=== PATIENT | female | born 1960 | race Caucasian/White ===

== ENCOUNTER 2021-02-08 08:07 | Emergency (ER) | payer MEDICARE, MEDICAID, SELFPAY ==
--- NOTE | ~2021-02-08 | XR_ITS ---
EXAMINATION: XR CHEST CLINICAL INFORMATION: Fall, weakness. COMPARISON: None. TECHNIQUE: AP view of the chest was obtained. FINDINGS: The patient is significantly rotated which limits this evaluation. Accounting for these limitations, no definite focal airspace opacities, pleural effusions or pneumothorax are identified. No acute osseous abnormalities. XR/XR chest 1V IMPRESSION: Examination is markedly limited due to patient's positioning. Recommend a repeat study with improved technique. Although, overall, no definite abnormalities are identified.
--- NOTE | ~2021-02-08 | CT_ITS ---
Indication: Trauma EXAMINATION: CT brain, CT cervical spine. Axial imaging with coronal and sagittal reformatted images. This CT examination was performed using dose optimization techniques as appropriate, variously including the following: *Automated exposure control *Adjustment of mA and/or kV according to patient size (this includes techniques or standardized protocols for targeted exams where dose is matched to indication/reason for exam; i.e. extremities or head) *Use of iterative reconstruction technique. Radiation dose is [address] brain; There is no midline shift. There is no mass effect. There is no hemorrhage. The basal cisterns appear patent. The posterior fossa is grossly within normal limits. There is no extra-axial collection. Low attenuation in the parietal white matter may represent white matter ischemic change. No mass effect in the region. There is no fracture on the bone windows. Cervical spine CT; Some limitation from artifact.. Degenerative changes. No convincing evidence for an acute fracture or dislocation. CT/CT head/brain wo con IMPRESSION: Negative acute noncontrast CT of the brain. No acute fracture or dislocation of the cervical spine.
--- NOTE | ~2021-02-08 | XR_ITS ---
EXAMINATION: XR KNEE, RIGHT CLINICAL INFORMATION: Knee pain. COMPARISON: None TECHNIQUE: Four views of the right knee. FINDINGS: Prosthetic components of the right total knee arthroplasty are appropriately aligned without periprosthetic fracture or lucency. No component migration. No joint effusion. XR/XR knee RT 4V IMPRESSION: Appropriate alignment of the right total knee arthroplasty without evidence of complications. No acute fractures or malalignment.
--- NOTE | ~2021-02-08 | CT_ITS ---
Indication: Trauma EXAMINATION: CT brain, CT cervical spine. Axial imaging with coronal and sagittal reformatted images. This CT examination was performed using dose optimization techniques as appropriate, variously including the following: *Automated exposure control *Adjustment of mA and/or kV according to patient size (this includes techniques or standardized protocols for targeted exams where dose is matched to indication/reason for exam; i.e. extremities or head) *Use of iterative reconstruction technique. Radiation dose is [address] brain; There is no midline shift. There is no mass effect. There is no hemorrhage. The basal cisterns appear patent. The posterior fossa is grossly within normal limits. There is no extra-axial collection. Low attenuation in the parietal white matter may represent white matter ischemic change. No mass effect in the region. There is no fracture on the bone windows. Cervical spine CT; Some limitation from artifact.. Degenerative changes. No convincing evidence for an acute fracture or dislocation. CT/CT cervical spine wo con IMPRESSION: Negative acute noncontrast CT of the brain. No acute fracture or dislocation of the cervical spine.
--- NOTE | 2021-02-08 08:12 | ECG_ITS ---
Test Reason : general medicine Blood Pressure : / mmHG Vent. Rate : 077 BPM Atrial Rate : 077 BPM P-R Int : 154 ms QRS Dur : 098 ms QT Int : 404 ms P-R-T Axes : 066 051 059 degrees QTc Int : 457 ms Normal sinus rhythm Low voltage QRS Cannot rule out septal infarct abnormal ECG No previous ECGs available Referred By: Ellyn Chaves Electronically Signed By:Chucky Sheehan
--- NOTE | 2021-02-08 08:19 | ED_ITS ---
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 She is coming from a shelter facility. She is only complaining of right knee pain. It appears as though patient is lethargic, slow to answer questions. no evidence signs of trauma upon arrival. Unsure of patient hit her head or lost consciousness with any of these falls, this was not related to us. Patient does not recall. Not on blood thinners. denies chest pain, shortness of breath, fevers, chills, nausea, vomiting, weakness, dizziness, vision changes MD complaint: other (Falls, Lethargy ) Onset (ago): day(s) (1) Severity: severe Consistency of symptoms: unknown Associated symptoms: other (right knee pain) Related Data Home Medications Medication Instructions Recorded Confirmed acetaminophen 500 mg tablet 1,000 mg PO TID 02/08/21 02/08/21 amlodipine 5 mg tablet 1 tab PO DAILY@0500 02/08/21 02/08/21 cholecalciferol (vitamin D3) 1,250 1,250 mcg PO QMONTH@1800 02/08/21 02/08/21 mcg (50,000 unit) tablet clozapine 100 mg tablet 250 mg PO BEDTIME 02/08/21 02/08/21 clozapine 25 mg tablet 25 mg PO DAILY 02/08/21 02/08/21 diazepam 5 mg tablet 2.5 mg PO DAILY@0600 02/08/21 02/08/21 diazepam 5 mg tablet 5 mg PO BID@1000,1300 02/08/21 02/08/21 duloxetine 60 mg capsule,delayed 60 mg PO DAILY 02/08/21 02/08/21 release famotidine 20 mg tablet 20 mg PO DAILY PRN 02/08/21 02/08/21 fluticasone 500 mcg-salmeterol 50 1 puff INHALATION BID 02/08/21 02/08/21 mcg/dose blistr powdr for inhalation (Advair Diskus) fluticasone propionate 50 1 spray INTRANASAL DAILY@1300 02/08/21 02/08/21 mcg/actuation nasal spray,suspension lidocaine 4 % topical patch 1 patch TOPICAL DAILY 02/08/21 02/08/21 (Salonpas (lidocaine)) linaclotide 145 mcg capsule 145 mcg PO Q48H 02/08/21 02/08/21 (Linzess) montelukast 10 mg tablet 1 tab PO DAILY@1800 02/08/21 02/08/21 omeprazole 40 mg capsule,delayed 40 mg PO BID 02/08/21 02/08/21 release pregabalin 150 mg capsule 1 cap PO TID 02/08/21 02/08/21 pregabalin 300 mg capsule 1 cap PO BEDTIME 02/08/21 02/08/21 quetiapine 100 mg tablet 100 mg PO BID@0900,1400 02/08/21 02/08/21 quetiapine 300 mg tablet 1 tab PO DAILY@1800 02/08/21 02/08/21 tramadol 50 mg tablet 50 mg PO BID PRN 02/08/21 02/08/21 zonisamide 100 mg capsule 1 cap PO DAILY@1500 02/08/21 02/08/21 Previous Rx's Medication Instructions Recorded nitrofurantoin 100 mg PO BID 7 Days #14 cap 02/08/21 monohydrate/macrocrystals 100 mg capsule (Macrobid) Allergies Allergy/AdvReac Type Severity Reaction Status Date / Time haloperidol [From Haldol] Allergy Unknown Verified 02/08/21 08:35 imipramine Allergy Unknown Verified 02/08/21 08:35 ketorolac Allergy Unknown Verified 02/08/21 08:35 Penicillins Allergy Unknown Verified 02/08/21 08:35 promethazine Allergy Unknown Verified 02/08/21 08:35 Review of Systems Review of Systems: Constitutional : No Weight loss, No Fever, No Chills, No Fatigue, No Malaise ENT/Mouth : No sore throat, No Rhinorrhea Eyes: No Eye Pain, No Swelling, No Redness Cardiovascular : No Chest Pain, No SOB, No Dyspnea on Exertion, No Orthopnea, No Edema, No Palpitations Respiratory : No Cough, No Sputum, No Wheezing Gastrointestinal : No Nausea, No Vomiting, No Diarrhea, No Constipation, No abdominal Pain, No Hematochezia, No Melena Genitourinary : No Dysuria, No Urinary Frequency, No Hematuria, Musculoskeletal : No joint pain, No Myalgias, No Joint Swelling Skin : No Skin Lesions, No rash Neuro : No Weakness, No Numbness, No Dizziness, No Headache All other systems reviewed and are negative Yes all other systems are reviewed and are negative [facility] Past Medical History Attestation statement: The following information was validated with the patient. Source: old records reviewed and nursing notes reviewed Social History Social History Alcohol intake: unknown Patient Tobacco Use Status: Former Tobacco user Use of substances other than those prescribed or required for medical reasons: Unknown Advance Directives: Yes Advance Directives on File: Yes Advance Directives Date on File: 02/08/21 Patient : No Physical Exam Vital Signs: Vital Signs: Last Vital Signs Temp 97.9 F 02/08/21 14:06 Pulse 75 02/08/21 14:06 Resp 16 02/08/21 14:06 BP 104/57 L 02/08/21 14:06 Pulse Ox 96 02/08/21 14:06 BMI result Body Mass Index 26.6 VSS Appearance: Alert.? Oriented X3.? No acute distress.? Patient is slow to respond to questions and appears lethargic. Head: Normocephalic, atraumatic, no step-offs or deformities Eyes: Pupils equal, round and reactive to light.? ENT: Pharynx normal.? Neck: Normal inspection.? Neck supple.? CVS: Normal heart rate and rhythm.? Pulses normal.? Respiratory: No respiratory distress.? Breath sounds normal.? Abdomen: Soft and nontender.? Skin: Skin warm and dry.? Normal skin color.? Normal skin turgor.? Extremities: No lower extremity edema.? No calf ttp. 5/5 strength to bilateral upper and lower extremities. ROM intact to bilateral knees. + large plantar wart to plantar aspect of left foot. Back: No midline tenderness, no C-spine tenderness, full range of motion, no CVA tenderness bilaterally Neuro: Oriented X 3.? No motor deficit.? No sensory deficit. Course Reevaluation(s) Reevaluation #1: Nurse spoke to staff from the nursing facility where she is coming from who tell us that patient is usually alert and oriented x3, she is not usually lethargic, she is usually walking and talking without any issues. She is usually upbeat with energy. Not like her presentation today. They tells that they did not give anything to sedate her. She last received her home meds last night around 6:00 a.m.. They made it clear to the nurse that this is not patient's baseline Time: 08:57 Reevaluation #2: No acute findings on CT of the head/ brain or cervical spine. X-ray of the knee with no acute findings. Chest x-ray is no evident abnormalities, limited due to patient's position/movement. Patient is not coughing, lungs are clear, no need for repeat chest x-ray at this time. Laboratory studies are pending, patient is very tested, phlebotomy was called to try to obtain these labs Time: 10:31 Reevaluation #3: Urine positive for UTI. Will DC with atbx. No acute electrol yte abnormalities. CBC within normal limits. Patient's urinary tract infection likely causing patient to we slightly lethargic, and altered from baseline. Unlikely pyelonephritis, no white blood c ell count, no CVA tenderness. ICH was ruled out. I feel comfortable with discharging patient back to shelter facility with a prescription for antibiotics to treat a UTI. Time: 14:23 MDM - Altered Mental Status MDM Narrative Medical decision making narrative: 824 60 yo F pmhx cerebral infarction, schizoaffective disorder, COPD, dysphagia, asthma, PTSD, factitious d/o opposed on self and essential HTN presents from SNF for multiple falls (3) within 12 hours and right knee pain. Physical examination is significant for a lethargic individual who is slow to answer questions. No evident signs of trauma. Neuro exam nonfocal. Lungs clear. Regular rate and rhythm. 5/5 strength to upper and lower extremities. Plan- Basic labs, point of care, EKG, CT of head / cervical spine, chest x- ray, x-ray of the right knee. Troponin and creatinine kinase. Will also obtain a urine. Medical Records Attestation: I reviewed the patient's medical records. Lab Data Attestation: I reviewed the patient's lab results. Result diagrams: 02/08/21 13:44 02/08/21 13:44 Labs: Lab Results 02/08/21 02/08/21 02/08/21 Range/Units 08:28 13:44 13:44 WBC 5.2 (4.8-10.8) X10*3/uL RBC 4.69 (4.20-5.50) X10*6/uL Hgb 13.9 (12.0-16.0) g/dl Hct 44.9 (37.0-47.0) % MCV 95.7 (80.0-98.0) fL MCH 29.6 (27.0-33.0) pg MCHC 31.0 (31.0-35.0) g/dl RDW 13.4 (11.0-16.0) % Plt Count 185 (160-400) X10*3/uL MPV 10.4 (9.4-12.3) fL Immature Gran % (Auto) 0.4 (0.0-0.4) % Neut % (Auto) 63.4 (45-73) % Lymph % (Auto) 29.0 (20-40) % [place]mons[place] % (Auto) 6.6 (2-11) % Eos % (Auto) 0.2 (0-4) % Baso % (Auto) 0.4 (0-2) % Lymph # (Auto) 1.5 (1.2-4.9) X10*3/uL [place] # (Auto) 0.3 (0.1-1.2) X10*3/uL Eos # (Auto) 0.0 (0.0-0.4) X10*3/uL Baso # (Auto) 0.0 (0.0-0.2) X10*3/uL Abs Immat Gran (auto) 0.02 (0.00-0.03) X10*3/uL Absolute Neuts (auto) 3.3 (2.0-8.3) x10*3/uL Absolute Nucleated RBC 0.000 (0.0-0.012) X10*3/uL Nucleated RBC % (auto) 0.0 (0.0-0.2) /100WBC Sodium 146 H (135-145) mmol/L Potassium 4.3 (3.3-5.1) mmol/L Chloride 112 H (96-108) mmol/L Carbon Dioxide 27 (22-29) mmol/L Anion Gap 11 L (12-20) BUN 13 (9-16) mg/dL Creatinine 0.81 (0.5-1.4) mg/dL Estim Creat Clear Calc 76.3 Estimated GFR > 60 POC Glucose 120 H (60-115) mg/dL Random Glucose 116 H (60-115) mg/dL Calcium 9.4 (8.4-10.2) mg/dL Magnesium 2.2 (1.6-2.6) mg/dL Total Bilirubin 0.3 (0.0-1.0) mg/dL AST 14 (5-31) U/L ALT 14 (0-31) U/L Alkaline Phosphatase 94 (39-117) U/L Total Creatine Kinase 87 (26-140) U/L Troponin I High Sens (<3.5-17.0) ng/L Total Protein 7.0 (6.5-8.0) g/dL Albumin 4.2 (3.5-5.0) g/dL Urine Color Urine Appearance Urine pH (5.0-8.0) Ur Specific [place] (1.005-1.025) Urine Protein (NEG-TRACE) MG/DL Urine Glucose (UA) (NEG) MG/DL Urine Ketones (NEG) MG/DL Urine Blood (NEG) Urine Nitrite (NEG) Ur Leukocyte Esterase (NEG) Urine RBC (0) /HPF Urine WBC (0-4) /HPF Ur Squamous Epith Cells /LPF Urine Bacteria /LPF COVID-19 (SUKHJINDER) (Negative) COVID-19 Clin Com 02/08/21 02/08/21 02/08/21 Range/Units 13:44 13:44 13:44 WBC (4.8-10.8) X10*3/uL RBC (4.20-5.50) X10*6/uL Hgb (12.0-16.0) g/dl Hct (37.0-47.0) % MCV (80.0-98.0) fL MCH (27.0-33.0) pg MCHC (31.0-35.0) g/dl RDW (11.0-16.0) % Plt Count (160-400) X10*3/uL MPV (9.4-12.3) fL Immature Gran % (Auto) (0.0-0.4) % Neut % (Auto) (45-73) % Lymph % (Auto) (20-40) % Edmonson % (Auto) (2-11) % Eos % (Auto) (0-4) % Baso % (Auto) (0-2) % Lymph # (Auto) (1.2-4.9) X10*3/uL Edmonson # (Auto) (0.1-1.2) X10*3/uL Eos # (Auto) (0.0-0.4) X10*3/uL Baso # (Auto) (0.0-0.2) X10*3/uL Abs Immat Gran (auto) (0.00-0.03) X10*3/uL Absolute Neuts (auto) (2.0-8.3) x10*3/uL Absolute Nucleated RBC (0.0-0.012) X10*3/uL Nucleated RBC % (auto) (0.0-0.2) /100WBC Sodium (135-145) mmol/L Potassium (3.3-5.1) mmol/L Chloride (96-108) mmol/L Carbon Dioxide (22-29) mmol/L Anion Gap (12-20) BUN (9-16) mg/dL Creatinine (0.5-1.4) mg/dL Estim Creat Clear Calc Estimated GFR POC Glucose (60-115) mg/dL Random Glucose (60-115) mg/dL Calcium (8.4-10.2) mg/dL Magnesium (1.6-2.6) mg/dL Total Bilirubin (0.0-1.0) mg/dL AST (5-31) U/L ALT (0-31) U/L Alkaline Phosphatase (39-117) U/L Total Creatine Kinase (26-140) U/L Troponin I High Sens < 3.5 (<3.5-17.0) ng/L Total Protein (6.5-8.0) g/dL Albumin (3.5-5.0) g/dL Urine Color YELLOW Urine Appearance HAZY Urine pH 7.0 (5.0-8.0) Ur Specific [place] 1.010 (1.005-1.025) Urine Protein NEG (NEG-TRACE) MG/DL Urine Glucose (UA) NEG (NEG) MG/DL Urine Ketones NEG (NEG) MG/DL Urine Blood TRACE (NEG) Urine Nitrite POS H (NEG) Ur Leukocyte Esterase 3+ H (NEG) Urine RBC 0 (0) /HPF Urine WBC 76-150 H (0-4) /HPF Ur Squamous Epith Cells NONE /LPF Urine Bacteria 4+ /LPF COVID-19 (SUKHJINDER) Negative (Negative) COVID-19 Clin Com See Note Imaging Data CT of head/ brain.: Attestation: I personally reviewed and interpreted this imaging study as follows: Radiologist's impression: CT/CT head/brain wo con IMPRESSION: Negative acute noncontrast CT of the brain. ? No acute fracture or dislocation of the cervical spine. Chest x-ray: Attestation: I personally reviewed and interpreted this imaging study as follows: Radiologist's impression: XR/XR chest 1V IMPRESSION: Examination is markedly limited due to patient's positioning. Recommend a repeat study with improved technique. Although, overall, no definite abnormalities are identified. X-ray of right knee: Attestation: I personally reviewed and interpreted this imaging study as follows: Radiologist's impression: XR/XR knee RT 4V IMPRESSION: Appropriate alignment of the right total knee arthroplasty without evidence of complications. No acute fractures or malalignment. ? ECG Data ECG #1: Attestation: I personally reviewed and interpreted this ECG as follows: ECG interpretation date: 02/08/21 ECG interpretation time: 08:36 Prior ECG tracings: not available for review Interpretation: Ventricular rate of 77, WV normal, QRS normal, QT / QTC normal. EKG shows normal sinus rhythm, with low voltage. No ST elevations or inversions. No acute ischemia. No previous EKGs to compare with. Critical Care Time Critical Care Time Critical Care Time: No Discharge Plan Discharge Clinical Impression: Urinary tract infection, Lethargy, Right knee pain Patient Disposition: Home, Self-Care Instructions: Fatigue (ED), Arthralgia (ED), Urinary Tract Infection in Older Adults (ED) Additional Instructions: Take your medications as prescribed. If you were prescribed antibiotics today, it is important that you take your medication to their entirety, do not skip any doses, do not finish them early. Follow-up with your primary care provider this week. Return to the emergency department with new or worsening symptoms. In case of emergency call 911 COVID-19 negative today. Prescriptions: New nitrofurantoin monohyd/m-cryst [Macrobid] 100 mg capsule 100 mg PO BID 7 Days Qty: 14 RF: 0 No Action quetiapine 300 mg tablet 1 tab PO DAILY@1800 RF: 0 lidocaine [Salonpas (lidocaine)] 4 % Adhesive Patch,Medicated 1 patch TOPICAL DAILY RF: 0 clozapine 100 mg Tablet 250 mg PO BEDTIME RF: 0 amlodipine 5 mg tablet 1 tab PO DAILY@0500 RF: 0 omeprazole 40 mg capsule,delayed release(DR/EC) 40 mg PO BID RF: 0 tramadol 50 mg Tablet 50 mg PO BID PRN (Reason: Severe Pain (Scale Score 7-10)) RF: 0 quetiapine 100 mg tablet 100 mg PO BID@0900,1400 RF: 0 acetaminophen 500 mg Tablet 1,000 mg PO TID RF: 0 zonisamide 100 mg capsule 1 cap PO DAILY@1500 RF: 0 famotidine 20 mg Tablet 20 mg PO DAILY PRN (Reason: gi distress) RF: 0 fluticasone propion-salmeterol [Advair Diskus] 500-50 mcg/dose blister with device 1 puff inhalation BID RF: 0 montelukast 10 mg tablet 1 tab PO DAILY@1800 RF: 0 clozapine 25 mg Tablet 25 mg PO DAILY RF: 0 fluticasone propionate 50 mcg/actuation spray,suspension 1 spray intranasal DAILY@1300 RF: 0 diazepam 5 mg Tablet 2.5 mg PO DAILY@0600 RF: 0 diazepam 5 mg tablet 5 mg PO BID@1000,1300 RF: 0 duloxetine 60 mg capsule,delayed release(DR/EC) 60 mg PO DAILY RF: 0 pregabalin 150 mg capsule 1 cap PO TID RF: 0 pregabalin 300 mg capsule 1 cap PO BEDTIME RF: 0 cholecalciferol (vitamin D3) 1,250 mcg (50,000 unit) Tablet 1,250 mcg PO QMONTH@1800 RF: 0 Linzess 145 mcg capsule 145 mcg PO Q48H RF: 0 Referrals: Heather Villasenor MD [Primary Care Provider] - 2 days
--- NOTE | 2021-02-08 08:29 | PC.NURSE ---
Maria L HAYNES at [facility] states that baseline is axox4, ambulatory w/o assist. speech at baseline is clear and normal . fell x 3 overnight, this am staff couldn't wake patient for meds. no overnight PRNs.
[2021-02-08 08:39] VITALS: BP 111/51; BP 127/91; PULSE 80; PULSE 85; RESP 18; TEMP 36.6; O2SAT 95; O2SAT 98; BMI 26.6
[2021-02-08 08:47] LABS: Glucose, Whole Blood 120 mg/dL (60-115)
--- NOTE | 2021-02-08 09:09 | PHA.MEDREC ---
Pharmacy Consult ? Medication Reconciliation Pharmacy has completed the medication reconciliation. Patient came from [facility] with a medication list. Rachel Gutierrez, LizandroD
--- NOTE | 2021-02-08 09:48 | PC.NURSE ---
pt is a very difficult stick. falls asleep between IV attempts.
[2021-02-08 10:00] VITALS: BP 120/60; PULSE 71; RESP 18; O2SAT 98
--- NOTE | 2021-02-08 11:13 | PC.NURSE ---
pt has been a difficult stick. provider is now attempting IV access. pt is sleeping between interventions and difficult to arouse at times. Pupils 5mm and reactive equally.
--- NOTE | 2021-02-08 13:30 | PC.NURSE ---
pt found ambulating to BR. alert, speech is clear and rapid, states she has to pee . is somewhat unsteady on feet but states she usess walker at facilty. Voided over 1000ml. cloudy urine. assisted back to bed. will attempt labs again.
[2021-02-08 13:43] VITALS: BP 109/61; PULSE 73; RESP 18; TEMP 36.5; O2SAT 98
[2021-02-08 13:51] LABS: MANUAL DIFF FLAG NO
[2021-02-08 13:52] LABS: Basophils Percent Auto 0.4 % (0-2); Eosinophils Percent Auto 0.2 % (0-4); Hematocrit 44.9 % (37.0-47.0); Hemoglobin 13.9 g/dl (12.0-16.0); Imm Gran Abs Auto 0.02 X10*3/uL (0.00-0.03); Imm Gran Pct Auto 0.4 % (0.0-0.4); Lymphocytes Absolute Auto 1.5 X10*3/uL (1.2-4.9); Mean Corpuscular Hemoglobin 29.6 pg (27.0-33.0); Mean Corpuscular Volume 95.7 fL (80.0-98.0); Mean Platelet Volume 10.4 fL (9.4-12.3); Monocytes Absolute Auto 0.3 X10*3/uL (0.1-1.2); Monocytes Percent Auto 6.6 % (2-11); Neutrophils Absolute Auto 3.3 x10*3/uL (2.0-8.3); Neutrophils Percent Auto 63.4 % (45-73); Platelet Count 185 X10*3/uL (160-400); Red Blood Count 4.69 X10*6/uL (4.20-5.50); Red Cell Distribution Width 13.4 % (11.0-16.0); White Blood Count 5.2 X10*3/uL (4.8-10.8)
[2021-02-08 14:00] LABS: Appearance Urine HAZY; Color Urine YELLOW; Glucose Urine UA NEG (NEG); Leukocyte Esterase Urine 3+ (NEG); Nitrite Urine POS (NEG); UACC Culture Trigger YES; Urine Blood TRACE (NEG); Urine Ketones NEG (NEG); Urine Protein NEG (NEG-TRACE)
[2021-02-08 14:06] VITALS: BP 104/57; PULSE 75; RESP 16; TEMP 36.6; O2SAT 96
[2021-02-08 14:07] LABS: COVID-19 Test Negative (Negative)
[2021-02-08 14:10] LABS: Alanine Aminotransferase 14 U/L (0-31); Albumin Level 4.2 g/dL (3.5-5.0); Alkaline Phosphatase 94 U/L (39-117); Anion Gap 11 (12-20); Aspartate Amino Transferase 14 U/L (5-31); Bilirubin Total 0.3 mg/dL (0.0-1.0); Blood Urea Nitrogen 13 mg/dL (9-16); Calcium 9.4 mg/dL (8.4-10.2); Carbon Dioxide 27 mmol/L (22-29); Chloride 112 mmol/L (96-108); Creatinine Clr Calc Pharmacy 76.3; Estimated Glomerular Filt Rate > 60; Glucose Random 116 mg/dL (60-115); Magnesium 2.2 mg/dL (1.6-2.6); Potassium 4.3 mmol/L (3.3-5.1); Sodium 146 mmol/L (135-145)
[2021-02-08 14:13] LABS: Bacteria Urine 4+ /LPF; Troponin-I High Sensitivity < 3.5 ng/L (<3.5-17.0)
[2021-02-08 14:14] LABS: RBC Urine 0 /HPF (0)
--- NOTE | 2021-02-08 14:42 | PC.NURSE ---
mission care called. no one answering.
--- NOTE | 2021-02-08 14:44 | PC.NURSE ---
rn to rn herber haji at [facility]
--- NOTE | 2021-02-08 15:18 | PC.NURSE ---
awaiting transportation
--- NOTE | 2021-02-08 15:37 | PC.NURSE ---
alert and oriented at discharge.
== END 2021-02-08 15:37 | disposition home or self-care (01) ==
PROVIDERS: Physician Assistant; Emergency Provider Emergency Medicine; PCP Internal Medicine
DX: M25.561 Pain in right knee (principal); N39.0 Urinary tract infection, site not specified; R53.83 Other fatigue; R51.9 Headache, unspecified; M54.2 Cervicalgia; Z20.822 Contact with and (suspected) exposure to COVID-19; Z87.891 Personal history of nicotine dependence; Z79.899 Other long term (current) drug therapy; Z91.81 History of falling
CPT/HCPCS: 36415; 70450; 71045; 72125; 73564; 80053; 81001; 81003; 82550; 82947; 83735; 84484; 85025; 87086; 87088; 87186; 87635; 93005; 96360; 99284

== ENCOUNTER 2022-01-04 18:10 | Inpatient (IN) | payer MEDICARE, MEDICAID, SELFPAY ==
[2022-01-04] VITALS (24 sets, daily range): BP systolic 72–135; BP diastolic 34–80; PULSE 74–110; RESP 16–30; TEMP 36; O2SAT 86–100; BMI 35.4; BMI 37.1
--- NOTE | ~2022-01-04 | XR_ITS ---
EXAMINATION: XR CHEST CLINICAL INFORMATION: 61-year-old female with history of shortness of breath. Follow-up lung abnormality. COMPARISON: CXR from 01/10/2022 TECHNIQUE: Frontal view of the chest was obtained. FINDINGS: The patient is rotated into a left anterior oblique position. The aeration of the left lung remains significantly improved compared 01/04/2022. The left diaphragm is well-defined. There is persistent opacity of the right lower lung and blunted appearance of the lateral costophrenic sulcus. The right lung is hypoexpanded. The aeration of the right lower lung is mildly improved compared to 01/10/2022. The cardiomediastinal silhouette is suboptimally evaluated due to patient rotation. Pulmonary vessels are normal in caliber. 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 XR/XR chest 1V IMPRESSION: * Nonspecific opacity from atelectasis or potentially pneumonia in the right lower lobe. The aeration of the right lower lung is mildly improved compared to 01/10/2022. * There appears to be a small right pleural effusion.
--- NOTE | ~2022-01-04 | XR_ITS ---
EXAMINATION: XR CHEST CLINICAL INFORMATION: Pneumonia follow-up COMPARISON: Chest x-ray January 04, 2022 TECHNIQUE: Frontal view of the chest was obtained. FINDINGS: Cardiac silhouette is normal in size. Interval extubation and removal of enteric tubes. Similar positioning of right-sided jugular catheter which is abnormal in position, possibly terminating within the right axillary vein. Hypoinflated lungs. Mild interval improvement in aeration of the left lung base. Mild bibasilar opacities are nonspecific but most suggestive of atelectasis. A small amount of fluid is suspected within the left fissure. Scoliotic and degenerative changes of the spine. XR/XR chest 1V IMPRESSION: 1. Interval extubation and removal of enteric tubes. 2. Similar positioning of right-sided jugular catheter which is abnormal in position, possibly terminating within the right axillary vein. Clinical correlation recommended. Repositioning may be required. 3. Mild interval improvement in aeration of the left lung base.
--- NOTE | ~2022-01-04 | XR_ITS ---
EXAMINATION: XR CHEST CLINICAL INFORMATION: Line placement COMPARISON: 01/04/2022 5:56 PM TECHNIQUE: Frontal view of the chest was obtained. FINDINGS: ET tube present 3.2 cm above the danielle. An NG tube has its tip in the stomach. What appears to be a right internal jugular line has its tip in the axillary vein. There is been dramatic improvement in appearances in the left lung with now near total aeration aside from some lobe atelectasis. Biconvex thoracolumbar scoliosis with degenerative changes in the spine. XR/XR chest 1V IMPRESSION: 1. What appears to be a right internal jugular line has its tip in the axillary vein. 2. ET tube 3.2 cm above the danielle. 3. NG tube in good position. 4. Marked improvement in left lung aeration
--- NOTE | ~2022-01-04 | XR_ITS ---
EXAMINATION: XR CHEST CLINICAL INFORMATION: Tube placement COMPARISON: 02/08/2021 TECHNIQUE: Frontal view of the chest was obtained. FINDINGS: An ET tube is present 2.5 cm above the danielle. There is volume loss in the left hemithorax with diffuse airspace opacity with air bronchograms. The right lung is clear. Thoracolumbar scoliosis and degenerative changes are present. XR/XR chest 1V IMPRESSION: 1. ET tube 2.5 cm above the danielle. 2. Volume loss left hemithorax with diffuse airspace opacity.
--- NOTE | ~2022-01-04 | XR_ITS ---
EXAMINATION: XR CHEST CLINICAL INFORMATION: Dyspnea, rule out aspiration. COMPARISON: 01/06/2022 chest radiograph. TECHNIQUE: Frontal view of the chest was obtained. FINDINGS: Opacities are seen in the right lower lung. The left lung is clear. The heart and mediastinal structures are unremarkable. XR/XR chest 1V IMPRESSION: Opacities in the right lower lung represent interval worsening from the previous study and suggest a small right pleural effusion with superjacent layering, atelectasis and/or infiltrate.
--- NOTE | 2022-01-04 08:28 | ECG_ITS ---
Test Reason : CASRDIAC ARREST Blood Pressure : / mmHG Vent. Rate : 104 BPM Atrial Rate : 104 BPM P-R Int : 144 ms QRS Dur : 096 ms QT Int : 366 ms P-R-T Axes : 075 087 058 degrees QTc Int : 481 ms Poor data quality Sinus tachycardia Possible Left atrial enlargement Low voltage QRS Intra-ventricular conduction delay Abnormal ECG When compared with ECG of 08-FEB-2021 08:36, Heart rate has increased Referred By: Derek Hidalgo Electronically Signed By:IZABEL GAGE MD
[2022-01-04 18:33] LABS: Glucose, Whole Blood 151 mg/dL (60-115)
[2022-01-04] MEDS: propofoL 200 MG/20 ML VIAL 75 MG IVPUSH (19:12)
--- NOTE | 2022-01-04 19:23 | PC.NURSE ---
per MD leyva- central line ok to use at this time.
[2022-01-04] MEDS: propofoL 1,000 MG/100 ML VIAL 3.33 MG IVCONT (19:25)
--- NOTE | 2022-01-04 19:30 | PC.NURSE ---
Labs drawn off of central line.
--- NOTE | 2022-01-04 19:33 | PC.NURSE ---
Care of patient assumed at 1900. Patient found lying supine in stretcher while MD places central line to right neck. O2 saturations while flat are [id number] 70s%. Propofol running through IO at 5mcg/kg/min. Central line complete and tube/central line verified by placement by MD Sanket LOCKETT to use line now. Arredondo placed. BPs low so levo initiated. Patient boosted, repositioned, and saturations increase to 92-94% on 100% fio2. patient cool to touch, mottled. labs sent.
[2022-01-04 19:43] LABS: Basophils Percent Auto 0.3 % (0-2); Hematocrit 42.5 % (37.0-47.0); Hemoglobin 13.2 g/dl (12.0-16.0); Imm Gran Abs Auto 0.12 X10*3/uL (0.00-0.03); Imm Gran Pct Auto 1.1 % (0.0-0.4); Lymphocytes Absolute Auto 1.6 X10*3/uL (1.2-4.9); Lymphocytes Percent Auto 14.6 % (20-40); Mean Corpuscular HGB Conc 31.1 g/dl (31.0-35.0); Mean Corpuscular Hemoglobin 28.9 pg (27.0-33.0); Monocytes Absolute Auto 0.6 X10*3/uL (0.1-1.2); Monocytes Percent Auto 5.3 % (2-11); Neutrophils Absolute Auto 8.5 x10*3/uL (2.0-8.3); Neutrophils Percent Auto 78.7 % (45-73); Platelet Count 165 X10*3/uL (160-400); Red Blood Count 4.57 X10*6/uL (4.20-5.50); Red Cell Distribution Width 15.5 % (11.0-16.0); White Blood Count 10.8 X10*3/uL (4.8-10.8)
[2022-01-04 19:55] LABS: VBG Base Excess -1.6 mmol/L; VBG HCO3 26 mmol/L (22-26); VBG pCO2 59 mmHg; VBG pH 7.25 (7.32-7.43); VBG pO2 66 mmHg
[2022-01-04 19:57] LABS: Venous Blood Gas Refer to POC result
[2022-01-04 19:59] LABS: Lactic Acid 1.3 mmol/L (0.5-2.0)
[2022-01-04 20:02] LABS: Anion Gap 18 (12-20); Blood Urea Nitrogen 13 mg/dL (9-16); Calcium 8.6 mg/dL (8.4-10.2); Carbon Dioxide 22 mmol/L (22-29); Chloride 106 mmol/L (96-108); Creatinine Clr Calc Pharmacy 95.2; Estimated Glomerular Filt Rate > 60; Glucose Random 173 mg/dL (60-115); Potassium 3.6 mmol/L (3.3-5.1); Sodium 142 mmol/L (135-145)
--- NOTE | 2022-01-04 20:02 | ED.CPR ---
HPI - CPR General Chief Complaint: Cardiac Arrest/CPR Stated Complaint: CARDIAC ARREST Time Seen by Provider: 01/04/22 18:26 Source: EMS, RN notes reviewed and old records reviewed Mode of arrival: EMS Limitations: altered mental status History of Present Illness HPI narrative: 61-year-old female from a local detention presents to the emergency department today status post cardiopulmonary arrest. The patient was eating dinner and aspirated, prompting a cardiopulmonary arrest. The patient did receive CPR from staff members, and upon EMS arrival, the patient was breathing, and had a pulse, although her respiratory rate was only approximately 4. The patient was placed on a bag-valve mask, and transported to the hospital. An IO was started, but only IV fluids were given. HPI, review of systems, and physical exam may be limited secondary to the patient's critical illness MD complaint: found unresponsive and stopped breathing Timing confirmed by: caregiver Place: ND/SNF Bystander CPR performed: Yes AED applied by bystander/rim roller setter: No Downtime before ACLS arrival (mins): 5 Initial findings in the field: unresponsive and good pulses ROSC in the field: Yes Associated injuries: No Treatments prior to arrival: BMV Related Data Home Medications Medication Instructions Recorded Confirmed acetaminophen 500 mg tablet 1,000 mg PO TID 02/08/21 02/08/21 amlodipine 5 mg tablet 1 tab PO DAILY@0500 02/08/21 02/08/21 cholecalciferol (vitamin D3) 1,250 1,250 mcg PO QMONTH@1800 02/08/21 02/08/21 mcg (50,000 unit) tablet clozapine 100 mg tablet 250 mg PO BEDTIME 02/08/21 02/08/21 clozapine 25 mg tablet 25 mg PO DAILY 02/08/21 02/08/21 diazepam 5 mg tablet 2.5 mg PO DAILY@0600 02/08/21 02/08/21 diazepam 5 mg tablet 5 mg PO BID@1000,1300 02/08/21 02/08/21 duloxetine 60 mg capsule,delayed 60 mg PO DAILY 02/08/21 02/08/21 release famotidine 20 mg tablet 20 mg PO DAILY PRN gi distress 02/08/21 02/08/21 fluticasone 500 mcg-salmeterol 50 1 puff inhalation BID 02/08/21 02/08/21 mcg/dose blistr powdr for inhalation (Advair Diskus) fluticasone propionate 50 1 spray intranasal DAILY@1300 02/08/21 02/08/21 mcg/actuation nasal spray,suspension lidocaine 4 % topical patch 1 patch topical DAILY Upper right 02/08/21 02/08/21 (Salonpas (lidocaine)) thigh linaclotide 145 mcg capsule 145 mcg PO Q48H 02/08/21 02/08/21 (Linzess) montelukast 10 mg tablet 1 tab PO DAILY@1800 02/08/21 02/08/21 omeprazole 40 mg capsule,delayed 40 mg PO BID 02/08/21 02/08/21 release pregabalin 150 mg capsule 1 cap PO TID 02/08/21 02/08/21 pregabalin 300 mg capsule 1 cap PO BEDTIME 02/08/21 02/08/21 quetiapine 100 mg tablet 100 mg PO BID@0900,1400 02/08/21 02/08/21 quetiapine 300 mg tablet 1 tab PO DAILY@1800 02/08/21 02/08/21 tramadol 50 mg tablet 50 mg PO BID PRN Severe Pain 02/08/21 02/08/21 (Scale Score 7-10) zonisamide 100 mg capsule 1 cap PO DAILY@1500 02/08/21 02/08/21 Previous Rx's Medication Instructions Recorded nitrofurantoin 100 mg PO BID 7 days #14 caps 02/08/21 monohydrate/macrocrystals 100 mg capsule (Macrobid) Allergies Allergy/AdvReac Type Severity Reaction Status Date / Time haloperidol [From Haldol] Allergy Unknown Verified 02/08/21 08:35 imipramine Allergy Unknown Verified 02/08/21 08:35 ketorolac Allergy Unknown Verified 02/08/21 08:35 Penicillins Allergy Unknown Verified 02/08/21 08:35 promethazine Allergy Unknown Verified 02/08/21 08:35 Review of Systems Review of Systems: Yes Unobtainable due to mental condition PMFSH Past Medical History Source: unable to obtain Social History Social History Alcohol intake: unknown Patient Tobacco Use Status: Former Tobacco user Advance Directives: Yes Advance Directives Information Provided: No Advance Directives on File: No Advance Directives Date on File: 02/08/21 Physical Exam Vital Signs: Vital Signs: Last Vital Signs Pulse 86 01/04/22 19:52 Resp 29 H 01/04/22 19:43 BP 81/34 L 01/04/22 20:10 Pulse Ox 96 01/04/22 19:43 O2 Del Method 01/04/22 19:42 FiO2 100 01/04/22 19:42 BMI result Body Mass Index 37.1 Vital signs as noted. the patient is markedly hypertensive Const: General: in distress and patient obtunded Nutritional Appearance: obese morbidly obese Orientation/consciousness: patient obtunded Limitations: altered mental status HEENT: Head: Yes normal to inspection, Yes normocephalic and Yes atraumatic Ears: hearing grossly normal bilaterally General nose exam: Normal external nose present Face and sinus: Yes normal facial exam Eyes: Conjunctivae: conjunctivae normal Sclerae: sclerae normal Pupils: Equal, round and reactive pupils present Neck: Neck: Yes normal visual inspection Chest: Chest palpation & inspection: normal inspection of the chest and no crepitus Resp: Other: Respirations assisted by bag-valve mask Cardio: Rate: regular rate Rhythm: regular rhythm GI: Inspection: Yes normal to inspection and No abdominal wall ecchymosis Skin: General skin exam: no mottling, no petechiae and pallor Neuro: Other: Unresponsive General: patient obtunded Cranial nerves: Yes Equal, round and reactive pupils present Medications Administered Generic Name Dose Route Start Last Admin Trade Name Freq PRN Reason Stop Dose Admin Propofol 1,000 mg in 100 mls @ 0 mls/hr 01/04/22 19:30 01/04/22 19:43 Diprivan IVCONT 10 mcg/kg/min .Q0M SADA 6.65 mls/hr Titration Protocol Per Protocol Norepinephrine Bitartrate 8 mg in 250 mls @ 0 mls/hr 01/04/22 19:30 01/04/22 20:10 Levophed IVCONT 0.11 mcg/kg/min .Q0M SADA 22.87 mls/hr Titration Protocol Per Protocol Discontinued Medications Generic Name Dose Route Start Last Admin Trade Name Freq PRN Reason Stop Dose Admin Propofol 75 mg 01/04/22 19:06 01/04/22 19:12 Propofol 200 Mg/20 Ml Vial IVPUSH 01/04/22 19:07 75 mg ONCE ONE Administration Rocuronium [place] 100 mg 01/04/22 19:07 01/04/22 19:12 Rocuronium [place] 100 Mg/10 Ml Vial IV 01/04/22 19:08 100 mg Q2H ONE Administration MDM - Cardiac Arrest/CPR MDM Narrative Medical decision making narrative: 61-year-old female presented in extremis status post cardiopulmonary arrest. The patient received CPR prior to arrival. In the emergency department, the patient was intubated, a right IJ was placed using ultrasound guidance. The patient was treated with propofol IV for sedation, as well as rocuronium for paralysis to assist in the intubation. Chest x-ray as documented below. EKG as documented below. The patient will be admitted to the ICU for additional management. Medical Records Attestation: I reviewed the patient's medical records. Lab Data Attestation: I reviewed the patient's lab results. Result diagrams: 01/04/22 19:30 01/04/22 19:30 Labs: Lab Results 01/04/22 01/04/22 01/04/22 Range/Units 18:29 19:30 19:30 WBC 10.8 (4.8-10.8) X10*3/uL RBC 4.57 (4.20-5.50) X10*6/uL Hgb 13.2 (12.0-16.0) g/dl Hct 42.5 (37.0-47.0) % MCV 93.0 (80.0-98.0) fL MCH 28.9 (27.0-33.0) pg MCHC 31.1 (31.0-35.0) g/dl RDW 15.5 (11.0-16.0) % Plt Count 165 (160-400) X10*3/uL MPV 11.0 (9.4-12.3) fL Immature Gran % (Auto) 1.1 H (0.0-0.4) % Neut % (Auto) 78.7 H (45-73) % Lymph % (Auto) 14.6 L (20-40) % [place] % (Auto) 5.3 (2-11) % Eos % (Auto) 0.0 (0-4) % Baso % (Auto) 0.3 (0-2) % Lymph # (Auto) 1.6 (1.2-4.9) X10*3/uL [place] # (Auto) 0.6 (0.1-1.2) X10*3/uL Eos # (Auto) 0.0 (0.0-0.4) X10*3/uL Baso # (Auto) 0.0 (0.0-0.2) X10*3/uL Abs Immat Gran (auto) 0.12 H (0.00-0.03) X10*3/uL Absolute Neuts (auto) 8.5 H (2.0-8.3) x10*3/uL Absolute Nucleated RBC 0.000 (0.0-0.012) X10*3/uL Nucleated RBC % (auto) 0.0 (0.0-0.2) /100WBC VBG pH (7.32-7.43) VBG pCO2 mmHg VBG pO2 mmHg VBG HCO3 (22-26) mmol/L VBG O2 Saturation % VBG Base Excess mmol/L Sodium 142 (135-145) mmol/L Potassium 3.6 (3.3-5.1) mmol/L Chloride 106 (96-108) mmol/L Carbon Dioxide 22 (22-29) mmol/L Anion Gap 18 (12-20) BUN 13 (9-16) mg/dL Creatinine 0.81 (0.5-1.4) mg/dL Estim Creat Clear Calc 95.2 Estimated GFR > 60 POC Glucose 151 H (60-115) mg/dL Random Glucose 173 H (60-115) mg/dL Lactic Acid (0.5-2.0) mmol/L Calcium 8.6 D (8.4-10.2) mg/dL Troponin I High Sens (<3.5-17.0) ng/L 01/04/22 01/04/22 01/04/22 Range/Units 19:30 19:30 19:41 WBC (4.8-10.8) X10*3/uL RBC (4.20-5.50) X10*6/uL Hgb (12.0-16.0) g/dl Hct (37.0-47.0) % MCV (80.0-98.0) fL MCH (27.0-33.0) pg MCHC (31.0-35.0) g/dl RDW (11.0-16.0) % Plt Count (160-400) X10*3/uL MPV (9.4-12.3) fL Immature Gran % (Auto) (0.0-0.4) % Neut % (Auto) (45-73) % Lymph % (Auto) (20-40) % [place] % (Auto) (2-11) % Eos % (Auto) (0-4) % Baso % (Auto) (0-2) % Lymph # (Auto) (1.2-4.9) X10*3/uL [place] # (Auto) (0.1-1.2) X10*3/uL Eos # (Auto) (0.0-0.4) X10*3/uL Baso # (Auto) (0.0-0.2) X10*3/uL Abs Immat Gran (auto) (0.00-0.03) X10*3/uL Absolute Neuts (auto) (2.0-8.3) x10*3/uL Absolute Nucleated RBC (0.0-0.012) X10*3/uL Nucleated RBC % (auto) (0.0-0.2) /100WBC VBG pH 7.25 L (7.32-7.43) VBG pCO2 59 mmHg VBG pO2 66 mmHg VBG HCO3 26 (22-26) mmol/L VBG O2 Saturation 89.0 % VBG Base Excess -1.6 mmol/L Sodium (135-145) mmol/L Potassium (3.3-5.1) mmol/L Chloride (96-108) mmol/L Carbon Dioxide (22-29) mmol/L Anion Gap (12-20) BUN (9-16) mg/dL Creatinine (0.5-1.4) mg/dL Estim Creat Clear Calc Estimated GFR POC Glucose (60-115) mg/dL Random Glucose (60-115) mg/dL Lactic Acid 1.3 (0.5-2.0) mmol/L Calcium (8.4-10.2) mg/dL Troponin I High Sens < 3.5 (<3.5-17.0) ng/L 01/04/ Range/Units 20:10 WBC (4.8-10.8) X10*3/uL RBC (4.20-5.50) X10*6/uL Hgb (12.0-16.0) g/dl Hct (37.0-47.0) % MCV (80.0-98.0) fL MCH (27.0-33.0) pg MCHC (31.0-35.0) g/dl RDW (11.0-16.0) % Plt Count (160-400) X10*3/uL MPV (9.4-12.3) fL Immature Gran % (Auto) (0.0-0.4) % Neut % (Auto) (45-73) % Lymph % (Auto) (20-40) % [place] % (Auto) (2-11) % Eos % (Auto) (0-4) % Baso % (Auto) (0-2) % Lymph # (Auto) (1.2-4.9) X10*3/uL [place] # (Auto) (0.1-1.2) X10*3/uL Eos # (Auto) (0.0-0.4) X10*3/uL Baso # (Auto) (0.0-0.2) X10*3/uL Abs Immat Gran (auto) (0.00-0.03) X10*3/uL Absolute Neuts (auto) (2.0-8.3) x10*3/uL Absolute Nucleated RBC (0.0-0.012) X10*3/uL Nucleated RBC % (auto) (0.0-0.2) /100WBC VBG pH 7.27 L (7.32-7.43) VBG pCO2 52 mmHg VBG pO2 79 mmHg VBG HCO3 24 (22-26) mmol/L VBG O2 Saturation 95.0 % VBG Base Excess -2.8 mmol/L Sodium (135-145) mmol/L Potassium (3.3-5.1) mmol/L Chloride (96-108) mmol/L Carbon Dioxide (22-29) mmol/L Anion Gap (12-20) BUN (9-16) mg/dL Creatinine (0.5-1.4) mg/dL Estim Creat Clear Calc Estimated GFR POC Glucose (60-115) mg/dL Random Glucose (60-115) mg/dL Lactic Acid (0.5-2.0) mmol/L Calcium (8.4-10.2) mg/dL Troponin I High Sens (<3.5-17.0) ng/L Imaging Data Chest x-ray: My impression: Left lung opacity consistent with atelectasis versus aspiration ECG Data Attestation: I personally reviewed and interpreted this ECG as follows: ECG interpretation date: 01/04/22 ECG interpretation time: 18:20 Interpretation: EKG shows a sinus tachycardia at 104 with a normal ID interval, normal QRS and QTC durations, axis is normal. Poor R-wave progression across the anterior leads is noted. There is also pulmonary hypertension. Procedures Central Line Placement Right IJ: Time Out Performed: Yes Patient Placed on Monitor/Pulse Ox: Yes MD Prep: mask, gown and gloves Central Line Prep: Chlorhexidine scrub Local Anesthetic: lidocaine 1% Ultrasound Used for Placement: Yes Central Line Lumen Inserted: triple Post Procedure: sutured in place, good blood return, all ports aspirated, flushed, capped and sterile dressing applied Post Procedure X-Ray: tip of catheter in good position (Tip catheter noted to be in the right brachiocephalic vein) and no pneumothorax seen Complications: catheter malposition Intubation Time out performed: Yes sedative: none paralytic: Rocuronium Laryngoscope: fiber optic video scope Assist Device Used: fiber optic device ET Tube Size: 7.5 ET Tube Uncuffed: No Tube Secured Depth (cm): 23 Tube Secured Location: lips Tube Placement Confirmation: visualized tube passing through cords Intubation Complications: hypoxia (Probable temperate right mainstem bronchus intubation, ET tube was pulled back) Critical Care Time Critical Care Time Critical Care Time: Yes Total Critical Care Time: 150 Attestation: The patient arrived to the ED with a critical illness necessitating immediate assessment. Cardiopulmonary monitoring was initiated due to the potential for rapid decompensation of the patient's clinical condition. During the course of the patient?s stay, significant time was spent at the bedside performing serial re-evaluations of the patient's hemodynamic and clinical status because of the recognized potential threat to life or limb in this condition. The patient received intubation, IV sedation, central line placement, and finally ICU admission. All of the available current laboratory and radiographic studies obtained were reviewed. Ancillary information available including EMS records, detention documents were reviewed. The case was discussed with the ICU attending. Sequential vital signs were obtained. Critical Care time of 150 minutes was performed exclusive of billable procedures Discharge Plan Discharge Clinical Impression: Cardiac arrest, Acute respiratory failure, Aspiration pneumonia Patient Disposition: Admitted As Inpatient Prescriptions: No Action quetiapine 300 mg tablet 1 tab PO DAILY@1800 lidocaine [Salonpas (lidocaine)] 4 % Adhesive Patch,Medicated 1 patch TOPICAL DAILY clozapine 100 mg Tablet 250 mg PO BEDTIME amlodipine 5 mg tablet 1 tab PO DAILY@0500 omeprazole 40 mg capsule,delayed release(DR/EC) 40 mg PO BID tramadol 50 mg Tablet 50 mg PO BID PRN (Reason: Severe Pain (Scale Score 7-10)) quetiapine 100 mg tablet 100 mg PO BID@0900,1400 acetaminophen 500 mg Tablet 1,000 mg PO TID zonisamide 100 mg capsule 1 cap PO DAILY@1500 famotidine 20 mg Tablet 20 mg PO DAILY PRN (Reason: gi distress) fluticasone propion-salmeterol [Advair Diskus] 500-50 mcg/dose blister with device 1 puff inhalation BID montelukast 10 mg tablet 1 tab PO DAILY@1800 clozapine 25 mg Tablet 25 mg PO DAILY fluticasone propionate 50 mcg/actuation spray,suspension 1 spray intranasal DAILY@1300 diazepam 5 mg Tablet 2.5 mg PO DAILY@0600 diazepam 5 mg tablet 5 mg PO BID@1000,1300 duloxetine 60 mg capsule,delayed release(DR/EC) 60 mg PO DAILY pregabalin 150 mg capsule 1 cap PO TID pregabalin 300 mg capsule 1 cap PO BEDTIME cholecalciferol (vitamin D3) 1,250 mcg (50,000 unit) Tablet 1,250 mcg PO QMONTH@1800 Linzess 145 mcg capsule 145 mcg PO Q48H nitrofurantoin monohyd/m-cryst [Macrobid] 100 mg capsule 100 mg PO BID 7 Days Qty: 14 0RF Rx Instructions: must administer with a meal/food
[2022-01-04 20:11] LABS: Troponin-I High Sensitivity < 3.5 ng/L (<3.5-17.0)
[2022-01-04 20:17] LABS: VBG Base Excess -2.8 mmol/L; VBG HCO3 24 mmol/L (22-26); VBG pCO2 52 mmHg; VBG pH 7.27 (7.32-7.43); VBG pO2 79 mmHg
[2022-01-04 20:18] LABS: Venous Blood Gas Refer to POC result
[2022-01-04] MEDS: Piperacillin Sodium/Tazobactam 4.5 GM in 0.9 % Sodium Chloride 100 ML IV (20:53)
[2022-01-04] MEDS: Heparin Sodium,Porcine 5,000 UNIT/ML VIAL 5000 UNIT SUBCUT (20:53)
[2022-01-04] MEDS: Famotidine/PF 20 MG/2 ML VIAL IVPUSH (20:53)
--- NOTE | 2022-01-04 21:21 | PHA.MEDREC ---
Pharmacy Consult ? Medication Reconciliation Pharmacy has completed the medication reconciliation. pt from [facility]. Contacted [facility] and patient received all medications up until 5 pm ( including clozaril) today.
--- NOTE | 2022-01-04 21:58 | PM.CCHP ---
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 She has a MOLST form which indicates full support, signed 07/03/17. ?Her guardian is Bonnie Rojas. She was SHARIFA powers from?[facility] ([facility]) ?S/P cardiopulmonary arrest.? The patient was eating dinner and aspirated, prompting a cardiopulmonary arrest. ?CPR was provided by staff members, and upon EMS arrival, the patient was breathing, and had a pulse, although her respiratory rate was only approximately 4.?She was reportedly down for about 5 minutes before ACLS arrival. The patient was placed on a bag-valve mask, and transported to the hospital.? An IO was started, but only IV fluids were given. In the emergency department, the patient was intubated, and a right IJ was placed. On?chest x-ray, the catheter tip is noted to be in the right brachiocephalic vein. Diffuse airspace opacity is noted in the left lung which could represent aspiration, but could also be due to a temperate right mainstem bronchus intubation (The ET tube was pulled back and is currently 2.5 cm above the danielle).?She was treated empirically with Zosyn. Review of Systems Review of Systems: Yes unobtainable due to endotracheal tube PMFSH Past Medical History Medical History (Updated 01/05/22 @ 09:29 by Lorna Viveros RN) Acute respiratory failure with hypoxia Anemia Asthma Borderline personality disorder Cataract Chronic pain syndrome Constipation COPD (chronic obstructive pulmonary disease) Diverticulitis Dysphagia [place] Fusion of spine GERD (gastroesophageal reflux disease) Glaucoma HTN (hypertension) Hyperlipemia Ileus Osteoporosis Postmenopausal atrophic vaginitis PTSD (post-traumatic stress disorder) Schizoaffective disorder Tobacco abuse Surgical History Surgical History (Updated 01/05/22 @ 09:26 by Lorna Viveros RN) Presence of right artificial hip joint Presence of right artificial knee joint Social History Social History Housing: Correction Alcohol intake: unknown Patient Tobacco Use Status: Former Tobacco user Currently Displaying Signs/Symptoms of Drug Intoxication Withdrawal: No Advance Directives: Yes Advance Directives Information Provided: No Advance Directives on File: No Advance Directives Date on File: 02/08/21 Patient : No Meds Allergies Allergy/AdvReac Type Severity Reaction Status Date / Time chlorpromazine Allergy Unknown Verified 01/05/22 09:19 [From Thorazine] haloperidol [From Haldol] Allergy Unknown Verified 02/08/21 08:35 imipramine Allergy Unknown Verified 02/08/21 08:35 ketorolac Allergy Unknown Verified 02/08/21 08:35 Penicillins Allergy Unknown Verified 02/08/21 08:35 promethazine Allergy Unknown Verified 02/08/21 08:35 Active Medications: Current Medications Albuterol/Ipratropium (Albuterol/Iprat 2.5/0.5mg 3 Ml Ampul.Neb) 3 ml INHALE RQ4H SADA Famotidine (Famotidine/Pf 20 Mg/2 Ml Vial) 20 mg IVPUSH BID SADA Last Admin: 01/04/22 20:53 Dose: 20 mg Heparin Sodium (Porcine) (Heparin Sodium,Porcine 5,000 Unit/Ml Vial) 5,000 unit SUBCUT Q12H SADA Last Admin: 01/04/22 20:53 Dose: 5,000 unit Propofol (Diprivan) 1,000 mg in 100 mls @ 0 mls/hr IVCONT .Q0M SADA; Protocol Last Titration: 01/04/22 19:43 Dose: 10 mcg/kg/min, 6.65 mls/hr Norepinephrine Bitartrate (Levophed) 8 mg in 250 mls @ 0 mls/hr IVCONT .Q0M SADA; Protocol Last Titration: 01/04/22 20:27 Dose: 0.15 mcg/kg/min, 31.19 mls/hr Home Medications Medication Instructions Recorded Confirmed Last Taken Type acetaminophen 500 mg tablet 1,000 mg PO TID 02/08/21 01/04/22 01/04/22 History amlodipine 5 mg tablet 1 tab PO DAILY@0500 02/08/21 01/04/22 01/04/22 History diazepam 5 mg tablet 5 mg PO BID@0900,1700 02/08/21 01/04/22 01/04/22 History duloxetine 60 mg capsule,delayed 60 mg PO DAILY 02/08/21 01/04/22 01/04/22 History release fluticasone 500 mcg-salmeterol 50 1 puff inhalation BID 02/08/21 01/04/22 01/04/22 History mcg/dose blistr powdr for inhalation (Advair Diskus) fluticasone propionate 50 1 spray intranasal DAILY 02/08/21 01/04/22 01/04/22 History mcg/actuation nasal spray,suspension linaclotide 145 mcg capsule 145 mcg PO DAILY 02/08/21 01/04/22 01/04/22 History (Linzess) montelukast 10 mg tablet 1 tab PO DAILY@1700 02/08/21 01/04/22 01/04/22 History omeprazole 40 mg capsule,delayed 40 mg PO DAILY@0600 02/08/21 01/04/22 01/04/22 History release pregabalin 300 mg capsule 1 cap PO BEDTIME 02/08/21 01/04/22 01/03/22 History quetiapine 100 mg tablet 100 mg PO DAILY@1200 02/08/21 01/04/22 01/04/22 History albuterol sulfate 90 mcg/actuation 2 puff inhalation Q4H PRN 01/04/22 01/04/22 Unknown History aerosol inhaler (Proventil HFA) Shortness Of Breath aluminum-mag hydroxide-simethicone 10 ml PO Q6H PRN Indigestion 01/04/22 01/04/22 Unknown History 200 mg-200 mg-20 mg/5 mL oral susp atomoxetine 25 mg capsule 50 mg PO DAILY 01/04/22 01/04/22 Unknown History bisacodyl 10 mg rectal suppository 10 mg [place] DAILY PRN Constipation 01/04/22 01/04/22 Unknown History (Gentle Laxative (bisacodyl)) bisacodyl 5 mg tablet,delayed 10 mg PO DAILY PRN Constipation 01/04/22 01/04/22 Unknown History release cholecalciferol (vitamin D3) 1,250 1,250 mcg PO QMONTH 01/04/22 01/04/22 12/13/21 History mcg (50,000 unit) capsule clozapine 200 mg tablet 1 tab PO DAILY@1700 01/04/22 01/04/22 01/04/22 History clozapine 25 mg tablet 3 tab PO DAILY@1700 01/04/22 01/04/22 01/04/22 History famotidine 20 mg tablet 1 tab PO DAILY PRN Acid Reflux 01/04/22 01/04/22 Unknown History guaifenesin 100 mg/5 mL oral liquid 300 mg PO Q6H PRN Cough 01/04/22 01/04/22 Unknown History loperamide 2 mg capsule 2 mg PO BID PRN Loose Stool 01/04/22 01/04/22 Unknown History magnesium citrate 150 ml PO Q4H PRN Constipation 01/04/22 01/04/22 Unknown History magnesium hydroxide 400 mg/5 mL 30 ml PO DAILY PRN Constipation 01/04/22 01/04/22 Unknown History oral suspension (Milk of Magnesia) melatonin 3 mg tablet 3 mg PO DAILY@1700 01/04/22 01/04/22 01/04/22 History nicotine (polacrilex) 2 mg buccal 2 mg buccal TID PRN Nicotine 01/04/22 01/04/22 Unknown History lozenge Cravings oxycodone 5 mg tablet 5 mg PO BID@0900,1300 01/04/22 01/04/22 01/04/22 History oxycodone 5 mg tablet 5 mg PO Q4H PRN Pain (Scale Score 01/04/22 01/04/22 Unknown History 4-6) pregabalin 200 mg capsule 200 mg PO DAILY@0900 01/04/22 01/04/22 01/04/22 History quetiapine 200 mg tablet 1 tab PO BEDTIME 01/04/22 01/04/22 01/03/22 History zonisamide 100 mg capsule 1 cap PO DAILY 01/04/22 01/04/22 01/04/22 History Physical Exam Vital Signs: Vital Signs: Last Vital Signs Pulse 86 01/04/22 20:59 Resp 18 01/04/22 20:59 BP 104/50 L 01/04/22 20:59 Pulse Ox 100 01/04/22 20:59 O2 Del Method 01/04/22 20:59 FiO2 100 01/04/22 20:08 BMI result Body Mass Index 37.1 Const: General: no acute distress HEENT: Head: Yes normocephalic and Yes atraumatic General nose exam: Normal external nose present (Nares patent, septum midline, sinuses nontender bilaterally.) Mouth: Normal oral and palatal mucosa present (No thrush, tongue in midline, mucosa moist.) Throat: Yes other (No erythema, no exudate.) Neck: Neck: Yes supple (no thyromegaly, trachea midline.) Carotids: normal carotid upstroke Resp: Auscultation: rhonchi throughout and wheezes inspiratory wheezes Cardio: Jugular venous distension: no JVD Rate: regular rate Rhythm: regular rhythm Heart sounds: no gallops, no murmurs and no rubs Peripheral pulses: radial pulses present (2+ bilaterally) and posterior tibial pulses present (by doppler) GI: Inspection: Yes Abdominal panniculus present and Yes obesity Palpation (GI): Soft to palpation (nondistended.) and nontender Auscultation: normal bowel sounds Skin: General skin exam: scars (R knee, L wrist surgical scars) Lesions: other (a single, thick, hyperkeratosis noted on the plantar aspect of each foot) Rashes: rashes noted (bilateral breasts folds) Neuro: General: no focal motor deficits Extrem: General: Yes full ROM, Yes capillary refill normal and Yes no clubbing, cyanosis or edema Results Labs CBC and Chem 7: 01/05/22 05:15 01/05/22 05:15 Labs: Laboratory Results - last 24 hr 01/04/22 01/04/22 01/04/22 18:29 19:30 19:30 MCV 93.0 MCH 28.9 MCHC 31.1 RDW 15.5 Plt Count 165 MPV 11.0 Immature Gran % (Auto) 1.1 H Neut % (Auto) 78.7 H Lymph % (Auto) 14.6 L [place] % (Auto) 5.3 Eos % (Auto) 0.0 Baso % (Auto) 0.3 Lymph # (Auto) 1.6 [place] # (Auto) 0.6 Eos # (Auto) 0.0 Baso # (Auto) 0.0 Abs Immat Gran (auto) 0.12 H Absolute Neuts (auto) 8.5 H Absolute Nucleated RBC 0.000 Nucleated RBC % (auto) 0.0 VBG pH VBG pCO2 VBG pO2 VBG HCO3 VBG O2 Saturation VBG Base Excess Anion Gap 18 Estim Creat Clear Calc 95.2 Estimated GFR > 60 POC Glucose 151 H Random Glucose 173 H Lactic Acid Calcium 8.6 D Troponin I High Sens 01/04/22 01/04/22 01/04/22 19:30 19:30 19:41 MCV MCH MCHC RDW Plt Count MPV Immature Gran % (Auto) Neut % (Auto) Lymph % (Auto) [place] % (Auto) Eos % (Auto) Baso % (Auto) Lymph # (Auto) [place] # (Auto) Eos # (Auto) Baso # (Auto) Abs Immat Gran (auto) Absolute Neuts (auto) Absolute Nucleated RBC Nucleated RBC % (auto) VBG pH 7.25 L VBG pCO2 59 VBG pO2 66 VBG HCO3 26 VBG O2 Saturation 89.0 VBG Base Excess -1.6 Anion Gap Estim Creat Clear Calc Estimated GFR POC Glucose Random Glucose Lactic Acid 1.3 Calcium Troponin I High Sens < 3.5 01/04/22 20:10 MCV MCH MCHC RDW Plt Count MPV Immature Gran % (Auto) Neut % (Auto) Lymph % (Auto) [place] % (Auto) Eos % (Auto) Baso % (Auto) Lymph # (Auto) [place] # (Auto) Eos # (Auto) Baso # (Auto) Abs Immat Gran (auto) Absolute Neuts (auto) Absolute Nucleated RBC Nucleated RBC % (auto) VBG pH 7.27 L VBG pCO2 52 VBG pO2 79 VBG HCO3 24 VBG O2 Saturation 95.0 VBG Base Excess -2.8 Anion Gap Estim Creat Clear Calc Estimated GFR POC Glucose Random Glucose Lactic Acid Calcium Troponin I High Sens Imaging Radiologist's Impressions: Impressions Chest X-Ray 01/04/22 19:05 IMPRESSION: 1. ET tube 2.5 cm above the danielle. 2. Volume loss left hemithorax with diffuse airspace opacity. Assessment and Plan (1) Cardiopulmonary arrest with successful resuscitation: Status: Acute (2) Acute respiratory failure: Status: Acute (3) Aspiration pneumonia: Status: Acute Plan Assessment:? 61-year-old female with past medical history of cerebral infarction, schizoaffective disorder, COPD, dysphagia, asthma admitted status post cardiopulmonary arrest due to aspiration while eating dinner resulting in acute respiratory failure requiring ventilatory support. Neuro:? No acute issues. Cardiac:? No acute issues. Pulmonary:? Acute hypoxic respiratory failure secondary to pulmonary aspiration requiring ventilatory support and frequent suctioning to remove remaining food from airway. Renal:? No acute issues.? Endo:? No acute issues. GI:? No acute issues. ID:? No acute issues. Heme/Onc:? No acute issues. Psych:? No acute issues. Miscellaneous:? No acute issues Prophylaxis:? Heparin Diet:? NPO The patient is afebrile, WBC is normal, lactic acid was normal, blood cultures are pending.? No clinical evidence of sepsis or bacteremia. Critical Care Time Critical Care Time (minutes): 90
[2022-01-04] MEDS: Albuterol/Iprat 2.5/0.5MG 3 ML AMPUL.NEB INHALE ×2 (22:15→23:10)
[2022-01-05] VITALS (35 sets, daily range): BP systolic 103–144; BP diastolic 57–88; PULSE 73–99; RESP 12–21; TEMP 35.3–38.1; O2SAT 86–100; BMI 35.4
--- NOTE | 2022-01-05 | ECG_ITS ---
Test Reason : cardiopulmonary arrest Blood Pressure : / mmHG Vent. Rate : 076 BPM Atrial Rate : 076 BPM P-R Int : 134 ms QRS Dur : 094 ms QT Int : 532 ms P-R-T Axes : 045 021 005 degrees QTc Int : 598 ms Normal sinus rhythm Low voltage QRS RSR' or QR pattern in V1 suggests right ventricular conduction delay Nonspecific T wave abnormality Abnormal ECG When compared with ECG of 04-JAN-2022 18:18, Premature ventricular complexes are no longer Present RSR' pattern in V1 is now Present Heart rate has decreased T wave amplitude has decreased in Inferior leads Anterolateral leads Referred By: Lucila Rangel Electronically Signed By:IZABEL GAGE MD
[2022-01-05] MEDS: propofoL 1,000 MG/100 ML VIAL 16.64 MG IVCONT (00:13)
[2022-01-05 05:25] LABS: MANUAL DIFF FLAG NO
[2022-01-05 05:28] LABS: VBG Base Excess -0.2 mmol/L; VBG HCO3 22 mmol/L (22-26); VBG pCO2 31 mmHg; VBG pH 7.46 (7.32-7.43); VBG pO2 57 mmHg
[2022-01-05] MEDS: Albuterol/Iprat 2.5/0.5MG 3 ML AMPUL.NEB INHALE ×5 (05:28→19:54)
[2022-01-05 05:32] LABS: Venous Blood Gas Refer to POC result
[2022-01-05 05:41] LABS: Basophils Percent Auto 0.2 % (0-2); Hemoglobin 12.6 g/dl (12.0-16.0); Imm Gran Abs Auto 0.04 X10*3/uL (0.00-0.03); Imm Gran Pct Auto 0.3 % (0.0-0.4); Lymphocytes Absolute Auto 1.1 X10*3/uL (1.2-4.9); Lymphocytes Percent Auto 9.1 % (20-40); Mean Corpuscular HGB Conc 31.5 g/dl (31.0-35.0); Mean Corpuscular Hemoglobin 29.1 pg (27.0-33.0); Mean Corpuscular Volume 92.4 fL (80.0-98.0); Mean Platelet Volume 10.8 fL (9.4-12.3); Monocytes Absolute Auto 0.6 X10*3/uL (0.1-1.2); Monocytes Percent Auto 4.6 % (2-11); Neutrophils Absolute Auto 10.4 x10*3/uL (2.0-8.3); Neutrophils Percent Auto 85.8 % (45-73); Platelet Count 187 X10*3/uL (160-400); Red Blood Count 4.33 X10*6/uL (4.20-5.50); Red Cell Distribution Width 15.2 % (11.0-16.0); White Blood Count 12.2 X10*3/uL (4.8-10.8)
[2022-01-05 05:46] LABS: Anion Gap 18 (12-20); Blood Urea Nitrogen 11 mg/dL (9-16); Calcium 8.7 mg/dL (8.4-10.2); Carbon Dioxide 19 mmol/L (22-29); Chloride 108 mmol/L (96-108); Creatinine Clr Calc Pharmacy 105.7; Estimated Glomerular Filt Rate > 60; Glucose Random 142 mg/dL (60-115); Magnesium 1.9 mg/dL (1.6-2.6); Phosphorus 3.6 mg/dL (2.7-4.5); Potassium 3.8 mmol/L (3.3-5.1); Sodium 141 mmol/L (135-145)
[2022-01-05] MEDS: Famotidine/PF 20 MG/2 ML VIAL IVPUSH ×2 (07:05→19:34)
[2022-01-05 08:36] LABS: Adenovirus PCR Not Detected (Not Detect.); Bordetella parapertussis PCR Not Detected (Not Detect.); Bordetella pertussis PCR Not Detected (Not Detect.); Chlamydia pneumoniae PCR Not Detected (Not Detect.); Coronavirus 229E PCR Not Detected (Not Detect.); Coronavirus HKU1 PCR Not Detected (Not Detect.); Coronavirus NL63 PCR Not Detected (Not Detect.); Coronavirus OC43 PCR Not Detected (Not Detect.); SARS-CoV-2 PCR Not Detected (Not Detect.)
[2022-01-05] MEDS: Heparin Sodium,Porcine 5,000 UNIT/ML VIAL 5000 UNIT SUBCUT ×2 (08:36→22:52)
[2022-01-05] MEDS: Nystatin Powder 15 GM BOTTLE 1 APPL TOPICAL ×2 (08:36→19:34)
[2022-01-05 08:37] LABS: Human metapneumovirus PCR Not Detected (Not Detect.); Influenza A PCR Not Detected (Not Detect.); Influenza B PCR Not Detected (Not Detect.); Mycoplasma pneumoniae PCR Not Detected (Not Detect.); Parainfluenza 1 PCR Not Detected (Not Detect.); Parainfluenza 2 PCR Not Detected (Not Detect.); Parainfluenza 3 PCR Not Detected (Not Detect.); Parainfluenza 4 PCR Not Detected (Not Detect.); RSV PCR Not Detected (Not Detect.); Rhino/Enterovirus PCR Not Detected (Not Detect.)
--- NOTE | 2022-01-05 14:25 | PM.CCPN ---
Subjective Subjective Date of Service: 01/05/22 Interval History: 61-year-old female with underlying schizoaffective disorder with a witnessed aspiration of food at the dinner table and there was some initiation of CPR but respiratory mechanism upon presentation here and that is with bagging by EMS was agonal so she was intubated and a lot of food material from the pharynx and hypopharynx was all aspirated and then even after placement of the ET tube suction out as well resulting in complete re-expansion of a completely atelectatic left lung No witnessed seizure activity and apparently she did have a pulse when she was here and upon discontinuation of the propofol it seems that he no she was able to restore cognitive function so she may never of had adeno a complete arrest but she does have a low-grade temperature of a 100.2 degrees and she might have had subclinical episodes of aspiration leading up to this so it I might continue antibiotics because she has purulent-looking secretions and the entire respiratory panel is negative Critical Care Time (minutes): 45 Physical Exam Vital Signs: Vital Signs: Last Vital Signs Temp 100.2 F 01/05/22 13:00 Pulse 98 01/05/22 13:00 Resp 20 01/05/22 13:00 BP 118/70 01/05/22 13:00 Pulse Ox 96 01/05/22 12:00 O2 Del Method 01/05/22 13:00 FiO2 30 01/05/22 13:00 BMI result Body Mass Index 35.4 Appropriate cognitive function and nonfocal neurologically Abdomen soft no organomegaly Chest without adventitious sounds and no accessory muscle a diaphragmatic effort Bedside echo with preserved LV function She is a hypertensive as well as insulin-dependent type 2 diabetic and hyperlipidemic and she is on clozapine and Valium and oxycodone so she has opiate as well as benzodiazepine dependence and as well as the clozapine she is also on quetiapine but neurologic lead muscle tone is good symmetric reflexes moves all 4 4 extremities with equal strength Objective Data Labs CBC & Chem 7: 01/05/22 05:15 01/05/22 05:15 Labs: Laboratory Results - last 24 hr 01/04/22 01/04/22 01/04/22 18:29 19:30 19:30 WBC 10.8 RBC 4.57 Hgb 13.2 Hct 42.5 MCV 93.0 MCH 28.9 MCHC 31.1 RDW 15.5 Plt Count 165 MPV 11.0 Immature Gran % (Auto) 1.1 H Neut % (Auto) 78.7 H Lymph % (Auto) 14.6 L [place] % (Auto) 5.3 Eos % (Auto) 0.0 Baso % (Auto) 0.3 Lymph # (Auto) 1.6 [place] # (Auto) 0.6 Eos # (Auto) 0.0 Baso # (Auto) 0.0 Abs Immat Gran (auto) 0.12 H Absolute Neuts (auto) 8.5 H Absolute Nucleated RBC 0.000 Nucleated RBC % (auto) 0.0 VBG pH VBG pCO2 VBG pO2 VBG HCO3 VBG O2 Saturation VBG Base Excess Sodium 142 Potassium 3.6 Chloride 106 Carbon Dioxide 22 Anion Gap 18 BUN 13 Creatinine 0.81 Estim Creat Clear Calc 95.2 Estimated GFR > 60 POC Glucose 151 H Random Glucose 173 H Lactic Acid Calcium 8.6 D Phosphorus Magnesium Troponin I High Sens Respiratory Panel Alberto Adenovirus (Rapid PCR) B.pert (TEM-PCR) B.parapertussis DNA PCR C. pneumoniae DNA (PCR) Coronavirus OC43 (PCR) Coronavirus HKU1 (PCR) Coronavirus 229E (PCR) Coronavirus NL63 (PCR) Human Metapneumovir PCR Influenza A (RT-PCR) Influenza B (RT-PCR) M. pneumoniae (PCR) Parainfluenza 1 (PCR) Parainfluenza 2 (PCR) Parainfluenza 3 (PCR) Parainfluenza 4 (PCR) RSV (PCR) Entero/Rhino (PCR) SARS-CoV-2 RNA (RT-PCR) 01/04/22 01/04/22 01/04/22 19:30 19:30 19:41 WBC RBC Hgb Hct MCV MCH MCHC RDW Plt Count MPV Immature Gran % (Auto) Neut % (Auto) Lymph % (Auto) [place] % (Auto) Eos % (Auto) Baso % (Auto) Lymph # (Auto) [place] # (Auto) Eos # (Auto) Baso # (Auto) Abs Immat Gran (auto) Absolute Neuts (auto) Absolute Nucleated RBC Nucleated RBC % (auto) VBG pH 7.25 L VBG pCO2 59 VBG pO2 66 VBG HCO3 26 VBG O2 Saturation 89.0 VBG Base Excess -1.6 Sodium Potassium Chloride Carbon Dioxide Anion Gap BUN Creatinine Estim Creat Clear Calc Estimated GFR POC Glucose Random Glucose Lactic Acid 1.3 Calcium Phosphorus Magnesium Troponin I High Sens < 3.5 Respiratory Panel Alberto Adenovirus (Rapid PCR) B.pert (TEM-PCR) B.parapertussis DNA PCR C. pneumoniae DNA (PCR) Coronavirus OC43 (PCR) Coronavirus HKU1 (PCR) Coronavirus 229E (PCR) Coronavirus NL63 (PCR) Human Metapneumovir PCR Influenza A (RT-PCR) Influenza B (RT-PCR) M. pneumoniae (PCR) Parainfluenza 1 (PCR) Parainfluenza 2 (PCR) Parainfluenza 3 (PCR) Parainfluenza 4 (PCR) RSV (PCR) Entero/Rhino (PCR) SARS-CoV-2 RNA (RT-PCR) 01/04/22 01/05/22 01/05/22 20:10 05:15 05:15 WBC 12.2 H RBC 4.33 Hgb 12.6 Hct 40.0 MCV 92.4 MCH 29.1 MCHC 31.5 RDW 15.2 Plt Count 187 MPV 10.8 Immature Gran % (Auto) 0.3 Neut % (Auto) 85.8 H Lymph % (Auto) 9.1 L [place] % (Auto) 4.6 Eos % (Auto) 0.0 Baso % (Auto) 0.2 Lymph # (Auto) 1.1 L [place] # (Auto) 0.6 Eos # (Auto) 0.0 Baso # (Auto) 0.0 Abs Immat Gran (auto) 0.04 H Absolute Neuts (auto) 10.4 H Absolute Nucleated RBC 0.000 Nucleated RBC % (auto) 0.0 VBG pH 7.27 L VBG pCO2 52 VBG pO2 79 VBG HCO3 24 VBG O2 Saturation 95.0 VBG Base Excess -2.8 Sodium 141 Potassium 3.8 Chloride 108 Carbon Dioxide 19 L Anion Gap 18 BUN 11 Creatinine 0.73 Estim Creat Clear Calc 105.7 Estimated GFR > 60 POC Glucose Random Glucose 142 H Lactic Acid Calcium 8.7 Phosphorus 3.6 Magnesium 1.9 Troponin I High Sens Respiratory Panel Alberto Adenovirus (Rapid PCR) B.pert (TEM-PCR) B.parapertussis DNA PCR C. pneumoniae DNA (PCR) Coronavirus OC43 (PCR) Coronavirus HKU1 (PCR) Coronavirus 229E (PCR) Coronavirus NL63 (PCR) Human Metapneumovir PCR Influenza A (RT-PCR) Influenza B (RT-PCR) M. pneumoniae (PCR) Parainfluenza 1 (PCR) Parainfluenza 2 (PCR) Parainfluenza 3 (PCR) Parainfluenza 4 (PCR) RSV (PCR) Entero/Rhino (PCR) SARS-CoV-2 RNA (RT-PCR) 01/05/22 01/05/22 05:23 06:39 WBC RBC Hgb Hct MCV MCH MCHC RDW Plt Count MPV Immature Gran % (Auto) Neut % (Auto) Lymph % (Auto) [place] % (Auto) Eos % (Auto) Baso % (Auto) Lymph # (Auto) [place] # (Auto) Eos # (Auto) Baso # (Auto) Abs Immat Gran (auto) Absolute Neuts (auto) Absolute Nucleated RBC Nucleated RBC % (auto) VBG pH 7.46 H VBG pCO2 31 VBG pO2 57 VBG HCO3 22 VBG O2 Saturation 90.0 VBG Base Excess -0.2 Sodium Potassium Chloride Carbon Dioxide Anion Gap BUN Creatinine Estim Creat Clear Calc Estimated GFR POC Glucose Random Glucose Lactic Acid Calcium Phosphorus Magnesium Troponin I High Sens Respiratory Panel Alberto See Note Adenovirus (Rapid PCR) Not Detected B.pert (TEM-PCR) Not Detected B.parapertussis DNA PCR Not Detected C. pneumoniae DNA (PCR) Not Detected Coronavirus OC43 (PCR) Not Detected Coronavirus HKU1 (PCR) Not Detected Coronavirus 229E (PCR) Not Detected Coronavirus NL63 (PCR) Not Detected Human Metapneumovir PCR Not Detected Influenza A (RT-PCR) Not Detected Influenza B (RT-PCR) Not Detected M. pneumoniae (PCR) Not Detected Parainfluenza 1 (PCR) Not Detected Parainfluenza 2 (PCR) Not Detected Parainfluenza 3 (PCR) Not Detected Parainfluenza 4 (PCR) Not Detected RSV (PCR) Not Detected Entero/Rhino (PCR) Not Detected SARS-CoV-2 RNA (RT-PCR) Not Detected Progress Note: A&P Assessment and plan (1) Cardiac arrest: Status: Acute (2) Aspiration pneumonia: Status: Acute (3) Acute respiratory failure: Status: Acute (4) Cardiopulmonary arrest with successful resuscitation: Status: Acute (5) Hypertensive cardiovascular disease: Status: Acute (6) Type 2 diabetes mellitus: Status: Acute (7) Schizoaffective disorder: Status: Acute (8) Complete atelectasis of left lung: Status: Acute Plan All day on pressure support of 09/14 she has excellent tidal volumes and she more than triple so that with vital capacity excellent gag and cough reflex low minutes ventilatory requirements respiratory rate 17 to 18 she is definitely ready for and extubation and I a.m. not going to restore her antipsychotics because I question the contribution to dysphagia and will have a swallow study done bedside at least for the sake of water and maybe even clear liquids and then a formal swallow study on Friday off of these medications Quality Stroke Does the patient have a stroke diagnosis?: No VTE Prior VTE?: No VTE Risk Level:: Medical - moderate - high VTE Device Contraindication: N/A - Device Ordered VTE Drug Contraindication: N/A - Med Ordered
[2022-01-05] MEDS: Nicotine 21 MG PATCH.TD24 TRANSDERMA (14:54)
--- NOTE | 2022-01-05 15:05 | PC.NURSE ---
07:00 [place] [address]/5.0/30% 08:25 patient changed to vent settings PS 12/5 30% 11:00 PS 8/5.0 FiO2 30%, volumes above 320, pt following commands, + cough, weak gag 14:30 MD assess patient, + cough, + gag, able to follow commands, opens eyes to name 14:40 pt extubated to 1L NC
[2022-01-05] MEDS: oxyCODONE HCl Immed Release 5 MG TABLET PO (23:55)
[2022-01-05] MEDS: LORazepam 0.5 MG TABLET 0.25 MG PO (23:55)
[2022-01-06] VITALS (28 sets, daily range): BP systolic 85–159; BP diastolic 56–96; PULSE 59–99; RESP 11–94; TEMP 36.6–38; O2SAT 19–97; BMI 35.2
[2022-01-06] MEDS: LORazepam 0.5 MG TABLET 0.25 MG PO ×2 (04:57→19:58)
[2022-01-06 05:33] LABS: MANUAL DIFF FLAG NO
[2022-01-06 05:36] LABS: Basophils Percent Auto 0.3 % (0-2); Hematocrit 37.1 % (37.0-47.0); Hemoglobin 11.7 g/dl (12.0-16.0); Imm Gran Abs Auto 0.03 X10*3/uL (0.00-0.03); Imm Gran Pct Auto 0.4 % (0.0-0.4); Lymphocytes Absolute Auto 1.3 X10*3/uL (1.2-4.9); Lymphocytes Percent Auto 16.7 % (20-40); Mean Corpuscular HGB Conc 31.5 g/dl (31.0-35.0); Mean Corpuscular Hemoglobin 29.2 pg (27.0-33.0); Mean Corpuscular Volume 92.5 fL (80.0-98.0); Mean Platelet Volume 11.1 fL (9.4-12.3); Monocytes Absolute Auto 0.7 X10*3/uL (0.1-1.2); Monocytes Percent Auto 8.3 % (2-11); Neutrophils Absolute Auto 5.8 x10*3/uL (2.0-8.3); Neutrophils Percent Auto 74.3 % (45-73); Platelet Count 147 X10*3/uL (160-400); Red Blood Count 4.01 X10*6/uL (4.20-5.50); Red Cell Distribution Width 15.9 % (11.0-16.0); White Blood Count 7.8 X10*3/uL (4.8-10.8)
[2022-01-06 06:15] LABS: Anion Gap 14 (12-20); Blood Urea Nitrogen 10 mg/dL (9-16); Calcium 8.2 mg/dL (8.4-10.2); Carbon Dioxide 23 mmol/L (22-29); Chloride 108 mmol/L (96-108); Creatinine Clr Calc Pharmacy 97.2; Estimated Glomerular Filt Rate > 60; Glucose Random 118 mg/dL (60-115); Magnesium 1.9 mg/dL (1.6-2.6); Phosphorus 3.6 mg/dL (2.7-4.5); Potassium 3.4 mmol/L (3.3-5.1); Sodium 142 mmol/L (135-145)
--- NOTE | 2022-01-06 07:08 | PC.NURSE ---
Patient found OOB in chair in room with arteaga stretching from bed. Bed alarm turned off and monitor wiring disconnected. Unable to placed patient on tele sitter due to VMT availability. Nursing shipping and receiving supervisor notified for sitter need. MD notified. High fall risk precautions in place, bed alarm on, patient educated on need for safety measures.
[2022-01-06] MEDS: dexmedeTOMIDidine HCL/NS 400 MCG/100 ML INFUS..BTL 26.25 MCG IVCONT (07:38)
[2022-01-06] MEDS: Albuterol/Iprat 2.5/0.5MG 3 ML AMPUL.NEB INHALE ×3 (07:45→19:48)
[2022-01-06] MEDS: Nystatin Powder 15 GM BOTTLE 1 APPL TOPICAL ×2 (08:03→19:58)
[2022-01-06] MEDS: Famotidine/PF 20 MG/2 ML VIAL IVPUSH ×2 (08:05→19:58)
[2022-01-06] MEDS: Heparin Sodium,Porcine 5,000 UNIT/ML VIAL 5000 UNIT SUBCUT ×2 (10:14→22:33)
[2022-01-06] MEDS: dexmedeTOMIDidine HCL/NS 400 MCG/100 ML INFUS..BTL 31.5 MCG IVCONT (10:17)
[2022-01-06] MEDS: dexmedeTOMIDidine HCL/NS 400 MCG/100 ML INFUS..BTL 39.38 MCG IVCONT ×3 (13:17→18:11)
--- NOTE | 2022-01-06 14:58 | P.PNCC_ITS ---
Subjective Subjective Date of Service: 01/06/22 Interval History: 61-year-old female resides in a nursing facility with background history of schizoaffective disorder type 2 diabetes mellitus and hypertensive cardiovascular disease presented with witnessed choking while eating dinner with acute respiratory failure and she had a pulse when she was brought in but her respiratory status was described as agonal and she was bagged all the way into the hospital and intubated here with complete atelectasis of the left lung and there were definitely large chunks of food in in the pharynx and hypopharynx and throughout the night with aggressive lavage and suction the left lung was re-expanded a lot of food material was aspirated and she has actually done very well but her psych meds were withheld because we had concerns there with 2 2nd generation antipsychotics and I was just concerned that either it contributed to by problem with dysphagia or potentially that could been a seizure as usual we get no story from the facility that they came from in terms of what was actually witnessed and there was nothing conveyed to EMS so were working presumptively and psychiatry is following her and she did well with our bedside swallow but we will be 1 have a formal swallow exam before reinstating food and this will be on Friday and it is making her agitated she may need to go back on it on possibly 1 of the antipsychotics I believe the maybe more benign might be the quetiapine but for now I have her on dexmedetomidine and and which is helping to control her throughout the day Critical Care Time (minutes): 45 Physical Exam Vital Signs: Vital Signs: Last Vital Signs Temp 99.7 F 01/06/22 14:00 Pulse 66 01/06/22 14:53 Resp 21 H 01/06/22 14:53 BP 141/75 H 01/06/22 14:00 Pulse Ox 94 01/06/22 14:00 O2 Del Method 01/06/22 14:00 O2 Flow Rate 2.5 01/06/22 14:00 FiO2 30 01/05/22 14:40 BMI result Body Mass Index 35.2 Extubated now for well over 30 hours and doing very well from a respiratory standpoint she is awake but demanding to smoke a cigarette and agitated over the lack of food Bedside echo with preserved LV function Lungs without adventitious sounds and no accessory muscle or diaphragmatic effort Abdomen soft no again a megaly Skin is intact Objective Data Labs CBC & Chem 7: 01/06/22 05:23 11/27/22 05:23 Labs: Laboratory Results - last 24 hr 01/06/22 01/06/22 05:23 05:23 WBC 7.8 RBC 4.01 L Hgb 11.7 L Hct 37.1 MCV 92.5 MCH 29.2 MCHC 31.5 RDW 15.9 Plt Count 147 L MPV 11.1 Immature Gran % (Auto) 0.4 Neut % (Auto) 74.3 H Lymph % (Auto) 16.7 L [place] % (Auto) 8.3 Eos % (Auto) 0.0 Baso % (Auto) 0.3 Lymph # (Auto) 1.3 [place] # (Auto) 0.7 Eos # (Auto) 0.0 Baso # (Auto) 0.0 Abs Immat Gran (auto) 0.03 Absolute Neuts (auto) 5.8 Absolute Nucleated RBC 0.000 Nucleated RBC % (auto) 0.0 Sodium 142 Potassium 3.4 Chloride 108 Carbon Dioxide 23 Anion Gap 14 BUN 10 Creatinine 0.77 Estim Creat Clear Calc 97.2 Estimated GFR > 60 Random Glucose 118 H Calcium 8.2 L Phosphorus 3.6 Magnesium 1.9 Microbiology Microbiology Results: Microbiology 01/04/22 23:44 Blood - Venous Blood Culture - Preliminary No growth after 24 hours. 01/04/22 23:44 Blood - Venous Blood Culture - Preliminary No growth after 24 hours. Progress Note: A&P Assessment and plan (1) Complete atelectasis of left lung: Status: Acute (2) Schizoaffective disorder: Status: Acute (3) Type 2 diabetes mellitus: Status: Acute (4) Hypertensive cardiovascular disease: Status: Acute (5) Cardiac arrest: Status: Acute (6) Acute respiratory failure: Status: Acute (7) Aspiration pneumonia: Status: Acute (8) Cardiopulmonary arrest with successful resuscitation: Status: Acute Plan So at this point we need to co convene with the psychiatry to see what she might need is an anti psychotic for behavioral control but have to be very wary of dystonic reactions and dysphagia and potentially even even seizure and activity and a good bedside the swallow exam so we could reassess in state food for her Quality Stroke Does the patient have a stroke diagnosis?: No VTE Prior VTE?: No VTE Risk Level:: Medical - moderate - high VTE Device Contraindication: N/A - Device Ordered VTE Drug Contraindication: N/A - Med Ordered
[2022-01-06] MEDS: dexmedeTOMIDidine HCL/NS 400 MCG/100 ML INFUS..BTL 34.13 MCG IVCONT (20:51)
[2022-01-07] VITALS (20 sets, daily range): BP systolic 91–156; BP diastolic 49–89; PULSE 57–98; RESP 13–34; TEMP 36.1–36.9; O2SAT 88–96; BMI 35.0
[2022-01-07] MEDS: oxyCODONE HCl Immed Release 5 MG TABLET PO ×2 (00:23→21:09)
[2022-01-07] MEDS: dexmedeTOMIDidine HCL/NS 400 MCG/100 ML INFUS..BTL 28.88 MCG IVCONT ×2 (00:25→03:56)
[2022-01-07] MEDS: LORazepam 0.5 MG TABLET 0.25 MG PO (01:48)
--- NOTE | 2022-01-07 07:00 | CA_ITS ---
Transthoracic Echocardiogram Patient (Last, First, Middle): Valentina Velez, Gender: Female Date of : 1960 Age: 61 Procedure Date: 01/07/2022 Procedure Type: Transthoracic Echocardiogram Location: ICU Height: 172.72 cm Weight: 104.33 kg BSA: 2.17 m2 Heart Rate: 81 bpm BP: 130 / 76 mmHg Yard Person: FARIDA Referring MD: Adonay Valenzuela MD Symptoms: s/p cardiac arrest Study Quality: Technically Difficult ECG Rhythm: Sinus Conclusions: - Limited study because patient was uncooperative. - Chamber quantification or valvular assessment is not possible due to limited study. - LV function appears preserved. Cannot comment about wall motion abnormality. - Repeat the study once the patient is able to be more cooperative. Findings Procedure Information Contrast agent, definity, is being given per protocol without apparent complications. The study quality is limited by the patients inability to tolerate the test and an uncooperative patient. Left Ventricle Very limited study due to patient uncooperation. LV visualized in limited views and appears to be normal in size and function. Cannot comment about wall motion abnormalities. Right Ventricle Limited assessment of the right ventricle. Function in limited views appears preserved. Prior Study Comparison No prior study available for comparison. Measurements 2D Linear Measurements LVOT Diam: 2.10 3.0+(-)1.3 cm 2D Systolic Function EF 4C: 55.70 >55% EF 2C: 70.80 >55% EF BiP: 61.70 >55% LVOT LVOT Diam: 2.10 LVOT Area: 3.46 Updated in Other Vendor System with Status of Final Chucky Sheehan MD electronically signed on 01/07/2022 4:44:53 PM with status of Final
[2022-01-07] MEDS: dexmedeTOMIDidine HCL/NS 400 MCG/100 ML INFUS..BTL 39.38 MCG IVCONT ×2 (07:05→09:45)
[2022-01-07] MEDS: Famotidine/PF 20 MG/2 ML VIAL IVPUSH ×2 (07:26→21:08)
[2022-01-07] MEDS: Nystatin Powder 15 GM BOTTLE 1 APPL TOPICAL (07:26)
[2022-01-07 08:30] LABS: Basophils Absolute Auto 0.1 X10*3/uL (0.0-0.2); Basophils Percent Auto 0.5 % (0-2); Eosinophils Percent Auto 0.2 % (0-4); Hematocrit 41.5 % (37.0-47.0); Imm Gran Abs Auto 0.07 X10*3/uL (0.00-0.03); Imm Gran Pct Auto 0.7 % (0.0-0.4); Lymphocytes Absolute Auto 1.9 X10*3/uL (1.2-4.9); Lymphocytes Percent Auto 19.8 % (20-40); MANUAL DIFF FLAG SCAN; Mean Corpuscular HGB Conc 31.3 g/dl (31.0-35.0); Mean Corpuscular Hemoglobin 28.5 pg (27.0-33.0); Monocytes Absolute Auto 0.9 X10*3/uL (0.1-1.2); Monocytes Percent Auto 9.3 % (2-11); Neutrophils Absolute Auto 6.8 x10*3/uL (2.0-8.3); Neutrophils Percent Auto 69.5 % (45-73); PLT CLUMP 1; Red Blood Count 4.56 X10*6/uL (4.20-5.50); Red Cell Distribution Width 15.3 % (11.0-16.0); SCAN SMEAR FLAG 1
[2022-01-07 08:32] LABS: White Blood Count 9.7 X10*3/uL (4.8-10.8)
[2022-01-07 08:53] LABS: Alanine Aminotransferase 38 U/L (0-31); Albumin Level 3.5 g/dL (3.5-5.0); Alkaline Phosphatase 99 U/L (39-117); Anion Gap 16 (12-20); Aspartate Amino Transferase 18 U/L (5-31); Bilirubin Total 0.6 mg/dL (0.0-1.0); Blood Urea Nitrogen 9 mg/dL (9-16); Calcium 8.4 mg/dL (8.4-10.2); Carbon Dioxide 20 mmol/L (22-29); Chloride 110 mmol/L (96-108); Creatinine Clr Calc Pharmacy 109.9; Estimated Glomerular Filt Rate > 60; Glucose Random 117 mg/dL (60-115); Magnesium 2.2 mg/dL (1.6-2.6); Phosphorus 3.3 mg/dL (2.7-4.5); Potassium 3.9 mmol/L (3.3-5.1); Sodium 142 mmol/L (135-145); Total Protein 5.9 g/dL (6.5-8.0)
[2022-01-07 09:10] LABS: SLIDE REVIEW VERIFIED
[2022-01-07 09:12] LABS: Glucose, Whole Blood 120 mg/dL (60-115)
[2022-01-07] MEDS: QUEtiapine Fumarate 100 MG TABLET PO ×2 (09:53→21:09)
[2022-01-07] MEDS: lamoTRIgine 25 MG TABLET 50 MG PO ×2 (09:53→21:08)
[2022-01-07] MEDS: Heparin Sodium,Porcine 5,000 UNIT/ML VIAL 5000 UNIT SUBCUT ×2 (09:53→21:08)
--- NOTE | 2022-01-07 10:53 | P.PNCC_ITS ---
Subjective Subjective Date of Service: 01/07/22 Interval History: 61-year-old lady with underlying history of CVA, schizoaffective disorder, borderline personality disorder, PTSD, also asthma/COPD, hypertension, glaucoma admitted on 01/04/2022 after witnessed pulmonary aspiration of food resulting in cardiac arrest with CPR started immediately and returned spontaneous circulation achieved before EMS arrival, but still with significant hypoxia. Patient transported to [facility] emergency room where she was intubated. On intubation foot particles noted and removed from oropharynx. Patient admitted to intensive care unit and covered for aspiration pneumonitis. patient with return to baseline mental status and extubated on 01/05/2022. Thereafter, patient with significant agitation requiring sedative drips, being slowly uptitrated on antipsychotic medications. No events overnight. Critical Care Time (minutes): 0 Physical Exam Vital Signs: Vital Signs: Last Vital Signs Temp 98.4 F 01/07/22 08:00 Pulse 58 01/07/22 10:00 Resp 34 H 01/07/22 10:00 BP 148/72 H 01/07/22 10:00 Pulse Ox 91 L 01/07/22 10:00 O2 Del Method 01/07/22 10:00 O2 Flow Rate 1 01/07/22 10:00 FiO2 30 01/05/22 14:40 BMI result Body Mass Index 35.0 Const: General: no acute distress and lethargic ( Intermittently agitated, arousable and answers appropriately) Orientation/consciousness: lethargic ( Intermittently agitated, arousable and answers appropriately) Eyes: Sclerae: sclerae normal EOM: EOMs intact bilaterally Neck: Neck: Yes no lymphadenopathy, Yes trachea midline and Yes supple Resp: Effort & Inspection: normal respiratory effort and no respiratory distress Auscultation: clear to auscultation bilaterally Cardio: Rate: regular rate Rhythm: regular rhythm Heart sounds: no gallops, no murmurs and no rubs GI: Palpation (GI): Soft to palpation and Other GI palpation findings present ( Nontender) Auscultation: normal bowel sounds Extrem: General: Yes no pedal edema, No clubbing and No cyanosis Objective Data Labs CBC & Chem 7: 01/07/22 08:12 01/07/22 08:12 Labs: Laboratory Results - last 24 hr 01/07/22 01/07/22 01/07/22 07:29 08:12 08:12 WBC 9.7 RBC 4.56 Hgb 13.0 Hct 41.5 MCV 91.0 MCH 28.5 MCHC 31.3 RDW 15.3 Plt Count TNP MPV TNP Immature Gran % (Auto) 0.7 H Neut % (Auto) 69.5 Lymph % (Auto) 19.8 L [place] % (Auto) 9.3 Eos % (Auto) 0.2 Baso % (Auto) 0.5 Lymph # (Auto) 1.9 [place] # (Auto) 0.9 Eos # (Auto) 0.0 Baso # (Auto) 0.1 Abs Immat Gran (auto) 0.07 H Absolute Neuts (auto) 6.8 Absolute Nucleated RBC 0.000 Nucleated RBC % (auto) 0.0 Smear Tech's Comments VERIFIED Sodium 142 Potassium 3.9 Chloride 110 H Carbon Dioxide 20 L Anion Gap 16 BUN 9 Creatinine 0.68 Estim Creat Clear Calc 109.9 Estimated GFR > 60 POC Glucose 120 H Random Glucose 117 H Calcium 8.4 Phosphorus 3.3 Magnesium 2.2 Total Bilirubin 0.6 AST 18 ALT 38 H Alkaline Phosphatase 99 Total Protein 5.9 L Albumin 3.5 Microbiology Microbiology Results: Microbiology 01/04/22 23:44 Blood - Venous Blood Culture - Preliminary No growth after 48 hours. 01/04/22 23:44 Blood - Venous Blood Culture - Preliminary No growth after 48 hours. Progress Note: A&P Assessment and plan (1) Schizoaffective disorder: Status: Acute (2) Acute respiratory failure: Status: Acute (3) Cardiopulmonary arrest with successful resuscitation: Status: Acute (4) Type 2 diabetes mellitus: Status: Acute Plan Assessment: 61-year-old lady with underlying schizoaffective disorder on multiple sedating medications admitted after a witnessed aspiration of food resulted in brief cardiac arrest with CPR started immediately by facility staff and return of spontaneous circulation achieved before EMS arrival, briefly requiring intubation, now with significant agitation. Plan: Neuro: Agitation, likely secondary to underlying schizoaffective disorder, continue to titrate off sedative drips and up on antipsychotic medications. Cardiac: Status post cardiac arrest after aspiration of food particles with successful resuscitation. 2D echocardiogram is pending. Pulmonary: Pulmonary aspiration of food particles resulting in cardiac arrest briefly requiring ventilatory support, extubated 01/05/2022. Renal: No acute issues. Endo: No acute issues. Underlying diabetes mellitus GI: No acute issues. ID: No acute issues. Initially covered for aspiration pneumonitis, now being monitored off antibiotics. Heme/Onc: No acute issues. Psych: underlying personality disorder and schizoaffective disorder, now being up titrated on Quetiapine and started on Lamictal. Miscellaneous: No acute issues. Prophylaxis: Heparin Diet: pending swallow evaluation Quality Stroke Does the patient have a stroke diagnosis?: No VTE Prior VTE?: No VTE Risk Level:: Medical - moderate - high VTE Device Contraindication: N/A - Device Ordered VTE Drug Contraindication: N/A - Med Ordered
[2022-01-07 11:46] LABS: Glucose, Whole Blood 133 mg/dL (60-115)
--- NOTE | 2022-01-07 11:50 | MHC.CM.PN ---
Pt in ICU receiving care after arresting following a choking episode. Pt is doing well: will be seen by speech and possibly transferred to the [facility] floor if stable. Met with pt who required frequent redirection: verbalized anxiety with hospitalization. Call placed to pt's legal guardian Perla who states pt is a LTC resident of [facility] and will return when medically stable. She is dependent for most of her ADL's. Guardianship and MOLST on file. Pt will need BLS upon return to [facility]. IMM in chart.
[2022-01-07] MEDS: Albuterol/Iprat 2.5/0.5MG 3 ML AMPUL.NEB INHALE ×3 (11:54→19:25)
--- NOTE | 2022-01-07 13:22 | MHC.SL.SWA ---
Addendum entered and electronically signed by Beverley Mei MA, CCC-BUTTONER 01/07/22 13:28: D.S. Original Note: Speech Pathologist Impression: Dysphagia Risk of Aspiration Due to: Lethargy Medically Fragile Hx of Recent Extubation Weak Cough Dysphasia Diet Status: Upgrade Liquid Consistency and Strategies for Safe Swallow: Liquid Intake Recommendation: Honey Thick Liquid Intake Strategies: Small Sips No Straws Solid Food Consistency: Dietary Recommendations: Pureed (NDD1) Oral Medication Intake: Crushed with Puree Please contact the pharmacy regarding appropriate crushable or liquid drug formulations that are available whenever modified delivery is recommended. Compensatory Strategies and Precautions to be Taken for Safe Swallow: Sitting Upright (90 deg) No Straw Liquids from Cup Liquids from Spoon Small Bites and Sips Rate of Ingestion Change Avoid Specific Foods Supervision While Eating and Drinking for Safe Swallow: Total Assistance (1:1) Recommendation for Speech: Outpatient Speech Therapy Inpatient Speech Therapy Comment: Recommend UPGRADE to PUREED solids (NDD1), HONEY THICK liquids (small sips, take breaks), pills CRUSHED in PUREE. Pt requires 1:1 assistance and total supervision during all PO. Monitor for s/s of aspiration. Hold PO if pt presents too lethargic. Update provided to RN and MD in person. Update sent to RN, , RD via [employer]. [employer] Member Clinican/Clinical Fellow: Yes: Carla Elias M.A., CF-BUTTONER Supervisory Statement: I have reviewed and agree with the student/clinical fellow's documentation: Speech Language Pathologist:
[2022-01-07 17:38] LABS: Glucose, Whole Blood 94 mg/dL (60-115)
[2022-01-07 20:54] LABS: Glucose, Whole Blood 96 mg/dL (60-115)
[2022-01-08] VITALS (10 sets, daily range): BP systolic 104–149; BP diastolic 60–91; PULSE 68–103; RESP 16–20; TEMP 36.1–37.1; O2SAT 93–97; BMI 34.4
[2022-01-08] MEDS: LORazepam 0.5 MG TABLET 0.25 MG PO (01:02)
[2022-01-08 08:02] LABS: MANUAL DIFF FLAG NO
[2022-01-08 08:03] LABS: Basophils Percent Auto 0.4 % (0-2); Eosinophils Percent Auto 0.1 % (0-4); Hematocrit 37.6 % (37.0-47.0); Imm Gran Abs Auto 0.02 X10*3/uL (0.00-0.03); Imm Gran Pct Auto 0.3 % (0.0-0.4); Lymphocytes Absolute Auto 1.1 X10*3/uL (1.2-4.9); Lymphocytes Percent Auto 15.4 % (20-40); Mean Corpuscular HGB Conc 31.9 g/dl (31.0-35.0); Mean Corpuscular Hemoglobin 28.8 pg (27.0-33.0); Mean Corpuscular Volume 90.4 fL (80.0-98.0); Mean Platelet Volume 10.4 fL (9.4-12.3); Monocytes Absolute Auto 0.8 X10*3/uL (0.1-1.2); Monocytes Percent Auto 10.7 % (2-11); Neutrophils Absolute Auto 5.4 x10*3/uL (2.0-8.3); Neutrophils Percent Auto 73.1 % (45-73); Platelet Count 158 X10*3/uL (160-400); Red Blood Count 4.16 X10*6/uL (4.20-5.50); Red Cell Distribution Width 14.8 % (11.0-16.0); White Blood Count 7.4 X10*3/uL (4.8-10.8)
[2022-01-08 08:06] LABS: VBG Base Excess -2.5 mmol/L; VBG HCO3 20 mmol/L (22-26); VBG pCO2 30 mmHg; VBG pH 7.43 (7.32-7.43); VBG pO2 111 mmHg
[2022-01-08 08:06] LABS: Venous Blood Gas Refer to POC result
[2022-01-08 08:13] LABS: Glucose, Whole Blood 112 mg/dL (60-115)
[2022-01-08 08:23] LABS: Albumin Level 3.6 g/dL (3.5-5.0); Anion Gap 17 (12-20); Blood Urea Nitrogen 9 mg/dL (9-16); Calcium 8.4 mg/dL (8.4-10.2); Carbon Dioxide 21 mmol/L (22-29); Chloride 107 mmol/L (96-108); Creatinine Clr Calc Pharmacy 115.8; Estimated Glomerular Filt Rate > 60; Glucose Random 104 mg/dL (60-115); Phosphorus 4.7 mg/dL (2.7-4.5); Potassium 3.6 mmol/L (3.3-5.1); Sodium 141 mmol/L (135-145)
[2022-01-08] MEDS: lamoTRIgine 25 MG TABLET 50 MG PO ×2 (10:50→21:14)
[2022-01-08] MEDS: Heparin Sodium,Porcine 5,000 UNIT/ML VIAL 5000 UNIT SUBCUT ×2 (10:50→21:23)
[2022-01-08] MEDS: DULoxetine HCl 60 MG CAPSULE.DR PO (10:50)
[2022-01-08] MEDS: Pregabalin 200 MG CAPSULE PO (10:50)
[2022-01-08] MEDS: diazePAM 5 MG TABLET PO ×2 (10:51→17:03)
[2022-01-08] MEDS: QUEtiapine Fumarate 100 MG TABLET PO ×2 (10:51→21:13)
[2022-01-08] MEDS: Famotidine/PF 20 MG/2 ML VIAL IVPUSH ×2 (10:52→21:14)
[2022-01-08 11:08] LABS: Glucose, Whole Blood 113 mg/dL (60-115)
--- NOTE | 2022-01-08 11:17 | MHC.SL.SWA ---
Speech Pathologist Impression: Risk of Aspiration Due to: Lethargy Medically Fragile Hx of Recent Extubation Weak Cough Dysphasia Diet Status: Recommend continue with current diet, Puree (NDD1) with HONEY THICK liquids, pills crushed in puree. Liquid Consistency and Strategies for Safe Swallow: Liquid Intake Recommendation: Honey Thick Liquid Intake Strategies: Small Sips Solid Food Consistency: Dietary Recommendations: Pureed (NDD1) Additional Modifications to Solid Foods: Needs 1-1 assistance, encourage PO, may need some rest breaks during meal. Oral Medication Intake: Crushed with Puree Please contact the pharmacy regarding appropriate crushable or liquid drug formulations that are available whenever modified delivery is recommended. Compensatory Strategies and Precautions to be Taken for Safe Swallow: Sitting Upright (90 deg) No Straw Liquids from Cup Liquids from Spoon Small Bites and Sips Alternate Liquids/Solids Rate of Ingestion Change Supervision While Eating and Drinking for Safe Swallow: Total Assistance (1:1) Foods to Avoid: Swallowing Recommended Treatments: Compens. Strategy Educat. Recommendation for Speech: Outpatient Speech Therapy Inpatient Speech Therapy Comment: Pt seen yesterday in ICU, put on diet of PUREE (NDD1) with HONEY THICK liquids Pills Crushed in Puree. Patient was seen this morning with breakfast tray present, sitter at bedside. Sitter reported that patient had refused breakfast. Patient was lying in bed, moaning, appearing to try to get into comfortable position. Sitter assisted with repositioning patient so that she was more upright in bed and head of bed was raised. Patient continued to appear agitated, often moaning and was episodically labile throughout. [employer]ER noted that a large container of water was at bedside, and sitter reported giving patient water. Water was removed, board was adjusted to note HONEY THICK liquids, thickening packets were left at bedside. Pt agreed to take some tsp of honey thick cranberry juice, demonstrated a mildly disorganized oral phase, mild delay initiating swallow, no clinical signs of aspiration. Patient then refused all other food or liquid trials. With limited po intake observed, recommend continue with current diet, Puree (NDD1) with HONEY THICK liquids, pills crushed in puree. Frequency/Duration: Date Range for Service Req: Timeline to reassess: Clinical Laboratory Technician Clinican/Clinical Fellow: No Supervisory Statement: I have reviewed and agree with the student/clinical fellow's documentation: N/A Speech Language Pathologist: Isabel Ozuna M.A., CCC-[employer]
[2022-01-08] MEDS: Albuterol/Iprat 2.5/0.5MG 3 ML AMPUL.NEB INHALE ×3 (11:39→19:20)
--- NOTE | 2022-01-08 13:18 | P.PNIM_ITS ---
Subjective Subjective Date of Service: 01/08/22 Interval History: Seen and evaluated this morning Encephalopathic, cannot tell why or how she ended up in the hospital More interactive, less agitated though Review of Systems Review of Systems: Yes all other systems are reviewed and are negative Physical Exam Vital Signs: Vital Signs: Last Vital Signs Temp 97.0 F 01/08/22 12:00 Pulse 97 01/08/22 12:00 Resp 16 01/08/22 12:00 BP 149/91 H 01/08/22 12:00 Pulse Ox 93 01/08/22 12:00 O2 Del Method 01/08/22 12:00 O2 Flow Rate 2 01/08/22 12:00 FiO2 30 01/05/22 14:40 BMI result Body Mass Index 34.4 Const: Other: Constitutional : Awake, interactive, not in distress Neck : Normal inspection, Supple Cardiovascular : RRR, no JVP, no lower extremity edema Respiratory : good bilateral air entry, no crackles, wheezes or rhonchi Gastrointestinal: soft, lax, Normal bowel sounds, Non tender Skin : Warm, Dry Neurological : Alert & oriented to self only otherwise confused, No focal deficit moving all extremities Objective Data Active Medications Al Hydroxide/Mg Hydroxide (Magnesium Hydrox/Alum Hydrox 30 Ml Oral.Susp) 10 ml PO Q6H PRN PRN Reason: Indigestion Albuterol Sulfate (Albuterol Sulfate 90 Mcg 8 Gm Inhaler) 2 puff INHALE Q4H PRN PRN Reason: Shortness Of Breath Albuterol/Ipratropium (Albuterol/Iprat 2.5/0.5mg 3 Ml Ampul.Neb) 3 ml INHALE RQ4H WHILE AWAKE [facility] Last Admin: 01/08/22 11:39 Dose: 3 ml Documented By: ESSENCE Amlodipine Besylate (Amlodipine Besylate 5 Mg Tablet) 5 mg PO DAILY@0500 [facility]; Protocol Bisacodyl (Bisacodyl 10 Mg Supp.Rect) 10 mg [place] DAILY PRN PRN Reason: Constipation Bisacodyl (Bisacodyl 5 Mg Tablet.Dr) 10 mg PO DAILY PRN PRN Reason: Constipation Clozapine (Clozapine 25 Mg Tablet) 75 mg PO DAILY@1700 [facility] Clozapine (Clozapine 100 Mg Tablet) 200 mg PO DAILY@1700 [facility] Diazepam (Diazepam 5 Mg Tablet) 5 mg PO BID@0900,1700 [facility] Last Admin: 01/08/22 10:51 Dose: 5 mg Documented By: LIOR Duloxetine HCl (Duloxetine Hcl 60 Mg Capsule.Dr) 60 mg PO DAILY [facility] Last Admin: 01/08/22 10:50 Dose: 60 mg Documented By: LIOR Famotidine (Famotidine/Pf 20 Mg/2 Ml Vial) 20 mg IVPUSH BID [facility] Last Admin: 01/08/22 10:52 Dose: 20 mg Documented By: LIOR Fluticasone Propionate (Fluticasone Propionate Nasal 16 Gm [place]) 1 spray NOST RIL-B DAILY [facility] Fluticasone/Vilanterol (Fluticasone/Vilanterol 200/25 Blst.W.Dev) 1 puff INHALE RDAILY [facility] Guaifenesin (Guaifenesin 100 Mg/5 Ml Liquid) 5 ml PO Q6H PRN PRN Reason: Cough Heparin Sodium (Porcine) (Heparin Sodium,Porcine 5,000 Unit/Ml Vial) 5,000 unit SUBCUT Q12H [facility] Last Admin: 01/08/22 10:50 Dose: 5,000 unit Documented By: LIOR Insulin Human Lispro (Insulin Lispro 100 Unit/Ml 3 Ml Vial) 0 unit SUBCUT QIDACHS [facility]; Protocol Last Admin: 01/08/22 10:52 Dose: Not Given Documented By: LIOR Non-Admin Reason: No Insulin Coverage Lamotrigine (Lamotrigine 25 Mg Tablet) 50 mg PO BID [facility] Last Admin: 01/08/22 10:50 Dose: 50 mg Documented By: LIOR Loperamide HCl (Loperamide Hcl 2 Mg Capsule) 2 mg PO BID PRN PRN Reason: Loose Stool Lorazepam (Lorazepam 0.5 Mg Tablet) 0.25 mg PO Q6H PRN PRN Reason: anxiety/restlessness Last Admin: 01/08/22 01:02 Dose: 0.25 mg Documented By: TUMASY Magnesium Citrate (Magnesium Citrate 300 Ml Solution) 150 ml PO Q4H PRN PRN Reason: Constipation Magnesium Hydroxide (Milk Of Magnesia 30 Ml Oral.Susp) 30 ml PO DAILY PRN PRN Reason: Constipation Melatonin (Melatonin 3 Mg Tablet) 3 mg PO DAILY@1700 [facility] Nicotine Polacrilex (Nicotine Polacrilex Lozenge 2 Mg Lozenge) 2 mg BUCCAL TID PRN PRN Reason: Nicotine Cravings Non-Formulary Medication (Atomoxetine) 50 mg PO DAILY [facility] Nystatin (Nystatin Powder 15 Gm Bottle) 1 appl TOPICAL BID [facility]; Protocol Last Admin: 01/07/22 21:21 Dose: Not Given Documented By: YUE Non-Admin Reason: no nystatin in pt room, pharmacy made aware Omeprazole (Omeprazole 40 Mg Capsule.Dr) 40 mg PO DAILY@0600 [facility] Oxycodone HCl (Oxycodone Hcl Immed Release 5 Mg Tablet) 5 mg PO Q6H PRN PRN Reason: Pain, Severe (Pain Scale 7-10) Last Admin: 01/07/22 21:09 Dose: 5 mg Documented By: YUE Oxycodone HCl (Oxycodone Hcl Immed Release 5 Mg Tablet) 5 mg PO Q4H PRN PRN Reason: Pain (Scale Score 4-6) Pregabalin (Pregabalin 150 Mg Capsule) 300 mg PO BEDTIME [facility] Pregabalin (Pregabalin 200 Mg Capsule) 200 mg PO DAILY@0900 [facility] Last Admin: 01/08/22 10:50 Dose: 200 mg Documented By: LIOR Quetiapine Fumarate (Quetiapine Fumarate 100 Mg Tablet) 100 mg PO BID [facility] Last Admin: 01/08/22 10:51 Dose: 100 mg Documented By: LIOR Quetiapine Fumarate (Quetiapine Fumarate 100 Mg Tablet) 100 mg PO DAILY@1200 [facility] Quetiapine Fumarate (Quetiapine Fumarate 200 Mg Tablet) 200 mg PO BEDTIME [facility] Zonisamide (Zonisamide 100 Mg Capsule) 100 mg PO DAILY [facility] Labs CBC & Chem 7: 01/08/22 07:57 01/08/22 07:57 Labs: Laboratory Results - last 24 hr 01/07/22 01/07/22 01/08/22 16:37 20:41 07:09 MCV MCH MCHC RDW Plt Count MPV Immature Gran % (Auto) Neut % (Auto) Lymph % (Auto) [place] % (Auto) Eos % (Auto) Baso % (Auto) Lymph # (Auto) [place] # (Auto) Eos # (Auto) Baso # (Auto) Abs Immat Gran (auto) Absolute Neuts (auto) Absolute Nucleated RBC Nucleated RBC % (auto) VBG pH VBG pCO2 VBG pO2 VBG HCO3 VBG O2 Saturation VBG Base Excess Anion Gap Estim Creat Clear Calc Estimated GFR POC Glucose 94 96 112 Random Glucose Calcium Phosphorus Magnesium Albumin 01/08/22 01/08/22 01/08/22 07:57 07:57 08:01 MCV 90.4 MCH 28.8 MCHC 31.9 RDW 14.8 Plt Count 158 L MPV 10.4 Immature Gran % (Auto) 0.3 Neut % (Auto) 73.1 H Lymph % (Auto) 15.4 L [place] % (Auto) 10.7 Eos % (Auto) 0.1 Baso % (Auto) 0.4 Lymph # (Auto) 1.1 L [place] # (Auto) 0.8 Eos # (Auto) 0.0 Baso # (Auto) 0.0 Abs Immat Gran (auto) 0.02 Absolute Neuts (auto) 5.4 Absolute Nucleated RBC 0.000 Nucleated RBC % (auto) 0.0 VBG pH 7.43 VBG pCO2 30 VBG pO2 111 VBG HCO3 20 L VBG O2 Saturation 100.0 VBG Base Excess -2.5 Anion Gap 17 Estim Creat Clear Calc 115.8 Estimated GFR > 60 POC Glucose Random Glucose 104 Calcium 8.4 Phosphorus 4.7 H Magnesium 2.0 Albumin 3.6 01/08/22 10:51 MCV MCH MCHC RDW Plt Count MPV Immature Gran % (Auto) Neut % (Auto) Lymph % (Auto) [place] % (Auto) Eos % (Auto) Baso % (Auto) Lymph # (Auto) [place] # (Auto) Eos # (Auto) Baso # (Auto) Abs Immat Gran (auto) Absolute Neuts (auto) Absolute Nucleated RBC Nucleated RBC % (auto) VBG pH VBG pCO2 VBG pO2 VBG HCO3 VBG O2 Saturation VBG Base Excess Anion Gap Estim Creat Clear Calc Estimated GFR POC Glucose 113 Random Glucose Calcium Phosphorus Magnesium Albumin Assessment and Plan (1) Schizoaffective disorder: Status: Acute (2) Cardiac arrest: Status: Acute (3) Acute respiratory failure: Status: Acute Plan 61-year-old lady with underlying schizoaffective disorder on multiple sedating medications admitted after a witnessed aspiration of food resulted in brief cardiac arrest with CPR started immediately by facility staff and return of spontaneous circulation achieved . briefly requiring intubation, . Developed significant agitation. Agitation likely secondary to underlying schizoaffective disorder Restart antipsychotic medications. Started on lamotrigine per ICU team Psychiatry evaluation for clozapine restart that and other meds Status post cardiac arrest after aspiration of food particles successful resuscitation 2D echocardiogram is pending Speech therapy evaluation Pulmonary aspiration of food particles resulting in cardiac arrest briefly Required ventilatory support, extubated 01/05/2022. Wean down oxygen requirement Antibiotics discontinued personality disorder and schizoaffective disorder Continue Quetiapine and started on Lamictal. Prophylaxis: Heparin Patient will need overnight hospital stay to restart her psych medications pending psych team evaluation and continue weaning of oxygen supplement Quality Stroke Does the patient have a stroke diagnosis?: No VTE Prior VTE?: No VTE Risk Level:: Medical - moderate - high VTE Device Contraindication: N/A - Device Ordered VTE Drug Contraindication: N/A - Med Ordered
--- NOTE | 2022-01-08 15:27 | PM.PSYCN ---
History of Present Illness Date of Service: 01/09/22 Chief Complaint: CARDIAC ARREST Reason for Consult: medication Requesting physician: Lori Delaney Discussed with referring provider: Yes Sources of Information: patient interviewed and chart reviewed HPI Narrative: Valentina is a 61-year-old lady who carries a dx of schizoaffective disorder, PTSD. Hx of cerebral infarction, COPD, atelectasis, asthma, hyperlipidemia, HTN, diverticulitis, and ileus. She presented to [facility] on 01/04/22 after a witnessed aspiration of food resulted in brief cardiac arrest with CPR started immediately by facility staff at her SNF, briefly requiring intubation. She was admitted to the ICU.?Pt?s sedating medications were initially held, however Seroquel was re-started due to agitation. She was also started on lamictal for mood stability. Psych consult placed as pt has been off clozapine >72 hours. I spoke with pt this evening and she reports ?im okay.? She is alert, somewhat oriented, although presents with some memory impairment. Unable to recall her medications. Discussed that her clozapine would need to be restarted, says ?I think I did a good job with that one.? Says her mood is ?good? and her sleep is ?good.? Pt?s RN and 1:1 report pt has not been agitated. [facility] Medical History (Updated 01/05/22 @ 14:31 by Apple Allen MD) Acute respiratory failure with hypoxia Anemia Asthma Borderline personality disorder Cataract Chronic pain syndrome Constipation COPD (chronic obstructive pulmonary disease) Diverticulitis Dysphagia [place] Fusion of spine GERD (gastroesophageal reflux disease) Glaucoma HTN (hypertension) Hyperlipemia Hypertensive cardiovascular disease Ileus Osteoporosis Postmenopausal atrophic vaginitis PTSD (post-traumatic stress disorder) Schizoaffective disorder Schizoaffective disorder Tobacco abuse Type 2 diabetes mellitus Surgical History (Updated 01/05/22 @ 09:26 by Lorna Viveros RN) Presence of right artificial hip joint Presence of right artificial knee joint Diagnostics Vital Signs (24Hr): Vital Signs - 24 hr 01/07/22 15:36 01/07/22 17:00 01/07/22 19:31 Temperature 97.3 F Pulse Rate 80 83 98 Respiratory Rate 18 16 Blood Pressure 137/72 Pulse Oximetry 93 Oxygen Delivery Method Nasal Cannula Oxygen Flow Rate 2 01/07/22 19:44 01/08/22 00:00 01/08/22 03:11 Temperature 96.9 F 98.7 F 97.9 F Pulse Rate 85 97 103 H Respiratory Rate 16 16 18 Blood Pressure 124/60 142/65 H 128/60 Pulse Oximetry 92 93 93 Oxygen Delivery Method Nasal Cannula Nasal Cannula Nasal Cannula Oxygen Flow Rate 2 2 2 01/08/22 07:52 01/08/22 11:40 01/08/22 12:00 Temperature 97.8 F 97.0 F Pulse Rate 99 87 97 Respiratory Rate 18 18 16 Blood Pressure 147/72 H 149/91 H Pulse Oximetry 94 93 Oxygen Delivery Method Nasal Cannula Nasal Cannula Oxygen Flow Rate 2 2 01/08/22 14:46 Temperature Pulse Rate 88 Respiratory Rate 18 Blood Pressure Pulse Oximetry Oxygen Delivery Method Oxygen Flow Rate BMI result Body Mass Index 34.4 Labs Results: 01/08/22 07:57 01/08/22 07:57 Labs: Laboratory Results - last 48 hr 01/07/22 01/07/22 01/07/22 07:29 08:12 08:12 WBC 9.7 RBC 4.56 Hgb 13.0 Hct 41.5 MCV 91.0 MCH 28.5 MCHC 31.3 RDW 15.3 Plt Count TNP MPV TNP Immature Gran % (Auto) 0.7 H Neut % (Auto) 69.5 Lymph % (Auto) 19.8 L [place] % (Auto) 9.3 Eos % (Auto) 0.2 Baso % (Auto) 0.5 Lymph # (Auto) 1.9 [place] # (Auto) 0.9 Eos # (Auto) 0.0 Baso # (Auto) 0.1 Abs Immat Gran (auto) 0.07 H Absolute Neuts (auto) 6.8 Absolute Nucleated RBC 0.000 Nucleated RBC % (auto) 0.0 Smear Tech's Comments VERIFIED VBG pH VBG pCO2 VBG pO2 VBG HCO3 VBG O2 Saturation VBG Base Excess Sodium 142 Potassium 3.9 Chloride 110 H Carbon Dioxide 20 L Anion Gap 16 BUN 9 Creatinine 0.68 Estim Creat Clear Calc 109.9 Estimated GFR > 60 POC Glucose 120 H Random Glucose 117 H Calcium 8.4 Phosphorus 3.3 Magnesium 2.2 Total Bilirubin 0.6 AST 18 ALT 38 H Alkaline Phosphatase 99 Total Protein 5.9 L Albumin 3.5 01/07/22 01/07/22 01/07/22 11:42 16:37 20:41 WBC RBC Hgb Hct MCV MCH MCHC RDW Plt Count MPV Immature Gran % (Auto) Neut % (Auto) Lymph % (Auto) [place] % (Auto) Eos % (Auto) Baso % (Auto) Lymph # (Auto) [place] # (Auto) Eos # (Auto) Baso # (Auto) Abs Immat Gran (auto) Absolute Neuts (auto) Absolute Nucleated RBC Nucleated RBC % (auto) Smear Tech's Comments VBG pH VBG pCO2 VBG pO2 VBG HCO3 VBG O2 Saturation VBG Base Excess Sodium Potassium Chloride Carbon Dioxide Anion Gap BUN Creatinine Estim Creat Clear Calc Estimated GFR POC Glucose 133 H 94 96 Random Glucose Calcium Phosphorus Magnesium Total Bilirubin AST ALT Alkaline Phosphatase Total Protein Albumin 01/08/22 01/08/22 01/08/22 07:09 07:57 07:57 WBC 7.4 RBC 4.16 L Hgb 12.0 Hct 37.6 MCV 90.4 MCH 28.8 MCHC 31.9 RDW 14.8 Plt Count 158 L MPV 10.4 Immature Gran % (Auto) 0.3 Neut % (Auto) 73.1 H Lymph % (Auto) 15.4 L [place] % (Auto) 10.7 Eos % (Auto) 0.1 Baso % (Auto) 0.4 Lymph # (Auto) 1.1 L [place] # (Auto) 0.8 Eos # (Auto) 0.0 Baso # (Auto) 0.0 Abs Immat Gran (auto) 0.02 Absolute Neuts (auto) 5.4 Absolute Nucleated RBC 0.000 Nucleated RBC % (auto) 0.0 Smear Tech's Comments VBG pH VBG pCO2 VBG pO2 VBG HCO3 VBG O2 Saturation VBG Base Excess Sodium 141 Potassium 3.6 Chloride 107 Carbon Dioxide 21 L Anion Gap 17 BUN 9 Creatinine 0.64 Estim Creat Clear Calc 115.8 Estimated GFR > 60 POC Glucose 112 Random Glucose 104 Calcium 8.4 Phosphorus 4.7 H Magnesium 2.0 Total Bilirubin AST ALT Alkaline Phosphatase Total Protein Albumin 3.6 01/08/22 01/08/22 08:01 10:51 WBC RBC Hgb Hct MCV MCH MCHC RDW Plt Count MPV Immature Gran % (Auto) Neut % (Auto) Lymph % (Auto) [place] % (Auto) Eos % (Auto) Baso % (Auto) Lymph # (Auto) [place] # (Auto) Eos # (Auto) Baso # (Auto) Abs Immat Gran (auto) Absolute Neuts (auto) Absolute Nucleated RBC Nucleated RBC % (auto) Smear Tech's Comments VBG pH 7.43 VBG pCO2 30 VBG pO2 111 VBG HCO3 20 L VBG O2 Saturation 100.0 VBG Base Excess -2.5 Sodium Potassium Chloride Carbon Dioxide Anion Gap BUN Creatinine Estim Creat Clear Calc Estimated GFR POC Glucose 113 Random Glucose Calcium Phosphorus Magnesium Total Bilirubin AST ALT Alkaline Phosphatase Total Protein Albumin Imaging Radiology Impressions: ITS Impressions Chest X-Ray 01/04/22 19:05 IMPRESSION: 1. ET tube 2.5 cm above the danielle. 2. Volume loss left hemithorax with diffuse airspace opacity. Chest X-Ray 01/04/22 22:13 IMPRESSION: 1. What appears to be a right internal jugular line has its tip in the axillary vein. 2. ET tube 3.2 cm above the danielle. 3. NG tube in good position. 4. Marked improvement in left lung aeration Chest X-Ray 01/06/22 08:08 IMPRESSION: 1. Interval extubation and removal of enteric tubes. 2. Similar positioning of right-sided jugular catheter which is abnormal in position, possibly terminating within the right axillary vein. Clinical correlation recommended. Repositioning may be required. 3. Mild interval improvement in aeration of the left lung base. Mental Status Exam Mental Status Exam Narrative: A&O. In hospital attire, somewhat unkempt. Moderate eye contact, inattentive. No Tics or Tremors. No abnormal involuntary movements. Calm, cooperative, but tired, just woke up. Non-pressured speech, spontaneous with regular rate and rhythm, normal volume and prosody. No prolonged speech latency or dysarthria. Mood is ?okay,? affect is euthymic. Denies SI/SIB/HI upon inquiry. Currently denies A/VH or delusional thought content. Thoughts are slowed. No known cognitive or memory impairment. Insight/ Judgment limited but adequate. Medications Medications Current Medications Al Hydroxide/Mg Hydroxide (Magnesium Hydrox/Alum Hydrox 30 Ml Oral.Susp) 10 ml PO Q6H PRN PRN Reason: Indigestion Albuterol Sulfate (Albuterol Sulfate 90 Mcg 8 Gm Inhaler) 2 puff INHALE Q4H PRN PRN Reason: Shortness Of Breath Albuterol/Ipratropium (Albuterol/Iprat 2.5/0.5mg 3 Ml Ampul.Neb) 3 ml INHALE RQ4H WHILE AWAKE [facility] Last Admin: 01/08/22 14:46 Dose: 3 ml Amlodipine Besylate (Amlodipine Besylate 5 Mg Tablet) 5 mg PO DAILY@0500 [facility]; Protocol Bisacodyl (Bisacodyl 10 Mg Supp.Rect) 10 mg [place] DAILY PRN PRN Reason: Constipation Bisacodyl (Bisacodyl 5 Mg Tablet.Dr) 10 mg PO DAILY PRN PRN Reason: Constipation Clozapine (Clozapine 25 Mg Tablet) 75 mg PO DAILY@1700 [facility] Clozapine (Clozapine 100 Mg Tablet) 200 mg PO DAILY@1700 [facility] Diazepam (Diazepam 5 Mg Tablet) 5 mg PO BID@0900,1700 [facility] Last Admin: 01/08/22 10:51 Dose: 5 mg Duloxetine HCl (Duloxetine Hcl 60 Mg Capsule.Dr) 60 mg PO DAILY [facility] Last Admin: 01/08/22 10:50 Dose: 60 mg Famotidine (Famotidine/Pf 20 Mg/2 Ml Vial) 20 mg IVPUSH BID [facility] Last Admin: 01/08/22 10:52 Dose: 20 mg Fluticasone Propionate (Fluticasone Propionate Nasal 16 Gm [place]) 1 spray NOSTRIL-B DAILY [facility] Last Admin: 01/08/22 13:57 Dose: Not Given Fluticasone/Vilanterol (Fluticasone/Vilanterol 200/25 Blst.W.Dev) 1 puff INHALE RDAILY [facility] Guaifenesin (Guaifenesin 100 Mg/5 Ml Liquid) 5 ml PO Q6H PRN PRN Reason: Cough Heparin Sodium (Porcine) (Heparin Sodium,Porcine 5,000 Unit/Ml Vial) 5,000 unit SUBCUT Q12H [facility] Last Admin: 01/08/22 10:50 Dose: 5,000 unit Insulin Human Lispro (Insulin Lispro 100 Unit/Ml 3 Ml Vial) 0 unit SUBCUT QIDACHS [facility]; Protocol Last Admin: 01/08/22 10:52 Dose: Not Given Lamotrigine (Lamotrigine 25 Mg Tablet) 50 mg PO BID [facility] Last Admin: 01/08/22 10:50 Dose: 50 mg Loperamide HCl (Loperamide Hcl 2 Mg Capsule) 2 mg PO BID PRN PRN Reason: Loose Stool Lorazepam (Lorazepam 0.5 Mg Tablet) 0.25 mg PO Q6H PRN PRN Reason: anxiety/restlessness Last Admin: 01/08/22 01:02 Dose: 0.25 mg Magnesium Citrate (Magnesium Citrate 300 Ml Solution) 150 ml PO Q4H PRN PRN Reason: Constipation Magnesium Hydroxide (Milk Of Magnesia 30 Ml Oral.Susp) 30 ml PO DAILY PRN PRN Reason: Constipation Melatonin (Melatonin 3 Mg Tablet) 3 mg PO DAILY@1700 [facility] Nicotine Polacrilex (Nicotine Polacrilex Lozenge 2 Mg Lozenge) 2 mg BUCCAL TID PRN PRN Reason: Nicotine Cravings Non-Formulary Medication (Atomoxetine) 50 mg PO DAILY [facility] Nystatin (Nystatin Powder 15 Gm Bottle) 1 appl TOPICAL BID [facility]; Protocol Last Admin: 01/08/22 14:17 Dose: Not Given Omeprazole (Omeprazole 40 Mg Capsule.Dr) 40 mg PO DAILY@0600 [facility] Oxycodone HCl (Oxycodone Hcl Immed Release 5 Mg Tablet) 5 mg PO Q6H PRN PRN Reason: Pain, Severe (Pain Scale 7-10) Last Admin: 01/07/22 21:09 Dose: 5 mg Oxycodone HCl (Oxycodone Hcl Immed Release 5 Mg Tablet) 5 mg PO Q4H PRN PRN Reason: Pain (Scale Score 4-6) Pregabalin (Pregabalin 150 Mg Capsule) 300 mg PO BEDTIME [facility] Pregabalin (Pregabalin 200 Mg Capsule) 200 mg PO DAILY@0900 [facility] Last Admin: 01/08/22 10:50 Dose: 200 mg Quetiapine Fumarate (Quetiapine Fumarate 100 Mg Tablet) 100 mg PO BID [facility] Last Admin: 01/08/22 10:51 Dose: 100 mg Quetiapine Fumarate (Quetiapine Fumarate 100 Mg Tablet) 100 mg PO DAILY@1200 [facility] Last Admin: 01/08/22 13:57 Dose: Not Given Quetiapine Fumarate (Quetiapine Fumarate 200 Mg Tablet) 200 mg PO BEDTIME [facility] Zonisamide (Zonisamide 100 Mg Capsule) 100 mg PO DAILY [facility] Last Admin: 01/08/22 14:09 Dose: Not Given Allergies Allergies Allergy/AdvReac Type Severity Reaction Status Date / Time chlorpromazine Allergy Unknown Verified 01/05/22 09:19 [From Thorazine] haloperidol [From Haldol] Allergy Unknown Verified 02/08/21 08:35 imipramine Allergy Unknown Verified 02/08/21 08:35 ketorolac Allergy Unknown Verified 02/08/21 08:35 Penicillins Allergy Unknown Verified 02/08/21 08:35 promethazine Allergy Unknown Verified 02/08/21 08:35 Assessment & Plan Assessment & Plan (1) Schizoaffective disorder: Status: Acute Code(s): F25.9 - Schizoaffective disorder, unspecified Plan Plan: Continue seroquel 100 mg QAM, Qnoon, 300 mg HS. Continue lamictal 50 mg BID for mood stability. Continue valium for anxiety and PRN ativan for agitation. Will re-start clozapine at 12.5 mg BID, may titrate up by 50 mg daily in order to achieve home dose of 275 mg daily @1700. Pt's agitation appears under control, no need for further PRNs. I have shared this with Dr. Tejeda Thank you for this consultation. If you have any questions or concerns, please do not hesitate to contact psychiatry service. I spent minutes with the patient and/or on the patient floor today, greater than?50% of which was spent counseling/coordinating care.
[2022-01-08 16:36] LABS: Glucose, Whole Blood 115 mg/dL (60-115)
[2022-01-08] MEDS: Melatonin 3 MG TABLET PO (17:03)
[2022-01-08 20:43] LABS: Glucose, Whole Blood 148 mg/dL (60-115)
[2022-01-08] MEDS: Nystatin Powder 15 GM BOTTLE 1 APPL TOPICAL (21:12)
[2022-01-08] MEDS: QUEtiapine Fumarate 200 MG TABLET PO (21:13)
[2022-01-08] MEDS: cloZAPine 25 MG TABLET 12.5 MG PO (21:13)
[2022-01-08] MEDS: Pregabalin 150 MG CAPSULE 300 MG PO (21:21)
[2022-01-09 06:00] VITALS: BMI 34.0
[2022-01-09] MEDS: amLODIPine Besylate 5 MG TABLET PO (06:06)
[2022-01-09] MEDS: Omeprazole 40 MG CAPSULE.DR PO (06:08)
[2022-01-09 07:20] VITALS: BP 129/72; PULSE 82; RESP 17; TEMP 36.4; O2SAT 93
[2022-01-09 07:20] LABS: Hematocrit 39.8 % (37.0-47.0); Hemoglobin 12.6 g/dl (12.0-16.0); Mean Corpuscular HGB Conc 31.7 g/dl (31.0-35.0); Mean Corpuscular Hemoglobin 28.6 pg (27.0-33.0); Mean Corpuscular Volume 90.5 fL (80.0-98.0); Mean Platelet Volume 10.4 fL (9.4-12.3); Platelet Count 171 X10*3/uL (160-400); White Blood Count 5.1 X10*3/uL (4.8-10.8)
[2022-01-09 07:42] LABS: Anion Gap 18 (12-20); Blood Urea Nitrogen 7 mg/dL (9-16); Calcium 8.7 mg/dL (8.4-10.2); Carbon Dioxide 21 mmol/L (22-29); Chloride 108 mmol/L (96-108); Estimated Glomerular Filt Rate > 60; Glucose Random 122 mg/dL (60-115); Potassium 3.6 mmol/L (3.3-5.1); Sodium 143 mmol/L (135-145)
[2022-01-09 07:50] LABS: Glucose, Whole Blood 119 mg/dL (60-115)
[2022-01-09 08:03] VITALS: PULSE 75; RESP 18; O2SAT 90
[2022-01-09] MEDS: Albuterol/Iprat 2.5/0.5MG 3 ML AMPUL.NEB INHALE ×3 (08:03→14:42)
[2022-01-09] MEDS: DULoxetine HCl 60 MG CAPSULE.DR PO (09:20)
[2022-01-09] MEDS: Pregabalin 200 MG CAPSULE PO (09:21)
[2022-01-09] MEDS: Fluticasone Propionate Nasal 16 GM SPRAY 1 SPRAY NOSTRIL-B (09:21)
[2022-01-09] MEDS: Heparin Sodium,Porcine 5,000 UNIT/ML VIAL 5000 UNIT SUBCUT ×2 (09:21→21:49)
[2022-01-09] MEDS: cloZAPine 25 MG TABLET 12.5 MG PO ×2 (09:21→21:00)
[2022-01-09] MEDS: QUEtiapine Fumarate 100 MG TABLET PO ×2 (09:21→21:00)
[2022-01-09] MEDS: lamoTRIgine 25 MG TABLET 50 MG PO ×2 (09:21→21:00)
[2022-01-09] MEDS: Famotidine/PF 20 MG/2 ML VIAL IVPUSH ×2 (09:21→21:00)
[2022-01-09] MEDS: Nystatin Powder 15 GM BOTTLE 1 APPL TOPICAL ×2 (09:22→21:01)
[2022-01-09 11:08] VITALS: BP 112/78; PULSE 80; RESP 17; TEMP 36.2; O2SAT 92
--- NOTE | 2022-01-09 11:14 | MHC.SLORD ---
Speech Language Pathology Order Status: RECEIVING DOCK CHECKER reported that pt would not wake for breakfast this morning. MANAGER PROJECT attempted to see pt for dysphagia treatment. Pt would not rouse to sternal rub or change in position. Pt not appropriate for PO trials at this time due to lethargic state.
[2022-01-09 12:23] LABS: Glucose, Whole Blood 116 mg/dL (60-115)
[2022-01-09 14:43] VITALS: PULSE 67; RESP 18; O2SAT 94
[2022-01-09 14:57] VITALS: BP 107/58; PULSE 78; RESP 18; TEMP 36.7; O2SAT 90
--- NOTE | 2022-01-09 15:04 | HO.PM.IMPN ---
Subjective Subjective Date of Service: 01/09/22 Interval History: somnolent but arousable unable to give ROS due to mental status Review of Systems Review of Systems: Yes Unobtainable due to mental status Physical Exam Vital Signs: Vital Signs: Last Vital Signs Temp 98.0 F 01/09/22 14:57 Pulse 78 01/09/22 14:57 Resp 18 01/09/22 14:57 BP 107/58 L 01/09/22 14:57 Pulse Ox 90 L 01/09/22 14:57 O2 Del Method 01/09/22 14:57 O2 Flow Rate 2 01/09/22 11:08 FiO2 30 01/05/22 14:40 BMI result Body Mass Index 34.0 Gen: in no acute distress, somnolent but arousable HEENT: sclera anicteric, moist mucus membranes Neck: supple Lungs: clear to auscultation bilaterally Heart: regular rate and rhythm, no murmurs Abd: soft, non-tender, non-distended Ext: no edema Skin: warm/well-perfused Neuro: somnolent, disoriented Psych: impaired insight Objective Data Active Medications Al Hydroxide/Mg Hydroxide (Magnesium Hydrox/Alum Hydrox 30 Ml Oral.Susp) 10 ml PO Q6H PRN PRN Reason: Indigestion Albuterol Sulfate (Albuterol Sulfate 90 Mcg 8 Gm Inhaler) 2 puff INHALE Q4H PRN PRN Reason: Shortness Of Breath Albuterol/Ipratropium (Albuterol/Iprat 2.5/0.5mg 3 Ml Ampul.Neb) 3 ml INHALE RQ4H WHILE AWAKE [facility] Last Admin: 01/09/22 14:42 Dose: 3 ml Documented By: ESSENCE Amlodipine Besylate (Amlodipine Besylate 5 Mg Tablet) 5 mg PO DAILY@0500 [facility]; Protocol Last Admin: 01/09/22 06:06 Dose: 5 mg Documented By: JAIMEE Bisacodyl (Bisacodyl 10 Mg Supp.Rect) 10 mg WI DAILY PRN PRN Reason: Constipation Bisacodyl (Bisacodyl 5 Mg Tablet.Dr) 10 mg PO DAILY PRN PRN Reason: Constipation Clozapine (Clozapine 25 Mg Tablet) 12.5 mg PO BID [facility] Last Admin: 01/09/22 09:21 Dose: 12.5 mg Documented By: MERARY Diazepam (Diazepam 5 Mg Tablet) 5 mg PO BID@0900,1700 [facility] Last Admin: 01/09/22 09:24 Dose: Not Given Documented By: MERARY Non-Admin Reason: pt sedated Duloxetine HCl (Duloxetine Hcl 60 Mg Capsule.Dr) 60 mg PO DAILY [facility] Last Admin: 01/09/22 09:20 Dose: 60 mg Documented By: MERARY Famotidine (Famotidine/Pf 20 Mg/2 Ml Vial) 20 mg IVPUSH BID [facility] Last Admin: 01/09/22 09:21 Dose: 20 mg Documented By: MERARY Fluticasone Propionate (Fluticasone Propionate Nasal 16 Gm Joshua) 1 spray NOSTRIL-B DAILY [facility] Last Admin: 01/09/22 09:21 Dose: 1 spray Documented By: MERARY Fluticasone/Vilanterol (Fluticasone/Vilanterol 200/25 Blst.W.Dev) 1 puff INHALE RDAILY [facility] Last Admin: 01/09/22 08:10 Dose: Not Given Documented By: ESSENCE Non-Admin Reason: med unavail pharmacy called Guaifenesin (Guaifenesin 100 Mg/5 Ml Liquid) 5 ml PO Q6H PRN PRN Reason: Cough Heparin Sodium (Porcine) (Heparin Sodium,Porcine 5,000 Unit/Ml Vial) 5,000 unit SUBCUT Q12H [facility] Last Admin: 01/09/22 09:21 Dose: 5,000 unit Documented By: MERARY Insulin Human Lispro (Insulin Lispro 100 Unit/Ml 3 Ml Vial) 0 unit SUBCUT QIDACHS [facility]; Protocol Last Admin: 01/09/22 12:29 Dose: Not Given Documented By: MERARY Non-Admin Reason: No Insulin Coverage Lamotrigine (Lamotrigine 25 Mg Tablet) 50 mg PO BID [facility] Last Admin: 01/09/22 09:21 Dose: 50 mg Documented By: MERARY Loperamide HCl (Loperamide Hcl 2 Mg Capsule) 2 mg PO BID PRN PRN Reason: Loose Stool Lorazepam (Lorazepam 0.5 Mg Tablet) 0.25 mg PO Q6H PRN PRN Reason: anxiety/restlessness Last Admin: 01/08/22 01:02 Dose: 0.25 mg Documented By: YUE Magnesium Citrate (Magnesium Citrate 300 Ml Solution) 150 ml PO Q4H PRN PRN Reason: Constipation Magnesium Hydroxide (Milk Of Magnesia 30 Ml Oral.Susp) 30 ml PO DAILY PRN PRN Reason: Constipation Melatonin (Melatonin 3 Mg Tablet) 3 mg PO DAILY@1700 [facility] Last Admin: 01/08/22 17:03 Dose: 3 mg Documented By: VIRGIE Nicotine Polacrilex (Nicotine Polacrilex Lozenge 2 Mg Lozenge) 2 mg BUCCAL TID PRN PRN Reason: Nicotine Cravings Non-Formulary Medication (Atomoxetine) 50 mg PO DAILY [facility] Nystatin (Nystatin Powder 15 Gm Bottle) 1 appl TOPICAL BID [facility]; Protocol Last Admin: 01/09/22 09:22 Dose: 1 appl Documented By: MERARY Omeprazole (Omeprazole 40 Mg Capsule.Dr) 40 mg PO DAILY@0600 [facility] Last Admin: 01/09/22 06:08 Dose: 40 mg Documented By: JAIMEE Oxycodone HCl (Oxycodone Hcl Immed Release 5 Mg Tablet) 5 mg PO Q6H PRN PRN Reason: Pain, Severe (Pain Scale 7-10) Last Admin: 01/07/22 21:09 Dose: 5 mg Documented By: YUE Oxycodone HCl (Oxycodone Hcl Immed Release 5 Mg Tablet) 5 mg PO Q4H PRN PRN Reason: Pain (Scale Score 4-6) Pregabalin (Pregabalin 150 Mg Capsule) 300 mg PO BEDTIME [facility] Last Admin: 01/08/22 21:21 Dose: 300 mg Documented By: VIRGIE Pregabalin (Pregabalin 200 Mg Capsule) 200 mg PO DAILY@0900 [facility] Last Admin: 01/09/22 09:21 Dose: 200 mg Documented By: MERARY Quetiapine Fumarate (Quetiapine Fumarate 100 Mg Tablet) 100 mg PO BID [facility] Last Admin: 01/09/22 09:21 Dose: 100 mg Documented By: MERARY Quetiapine Fumarate (Quetiapine Fumarate 100 Mg Tablet) 100 mg PO DAILY@1200 [facility] Last Admin: 01/09/22 12:29 Dose: Not Given Documented By: MERARY Non-Admin Reason: Pt drowsy Quetiapine Fumarate (Quetiapine Fumarate 200 Mg Tablet) 200 mg PO BEDTIME [facility] Last Admin: 01/08/22 21:13 Dose: 200 mg Documented By: VIRGIE Zonisamide (Zonisamide 100 Mg Capsule) 100 mg PO DAILY [facility] Last Admin: 01/09/22 09:25 Dose: Not Given Documented By: MERARY Non-Admin Reason: not available, will call pharmacy Labs CBC & Chem 7: 01/09/22 07:11 01/09/22 07:11 Labs: Laboratory Results - last 24 hr 01/08/22 01/08/22 01/09/22 16:32 20:39 07:11 MCV 90.5 MCH 28.6 MCHC 31.7 RDW 15.0 Plt Count 171 MPV 10.4 Absolute Nucleated RBC 0.000 Nucleated RBC % (auto) 0.0 Anion Gap Estim Creat Clear Calc Estimated GFR POC Glucose 115 148 H Random Glucose Calcium 01/09/22 01/09/22 01/09/22 07:11 07:25 11:11 MCV MCH MCHC RDW Plt Count MPV Absolute Nucleated RBC Nucleated RBC % (auto) Anion Gap 18 Estim Creat Clear Calc 115.0 Estimated GFR > 60 POC Glucose 119 H 116 H Random Glucose 122 H Calcium 8.7 Assessment and Plan (1) Schizoaffective disorder: Status: Acute (2) Cardiac arrest: Status: Acute (3) Acute respiratory failure: Status: Acute Plan hospital d#6 61yo F resident of [facility] with schizoaffective disorder, had witnessed food aspiration with brief cardiac arrest, CPR started immediately with ROSC rapidly achieved. Briefly intubated in ICU with significant agitation. Stepped down to [facility] 01/07/22 # agitation due to schizoaffective disorder - started on lamotrigine per ICU team. Psych consulted, restarting clozapine gradually. also on quetiapine, pregabalin, duloxetine, diazepam, atomoxetine # s/p cardiac arrest with ROSC - repeat TTE attempt pending # aspiration resulting in cardiopulmonary arrest - intubated/admitted 01/04/22, extubated 01/05/22 - MEDICAL DELIVERY TECHNICIAN: purepierre, honey-thick liquids - off O2 + ABX # HTN - continue amlodipine # sz disorder - continue zonisamide # VTE ppx: UFH # dispo: eventual return to LT @ [facility] In my clinical judgment, the patient requires continued inpatient hospitalization for the following reasons: aspiration, post-ICU care Quality Stroke Does the patient have a stroke diagnosis?: No VTE Prior VTE?: No VTE Risk Level:: Medical - moderate - high VTE Device Contraindication: N/A - Device Ordered VTE Drug Contraindication: N/A - Med Ordered
--- NOTE | 2022-01-09 15:44 | MHC.CM.PN ---
per rounds pt to have an echo today
[2022-01-09 16:09] LABS: Glucose, Whole Blood 100 mg/dL (60-115)
[2022-01-09 19:05] VITALS: BP 105/69; PULSE 84; RESP 18; TEMP 36.6; O2SAT 90
[2022-01-09 19:44] LABS: Glucose, Whole Blood 106 mg/dL (60-115)
[2022-01-09] MEDS: QUEtiapine Fumarate 200 MG TABLET PO (21:00)
[2022-01-09] MEDS: Pregabalin 150 MG CAPSULE 300 MG PO (21:00)
[2022-01-10] VITALS (8 sets, daily range): BP systolic 100–122; BP diastolic 51–71; PULSE 72–100; RESP 16–18; TEMP 36.2–37.2; O2SAT 88–97; BMI 34.6
[2022-01-10] MEDS: Omeprazole 40 MG CAPSULE.DR PO (05:49)
[2022-01-10] MEDS: amLODIPine Besylate 5 MG TABLET PO (05:49)
--- NOTE | 2022-01-10 07:00 | CA_ITS ---
Transthoracic Echocardiogram Patient (Last, First, Middle): Valentina Velez, Gender: Female Date of : 1960 Age: 61 Procedure Date: 01/10/2022 Procedure Type: Transthoracic Echocardiogram Location: [facility] [place] Height: 172. cm Weight: 101.15 kg BSA: 2.13 m2 Heart Rate: 87 bpm BP: 128 / 72 mmHg Faceter: FARIDA Referring MD: Luciano Anne MD Symptoms: s/p cardiac arrest. repeat exam Study Quality: Technically Difficult/Contrast ECG Rhythm: Sinus Conclusions: - Very limited study as before. - Limited assessment of LV and valves. Function appears preserved but cannot comment about wall motion despite use of contrast. - Valves are poorly visualized but doppler assessment appears normal. Findings Procedure Information Contrast agent, definity, is being given per protocol without apparent complications. Left Ventricle Normal left ventricular size and systolic function. The visually estimated ejection fraction is between 60-65%. Regional wall motion abnormalities can not be excluded due to suboptimal endocardial definition. Diastolic function is indeterminate on the basis of available data. Right Ventricle Normal right ventricular cavity size and systolic function. Atria The left atrium is normal in size. Aortic Valve The aortic valve was not well visualized. There is no aortic valve stenosis. There is no aortic valve regurgitation. Mitral Valve The mitral valve was not well visualized. There is no mitral valve regurgitation. There is no mitral valve stenosis. Pulmonic Valve The pulmonic valve was not well visualized. Tricuspid Valve The tricuspid valve was not well visualized. Great Vessels The aorta was not well visualized. The pulmonary artery was not well visualized. Venous The inferior vena cava is normal in size and collapses greater than 50% with inspiration. Pericardium/Pleural There is no evidence of pericardial effusion. Prior Study Comparison No significant change compared to prior study dated: 01/07/2022. Measurements 2D Linear Measurements IVSd: 1.22 0.6-0.9/0.6-1.0 cm LVIDd: 3.21 3.9-5.3/4.2-5.9 cm LVIDd Index: 1.51 2.4-3.2/2.2-3.1 cm/m2 LVIDs: 2.53 2.0-3.6 cm LVPWd: 1.11 0.7-1.1 cm LV Mass: 142.43 67-162/88-224 g LV Mass Index: 66.87 43-95/49-115 g/m2 LVOT Diam: 2.20 3.0+(-)1.3 cm 2D Systolic Function EF 4C: 69.40 >55% EF 2C: 48.30 >55% EF BiP: 58.20 >55% Mitral Valve MV Pk E: 0.51 MV PK A: 0.78 MV Decel Time: 247.00 E/A: 0.70 E'Lateral: 10.70 E'Medial: 7.72 E/E' Med: 6.70 E/E' Lat: 4.80 PHT: 72.00 MVA PHT: 3.06 Decel [place]: 2.08 Aortic Valve AoV Pk Jeremy: 1.12 AoV Mn Jeremy: 0.80 AoV VTI: 0.17 AoV Pk Grad: 5.00 Aov Mn Grad: 3.00 IRINA Cont.VTI: 3.17 LVOT LVOT Pk Jeremy: 0.99 LVOT Mn Jeremy: 0.64 LVOT VTI: 0.14 LVOT Pk Grad: 4.00 LVOT Mn Grad: 2.00 LVOT Diam: 2.20 LVOT Area: 3.80 Diastolic Function MV Pk E: 0.51 MV Pk A: 0.78 E/A: 0.70 E'Medial: 7.72 E/E' Med: 6.70 E' Laterial: 10.70 E/E' Lat: 4.80 Right Ventricle TAPSE (mm): 18.40 TVS' Jeremy: 15.20 Tricuspid Valve RA Press: 3.00 Pulmonary Valve PV Pk Jeremy: 1.00 Peak PV Grad: 4.00 Updated in Other Vendor System with Status of Final Chucky Sheehan MD electronically signed on 01/10/2022 4:39:03 PM with status of Final
[2022-01-10 07:48] LABS: Glucose, Whole Blood 108 mg/dL (60-115)
[2022-01-10 09:13] LABS: MANUAL DIFF FLAG NO
[2022-01-10 09:26] LABS: Basophils Percent Auto 0.2 % (0-2); Eosinophils Percent Auto 0.1 % (0-4); Hematocrit 43.4 % (37.0-47.0); Hemoglobin 13.4 g/dl (12.0-16.0); Imm Gran Abs Auto 0.04 X10*3/uL (0.00-0.03); Imm Gran Pct Auto 0.4 % (0.0-0.4); Lymphocytes Absolute Auto 1.2 X10*3/uL (1.2-4.9); Mean Corpuscular HGB Conc 30.9 g/dl (31.0-35.0); Mean Corpuscular Hemoglobin 28.6 pg (27.0-33.0); Mean Corpuscular Volume 92.7 fL (80.0-98.0); Mean Platelet Volume 10.3 fL (9.4-12.3); Monocytes Absolute Auto 0.9 X10*3/uL (0.1-1.2); Monocytes Percent Auto 8.3 % (2-11); Neutrophils Absolute Auto 8.1 x10*3/uL (2.0-8.3); Platelet Count 232 X10*3/uL (160-400); Red Blood Count 4.68 X10*6/uL (4.20-5.50); Red Cell Distribution Width 15.1 % (11.0-16.0); White Blood Count 10.3 X10*3/uL (4.8-10.8)
[2022-01-10 09:41] LABS: Anion Gap 15 (12-20); Blood Urea Nitrogen 8 mg/dL (9-16); Carbon Dioxide 27 mmol/L (22-29); Chloride 106 mmol/L (96-108); Creatinine Clr Calc Pharmacy 104.6; Estimated Glomerular Filt Rate > 60; Glucose Random 112 mg/dL (60-115); Potassium 3.9 mmol/L (3.3-5.1); Sodium 144 mmol/L (135-145)
--- NOTE | 2022-01-10 10:10 | MHC.SL.SWA ---
Addendum entered and electronically signed by AHMET Avalos 01/10/22 15:19: BODY AND FRAME MAN contacted by re: Possible new aspiration event. Nursing reported patient did poorly at lunch with new textures, no specific event, but sounded junky, chest XR new consolidation. Recommend Pt return to previous dietary textures of PUREE (NDD1) with HONEY THICK liquids, pills crushed in Puree. BODY AND FRAME MAN made changes in diet orders, notified RAYRAY ELIZABETH by secure text, nursing in person. Original Note: Speech Pathologist Impression: Risk of Aspiration Due to: Lethargy Medically Fragile Hx of Recent Extubation Weak Cough Dysphasia Diet Status: Recommend UPGRADE diet to Ground/Mechanical/Altered (NDD2) with THIN liquids, pills crushed in puree. Pt will continue to need full supervision during all eating or drinking, aspiration precautions apply, discontinue if patient evidences aspiration signs. Liquid Consistency and Strategies for Safe Swallow: Liquid Intake Recommendation: Thin Liquid Intake Strategies: Small Sips No Straws Solid Food Consistency: Dietary Recommendations: Grnd/Mech Altered (NDD2) Additional Modifications to Solid Foods: Needs 1-1 Supervision and periodic assisstance at all events of eating or drinking (e.g. do not leave with cup or jug of water, must be supervised). No straw, small sips by cup only. Oral Medication Intake: Crushed with Puree Please contact the pharmacy regarding appropriate crushable or liquid drug formulations that are available whenever modified delivery is recommended. Compensatory Strategies and Precautions to be Taken for Safe Swallow: Sitting Upright (90 deg) No Straw Liquids from Cup Small Bites and Sips Alternate Liquids/Solids Rate of Ingestion Change Supervision While Eating and Drinking for Safe Swallow: Total Supervision (1:1) Foods to Avoid: Swallowing Recommended Treatments: Compens. Strategy Educat. Recommendation for Speech: Outpatient Speech Therapy Inpatient Speech Therapy Comment: Pt seen this morning, she was awake and alert, reported she had just finished breakfast, noted that patient only had consumed Honey thick juices and pureed fruit, left proteins on plate. Patient very pleased to have some water, which was administered first by tsp, then by cup sip, then by independent cup sip. Pt initially held water in mouth and swished, then swallowed, producing a timely swallow, mildly reduced laryngeal elevation. No clinical signs of aspiration noted during consuming full cup of water. Patient was cued not to take more than one sip at at time after she was attempting a chain sip. Patient stated, yes, I am going to be careful when I drink, I need to take small sips. Pt noted to crunch up and swallow small amount of ice, again no clinical signs after swallow. Patient given gertrude cracker softened in puree, patient noted to have rotary chew pattern, mildly slow rate of mastication, timely swallow, full oral clearance on swallow, no clinical signs of aspiration. Recommend UPGRADE diet to Ground/Mechanical/Altered (NDD2) with THIN liquids, pills crushed in puree. Pt will continue to need full supervision during all eating or drinking, aspiration precautions apply, discontinue if patient evidences aspiration signs. , RD notified by secure text, RN, MATH SPECIALIST advised in person, BODY AND FRAME MAN entered diet adjustment in [facility]. Frequency/Duration: Date Range for Service Req: Timeline to reassess: Delicatessen Manager Clinican/Clinical Fellow: No Supervisory Statement: I have reviewed and agree with the student/clinical fellow's documentation: N/A Speech Language Pathologist: Isabel Ozuna M.A., CCC-BODY AND FRAME MAN
[2022-01-10] MEDS: Heparin Sodium,Porcine 5,000 UNIT/ML VIAL 5000 UNIT SUBCUT ×2 (10:23→22:56)
[2022-01-10] MEDS: diazePAM 5 MG TABLET PO ×2 (10:24→16:54)
[2022-01-10] MEDS: DULoxetine HCl 60 MG CAPSULE.DR PO (10:24)
[2022-01-10] MEDS: Famotidine/PF 20 MG/2 ML VIAL IVPUSH ×2 (10:24→23:04)
[2022-01-10] MEDS: Pregabalin 200 MG CAPSULE PO (10:24)
[2022-01-10] MEDS: QUEtiapine Fumarate 100 MG TABLET PO ×2 (10:24→13:22)
[2022-01-10] MEDS: lamoTRIgine 25 MG TABLET 50 MG PO (10:25)
[2022-01-10] MEDS: cloZAPine 25 MG TABLET 12.5 MG PO (10:25)
[2022-01-10] MEDS: Nystatin Powder 15 GM BOTTLE 1 APPL TOPICAL ×2 (10:26→23:05)
[2022-01-10] MEDS: Fluticasone Propionate Nasal 16 GM SPRAY 1 SPRAY NOSTRIL-B (10:31)
[2022-01-10 10:52] LABS: Glucose, Whole Blood 137 mg/dL (60-115)
--- NOTE | 2022-01-10 11:57 | P.PNIM_ITS ---
Subjective Subjective Date of Service: 01/10/22 Interval History: Increase in O2 requirement today to 5L likely due to aspiration. Endorses SOB and cough Respiratory Respiratory: Reports cough Physical Exam Vital Signs: Vital Signs: Last Vital Signs Temp 98.9 F 01/10/22 08:00 Pulse 99 01/10/22 08:00 Resp 18 01/10/22 08:00 BP 108/51 L 01/10/22 08:00 Pulse Ox 88 L 01/10/22 08:00 O2 Del Method 01/10/22 08:00 O2 Flow Rate 5 01/10/22 08:00 FiO2 30 01/05/22 14:40 BMI result Body Mass Index 34.6 Const: Other: Constitutional : Awake, interactive on supplemental O2 Neck : Normal inspection, Supple Cardiovascular : RRR, no JVP, no lower extremity edema Respiratory : decreased basilar lung sounds, right sided crackles + Gastrointestinal: soft, lax, Normal bowel sounds, Non tender Skin : Warm, Dry Neurological : Alert & oriented to self only otherwise confused, No focal deficit moving all extremities Objective Data Active Medications Al Hydroxide/Mg Hydroxide (Magnesium Hydrox/Alum Hydrox 30 Ml Oral.Susp) 10 ml PO Q6H PRN PRN Reason: Indigestion Albuterol Sulfate (Albuterol Sulfate 90 Mcg 8 Gm Inhaler) 2 puff INHALE Q4H PRN PRN Reason: Shortness Of Breath Albuterol/Ipratropium (Albuterol/Iprat 2.5/0.5mg 3 Ml Ampul.Neb) 3 ml INHALE RQ4H WHILE AWAKE [facility] Last Admin: 01/10/22 11:19 Dose: Not Given Documented By: VIKI Non-Admin Reason: Patient Refused Amlodipine Besylate (Amlodipine Besylate 5 Mg Tablet) 5 mg PO DAILY@0500 [facility]; Protocol Last Admin: 01/10/22 05:49 Dose: 5 mg Documented By: FABIÁN Bisacodyl (Bisacodyl 10 Mg Supp.Rect) 10 mg [place] DAILY PRN PRN Reason: Constipation Bisacodyl (Bisacodyl 5 Mg Tablet.Dr) 10 mg PO DAILY PRN PRN Reason: Constipation Clozapine (Clozapine 25 Mg Tablet) 12.5 mg PO BID [facility] Last Admin: 01/10/22 10:25 Dose: 12.5 mg Documented By: ERASTO Diazepam (Diazepam 5 Mg Tablet) 5 mg PO BID@0900,1700 [facility] Last Admin: 01/10/22 10:24 Dose: 5 mg Documented By: ERASTO Duloxetine HCl (Duloxetine Hcl 60 Mg Capsule.Dr) 60 mg PO DAILY [facility] Last Admin: 01/10/22 10:24 Dose: 60 mg Documented By: ERASTO Famotidine (Famotidine/Pf 20 Mg/2 Ml Vial) 20 mg IVPUSH BID [facility] Last Admin: 01/10/22 10:24 Dose: 20 mg Documented By: ERASTO Fluticasone Propionate (Fluticasone Propionate Nasal 16 Gm [place]) 1 spray NOSTR IL-B DAILY [facility] Last Admin: 01/10/22 10:31 Dose: 1 spray Documented By: ERASTO Fluticasone/Vilanterol (Fluticasone/Vilanterol 200/25 Blst.W.Dev) 1 puff INHALE RDAILY [facility] Last Admin: 01/10/22 07:27 Dose: Not Given Documented By: VIKI Non-Admin Reason: Patient Refused Guaifenesin (Guaifenesin 100 Mg/5 Ml Liquid) 5 ml PO Q6H PRN PRN Reason: Cough Heparin Sodium (Porcine) (Heparin Sodium,Porcine 5,000 Unit/Ml Vial) 5,000 unit SUBCUT Q12H [facility] Last Admin: 01/10/22 10:23 Dose: 5,000 unit Documented By: ERASTO Insulin Human Lispro (Insulin Lispro 100 Unit/Ml 3 Ml Vial) 0 unit SUBCUT QIDACHS [facility]; Protocol Last Admin: 01/10/22 10:38 Dose: Not Given Documented By: ERASTO Non-Admin Reason: No Insulin Coverage Lamotrigine (Lamotrigine 25 Mg Tablet) 50 mg PO BID [facility] Last Admin: 01/10/22 10:25 Dose: 50 mg Documented By: ERASTO Loperamide HCl (Loperamide Hcl 2 Mg Capsule) 2 mg PO BID PRN PRN Reason: Loose Stool Lorazepam (Lorazepam 0.5 Mg Tablet) 0.25 mg PO Q6H PRN PRN Reason: anxiety/restlessness Last Admin: 01/08/22 01:02 Dose: 0.25 mg Documented By: HO.TUMASY Magnesium Citrate (Magnesium Citrate 300 Ml Solution) 150 ml PO Q4H PRN PRN Reason: Constipation Magnesium Hydroxide (Milk Of Magnesia 30 Ml Oral.Susp) 30 ml PO DAILY PRN PRN Reason: Constipation Melatonin (Melatonin 3 Mg Tablet) 3 mg PO DAILY@1700 [facility] Last Admin: 01/09/22 19:40 Dose: Not Given Documented By: VIRGIE Non-Admin Reason: Patient Asleep Nicotine Polacrilex (Nicotine Polacrilex Lozenge 2 Mg Lozenge) 2 mg BUCCAL TID PRN PRN Reason: Nicotine Cravings Non-Formulary Medication (Atomoxetine) 50 mg PO DAILY [facility] Nystatin (Nystatin Powder 15 Gm Bottle) 1 appl TOPICAL BID [facility]; Protocol Last Admin: 01/10/22 10:26 Dose: 1 appl Documented By: ERASTO Omeprazole (Omeprazole 40 Mg Capsule.Dr) 40 mg PO DAILY@0600 [facility] Last Admin: 01/10/22 05:49 Dose: 40 mg Documented By: FABIÁN Oxycodone HCl (Oxycodone Hcl Immed Release 5 Mg Tablet) 5 mg PO Q6H PRN PRN Reason: Pain, Severe (Pain Scale 7-10) Last Admin: 01/07/22 21:09 Dose: 5 mg Documented By: YUE Oxycodone HCl (Oxycodone Hcl Immed Release 5 Mg Tablet) 5 mg PO Q4H PRN PRN Reason: Pain (Scale Score 4-6) Pregabalin (Pregabalin 150 Mg Capsule) 300 mg PO BEDTIME [facility] Last Admin: 01/09/22 21:00 Dose: 300 mg Documented By: VIRGIE Pregabalin (Pregabalin 200 Mg Capsule) 200 mg PO DAILY@0900 [facility] Last Admin: 01/10/22 10:24 Dose: 200 mg Documented By: ERASTO Quetiapine Fumarate (Quetiapine Fumarate 100 Mg Tablet) 100 mg PO BID [facility] Last Admin: 01/10/22 10:24 Dose: 100 mg Documented By: ERASTO Quetiapine Fumarate (Quetiapine Fumarate 100 Mg Tablet) 100 mg PO DAILY@1200 [facility] Last Admin: 01/09/22 12:29 Dose: Not Given Documented By: MERARY Non-Admin Reason: Pt drowsy Quetiapine Fumarate (Quetiapine Fumarate 200 Mg Tablet) 200 mg PO BEDTIME [facility] Last Admin: 01/09/22 21:00 Dose: 200 mg Documented By: VIRGIE Zonisamide (Zonisamide 100 Mg Capsule) 100 mg PO DAILY [facility] Last Admin: 01/09/22 09:25 Dose: Not Given Documented By: MERARY Non-Admin Reason: not available, will call pharmacy Labs CBC & Chem 7: 01/10/22 08:32 01/10/22 08:32 Labs: Laboratory Results - last 24 hr 01/09/22 01/09/22 01/09/22 11:11 15:58 19:36 MCV MCH MCHC RDW Plt Count MPV Immature Gran % (Auto) Neut % (Auto) Lymph % (Auto) [place] % (Auto) Eos % (Auto) Baso % (Auto) Lymph # (Auto) [place] # (Auto) Eos # (Auto) Baso # (Auto) Abs Immat Gran (auto) Absolute Neuts (auto) Absolute Nucleated RBC Nucleated RBC % (auto) Anion Gap Estim Creat Clear Calc Estimated GFR POC Glucose 116 H 100 106 Random Glucose Calcium 01/10/22 01/10/22 01/10/22 07:18 08:32 08:32 MCV 92.7 MCH 28.6 MCHC 30.9 L RDW 15.1 Plt Count 232 D MPV 10.3 Immature Gran % (Auto) 0.4 Neut % (Auto) 79.0 H Lymph % (Auto) 12.0 L [place] % (Auto) 8.3 Eos % (Auto) 0.1 Baso % (Auto) 0.2 Lymph # (Auto) 1.2 [place] # (Auto) 0.9 Eos # (Auto) 0.0 Baso # (Auto) 0.0 Abs Immat Gran (auto) 0.04 H Absolute Neuts (auto) 8.1 Absolute Nucleated RBC 0.000 Nucleated RBC % (auto) 0.0 Anion Gap 15 Estim Creat Clear Calc 104.6 Estimated GFR > 60 POC Glucose 108 Random Glucose 112 Calcium 9.0 01/10/22 10:37 MCV MCH MCHC RDW Plt Count MPV Immature Gran % (Auto) Neut % (Auto) Lymph % (Auto) [place] % (Auto) Eos % (Auto) Baso % (Auto) Lymph # (Auto) [place] # (Auto) Eos # (Auto) Baso # (Auto) Abs Immat Gran (auto) Absolute Neuts (auto) Absolute Nucleated RBC Nucleated RBC % (auto) Anion Gap Estim Creat Clear Calc Estimated GFR POC Glucose 137 H Random Glucose Calcium Microbiology Microbiology Results: Microbiology 01/04/22 23:44 Blood Culture - Final Blood - Venous No growth after 5 days. 01/04/22 23:44 Blood Culture - Final Blood - Venous No growth after 5 days. Assessment and Plan (1) Aspiration pneumonia: Status: Acute (2) Schizoaffective disorder: Status: Acute (3) Cardiac arrest: Status: Acute Plan hospital d#6 61yo F resident of [facility] with schizoaffective disorder, had witnessed food aspiration with brief cardiac arrest, CPR started immediately with ROSC rapidly achieved. Briefly intubated in ICU with significant agitation. Stepped down to [facility] 01/07/22 # Acute hypoxic resp failure due to: # Aspiration pna -initiated unasyn, d#1 (start date: 01/10) -speech consult # agitation due to schizoaffective disorder - started on lamotrigine per ICU team. Psych consulted, restarting clozapine gradually. also on quetiapine, pregabalin, duloxetine, diazepam, atomoxetine # s/p cardiac arrest with ROSC - repeat TTE attempt pending # aspiration resulting in cardiopulmonary arrest - intubated/admitted 01/04/22, extubated 01/05/22 - SKI PRODUCTION SUPERVISOR: purees, honey-thick liquids ; speech to reevaluate today # HTN - continue amlodipine # sz disorder - continue zonisamide # VTE ppx: UFH # dispo: eventual return to LTC @ [facility] In my clinical judgment, the patient requires continued inpatient hospitalization for the following reasons: supplemental oxygen, IV abx Quality Stroke Does the patient have a stroke diagnosis?: No VTE Prior VTE?: No VTE Risk Level:: Medical - moderate - high VTE Device Contraindication: N/A - Device Ordered VTE Drug Contraindication: N/A - Med Ordered
[2022-01-10] MEDS: Albuterol/Iprat 2.5/0.5MG 3 ML AMPUL.NEB INHALE (15:12)
[2022-01-10 16:34] LABS: Glucose, Whole Blood 108 mg/dL (60-115)
[2022-01-10] MEDS: Melatonin 3 MG TABLET PO (16:54)
[2022-01-10] MEDS: Ampicillin Sodium/Sulbactam Na 3 GM in 0.9 % Sodium Chloride 100 ML IV ×2 (16:59→22:51)
[2022-01-10 21:09] LABS: Glucose, Whole Blood 134 mg/dL (60-115)
[2022-01-11] VITALS (7 sets, daily range): BP systolic 109–142; BP diastolic 55–72; PULSE 53–85; RESP 15–20; TEMP 36.3–36.7; O2SAT 90–99; BMI 35.3
[2022-01-11] MEDS: Ampicillin Sodium/Sulbactam Na 3 GM in 0.9 % Sodium Chloride 100 ML IV ×4 (03:50→21:16)
[2022-01-11] MEDS: amLODIPine Besylate 5 MG TABLET PO (04:11)
[2022-01-11] MEDS: Omeprazole 40 MG CAPSULE.DR PO (04:11)
[2022-01-11 06:08] LABS: MANUAL DIFF FLAG NO
[2022-01-11 06:20] LABS: Basophils Percent Auto 0.6 % (0-2); Eosinophils Percent Auto 0.1 % (0-4); Hemoglobin 12.5 g/dl (12.0-16.0); Imm Gran Abs Auto 0.03 X10*3/uL (0.00-0.03); Imm Gran Pct Auto 0.4 % (0.0-0.4); Lymphocytes Absolute Auto 1.4 X10*3/uL (1.2-4.9); Lymphocytes Percent Auto 20.7 % (20-40); Mean Corpuscular HGB Conc 31.3 g/dl (31.0-35.0); Mean Corpuscular Hemoglobin 29.1 pg (27.0-33.0); Mean Corpuscular Volume 93.2 fL (80.0-98.0); Mean Platelet Volume 10.3 fL (9.4-12.3); Monocytes Absolute Auto 0.6 X10*3/uL (0.1-1.2); Monocytes Percent Auto 9.6 % (2-11); Neutrophils Absolute Auto 4.6 x10*3/uL (2.0-8.3); Neutrophils Percent Auto 68.6 % (45-73); Platelet Count 229 X10*3/uL (160-400); Red Blood Count 4.29 X10*6/uL (4.20-5.50); White Blood Count 6.7 X10*3/uL (4.8-10.8)
[2022-01-11 06:37] LABS: Anion Gap 13 (12-20); Blood Urea Nitrogen 7 mg/dL (9-16); Calcium 8.6 mg/dL (8.4-10.2); Carbon Dioxide 27 mmol/L (22-29); Chloride 102 mmol/L (96-108); Creatinine Clr Calc Pharmacy 117.3; Estimated Glomerular Filt Rate > 60; Glucose Random 114 mg/dL (60-115); Potassium 3.9 mmol/L (3.3-5.1); Sodium 138 mmol/L (135-145)
[2022-01-11] MEDS: Albuterol/Iprat 2.5/0.5MG 3 ML AMPUL.NEB INHALE ×2 (07:16→11:35)
[2022-01-11] MEDS: Fluticasone/Vilanterol 200/25 BLST.W.DEV 1 PUFF INHALE (07:16)
--- NOTE | 2022-01-11 08:09 | P.CDIC_ITS ---
CDI Concurrent Query Documentation Clarification: PHYSICIAN'S DOCUMENTATION REQUEST Date of Query: 01/11/22808 Patient Name: Valentina Velez Admit Date: 01/04/22 Dear Doctor, A review of the medical record indicates additional documentation may be needed. Please review below and update the documentation accordingly. Clinical Indicators: Risk Factors/Clinical Indicators/Treatments Progress note 01/08/22: Encephalopathic Patient cannot tell why or how she ended up in the hospital. Based on the above, please further specify, in the Progress Notes, the known or suspected type of the documented encephalopathic: Specifics * Metabolic * Toxic * Toxic metabolic * Due to a specified condition (such as UTI, hyponatremia, CVA, etc.) * Other (please specify) * Unable to determine Use of terms such as suspected, likely, concern for, or probable (associated with a specific diagnosis that is being evaluated, monitored, or treated as if it exists) are acceptable and can be coded in the inpatient setting, when documented at the time of discharge. Thank you, Prudence Hall [facility], CDIS Extension: [phone] Please use your independent medical judgment in providing your response. THIS QUERY IS PART OF THE PERMANENT MEDICAL RECORD Provider Response: Other Other Diagnosis: patient is not confused currently, unable to determine is she was on the day of question
[2022-01-11 08:31] LABS: Glucose, Whole Blood 103 mg/dL (60-115)
[2022-01-11] MEDS: QUEtiapine Fumarate 100 MG TABLET PO ×3 (09:01→21:15)
[2022-01-11] MEDS: diazePAM 5 MG TABLET PO ×2 (09:01→16:49)
[2022-01-11] MEDS: DULoxetine HCl 60 MG CAPSULE.DR PO (09:01)
[2022-01-11] MEDS: lamoTRIgine 25 MG TABLET 50 MG PO ×2 (09:01→21:15)
[2022-01-11] MEDS: Zonisamide 100 MG CAPSULE PO (09:01)
[2022-01-11] MEDS: Pregabalin 200 MG CAPSULE PO (09:01)
[2022-01-11] MEDS: cloZAPine 25 MG TABLET 12.5 MG PO (09:01)
[2022-01-11] MEDS: Heparin Sodium,Porcine 5,000 UNIT/ML VIAL 5000 UNIT SUBCUT ×2 (09:02→21:16)
[2022-01-11] MEDS: Famotidine/PF 20 MG/2 ML VIAL IVPUSH ×2 (09:02→21:16)
[2022-01-11] MEDS: bisacodyL 5 MG TABLET.DR 10 MG PO (10:29)
[2022-01-11] MEDS: Fluticasone Propionate Nasal 16 GM SPRAY 1 SPRAY NOSTRIL-B (10:30)
[2022-01-11] MEDS: Nystatin Powder 15 GM BOTTLE 1 APPL TOPICAL ×2 (10:30→21:36)
--- NOTE | 2022-01-11 11:20 | HO.PM.IMPN ---
Subjective Subjective Date of Service: 01/11/22 Interval History: seen and examined this AM reports sob but denies any dysphagia does not recall the events that led up to her being hospitaized but oriented to place, time and person currently Review of Systems negative except hPI Physical Exam Vital Signs: Vital Signs: Last Vital Signs Temp 97.9 F 01/11/22 07:31 Pulse 85 01/11/22 07:31 Resp 20 01/11/22 07:31 BP 119/63 01/11/22 07:31 Pulse Ox 94 01/11/22 07:31 O2 Del Method 01/11/22 07:31 O2 Flow Rate 5 01/11/22 07:31 FiO2 30 01/05/22 14:40 BMI result Body Mass Index 35.3 Const: Other: General - no acute distress, appears comfortable Cardiovascular - regular rate and rhythm, S1-S2 Lungs - diffuse rhonchi / scattered wheeze Abdomen - soft, nontender, no rebound or guarding Extremities - no edema bilaterally Neuro - awake and alert, no focal deficits Objective Data Active Medications Al Hydroxide/Mg Hydroxide (Magnesium Hydrox/Alum Hydrox 30 Ml Oral.Susp) 10 ml PO Q6H PRN PRN Reason: Indigestion Albuterol Sulfate (Albuterol Sulfate 90 Mcg 8 Gm Inhaler) 2 puff INHALE Q4H PRN PRN Reason: Shortness Of Breath Albuterol/Ipratropium (Albuterol/Iprat 2.5/0.5mg 3 Ml Ampul.Neb) 3 ml INHALE RQ4H WHILE AWAKE [facility] Last Admin: 01/11/22 07:16 Dose: 3 ml Documented By: VIKI Amlodipine Besylate (Amlodipine Besylate 5 Mg Tablet) 5 mg PO DAILY@0500 [facility]; Protocol Last Admin: 01/11/22 04:11 Dose: 5 mg Documented By: REGLA Bisacodyl (Bisacodyl 10 Mg Supp.Rect) 10 mg ID DAILY PRN PRN Reason: Constipation Bisacodyl (Bisacodyl 5 Mg Tablet.Dr) 10 mg PO DAILY PRN PRN Reason: Constipation Last Admin: 01/11/22 10:29 Dose: 10 mg Documented By: PARI Clozapine (Clozapine 25 Mg Tablet) 12.5 mg PO BID [facility] Last Admin: 01/11/22 09:01 Dose: 12.5 mg Documented By: PARI Diazepam (Diazepam 5 Mg Tablet) 5 mg PO BID@0900,1700 [facility] Last Admin: 01/11/22 09:01 Dose: 5 mg Documented By: PARI Duloxetine HCl (Duloxetine Hcl 60 Mg Capsule.Dr) 60 mg PO DAILY [facility] Last Admin: 01/11/22 09:01 Dose: 60 mg Documented By: PARI Famotidine (Famotidine/Pf 20 Mg/2 Ml Vial) 20 mg IVPUSH BID [facility] Last Admin: 01/11/22 09:02 Dose: 20 mg Documented By: PARI Fluticasone Propionate (Fluticasone Propionate Nasal 16 Gm [place]) 1 spray NOSTRIL-B DAILY [facility] Last Admin: 01/11/22 10:30 Dose: 1 spray Documented By: PARI Fluticasone/Vilanterol (Fluticasone/Vilanterol 200/25 Blst.W.Dev) 1 puff INHALE RDAILY [facility] Last Admin: 01/11/22 07:16 Dose: 1 puff Documented By: VIKI Guaifenesin (Guaifenesin 100 Mg/5 Ml Liquid) 5 ml PO Q6H PRN PRN Reason: Cough Heparin Sodium (Porcine) (Heparin Sodium,Porcine 5,000 Unit/Ml Vial) 5,000 unit SUBCUT Q12H [facility] Last Admin: 01/11/22 09:02 Dose: 5,000 unit Documented By: PARI Ampicillin Sodium/Sulbactam (Sodium 3 gm/ Sodium Chloride) 100 mls @ 200 mls/hr IV Q6H [facility] Last Infusion: 01/11/22 10:04 Dose: 0 mls/hr Documented By: PARI Insulin Human Lispro (Insulin Lispro 100 Unit/Ml 3 Ml Vial) 0 unit SUBCUT QIDACHS [facility]; Protocol Last Admin: 01/11/22 08:52 Dose: Not Given Documented By: PARI Non-Admin Reason: No Insulin Coverage Lamotrigine (Lamotrigine 25 Mg Tablet) 50 mg PO BID [facility] Last Admin: 01/11/22 09:01 Dose: 50 mg Documented By: PARI Loperamide HCl (Loperamide Hcl 2 Mg Capsule) 2 mg PO BID PRN PRN Reason: Loose Stool Magnesium Citrate (Magnesium Citrate 300 Ml Solution) 150 ml PO Q4H PRN PRN Reason: Constipation Magnesium Hydroxide (Milk Of Magnesia 30 Ml Oral.Susp) 30 ml PO DAILY PRN PRN Reason: Constipation Melatonin (Melatonin 3 Mg Tablet) 3 mg PO DAILY@1700 [facility] Last Admin: 01/10/22 16:54 Dose: 3 mg Documented By: ERASTO Nicotine Polacrilex (Nicotine Polacrilex Lozenge 2 Mg Lozenge) 2 mg BUCCAL TID PRN PRN Reason: Nicotine Cravings Non-Formulary Medication (Atomoxetine) 50 mg PO DAILY [facility] Nystatin (Nystatin Powder 15 Gm Bottle) 1 appl TOPICAL BID [facility]; Protocol Last Admin: 01/11/22 10:30 Dose: 1 appl Documented By: PARI Omeprazole (Omeprazole 40 Mg Capsule.) 40 mg PO DAILY@0600 [facility] Last Admin: 01/11/22 04:11 Dose: 40 mg Documented By: REGLA Oxycodone HCl (Oxycodone Hcl Immed Release 5 Mg Tablet) 5 mg PO Q4H PRN PRN Reason: Pain (Scale Score 4-6) Pregabalin (Pregabalin 150 Mg Capsule) 300 mg PO BEDTIME [facility] Last Admin: 01/10/22 23:05 Dose: Not Given Documented By: JAIMEE Non-Admin Reason: Patient Refused Pregabalin (Pregabalin 200 Mg Capsule) 200 mg PO DAILY@0900 [facility] Last Admin: 01/11/22 09:01 Dose: 200 mg Documented By: PARI Quetiapine Fumarate (Quetiapine Fumarate 100 Mg Tablet) 100 mg PO BID [facility] Last Admin: 01/11/22 09:01 Dose: 100 mg Documented By: PARI Quetiapine Fumarate (Quetiapine Fumarate 100 Mg Tablet) 100 mg PO DAILY@1200 [facility] Last Admin: 01/10/22 13:22 Dose: 100 mg Documented By: ERASTO Quetiapine Fumarate (Quetiapine Fumarate 200 Mg Tablet) 200 mg PO BEDTIME [facility] Last Admin: 01/10/22 23:06 Dose: Not Given Documented By: JAIMEE Non-Admin Reason: Patient Refused Zonisamide (Zonisamide 100 Mg Capsule) 100 mg PO DAILY [facility] Last Admin: 01/11/22 09:01 Dose: 100 mg Documented By: PARI Labs CBC & Chem 7: 01/11/22 05:38 01/11/22 05:38 Labs: Laboratory Results - last 24 hr 01/10/22 01/10/22 01/11/22 16:12 19:48 05:38 MCV 93.2 MCH 29.1 MCHC 31.3 RDW 15.0 Plt Count 229 MPV 10.3 Immature Gran % (Auto) 0.4 Neut % (Auto) 68.6 Lymph % (Auto) 20.7 [place] % (Auto) 9.6 Eos % (Auto) 0.1 Baso % (Auto) 0.6 Lymph # (Auto) 1.4 [place] # (Auto) 0.6 Eos # (Auto) 0.0 Baso # (Auto) 0.0 Abs Immat Gran (auto) 0.03 Absolute Neuts (auto) 4.6 Absolute Nucleated RBC 0.000 Nucleated RBC % (auto) 0.0 Anion Gap Estim Creat Clear Calc Estimated GFR POC Glucose 108 134 H Random Glucose Calcium 01/11/22 01/11/22 05:38 07:34 MCV MCH MCHC RDW Plt Count MPV Immature Gran % (Auto) Neut % (Auto) Lymph % (Auto) [place] % (Auto) Eos % (Auto) Baso % (Auto) Lymph # (Auto) [place] # (Auto) Eos # (Auto) Baso # (Auto) Abs Immat Gran (auto) Absolute Neuts (auto) Absolute Nucleated RBC Nucleated RBC % (auto) Anion Gap 13 Estim Creat Clear Calc 117.3 Estimated GFR > 60 POC Glucose 103 Random Glucose 114 Calcium 8.6 Assessment and Plan (1) Aspiration pneumonia: Status: Acute (2) Schizoaffective disorder: Status: Acute (3) Cardiac arrest: Status: Acute Plan hospital d#6 61yo F resident of [facility] with schizoaffective disorder, had witnessed food aspiration with brief cardiac arrest, CPR started immediately with ROSC rapidly achieved. Briefly intubated in ICU with significant agitation. Stepped down to [facility] 01/07/22 # Acute hypoxic resp failure due to Aspiration pna -unasyn day #2 -speech consult - downgraded diet to pureed + honey thick still on 4-5L, wean as toelrated # agitation due to schizoaffective disorder - started on lamotrigine per ICU team. Psych consulted, restarting clozapine gradually. also on quetiapine, pregabalin, duloxetine, diazepam, atomoxetine psych follow up for clozaril # s/p cardiac arrest with ROSC -repeat TTE: Very limited study as before.? - Limited assessment of LV and valves. Function appears preserved but cannot comment about wall motion despite use of contrast.? ? - Valves are poorly visualized but doppler assessment appears? ? normal.? # aspiration resulting in cardiopulmonary arrest - intubated/admitted 01/04/22, extubated 01/05/22 - DESIGN CONSULTANT: purees, honey-thick liquids ; speech to reevaluate today # HTN - continue amlodipine # sz disorder - continue zonisamide # VTE ppx: UFH # dispo: eventual return to LTC @ [facility] In my clinical judgment, the patient requires continued inpatient hospitalization for the following reasons: supplemental oxygen, IV abx Quality Stroke Does the patient have a stroke diagnosis?: No VTE Prior VTE?: No VTE Risk Level:: Medical - moderate - high VTE Device Contraindication: N/A - Device Ordered VTE Drug Contraindication: N/A - Med Ordered
[2022-01-11 12:12] LABS: Glucose, Whole Blood 95 mg/dL (60-115)
--- NOTE | 2022-01-11 13:37 | MHC.SL.SWA ---
Speech Pathologist Impression: Oropharyngeal dysphagia Risk of Aspiration Due to: Lethargy Medically Fragile Hx of Recent Extubation Weak Cough Dysphasia Diet Status: NO CHANGE Liquid Consistency and Strategies for Safe Swallow: Liquid Intake Recommendation: Honey Thick Liquid Intake Strategies: Small Sips No Straws Liquids by Teaspoon Only Solid Food Consistency: Dietary Recommendations: Pureed (NDD1) Additional Modifications to Solid Foods: Needs 1-1 Supervision and periodic assistance at all events of eating or drinking. Recommend liquids by tsp. Oral Medication Intake: Crushed with Puree Please contact the pharmacy regarding appropriate crushable or liquid drug formulations that are available whenever modified delivery is recommended. Compensatory Strategies and Precautions to be Taken for Safe Swallow: Sitting Upright (90 deg) No Straw Liquids from Spoon Small Bites and Sips Alternate Liquids/Solids Rate of Ingestion Change Supervision While Eating and Drinking for Safe Swallow: Total Supervision (1:1) Swallowing Recommended Treatments: Compens. Strategy Educat. Recommendation for Speech: Outpatient Speech Therapy Inpatient Speech Therapy Concrete Pump Operator Helper Clinican/Clinical Fellow: No Supervisory Statement: I have reviewed and agree with the student/clinical fellow's documentation: N/A Speech Language Pathologist: Beverley Mei M.A., CCC-SOLE SEWER HAND
--- NOTE | 2022-01-11 14:54 | MHC.CM.PN ---
PER ROUNDS PT SHOULD BE READY IN 1 TO 2 DAYS tO [facility]URN TO [facility]
[2022-01-11] MEDS: Melatonin 3 MG TABLET PO (16:49)
[2022-01-11 16:56] LABS: Glucose, Whole Blood 98 mg/dL (60-115)
[2022-01-11] MEDS: cloZAPine 25 MG TABLET PO (21:14)
[2022-01-11] MEDS: QUEtiapine Fumarate 200 MG TABLET PO (21:14)
[2022-01-11] MEDS: Pregabalin 150 MG CAPSULE 300 MG PO (21:15)
[2022-01-11 21:28] LABS: Glucose, Whole Blood 130 mg/dL (60-115)
[2022-01-12] VITALS (7 sets, daily range): BP systolic 86–133; BP diastolic 48–67; PULSE 65–87; RESP 16–20; TEMP 35.8–36.6; O2SAT 89–94
[2022-01-12] MEDS: Ampicillin Sodium/Sulbactam Na 3 GM in 0.9 % Sodium Chloride 100 ML IV ×4 (03:08→20:37)
[2022-01-12] MEDS: amLODIPine Besylate 5 MG TABLET PO (05:37)
[2022-01-12] MEDS: Omeprazole 40 MG CAPSULE.DR PO (05:37)
[2022-01-12 08:00] LABS: Glucose, Whole Blood 116 mg/dL (60-115)
[2022-01-12] MEDS: Heparin Sodium,Porcine 5,000 UNIT/ML VIAL 5000 UNIT SUBCUT ×2 (09:16→22:50)
[2022-01-12] MEDS: Pregabalin 200 MG CAPSULE PO (09:16)
[2022-01-12] MEDS: DULoxetine HCl 60 MG CAPSULE.DR PO (09:16)
[2022-01-12] MEDS: Zonisamide 100 MG CAPSULE PO (09:16)
[2022-01-12] MEDS: Famotidine/PF 20 MG/2 ML VIAL IVPUSH ×2 (09:16→20:36)
[2022-01-12] MEDS: QUEtiapine Fumarate 100 MG TABLET PO ×3 (09:16→20:37)
[2022-01-12] MEDS: diazePAM 5 MG TABLET PO ×2 (09:16→16:54)
[2022-01-12] MEDS: lamoTRIgine 25 MG TABLET 50 MG PO ×2 (09:16→20:36)
[2022-01-12] MEDS: Fluticasone Propionate Nasal 16 GM SPRAY 1 SPRAY NOSTRIL-B (09:17)
[2022-01-12] MEDS: Nystatin Powder 15 GM BOTTLE 1 APPL TOPICAL ×2 (09:17→20:38)
[2022-01-12 11:14] LABS: Glucose, Whole Blood 108 mg/dL (60-115)
--- NOTE | 2022-01-12 11:39 | HO.PM.IMPN ---
Subjective Subjective Date of Service: 01/12/22 Interval History: seen and examined this AM wants to go home denies respiratory symptoms attempted to wean from o2 and desaturated to 77%, improved with 2L Review of Systems negative except hPI Physical Exam Vital Signs: Vital Signs: Last Vital Signs Temp 96.5 F L 01/12/22 07:31 Pulse 84 01/12/22 07:31 Resp 18 01/12/22 07:31 BP 133/56 L 01/12/22 07:31 Pulse Ox 92 01/12/22 07:31 O2 Del Method 01/12/22 07:31 O2 Flow Rate 1 01/12/22 07:31 FiO2 30 01/05/22 14:40 BMI result Body Mass Index 35.3 Const: Other: General - no acute distress, appears comfortable Cardiovascular - regular rate and rhythm, S1-S2 Lungs - improving air entry Abdomen - soft, nontender, no rebound or guarding Extremities - no edema bilaterally Neuro - awake and alert, no focal deficits Objective Data Active Medications Al Hydroxide/Mg Hydroxide (Magnesium Hydrox/Alum Hydrox 30 Ml Oral.Susp) 10 ml PO Q6H PRN PRN Reason: Indigestion Albuterol Sulfate (Albuterol Sulfate 90 Mcg 8 Gm Inhaler) 2 puff INHALE Q4H PRN PRN Reason: Shortness Of Breath Albuterol/Ipratropium (Albuterol/Iprat 2.5/0.5mg 3 Ml Ampul.Neb) 3 ml INHALE RQ4H WHILE AWAKE [facility] Last Admin: 01/12/22 10:49 Dose: Not Given Documented By: ESSENCE Non-Admin Reason: Patient Refused Amlodipine Besylate (Amlodipine Besylate 5 Mg Tablet) 5 mg PO DAILY@0500 [facility]; Protocol Last Admin: 01/12/22 05:37 Dose: 5 mg Documented By: SHEREE Bisacodyl (Bisacodyl 10 Mg Supp.Rect) 10 mg MD DAILY PRN PRN Reason: Constipation Bisacodyl (Bisacodyl 5 Mg Tablet.Dr) 10 mg PO DAILY PRN PRN Reason: Constipation Last Admin: 01/11/22 10:29 Dose: 10 mg Documented By: PARI Clozapine (Clozapine 25 Mg Tablet) 25 mg PO BEDTIME [facility] Last Admin: 01/11/22 21:14 Dose: 25 mg Documented By: SHEREE Diazepam (Diazepam 5 Mg Tablet) 5 mg PO BID@0900,1700 [facility] Last Admin: 01/12/22 09:16 Dose: 5 mg Documented By: PARI Duloxetine HCl (Duloxetine Hcl 60 Mg Capsule.Dr) 60 mg PO DAILY [facility] Last Admin: 01/12/22 09:16 Dose: 60 mg Documented By: PARI Famotidine (Famotidine/Pf 20 Mg/2 Ml Vial) 20 mg IVPUSH BID [facility] Last Admin: 01/12/22 09:16 Dose: 20 mg Documented By: PARI Fluticasone Propionate (Fluticasone Propionate Nasal 16 Gm [place]) 1 spray NOSTRIL-B DAILY [facility] Last Admin: 01/12/22 09:17 Dose: 1 spray Documented By: PARI Fluticasone/Vilanterol (Fluticasone/Vilanterol 200/25 Blst.W.Dev) 1 puff INHALE RDAILY [facility] Last Admin: 01/12/22 07:52 Dose: Not Given Documented By: ESSENCE Non-Admin Reason: Patient Refused Guaifenesin (Guaifenesin 100 Mg/5 Ml Liquid) 5 ml PO Q6H PRN PRN Reason: Cough Heparin Sodium (Porcine) (Heparin Sodium,Porcine 5,000 Unit/Ml Vial) 5,000 unit SUBCUT Q12H [facility] Last Admin: 01/12/22 09:16 Dose: 5,000 unit Documented By: PARI Ampicillin Sodium/Sulbactam (Sodium 3 gm/ Sodium Chloride) 100 mls @ 200 mls/hr IV Q6H [facility] Last Infusion: 01/12/22 10:14 Dose: 0 mls/hr Documented By: PARI Insulin Human Lispro (Insulin Lispro 100 Unit/Ml 3 Ml Vial) 0 unit SUBCUT QIDACHS [facility]; Protocol Last Admin: 01/12/22 09:05 Dose: Not Given Documented By: PARI Non-Admin Reason: No Insulin Coverage Lamotrigine (Lamotrigine 25 Mg Tablet) 50 mg PO BID [facility] Last Admin: 01/12/22 09:16 Dose: 50 mg Documented By: PARI Loperamide HCl (Loperamide Hcl 2 Mg Capsule) 2 mg PO BID PRN PRN Reason: Loose Stool Magnesium Citrate (Magnesium Citrate 300 Ml Solution) 150 ml PO Q4H PRN PRN Reason: Constipation Magnesium Hydroxide (Milk Of Magnesia 30 Ml Oral.Susp) 30 ml PO DAILY PRN PRN Reason: Constipation Melatonin (Melatonin 3 Mg Tablet) 3 mg PO DAILY@1700 [facility] Last Admin: 01/11/22 16:49 Dose: 3 mg Documented By: PARI Nicotine Polacrilex (Nicotine Polacrilex Lozenge 2 Mg Lozenge) 2 mg BUCCAL TID PRN PRN Reason: Nicotine Cravings Non-Formulary Medication (Atomoxetine) 50 mg PO DAILY [facility] Nystatin (Nystatin Powder 15 Gm Bottle) 1 appl TOPICAL BID [facility]; Protocol Last Admin: 01/12/22 09:17 Dose: 1 appl Documented By: PARI Omeprazole (Omeprazole 40 Mg Capsule.Dr) 40 mg PO DAILY@0600 [facility] Last Admin: 01/12/22 05:37 Dose: 40 mg Documented By: SHEREE Oxycodone HCl (Oxycodone Hcl Immed Release 5 Mg Tablet) 5 mg PO Q4H PRN PRN Reason: Pain (Scale Score 4-6) Pregabalin (Pregabalin 150 Mg Capsule) 300 mg PO BEDTIME [facility] Last Admin: 01/11/22 21:15 Dose: 300 mg Documented By: SHEREE Pregabalin (Pregabalin 200 Mg Capsule) 200 mg PO DAILY@0900 [facility] Last Admin: 01/12/22 09:16 Dose: 200 mg Documented By: PARI Quetiapine Fumarate (Quetiapine Fumarate 100 Mg Tablet) 100 mg PO BID [facility] Last Admin: 01/12/22 09:16 Dose: 100 mg Documented By: PARI Quetiapine Fumarate (Quetiapine Fumarate 100 Mg Tablet) 100 mg PO DAILY@1200 [facility] Last Admin: 01/11/22 13:07 Dose: 100 mg Documented By: PARI Quetiapine Fumarate (Quetiapine Fumarate 200 Mg Tablet) 200 mg PO BEDTIME [facility] Last Admin: 01/11/22 21:14 Dose: 200 mg Documented By: SHEREE Zonisamide (Zonisamide 100 Mg Capsule) 100 mg PO DAILY [facility] Last Admin: 01/12/22 09:16 Dose: 100 mg Documented By: PARI Labs CBC & Chem 7: 01/11/22 05:38 01/11/22 05:38 Labs: Laboratory Results - last 24 hr 01/11/22 01/11/22 01/11/22 12:08 16:39 20:46 POC Glucose 95 98 130 H 01/12/22 01/12/22 07:37 11:10 POC Glucose 116 H 108 Assessment and Plan (1) Aspiration pneumonia: Status: Acute Plan hospital d#6 61yo F resident of [facility] with schizoaffective disorder, had witnessed food aspiration with brief cardiac arrest, CPR started immediately with ROSC rapidly achieved. Briefly intubated in ICU with significant agitation. Stepped down to [facility] 01/07/22 # Acute hypoxic resp failure due to Aspiration pna -unasyn day #3 -speech consult - downgraded diet to pureed + honey thick still requiring 2L # agitation due to schizoaffective disorder - started on lamotrigine per ICU team. Psych consulted, restarting clozapine gradually. also on quetiapine, pregabalin, duloxetine, diazepam, atomoxetine psych follow up for clozaril # s/p cardiac arrest with ROSC -repeat TTE: Very limited study as before.? - Limited assessment of LV and valves. Function appears preserved but cannot comment about wall motion despite use of contrast.? ? - Valves are poorly visualized but doppler assessment appears? ? normal.? # aspiration resulting in cardiopulmonary arrest - intubated/admitted 01/04/22, extubated 01/05/22 - [employer]: purees, honey-thick liquids ; speech to reevaluate today # HTN - continue amlodipine # sz disorder - continue zonisamide # VTE ppx: UFH # dispo: eventual return to LTC @ [facility] In my clinical judgment, the patient requires continued inpatient hospitalization for the following reasons: supplemental oxygen, IV abx Quality Stroke Does the patient have a stroke diagnosis?: No VTE Prior VTE?: No VTE Risk Level:: Medical - moderate - high VTE Device Contraindication: N/A - Device Ordered VTE Drug Contraindication: N/A - Med Ordered
--- NOTE | 2022-01-12 16:11 | P.CNPS_ITS ---
History of Present Illness Date of Service: 01/12/2022 Chief Complaint: CARDIAC ARREST Reason for Consult: medication Requesting physician: Jose Hardy HPI Narrative: Pt seen for re-consultation for titration of clozapine. Pt took higher dose of 50 mg HS on 01/11/22. Today, pt reports she is tired. Of note, she was hypotensive today, denies feeling dizzy. Says her mood is not bad, denies agitation or irritability. She is feeling safe. Denies SI. Denies A/VH. Says she has low energy, even at [facility] I was sleepy, at baseline has just ongoing sleepiness, i hate it. Medical Evaluation Reviewed: Yes [facility] Medical History (Updated 01/05/22 @ 14:31 by Apple Allen MD) Acute respiratory failure with hypoxia Anemia Asthma Borderline personality disorder Cataract Chronic pain syndrome Constipation COPD (chronic obstructive pulmonary disease) Diverticulitis Dysphagia [place] Fusion of spine GERD (gastroesophageal reflux disease) Glaucoma HTN (hypertension) Hyperlipemia Hypertensive cardiovascular disease Ileus Osteoporosis Postmenopausal atrophic vaginitis PTSD (post-traumatic stress disorder) Schizoaffective disorder Schizoaffective disorder Tobacco abuse Type 2 diabetes mellitus Surgical History (Updated 01/05/22 @ 09:26 by Lorna Viveros RN) Presence of right artificial hip joint Presence of right artificial knee joint Diagnostics Vital Signs (24Hr): Vital Signs - 24 hr 01/10/22 19:27 01/10/22 23:32 01/11/22 03:24 Temperature 97.2 F 97.6 F 98.0 F Pulse Rate 73 74 72 Respiratory Rate 16 18 17 Blood Pressure 119/57 L 122/71 129/66 Pulse Oximetry 95 95 96 Oxygen Delivery Method Nasal Cannula Nasal Cannula Nasal Cannula Oxygen Flow Rate 5 5 4 01/11/22 07:17 01/11/22 07:31 01/11/22 11:37 Temperature 97.9 F Pulse Rate 82 85 53 Respiratory Rate 15 20 18 Blood Pressure 119/63 Pulse Oximetry 94 Oxygen Delivery Method Nasal Cannula Oxygen Flow Rate 5 01/11/22 12:00 01/11/22 16:00 Temperature 97.4 F 97.6 F Pulse Rate 76 80 Respiratory Rate 20 18 Blood Pressure 135/60 142/72 H Pulse Oximetry 98 99 Oxygen Delivery Method Nasal Cannula Room Air Oxygen Flow Rate 4 BMI result Body Mass Index 35.3 Labs Results: 01/11/22 05:38 01/11/22 05:38 Labs: Laboratory Results - last 48 hr 01/09/22 01/10/22 01/10/22 19:36 07:18 08:32 WBC 10.3 RBC 4.68 Hgb 13.4 Hct 43.4 MCV 92.7 MCH 28.6 MCHC 30.9 L RDW 15.1 Plt Count 232 D MPV 10.3 Immature Gran % (Auto) 0.4 Neut % (Auto) 79.0 H Lymph % (Auto) 12.0 L [place] % (Auto) 8.3 Eos % (Auto) 0.1 Baso % (Auto) 0.2 Lymph # (Auto) 1.2 [place] # (Auto) 0.9 Eos # (Auto) 0.0 Baso # (Auto) 0.0 Abs Immat Gran (auto) 0.04 H Absolute Neuts (auto) 8.1 Absolute Nucleated RBC 0.000 Nucleated RBC % (auto) 0.0 Sodium Potassium Chloride Carbon Dioxide Anion Gap BUN Creatinine Estim Creat Clear Calc Estimated GFR POC Glucose 106 108 Random Glucose Calcium 01/10/22 01/10/22 01/10/22 08:32 10:37 16:12 WBC RBC Hgb Hct MCV MCH MCHC RDW Plt Count MPV Immature Gran % (Auto) Neut % (Auto) Lymph % (Auto) [place] % (Auto) Eos % (Auto) Baso % (Auto) Lymph # (Auto) [place] # (Auto) Eos # (Auto) Baso # (Auto) Abs Immat Gran (auto) Absolute Neuts (auto) Absolute Nucleated RBC Nucleated RBC % (auto) Sodium 144 Potassium 3.9 Chloride 106 Carbon Dioxide 27 Anion Gap 15 BUN 8 L Creatinine 0.71 Estim Creat Clear Calc 104.6 Estimated GFR > 60 POC Glucose 137 H 108 Random Glucose 112 Calcium 9.0 01/10/22 01/11/22 01/11/22 19:48 05:38 05:38 WBC 6.7 RBC 4.29 Hgb 12.5 Hct 40.0 MCV 93.2 MCH 29.1 MCHC 31.3 RDW 15.0 Plt Count 229 MPV 10.3 Immature Gran % (Auto) 0.4 Neut % (Auto) 68.6 Lymph % (Auto) 20.7 [place] % (Auto) 9.6 Eos % (Auto) 0.1 Baso % (Auto) 0.6 Lymph # (Auto) 1.4 [place] # (Auto) 0.6 Eos # (Auto) 0.0 Baso # (Auto) 0.0 Abs Immat Gran (auto) 0.03 Absolute Neuts (auto) 4.6 Absolute Nucleated RBC 0.000 Nucleated RBC % (auto) 0.0 Sodium 138 Potassium 3.9 Chloride 102 Carbon Dioxide 27 Anion Gap 13 BUN 7 L Creatinine 0.64 Estim Creat Clear Calc 117.3 Estimated GFR > 60 POC Glucose 134 H Random Glucose 114 Calcium 8.6 01/11/22 01/11/22 01/11/22 07:34 12:08 16:39 WBC RBC Hgb Hct MCV MCH MCHC RDW Plt Count MPV Immature Gran % (Auto) Neut % (Auto) Lymph % (Auto) [place] % (Auto) Eos % (Auto) Baso % (Auto) Lymph # (Auto) [place] # (Auto) Eos # (Auto) Baso # (Auto) Abs Immat Gran (auto) Absolute Neuts (auto) Absolute Nucleated RBC Nucleated RBC % (auto) Sodium Potassium Chloride Carbon Dioxide Anion Gap BUN Creatinine Estim Creat Clear Calc Estimated GFR POC Glucose 103 95 98 Random Glucose Calcium Imaging Radiology Impressions: ITS Impressions Chest X-Ray 01/04/22 19:05 IMPRESSION: 1. ET tube 2.5 cm above the danielle. 2. Volume loss left hemithorax with diffuse airspace opacity. Chest X-Ray 01/04/22 22:13 IMPRESSION: 1. What appears to be a right internal jugular line has its tip in the axillary vein. 2. ET tube 3.2 cm above the danielle. 3. NG tube in good position. 4. Marked improvement in left lung aeration Chest X-Ray 01/06/22 08:08 IMPRESSION: 1. Interval extubation and removal of enteric tubes. 2. Similar positioning of right-sided jugular catheter which is abnormal in position, possibly terminating within the right axillary vein. Clinical correlation recommended. Repositioning may be required. 3. Mild interval improvement in aeration of the left lung base. Chest X-Ray 01/10/22 12:32 IMPRESSION: Opacities in the right lower lung represent interval worsening from the previous study and suggest a small right pleural effusion with superjacent layering, atelectasis and/or infiltrate. Mental Status Exam Mental Status Exam Narrative: A&O. In hospital attire, somewhat unkempt. Moderate eye contact, inattentive. No Tics or Tremors. No abnormal involuntary movements. Calm, cooperative, but tired. Non-pressured speech, spontaneous with regular rate and rhythm, normal volume and prosody. No prolonged speech latency or dysarthria. Mood is ?tired,? affect is euthymic. Denies SI/SIB/HI upon inquiry. Currently denies A/VH or delusional thought content. Thoughts are slowed. No known cognitive or memory impairment. Insight/ Judgment limited but adequate. Medications Medications Current Medications Al Hydroxide/Mg Hydroxide (Magnesium Hydrox/Alum Hydrox 30 Ml Oral.Susp) 10 ml PO Q6H PRN PRN Reason: Indigestion Albuterol Sulfate (Albuterol Sulfate 90 Mcg 8 Gm Inhaler) 2 puff INHALE Q4H PRN PRN Reason: Shortness Of Breath Albuterol/Ipratropium (Albuterol/Iprat 2.5/0.5mg 3 Ml Ampul.Neb) 3 ml INHALE RQ4H WHILE AWAKE [facility] Last Admin: 01/11/22 14:16 Dose: Not Given Amlodipine Besylate (Amlodipine Besylate 5 Mg Tablet) 5 mg PO DAILY@0500 [facility]; Protocol Last Admin: 01/11/22 04:11 Dose: 5 mg Bisacodyl (Bisacodyl 10 Mg Supp.Rect) 10 mg NE DAILY PRN PRN Reason: Constipation Bisacodyl (Bisacodyl 5 Mg Tablet.Dr) 10 mg PO DAILY PRN PRN Reason: Constipation Last Admin: 01/11/22 10:29 Dose: 10 mg Clozapine (Clozapine 25 Mg Tablet) 25 mg PO BID [facility] Diazepam (Diazepam 5 Mg Tablet) 5 mg PO BID@0900,1700 [facility] Last Admin: 01/11/22 16:49 Dose: 5 mg Duloxetine HCl (Duloxetine Hcl 60 Mg Capsule.) 60 mg PO DAILY [facility] Last Admin: 01/11/22 09:01 Dose: 60 mg Famotidine (Famotidine/Pf 20 Mg/2 Ml Vial) 20 mg IVPUSH BID [facility] Last Admin: 01/11/22 09:02 Dose: 20 mg Fluticasone Propionate (Fluticasone Propionate Nasal 16 Gm [place]) 1 spray NOSTRIL-B DAILY [facility] Last Admin: 01/11/22 10:30 Dose: 1 spray Fluticasone/Vilanterol (Fluticasone/Vilanterol 200/25 Blst.W.Dev) 1 puff INHALE RDAILY [facility] Last Admin: 01/11/22 07:16 Dose: 1 puff Guaifenesin (Guaifenesin 100 Mg/5 Ml Liquid) 5 ml PO Q6H PRN PRN Reason: Cough Heparin Sodium (Porcine) (Heparin Sodium,Porcine 5,000 Unit/Ml Vial) 5,000 unit SUBCUT Q12H [facility] Last Admin: 01/11/22 09:02 Dose: 5,000 unit Ampicillin Sodium/Sulbactam (Sodium 3 gm/ Sodium Chloride) 100 mls @ 200 mls/hr IV Q6H [facility] Last Infusion: 01/11/22 13:45 Dose: Infused Insulin Human Lispro (Insulin Lispro 100 Unit/Ml 3 Ml Vial) 0 unit SUBCUT QIDACHS [facility]; Protocol Last Admin: 01/11/22 16:44 Dose: Not Given Lamotrigine (Lamotrigine 25 Mg Tablet) 50 mg PO BID [facility] Last Admin: 01/11/22 09:01 Dose: 50 mg Loperamide HCl (Loperamide Hcl 2 Mg Capsule) 2 mg PO BID PRN PRN Reason: Loose Stool Magnesium Citrate (Magnesium Citrate 300 Ml Solution) 150 ml PO Q4H PRN PRN Reason: Constipation Magnesium Hydroxide (Milk Of Magnesia 30 Ml Oral.Susp) 30 ml PO DAILY PRN PRN Reason: Constipation Melatonin (Melatonin 3 Mg Tablet) 3 mg PO DAILY@1700 [facility] Last Admin: 01/11/22 16:49 Dose: 3 mg Nicotine Polacrilex (Nicotine Polacrilex Lozenge 2 Mg Lozenge) 2 mg BUCCAL TID PRN PRN Reason: Nicotine Cravings Non-Formulary Medication (Atomoxetine) 50 mg PO DAILY [facility] Nystatin (Nystatin Powder 15 Gm Bottle) 1 appl TOPICAL BID [facility]; Protocol Last Admin: 01/11/22 10:30 Dose: 1 appl Omeprazole (Omeprazole 40 Mg Capsule.Dr) 40 mg PO DAILY@0600 [facility] Last Admin: 01/11/22 04:11 Dose: 40 mg Oxycodone HCl (Oxycodone Hcl Immed Release 5 Mg Tablet) 5 mg PO Q4H PRN PRN Reason: Pain (Scale Score 4-6) Pregabalin (Pregabalin 150 Mg Capsule) 300 mg PO BEDTIME [facility] Last Admin: 01/10/22 23:05 Dose: Not Given Pregabalin (Pregabalin 200 Mg Capsule) 200 mg PO DAILY@0900 [facility] Last Admin: 01/11/22 09:01 Dose: 200 mg Quetiapine Fumarate (Quetiapine Fumarate 100 Mg Tablet) 100 mg PO BID [facility] Last Admin: 01/11/22 09:01 Dose: 100 mg Quetiapine Fumarate (Quetiapine Fumarate 100 Mg Tablet) 100 mg PO DAILY@1200 [facility] Last Admin: 01/11/22 13:07 Dose: 100 mg Quetiapine Fumarate (Quetiapine Fumarate 200 Mg Tablet) 200 mg PO BEDTIME [facility] Last Admin: 01/10/22 23:06 Dose: Not Given Zonisamide (Zonisamide 100 Mg Capsule) 100 mg PO DAILY [facility] Last Admin: 01/11/22 09:01 Dose: 100 mg Allergies Allergies Allergy/AdvReac Type Severity Reaction Status Date / Time chlorpromazine Allergy Unknown Verified 01/05/22 09:19 [From Thorazine] haloperidol [From Haldol] Allergy Unknown Verified 02/08/21 08:35 imipramine Allergy Unknown Verified 02/08/21 08:35 ketorolac Allergy Unknown Verified 02/08/21 08:35 Penicillins Allergy Unknown Verified 02/08/21 08:35 promethazine Allergy Unknown Verified 02/08/21 08:35 Assessment & Plan Assessment & Plan (1) Schizoaffective disorder: Status: Acute Code(s): F25.9 - Schizoaffective disorder, unspecified Plan Plan: Continue clozapine 50 mg HS and will increase to 100 mg HS on 01/13/22, as pt is tired and hypotensive today, does not want to increase dose too quickly, however may increase by 50 mg daily as tolerated. Goal is to re-increase to home dose of 275 mg. ANC wnl. Pt is in agreement with plan. I spent minutes with the patient and/or on the patient floor today, greater than?50% of which was spent counseling/coordinating care. Patient educated on: medication risk/benefits
[2022-01-12 16:23] LABS: Glucose, Whole Blood 103 mg/dL (60-115)
[2022-01-12] MEDS: Melatonin 3 MG TABLET PO (16:54)
[2022-01-12] MEDS: Albuterol/Iprat 2.5/0.5MG 3 ML AMPUL.NEB INHALE (19:30)
[2022-01-12 20:01] LABS: Glucose, Whole Blood 111 mg/dL (60-115)
[2022-01-12] MEDS: QUEtiapine Fumarate 200 MG TABLET PO (20:36)
[2022-01-12] MEDS: Pregabalin 150 MG CAPSULE 300 MG PO (20:36)
[2022-01-12] MEDS: cloZAPine 25 MG TABLET 50 MG PO (20:37)
[2022-01-13] VITALS: BP 106/58; PULSE 76; RESP 18; TEMP 36.4; O2SAT 93
[2022-01-13] MEDS: Ampicillin Sodium/Sulbactam Na 3 GM in 0.9 % Sodium Chloride 100 ML IV ×3 (03:10→13:36)
[2022-01-13 04:00] VITALS: BP 112/64; PULSE 74; RESP 20; TEMP 37.1; O2SAT 96
[2022-01-13] MEDS: Omeprazole 40 MG CAPSULE.DR PO (05:29)
[2022-01-13] MEDS: amLODIPine Besylate 5 MG TABLET PO (05:29)
[2022-01-13 06:00] VITALS: BMI 35.4
[2022-01-13 07:30] VITALS: BP 117/66; PULSE 79; RESP 20; TEMP 36.2; O2SAT 95
[2022-01-13] MEDS: Fluticasone/Vilanterol 200/25 BLST.W.DEV 1 PUFF INHALE (07:46)
[2022-01-13 07:47] VITALS: PULSE 79; RESP 16; O2SAT 95
[2022-01-13 08:54] LABS: Glucose, Whole Blood 203 mg/dL (60-115)
--- NOTE | 2022-01-13 09:21 | PM.DS ---
DS: Providers Provider Date of Service: 01/13/22 Date of admission: 01/04/22 20:13 Primary care physician: Heather Villasenor MD Consults: 01/08/22 10:22 Consult to Psychiatry Routine Consulting Provider: Psych Covering Reason for consultation: Agitation, Clozapine held 4 days, advice and plan 01/11/22 11:22 Consult to Psychiatry Routine Consulting Provider: Psych Covering Reason for consultation: needs follow up to titrate clozaril DS: Diagnosis Discharge Diagnosis (1) Schizoaffective disorder: Status: Acute DS: Summary Hospital Course Hospital Course: From the admission H&P: The patient is a 61-year-old female past medical history is significant for cerebral infarction, schizoaffective disorder, COPD, acute respiratory failure, atelectasis, dysphagia, asthma, hyperlipidemia, essential hypertension, diverticulitis with perforation, ileus, PTSD, and 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 She has a MOLST form which indicates full support, signed 07/03/17. ?Her guardian is Bonnie Rojas. She was FRANCIECesar powers from[facility] ([facility]) ?S/P cardiopulmonary arrest.? The patient was eating dinner and aspirated, prompting a cardiopulmonary arrest. ?CPR was provided by staff members, and upon EMS arrival, the patient was breathing, and had a pulse, although her respiratory rate was only approximately 4.?She was reportedly down for about 5 minutes before ACLS arrival. The patient was placed on a bag-valve mask, and transported to the hospital.? An IO was started, but only IV fluids were given. In the emergency department, the patient was intubated, and a right IJ was placed. On?chest x-ray, the catheter tip is noted to be in the right brachiocephalic vein. Diffuse airspace opacity is noted in the left lung which could represent aspiration, but could also be due to a temperate right mainstem bronchus intubation (The ET tube was pulled back and is currently 2.5 cm above the danielle).?She was treated empirically with Zosy Hospital Course by discharge diagnosis: 1. Cardiopulmonary arrest due to aspiration Patient was emergently intubated initially treated in the intensive care unit. She was able to be weaned from the vent and transition to nasal cannula. Intensive care felt the cause of her cardiopulmonary arrest was likely due to aspiration of food particles. 2. Acute respiratory failure with hypoxia due to aspiration pneumonia Patient was evaluated by speech therapy and was initially on a ground/mechanical soft diet. However patient had another episode of aspiration resulting in aspiration pneumonia. She was treated IV Unasyn and will be transitioned to oral Augmentin for another 5 days at the time of discharge. Repeat chest x-ray prior to discharge shows improvement in her right lung opacities. The patient remains on 1-2 L of oxygen by nasal cannula. She has periods of low O2 saturations in the high 80s. She will be discharged with O2 which can be weaned at the snf facility. Given her history of COPD goal should be around 90. In regards to her diet, the patient is now on pureed plus honey thick liquids. 3. Hospital delirium Due to her initial presentation, the patient's anti psychotic medications were held. While on the medical floor patient had episodes of agitation/delirium. Psychiatry was consulted. Her medications were restarted. Currently she is on Seroquel 100 mg in the morning, 100 mg at noon, the 100 mg at bedtime. She was also initiated on Lamictal which is being continued at the time of discharge. Finally in regards to her closet rule which was initially held, now has been restarted. Her dose has been up titrated to 100 mg at bedtime starting 01/13/2022. This can be up titrated to her baseline dose as appropriate. For her other chronic conditions, she may continue her meds as before. Time Spent with Patient Time attestation: Total time spent providing and/or coordinating discharge services: Discharge coordination time: Greater than 30 minutes Quality: Safe Use of Opioids Does Pt have an Active Cancer Diagnosis on the Problem List?: No Quality: Stroke Does the patient have a stroke diagnosis?: No Physical Exam Vital Signs: Vital Signs: Last Vital Signs Temp 97.1 F 01/13/22 07:30 Pulse 79 01/13/22 07:47 Resp 16 01/13/22 07:47 BP 117/66 01/13/22 07:30 Pulse Ox 95 01/13/22 07:30 O2 Del Method 01/13/22 07:30 O2 Flow Rate 2 01/13/22 07:30 FiO2 30 01/05/22 14:40 BMI result Body Mass Index 35.4 Const: Other: General - no acute distress, appears comfortable Cardiovascular - regular rate and rhythm, S1-S2 Lungs - improving air entry bilaterally Abdomen - soft, nontender, no rebound or guarding Extremities - no edema bilaterally Neuro - awake and alert, no focal deficits DS: Data Data Completed and Pending Labs on day of discharge: Laboratory Results - last 24 hr 01/12/22 01/12/22 01/12/22 11:10 16:19 19:52 POC Glucose 108 103 111 01/13/22 07:31 POC Glucose 203 H Discharge Plan Discharge Patient Disposition: er [facility] Discharge Diagnosis: Aspiration Referrals: Heather Villasenor MD [Primary Care Provider] - 1 Week Discharge Medications: New clozapine 100 mg Tablet 100 mg PO BEDTIME Qty: 1 0RF lamotrigine 25 mg Tablet 50 mg PO BID Qty: 1 0RF quetiapine 100 mg Tablet 100 mg PO BID Qty: 1 0RF amoxicillin-pot clavulanate 875-125 mg tablet 1 tab PO Q12H Qty: 10 0RF Continued amlodipine 5 mg tablet 1 tab PO DAILY@0500 omeprazole 40 mg capsule,delayed release(DR/EC) 40 mg PO DAILY@0600 quetiapine 100 mg tablet 100 mg PO DAILY@1200 acetaminophen 500 mg Tablet 1,000 mg PO TID fluticasone propion-salmeterol [Advair Diskus] 500-50 mcg/dose blister with device 1 puff inhalation BID montelukast 10 mg tablet 1 tab PO DAILY@1700 fluticasone propionate 50 mcg/actuation spray,suspension 1 spray intranasal DAILY diazepam 5 mg tablet 5 mg PO BID@0900,1700 duloxetine 60 mg capsule,delayed release(DR/EC) 60 mg PO DAILY pregabalin 300 mg capsule 1 cap PO BEDTIME Linzess 145 mcg capsule 145 mcg PO DAILY melatonin 3 mg Tablet 3 mg PO DAILY@1700 magnesium hydroxide [Milk of Magnesia] 400 mg/5 mL Suspension 30 ml PO DAILY PRN (Reason: Constipation) magnesium citrate Solution 150 ml PO Q4H PRN (Reason: Constipation) oxycodone 5 mg Tablet 5 mg PO Q4H PRN (Reason: Pain (Scale Score 4-6)) atomoxetine 25 mg Capsule 50 mg PO DAILY nicotine (polacrilex) 2 mg Lozenge 2 mg BUCCAL TID PRN (Reason: Nicotine Cravings) pregabalin 200 mg Capsule 200 mg PO DAILY@0900 loperamide 2 mg Capsule 2 mg PO BID PRN (Reason: Loose Stool) Rx Instructions: administer after each loose stool until symptoms controlled; do not exceed 8 mg per 24 hrs quetiapine 200 mg tablet 1 tab PO BEDTIME guaifenesin 100 mg/5 mL Liquid 300 mg PO Q6H PRN (Reason: Cough) zonisamide 100 mg capsule 1 cap PO DAILY famotidine 20 mg tablet 1 tab PO DAILY PRN (Reason: Acid Reflux) bisacodyl [Gentle Laxative (bisacodyl)] 10 mg Suppository 10 mg FL DAILY PRN (Reason: Constipation) bisacodyl 5 mg Tablet,Delayed Release (Dr/Ec) 10 mg PO DAILY PRN (Reason: Constipation) alum-mag hydroxide-simeth 200-200-20 mg/5 mL Suspension 10 ml PO Q6H PRN (Reason: Indigestion) albuterol sulfate [Proventil HFA] 90 mcg/actuation Hfa Aerosol Inhaler 2 puff INHALATION Q4H PRN (Reason: Shortness Of Breath) cholecalciferol (vitamin D3) 1,250 mcg (50,000 unit) Capsule 1,250 mcg PO QMONTH Rx Instructions: takes on the 3rd of each month Discontinued clozapine 25 mg tablet 3 tab PO DAILY@1700 Rx Instructions: total daily dose = 275 mg oxycodone 5 mg Tablet 5 mg PO BID@0900,1300 clozapine 200 mg tablet 1 tab PO DAILY@1700 Rx Instructions: total daily dose = 275 mg Discharge Orders: Discharge Order (Routine); Ordered 01/13/22 Ordered By: Jose Hardy Diet: Pureed + honey thick Activity on Discharge: As tolerated Stand Alone Forms: Patient Portal Discharge page Care Plan Goals: To stay healthy and out of the hospital. Health Concerns: Aspiration, cardiopulmonary arrest aspiration pneumonia delirium Plan of Treatment: Finish 5 more days of augmentin Follow the diet recommend by speech therapy: Pureed solids + honey thick liquids Assessment: see d/c summary
[2022-01-13] MEDS: Insulin Lispro 100 UNIT/ML 3 ML VIAL SUBCUT (09:31)
[2022-01-13] MEDS: Heparin Sodium,Porcine 5,000 UNIT/ML VIAL 5000 UNIT SUBCUT (09:31)
[2022-01-13] MEDS: DULoxetine HCl 60 MG CAPSULE.DR PO (09:32)
[2022-01-13] MEDS: lamoTRIgine 25 MG TABLET 50 MG PO (09:32)
[2022-01-13] MEDS: Zonisamide 100 MG CAPSULE PO (09:32)
[2022-01-13] MEDS: QUEtiapine Fumarate 100 MG TABLET PO ×2 (09:32→13:36)
[2022-01-13] MEDS: Pregabalin 200 MG CAPSULE PO (09:32)
[2022-01-13] MEDS: Nystatin Powder 15 GM BOTTLE 1 APPL TOPICAL (09:33)
[2022-01-13] MEDS: Fluticasone Propionate Nasal 16 GM SPRAY 1 SPRAY NOSTRIL-B (09:43)
[2022-01-13] MEDS: Famotidine/PF 20 MG/2 ML VIAL IVPUSH (09:44)
--- NOTE | 2022-01-13 09:49 | MHC.CM.PN ---
MD order for return to [facility]. Reached out to previous SNF; previously on 01/07/22 bed offered for return. Inquired if able to send back at 11:00 today, pending response.
[2022-01-13 11:46] LABS: Glucose, Whole Blood 82 mg/dL (60-115)
[2022-01-13 12:00] VITALS: BP 122/74; PULSE 80; RESP 20; TEMP 36.9; O2SAT 97
--- NOTE | 2022-01-13 12:44 | MHC.CM.PN ---
[facility] did not respond in allscripts RE patient's return for today. Called Center; hung up on twice. Called a third time and was able to get nurse on the phone. Nurse requesting D/C Summary NOT faxed ahead of time, but rather sent with patient upon return. Also, nurse requesting patient not to arrive prior to 3:30. Called [facility] and set transport for 3:30.
[2022-01-13 16:12] LABS: Glucose, Whole Blood 98 mg/dL (60-115)
[2022-01-13] MEDS: Melatonin 3 MG TABLET PO (16:40)
== END 2022-01-13 18:16 | DRG 208 ==
LOC: HO.ED 20:28 → HO.EDOVER 20:51 → HO.ICU 20:54 → HO.IMC 01-07 15:49
PROVIDERS: Family Medicine; Internal Medicine; Internal Medicine Cardiovascular Disease; Internal Medicine Pulmonary Disease; Physician Assistant; Student in an Organized Health Care Education/Training Program; Admitting Provider Nurse Practitioner Family; Emergency Provider Emergency Medicine; PCP Internal Medicine; Visit Provider Family Medicine
DX: J69.0 Pneumonitis due to inhalation of food and vomit (principal); J96.01 Acute respiratory failure with hypoxia; J98.11 Atelectasis; F05 Delirium due to known physiological condition; E66.9 Obesity, unspecified; Z68.35 Body mass index [BMI] 35.0-35.9, adult; E11.9 Type 2 diabetes mellitus without complications; I10 Essential (primary) hypertension; F25.9 Schizoaffective disorder, unspecified; F43.10 Post-traumatic stress disorder, unspecified; G40.909 Epilepsy, unspecified, not intractable, without status epilepticus; Z20.822 Contact with and (suspected) exposure to COVID-19; Z86.74 Personal history of sudden cardiac arrest; Z86.73 Personal history of transient ischemic attack (TIA), and cerebral infarction without residual deficits; Z87.891 Personal history of nicotine dependence; Z88.0 Allergy status to penicillin; Z88.8 Allergy status to other drugs, medicaments and biological substances; Z79.51 Long term (current) use of inhaled steroids; Z79.899 Other long term (current) drug therapy
CPT/HCPCS: 36415; 71045; 80048; 80053; 82040; 82803; 82947; 83605; 83735; 84100; 84484; 85025; 85027; 87040; 87633; 92526; 92610; 93005; 93306; 94002; 94003; 94640; 99285; C1758; J0295; J2185; J2543; Q9957

== ENCOUNTER 2022-08-02 11:07 | Outpatient (REF) | payer MEDICARE, MEDICAID, SELFPAY ==
--- NOTE | ~2022-08-02 | US_ITS ---
EXAMINATION: US BREAST, BILATERAL CLINICAL INFORMATION: Screening study. Patient not willing to have mammography performed. COMPARISON: None available. MAMMOGRAPHY: None available. TECHNIQUE: High-resolution grayscale sonography of the breasts was performed by a technologist with a high-frequency linear transducer following a standardized protocol. All 4 quadrants and the retroareolar region were examined bilaterally. FINDINGS: RIGHT BREAST: On the images submitted for review, no suspicious mass, area of architectural distortion, complex cyst or other sonographically suspicious lesion is identified in the right breast. LEFT BREAST: In the lower inner quadrant of the left breast at approximately the 8 o'clock position there are a few asymmetrically dilated ducts without abnormal filling defect or internal vascularity being present. Patient denies nipple discharge. Recommend 6 month follow-up left breast ultrasound examination. US/US breast RT complete IMPRESSION: 1. No significant ultrasound abnormality of the right breast identified. 2. Asymmetric dilated left breast ducts without mass or vascularity within it identified. Six-month follow-up ultrasound recommended. ASSESSMENT: Right breast: BI-RADS 1 - negative.. Left breast: BI-RADS 3 - probably benign. RECOMMENDATIONS: Six-month follow-up left breast ultrasound. This patient?s information was entered in to a reminder system with a target due date for their next mammogram.
--- NOTE | ~2022-08-02 | US_ITS ---
EXAMINATION: US BREAST, BILATERAL CLINICAL INFORMATION: Screening study. Patient not willing to have mammography performed. COMPARISON: None available. MAMMOGRAPHY: None available. TECHNIQUE: High-resolution grayscale sonography of the breasts was performed by a technologist with a high-frequency linear transducer following a standardized protocol. All 4 quadrants and the retroareolar region were examined bilaterally. FINDINGS: RIGHT BREAST: On the images submitted for review, no suspicious mass, area of architectural distortion, complex cyst or other sonographically suspicious lesion is identified in the right breast. LEFT BREAST: In the lower inner quadrant of the left breast at approximately the 8 o'clock position there are a few asymmetrically dilated ducts without abnormal filling defect or internal vascularity being present. Patient denies nipple discharge. Recommend 6 month follow-up left breast ultrasound examination. US/US breast LT complete IMPRESSION: 1. No significant ultrasound abnormality of the right breast identified. 2. Asymmetric dilated left breast ducts without mass or vascularity within it identified. Six-month follow-up ultrasound recommended. ASSESSMENT: Right breast: BI-RADS 1 - negative.. Left breast: BI-RADS 3 - probably benign. RECOMMENDATIONS: Six-month follow-up left breast ultrasound. This patient?s information was entered in to a reminder system with a target due date for their next mammogram.
== END 2022-08-02 11:08 | disposition home or self-care (01) ==
LOC: HO.MAMMO 11:07
PROVIDERS: Visit Provider Emergency Medicine
DX: Z12.39 Encounter for other screening for malignant neoplasm of breast (principal); R92.8 Other abnormal and inconclusive findings on diagnostic imaging of breast
CPT/HCPCS: 76641

== ENCOUNTER 2022-08-10 10:29 | Inpatient (IN) | payer MEDICARE, MEDICAID, SELFPAY ==
[2022-08-10] VITALS (10 sets, daily range): BP systolic 112–177; BP diastolic 61–80; PULSE 81–95; RESP 12–23; TEMP 35.6–36.6; O2SAT 91–97; BMI 42.2; BMI 43.4
--- NOTE | 2022-08-10 11:13 | PC.NURSE ---
pt from [facility] with c/o 11/19 bilateral abdominal pain that radiates to her lower back. per ems pain started 30 mins ago and has progressively got worse since then. Heat pack applied to lower abdomen for comfort.
--- NOTE | 2022-08-10 11:36 | ED.ABDPAIN ---
HPI - Abdominal Pain General Chief Complaint: Abdominal Pain Stated Complaint: abdominal pain Time Seen by Provider: 08/10/22 11:18 Source: patient Mode of arrival: EMS Limitations: no limitations History of Present Illness HPI narrative: 61-year-old female who presents emergency department for evaluation of lower abdominal pain. The patient is a resident at [facility]. According to EMS, the patient developed bilateral lower abdominal pain 30 minutes prior to transport. The patient told me that she is having severe pain and she points to her lower abdomen. She states the pain came on suddenly at 09:30. She states that the pain is been constant sharp and greater than 10/10. The patient states she noticed bright red blood in the toilet bowl when she was urinating and moving her bowels this morning. Related Data Home Medications Medication Instructions Recorded Confirmed acetaminophen 500 mg tablet 1,000 mg PO TID 02/08/21 01/04/22 amlodipine 5 mg tablet 1 tab PO DAILY@0500 02/08/21 01/04/22 diazepam 5 mg tablet 5 mg PO BID@0900,1700 02/08/21 01/04/22 duloxetine 60 mg capsule,delayed 60 mg PO DAILY 02/08/21 01/04/22 release fluticasone 500 mcg-salmeterol 50 1 puff inhalation BID 02/08/21 01/04/22 mcg/dose blistr powdr for inhalation (Advair Diskus) fluticasone propionate 50 1 spray intranasal DAILY 02/08/21 01/04/22 mcg/actuation nasal spray,suspension linaclotide 145 mcg capsule 145 mcg PO DAILY 02/08/21 01/04/22 (Linzess) montelukast 10 mg tablet 1 tab PO DAILY@1700 02/08/21 01/04/22 omeprazole 40 mg capsule,delayed 40 mg PO DAILY@0600 02/08/21 01/04/22 release pregabalin 300 mg capsule 1 cap PO BEDTIME 02/08/21 01/04/22 quetiapine 100 mg tablet 100 mg PO DAILY@1200 02/08/21 01/04/22 albuterol sulfate 90 mcg/actuation 2 puff inhalation Q4H PRN 01/04/22 01/04/22 aerosol inhaler (Proventil HFA) Shortness Of Breath aluminum-mag hydroxide-simethicone 10 ml PO Q6H PRN Indigestion 01/04/22 01/04/22 200 mg-200 mg-20 mg/5 mL oral susp atomoxetine 25 mg capsule 50 mg PO DAILY 01/04/22 01/04/22 bisacodyl 10 mg rectal suppository 10 mg IA DAILY PRN Constipation 01/04/22 01/04/22 (Gentle Laxative (bisacodyl)) bisacodyl 5 mg tablet,delayed 10 mg PO DAILY PRN Constipation 01/04/22 01/04/22 release cholecalciferol (vitamin D3) 1,250 1,250 mcg PO QMONTH 01/04/22 01/04/22 mcg (50,000 unit) capsule famotidine 20 mg tablet 1 tab PO DAILY PRN Acid Reflux 01/04/22 01/04/22 guaifenesin 100 mg/5 mL oral liquid 300 mg PO Q6H PRN Cough 01/04/22 01/04/22 loperamide 2 mg capsule 2 mg PO BID PRN Loose Stool 01/04/22 01/04/22 magnesium citrate 150 ml PO Q4H PRN Constipation 01/04/22 01/04/22 magnesium hydroxide 400 mg/5 mL 30 ml PO DAILY PRN Constipation 01/04/22 01/04/22 oral suspension (Milk of Magnesia) melatonin 3 mg tablet 3 mg PO DAILY@1700 01/04/22 01/04/22 nicotine (polacrilex) 2 mg buccal 2 mg buccal TID PRN Nicotine 01/04/22 01/04/22 lozenge Cravings oxycodone 5 mg tablet 5 mg PO Q4H PRN Pain (Scale Score 01/04/22 01/04/22 4-6) pregabalin 200 mg capsule 200 mg PO DAILY@0900 01/04/22 01/04/22 quetiapine 200 mg tablet 1 tab PO BEDTIME 01/04/22 01/04/22 zonisamide 100 mg capsule 1 cap PO DAILY 01/04/22 01/04/22 Previous Rx's Medication Instructions Recorded amoxicillin 875 mg-potassium 1 tab PO Q12H #10 tabs 01/13/22 clavulanate 125 mg tablet clozapine 100 mg tablet 100 mg PO BEDTIME #1 tab 01/13/22 lamotrigine 25 mg tablet 50 mg PO BID #1 tab 01/13/22 quetiapine 100 mg tablet 100 mg PO BID #1 tab 01/13/22 Allergies Allergy/AdvReac Type Severity Reaction Status Date / Time chlorpromazine Allergy Unknown Verified 08/10/22 10:46 [From Thorazine] haloperidol [From Haldol] Allergy Unknown Verified 08/10/22 10:46 imipramine Allergy Unknown Verified 08/10/22 10:46 ketorolac Allergy Unknown Verified 08/10/22 10:46 Penicillins Allergy Unknown Verified 08/10/22 10:46 promethazine Allergy Unknown Verified 08/10/22 10:46 Review of Systems Review of Systems Yes all other systems are reviewed and are negative [facility] Past Medical History Medical History Acute respiratory failure Acute respiratory failure with hypoxia Anemia Aspiration pneumonia Asthma Borderline personality disorder Cardiac arrest Cardiopulmonary arrest with successful resuscitation Cataract Chronic pain syndrome Complete atelectasis of left lung Constipation COPD (chronic obstructive pulmonary disease) Diverticulitis Dysphagia [place] Fusion of spine GERD (gastroesophageal reflux disease) Glaucoma HTN (hypertension) Hyperlipemia Hypertensive cardiovascular disease Ileus Osteoporosis Postmenopausal atrophic vaginitis PTSD (post-traumatic stress disorder) Schizoaffective disorder Schizoaffective disorder Tobacco abuse Type 2 diabetes mellitus Surgical History Presence of right artificial hip joint Presence of right artificial knee joint Social History Social History Housing: Senior Living Alcohol intake: unknown Patient Tobacco Use Status: Former Tobacco user Advance Directives: No Advance Directives Date on File: 02/08/21 Physical Exam ED Vital Signs: Vital Signs - 24 hr 08/10/22 10:38 08/10/22 11:50 08/10/22 16:00 Temperature 97.5 F 97.8 F Pulse Rate 83 81 Respiratory Rate 15 23 H 16 Blood Pressure 121/80 112/65 Pulse Oximetry 97 92 Oxygen Delivery Method Room Air Room Air BMI result Body Mass Index 42.2 Const Other: Awake, alert, female patient, she is crying, she appears to be in distress secondary to her pain. Elevated BMI 42.2. HENMT Head: Yes normal to inspection, Yes normocephalic and Yes atraumatic Ears: external ears normal General nose exam: Normal external nose present Face and sinus: Yes normal facial exam Mouth: Normal oral and palatal mucosa present Throat: Yes posterior oropharynx normal Eyes General: appearance normal, both eyes and all related structures Neck Neck: Yes normal visual inspection, Yes no lymphadenopathy, Yes trachea midline and Yes supple Chest Chest palpation & inspection: normal inspection of the chest and normal palpation of entire chest wall Resp Effort & Inspection: normal respiratory effort and able to speak in complete sentences Auscultation: clear to auscultation bilaterally Cardio Rate: regular rate Rhythm: regular rhythm Heart sounds: S1 normal heart sound present, S2 normal heart sound present and no murmurs GI Other: The patient's abdomen is obese, soft, she has moderate RLQ, LLQ and suprapubic tenderness, there is no rebound, there is no guarding Neuro Other: Patient is oriented to person, cranial nerves are intact strength symmetric Medical Decision Making Medical Decision Making MDM Narrative: 61-year-old female with history of diabetes mellitus, hypertension, hyperlipidemia, asthma, GERD, diverticulitis, schizoaffective disorder, aspiration pneumonia, cardiac arrest, respiratory failure, who presents emergency department for evaluation of sudden onset of abdominal pain that occurred at 09:30 hours this morning. Patient reports that there was bright red blood in the toilet bowl this morning. Patient appears to be in distress secondary to abdominal pain. Vital signs were normal. Abdomen is obese, soft, with moderate lower abdominal tenderness. I ordered the following tests: CBC, CMP, lactic acid, lipase, PT/INR, PTT, urinalysis. I will obtain a CT scan of the abdomen pelvis with IV contrast. She is also ordered to get normal saline 1 L IV, Dilaudid 1 mg IV and Zofran 4 mg IV 1710: Patient required a 2nd dose of Dilaudid 1 mg IV with significant improvement of her pain, she is resting comfortably. Patient's CBC CMP and lipase were unremarkable. Lactic acid was normal. CT scan of the abdomen pelvis with IV contrast revealed pneumo retroperitoneum. Radiologist felt that possible source of the gas could be related colorectal carcinoma, diverticulitis or rectal disease. I ordered blood cultures x2, cefepime 2 g and IV and Flagyl 500 mg IV. 1724: I did discuss the patient's presentation over tiger text with Dr. Gutierres. He will come into the emergency department and evaluate the patient. At the end of my shift, patient's care was turned over to my colleague, Dr. Neal. Differential Diagnosis Differential diagnosis includes but is not limited to perforated viscus, diverticulitis, appendicitis, colitis, renal colic, pyelonephritis Admission/Observation Consideration of admission/observation: Escalation of care including admission/observation considered Consult Healthcare Provider Management of the patient was discussed with: [facility] (Surgeon, Dr. Gutierres) Lab Data MDM Lab Attestation statement: I reviewed the patient's lab results. My interpretation patient's laboratory evaluation is as follows: CBC was normal. CMP was normal. Lipase was normal. Lactic acid was normal. 08/10/22 12:11 08/10/22 12:11 Labs: Lab Results 08/10/22 08/10/22 08/10/22 Range/Units 12:11 12:11 12:11 WBC 10.2 (4.8-10.8) X10*3/uL RBC 4.21 (4.20-5.50) X10*6/uL Hgb 12.0 (12.0-16.0) g/dl Hct 39.0 (37.0-47.0) % MCV 92.6 (80.0-98.0) fL MCH 28.5 (27.0-33.0) pg MCHC 30.8 L (31.0-35.0) g/dl RDW 14.2 (11.0-16.0) % Plt Count 204 (160-400) X10*3/uL MPV 9.6 (9.4-12.3) fL Immature Gran % (Auto) 0.4 (0.0-0.4) % Neut % (Auto) 81.9 H (45-73) % Lymph % (Auto) 11.8 L (20-40) % [place] % (Auto) 5.6 (2-11) % Eos % (Auto) 0.1 (0-4) % Baso % (Auto) 0.2 (0-2) % Lymph # (Auto) 1.2 (1.2-4.9) X10*3/uL [place] # (Auto) 0.6 (0.1-1.2) X10*3/uL Eos # (Auto) 0.0 (0.0-0.4) X10*3/uL Baso # (Auto) 0.0 (0.0-0.2) X10*3/uL Abs Immat Gran (auto) 0.04 H (0.00-0.03) X10*3/uL Absolute Neuts (auto) 8.4 H (2.0-8.3) x10*3/uL Absolute Nucleated RBC 0.000 (0.0-0.012) X10*3/uL Nucleated RBC % (auto) 0.0 (0.0-0.2) /100WBC PT 10.9 (10.0-13.1) SEC INR 1.0 (0.9-1.1) APTT 32.9 (26.0-36.4) SEC Sodium 143 (135-145) mmol/L Potassium 3.7 (3.3-5.1) mmol/L Chloride 112 H (96-108) mmol/L Carbon Dioxide 23 (22-29) mmol/L Anion Gap 12 (12-20) BUN 18 H (9-16) mg/dL Creatinine 0.72 (0.5-1.4) mg/dL Estim Creat Clear Calc 107.5 Estimated GFR > 60 Random Glucose 95 (60-115) mg/dL Lactic Acid (0.5-2.0) mmol/L Calcium 9.1 (8.4-10.2) mg/dL Total Bilirubin 0.2 (0.0-1.0) mg/dL AST 11 (5-31) U/L ALT 13 (0-31) U/L Alkaline Phosphatase 74 (39-117) U/L Total Protein 6.7 (6.5-8.0) g/dL Albumin 3.9 (3.5-5.0) g/dL Lipase 18 (8-78) U/L Urine Color Urine Appearance Urine pH (5.0-9.0) Ur Specific [place] (1.005-1.025) Urine Protein (Neg-Trace) mg/dL Urine Glucose (UA) (Negative) mg/dL Urine Ketones (Negative) mg/dL Urine Blood (Negative) Urine Nitrite (Negative) Ur Leukocyte Esterase (Negative) Urine RBC (0-2) /HPF Urine WBC (0-5) /HPF Ur Squamous Epith Cells (0-2) /HPF Urine Bacteria (None Seen) Hyaline Casts (0-2) /LPF COVID-19 (SUKHJINDER) (Negative) COVID-19 Clin Com 08/10/22 08/10/22 08/10/22 Range/Units 12:11 12:11 12:59 WBC (4.8-10.8) X10*3/uL RBC (4.20-5.50) X10*6/uL Hgb (12.0-16.0) g/dl Hct (37.0-47.0) % MCV (80.0-98.0) fL MCH (27.0-33.0) pg MCHC (31.0-35.0) g/dl RDW (11.0-16.0) % Plt Count (160-400) X10*3/uL MPV (9.4-12.3) fL Immature Gran % (Auto) (0.0-0.4) % Neut % (Auto) (45-73) % Lymph % (Auto) (20-40) % [place] % (Auto) (2-11) % Eos % (Auto) (0-4) % Baso % (Auto) (0-2) % Lymph # (Auto) (1.2-4.9) X10*3/uL [place] # (Auto) (0.1-1.2) X10*3/uL Eos # (Auto) (0.0-0.4) X10*3/uL Baso # (Auto) (0.0-0.2) X10*3/uL Abs Immat Gran (auto) (0.00-0.03) X10*3/uL Absolute Neuts (auto) (2.0-8.3) x10*3/uL Absolute Nucleated RBC (0.0-0.012) X10*3/uL Nucleated RBC % (auto) (0.0-0.2) /100WBC PT (10.0-13.1) SEC INR (0.9-1.1) APTT (26.0-36.4) SEC Sodium (135-145) mmol/L Potassium (3.3-5.1) mmol/L Chloride (96-108) mmol/L Carbon Dioxide (22-29) mmol/L Anion Gap (12-20) BUN (9-16) mg/dL Creatinine (0.5-1.4) mg/dL Estim Creat Clear Calc Estimated GFR Random Glucose (60-115) mg/dL Lactic Acid 0.9 (0.5-2.0) mmol/L Calcium (8.4-10.2) mg/dL Total Bilirubin (0.0-1.0) mg/dL AST (5-31) U/L ALT (0-31) U/L Alkaline Phosphatase (39-117) U/L Total Protein (6.5-8.0) g/dL Albumin (3.5-5.0) g/dL Lipase (8-78) U/L Urine Color Yellow Urine Appearance Clear Urine pH 6.0 (5.0-9.0) Ur Specific [place] 1.010 (1.005-1.025) Urine Protein Negative (Neg-Trace) mg/dL Urine Glucose (UA) Negative (Negative) mg/dL Urine Ketones Negative (Negative) mg/dL Urine Blood Small (1+) H (Negative) Urine Nitrite Negative (Negative) Ur Leukocyte Esterase Negative (Negative) Urine RBC 0-2 (0-2) /HPF Urine WBC 0-5 (0-5) /HPF Ur Squamous Epith Cells 0-2 (0-2) /HPF Urine Bacteria None Seen (None Seen) Hyaline Casts 0-2 (0-2) /LPF COVID-19 (SUKHJINDER) Negative (Negative) COVID-19 Clin Com See Note Independent Interpretation I performed an independent interpretation of an: EKG Radiology Impression Discussion of test interpretation with radiology: I have reviewed the radiologist's reading. Radiologist Impression: CT abdomen pelvis w IV con IMPRESSION: Pneumo retroperitoneal as described above. No evidence of obstructive uropathy. No evidence of bowel ileus or obstruction. Status post previous right colon surgery. Fleischner guidelines were followed. Dictated By:Markie Maria MD Independent Historian Clinical information obtained from an independent historian. History obtained from or confirmed by: EMS External Record Review External record reviewed: Outpatient record (I reviewed the nursing facility notes sent in with the patient) Chronic Conditions Patient?s care impacted by: Diabetes, Hypertension and Other (Morbid obesity) Medications Administered Discontinued Medications Generic Name Dose Route Start Last Admin Trade Name Freq PRN Reason Stop Dose Admin Hydromorphone HCl 1 mg 08/10/22 11:37 08/10/22 11:50 Hydromorphone Hcl 1 Mg/Ml Syringe IVPUSH 08/10/22 11:38 1 mg ONCE STA Administration Protocol Hydromorphone HCl 1 mg 08/10/22 14:58 08/10/22 15:09 Hydromorphone Hcl 1 Mg/Ml Syringe IVPUSH 08/10/22 14:59 1 mg ONCE STA Administration Protocol Sodium Chloride 1,000 mls @ 999 mls/hr 08/10/22 11:37 08/10/22 12:45 Ns IV 08/10/22 12:37 Infused .Q1H1M STA Infusion Iohexol 100 ml 08/10/22 13:09 08/10/22 13:10 Iohexol 350 Mg/Ml 100 Ml Infus..Btl IV 08/10/22 13:10 85 ml ONCE ONE Administration Ondansetron HCl 4 mg 08/10/22 11:37 08/10/22 11:49 Ondansetron Hcl 4 Mg/2 Ml Vial IVPUSH 08/10/22 11:38 4 mg ONCE ONE Administration Critical Care Time Critical Care Time Critical Care Time: Yes Total Critical Care Time: 60 Attestation: Critical Care: The patient was critically ill with a high probability of imminent or life threatening deterioration. I spent greater than 30 minutes of discontinuous time evaluating the patient,delivering critical care at the bedside, discussing and evaluating pertinent data with consultants. Critical care time does not include time spent performing separately billable procedures or teaching. Total time spent performing critical care was 60 minutes. Discharge Plan Discharge Clinical Impression: Abdominal pain, Perforated abdominal viscus Patient Disposition: Still a Patient Prescriptions: No Action amlodipine 5 mg tablet 1 tab PO DAILY@0500 omeprazole 40 mg capsule,delayed release(DR/EC) 40 mg PO DAILY@0600 quetiapine 100 mg tablet 100 mg PO DAILY@1200 acetaminophen 500 mg Tablet 1,000 mg PO TID fluticasone propion-salmeterol [Advair Diskus] 500-50 mcg/dose blister with device 1 puff inhalation BID montelukast 10 mg tablet 1 tab PO DAILY@1700 fluticasone propionate 50 mcg/actuation spray,suspension 1 spray intranasal DAILY diazepam 5 mg tablet 5 mg PO BID@0900,1700 duloxetine 60 mg capsule,delayed release(DR/EC) 60 mg PO DAILY pregabalin 300 mg capsule 1 cap PO BEDTIME Linzess 145 mcg capsule 145 mcg PO DAILY melatonin 3 mg Tablet 3 mg PO DAILY@1700 magnesium hydroxide [Milk of Magnesia] 400 mg/5 mL Suspension 30 ml PO DAILY PRN (Reason: Constipation) magnesium citrate Solution 150 ml PO Q4H PRN (Reason: Constipation) oxycodone 5 mg Tablet 5 mg PO Q4H PRN (Reason: Pain (Scale Score 4-6)) atomoxetine 25 mg Capsule 50 mg PO DAILY nicotine (polacrilex) 2 mg Lozenge 2 mg BUCCAL TID PRN (Reason: Nicotine Cravings) pregabalin 200 mg Capsule 200 mg PO DAILY@0900 loperamide 2 mg Capsule 2 mg PO BID PRN (Reason: Loose Stool) Rx Instructions: administer after each loose stool until symptoms controlled; do not exceed 8 mg per 24 hrs quetiapine 200 mg tablet 1 tab PO BEDTIME guaifenesin 100 mg/5 mL Liquid 300 mg PO Q6H PRN (Reason: Cough) zonisamide 100 mg capsule 1 cap PO DAILY famotidine 20 mg tablet 1 tab PO DAILY PRN (Reason: Acid Reflux) bisacodyl [Gentle Laxative (bisacodyl)] 10 mg Suppository 10 mg IA DAILY PRN (Reason: Constipation) bisacodyl 5 mg Tablet,Delayed Release (Dr/Ec) 10 mg PO DAILY PRN (Reason: Constipation) alum-mag hydroxide-simeth 200-200-20 mg/5 mL Suspension 10 ml PO Q6H PRN (Reason: Indigestion) albuterol sulfate [Proventil HFA] 90 mcg/actuation Hfa Aerosol Inhaler 2 puff INHALATION Q4H PRN (Reason: Shortness Of Breath) cholecalciferol (vitamin D3) 1,250 mcg (50,000 unit) Capsule 1,250 mcg PO QMONTH Rx Instructions: takes on the 3rd of each month clozapine 100 mg Tablet 100 mg PO BEDTIME Qty: 1 0RF lamotrigine 25 mg Tablet 50 mg PO BID Qty: 1 0RF quetiapine 100 mg Tablet 100 mg PO BID Qty: 1 0RF amoxicillin-pot clavulanate 875-125 mg tablet 1 tab PO Q12H Qty: 10 0RF
--- NOTE | 2022-08-10 12:05 | PC.NURSE ---
20 g IV inserted in R AC. Fluids hung and meds given as ordered. pt resting quickly now.
--- NOTE | 2022-08-10 18:06 | PM.HPGS ---
History of Present Illness History of Present Illness Date of Service: 08/10/22 Chief complaint: abdominal pain Narrative: Valentina Velez is a 61 year old female presenting with complaints of abdominal pain in the lower abdomen along with rectal bleeding beginning this morning proximally 09:30. Patient and no prior history of similar symptoms. She has had a previous bowel surgery which she believes was for diverticulitis. The pain seems to move between the left and right quadrant and is 10/10 in severity. She presented to the emergency department and was noted to have a normal WBC. CT abdomen and pelvis however does reveal retroperitoneal air in the pelvis. It is difficult to discern the site of leak due to hardware in the back and right hip. Findings are suggestive of a perforated viscus of unknown etiology. She has been admitted to the surgical service for further management. Her past history is significant for ?cerebral infarction, schizoaffective disorder, COPD, acute respiratory failure, atelectasis, dysphagia, asthma, hyperlipidemia, essential hypertension, diverticulitis with perforation, ileus, PTSD. Review of Systems Review of Systems: Yes all other systems are reviewed and are negative PMFSH Past Medical History Medical History Acute respiratory failure Acute respiratory failure with hypoxia Anemia Aspiration pneumonia Asthma Borderline personality disorder Cardiac arrest Cardiopulmonary arrest with successful resuscitation Cataract Chronic pain syndrome Complete atelectasis of left lung Constipation COPD (chronic obstructive pulmonary disease) Diverticulitis Dysphagia [place] Fusion of spine GERD (gastroesophageal reflux disease) Glaucoma HTN (hypertension) Hyperlipemia Hypertensive cardiovascular disease Ileus Osteoporosis Postmenopausal atrophic vaginitis PTSD (post-traumatic stress disorder) Schizoaffective disorder Schizoaffective disorder Tobacco abuse Type 2 diabetes mellitus Surgical History Surgical History Presence of right artificial hip joint Presence of right artificial knee joint Social History Social History Housing: [facility] Alcohol intake: unknown Patient Tobacco Use Status: Former Tobacco user Advance Directives: No Advance Directives Date on File: 02/08/21 Meds Allergies Allergy/AdvReac Type Severity Reaction Status Date / Time chlorpromazine Allergy Unknown Verified 08/10/22 10:46 [From Thorazine] haloperidol [From Haldol] Allergy Unknown Verified 08/10/22 10:46 imipramine Allergy Unknown Verified 08/10/22 10:46 ketorolac Allergy Unknown Verified 08/10/22 10:46 Penicillins Allergy Unknown Verified 08/10/22 10:46 promethazine Allergy Unknown Verified 08/10/22 10:46 Home Medications Medication Instructions Recorded Confirmed Last Taken Type acetaminophen 500 mg tablet 1,000 mg PO TID 02/08/21 01/04/22 01/04/22 History amlodipine 5 mg tablet 1 tab PO DAILY@0500 02/08/21 01/04/22 01/04/22 History diazepam 5 mg tablet 5 mg PO BID@0900,1700 02/08/21 01/04/22 01/04/22 History duloxetine 60 mg capsule,delayed 60 mg PO DAILY 02/08/21 01/04/22 01/04/22 History release fluticasone 500 mcg-salmeterol 50 1 puff inhalation BID 02/08/21 01/04/22 01/04/22 History mcg/dose blistr powdr for inhalation (Advair Diskus) fluticasone propionate 50 1 spray intranasal DAILY 02/08/21 01/04/22 01/04/22 History mcg/actuation nasal spray,suspension linaclotide 145 mcg capsule 145 mcg PO DAILY 02/08/21 01/04/22 01/04/22 History (Mariezesmichelle) montelukast 10 mg tablet 1 tab PO DAILY@1700 02/08/21 01/04/22 01/04/22 History omeprazole 40 mg capsule,delayed 40 mg PO DAILY@0600 02/08/21 01/04/22 01/04/22 History release pregabalin 300 mg capsule 1 cap PO BEDTIME 02/08/21 01/04/22 01/03/22 History quetiapine 100 mg tablet 100 mg PO DAILY@1200 02/08/21 01/04/22 01/04/22 History albuterol sulfate 90 mcg/actuation 2 puff inhalation Q4H PRN 01/04/22 01/04/22 Unknown History aerosol inhaler (Proventil HFA) Shortness Of Breath aluminum-mag hydroxide-simethicone 10 ml PO Q6H PRN Indigestion 01/04/22 01/04/22 Unknown History 200 mg-200 mg-20 mg/5 mL oral susp atomoxetine 25 mg capsule 50 mg PO DAILY 01/04/22 01/04/22 Unknown History bisacodyl 10 mg rectal suppository 10 mg [place] DAILY PRN Constipation 01/04/22 01/04/22 Unknown History (Gentle Laxative (bisacodyl)) bisacodyl 5 mg tablet,delayed 10 mg PO DAILY PRN Constipation 01/04/22 01/04/22 Unknown History release cholecalciferol (vitamin D3) 1,250 1,250 mcg PO QMONTH 01/04/22 01/04/22 12/13/21 History mcg (50,000 unit) capsule famotidine 20 mg tablet 1 tab PO DAILY PRN Acid Reflux 01/04/22 01/04/22 Unknown History guaifenesin 100 mg/5 mL oral liquid 300 mg PO Q6H PRN Cough 01/04/22 01/04/22 Unknown History loperamide 2 mg capsule 2 mg PO BID PRN Loose Stool 01/04/22 01/04/22 Unknown History magnesium citrate 150 ml PO Q4H PRN Constipation 01/04/22 01/04/22 Unknown History magnesium hydroxide 400 mg/5 mL 30 ml PO DAILY PRN Constipation 01/04/22 01/04/22 Unknown History oral suspension (Milk of Magnesia) melatonin 3 mg tablet 3 mg PO DAILY@1700 01/04/22 01/04/22 01/04/22 History nicotine (polacrilex) 2 mg buccal 2 mg buccal TID PRN Nicotine 01/04/22 01/04/22 Unknown History lozenge Cravings oxycodone 5 mg tablet 5 mg PO Q4H PRN Pain (Scale Score 01/04/22 01/04/22 Unknown History 4-6) pregabalin 200 mg capsule 200 mg PO DAILY@0900 01/04/22 01/04/22 01/04/22 History quetiapine 200 mg tablet 1 tab PO BEDTIME 01/04/22 01/04/22 01/03/22 History zonisamide 100 mg capsule 1 cap PO DAILY 01/04/22 01/04/22 01/04/22 History Physical Exam Vital Signs: Vital Signs: Last Vital Signs Temp 97.8 F 08/10/22 16:00 Pulse 81 08/10/22 16:00 Resp 16 08/10/22 16:00 BP 112/65 08/10/22 16:00 Pulse Ox 92 08/10/22 16:00 O2 Del Method Room Air 08/10/22 16:00 BMI result Body Mass Index 42.2 Const: General: ill appearing and tired appearing Nutritional Appearance: obese Orientation/consciousness: patient oriented x3 Limitations: wheelchair HEENT: Head: Yes normocephalic and Yes atraumatic Ears: hearing grossly normal bilaterally Resp: Effort & Inspection: normal respiratory effort, no audible wheezes, no cough and no respiratory distress GI: Inspection: Yes normal to inspection Palpation (GI): Soft to palpation, Tenderness to palpation present (GI) in the LLQ, in the RLQ and with rebound tenderness, Guarding due to palpation present (GI) and Rigid due to palpation Percussion: Yes normal to percussion Auscultation: normal bowel sounds Rectal Exam - Female: deferred Skin: General skin exam: no rashes or lesions noted Neuro: General: patient oriented x3 Extrem: General: Yes normal to inspection Results Results Labs: Short CBC 08/10/22 Range/Units 12:11 WBC 10.2 (4.8-10.8) X10*3/uL Hgb 12.0 (12.0-16.0) g/dl Hct 39.0 (37.0-47.0) % Plt Count 204 (160-400) X10*3/uL BMP 08/10/22 12:11 Sodium 143 Potassium 3.7 Chloride 112 H Carbon Dioxide 23 BUN 18 H Creatinine 0.72 Calcium 9.1 Liver Function 08/10/22 Range/Units 12:11 Total Bilirubin 0.2 (0.0-1.0) mg/dL AST 11 (5-31) U/L ALT 13 (0-31) U/L Alkaline Phosphatase 74 (39-117) U/L Albumin 3.9 (3.5-5.0) g/dL Urine 08/10/22 Range/Units 12:59 Urine Color Yellow Urine Appearance Clear Urine pH 6.0 (5.0-9.0) Ur Specific [place] 1.010 (1.005-1.025) Urine Protein Negative (Neg-Trace) mg/dL Urine Glucose (UA) Negative (Negative) mg/dL Abdomen CT scan report/results: image reviewed CT scan - pelvis: image reviewed Assessment and Plan (1) Abdominal pain: Status: Acute (2) Perforated abdominal viscus: Status: Acute Plan Unfortunate 61-year-old female presenting with complaints of abdominal pain and rectal bleeding since this morning found to be tender in the lower abdomen with rebound tenderness. Admitting laboratories revealed normal WBC however CT abdomen and pelvis reveal extraluminal air in the pelvis suggestive of a perforated viscus of unknown etiology. possibilities include a small perforation which immediately sealed verses an active leak although difficult to say due to the artifact from hardware in the back and hip. I reviewed the findings in detail with the patient. Patient has a guardian (Bonnie [phone] ) and brother Ben ( [phone] ). I have called both multiple occasions to review the findings however neither have answer the phone. In fact the guardians phone number is apparently not in service. A message was left on her brother's voicemail to return my call. In either case this is considered an emergency procedure and patient with a possible ongoing leak and may need to proceed without the consent of the above. The patient does expressed understanding and consents to the procedure. Time Spent With Patient Time: Total time managing care of this patient today ____ minutes. Quality Stroke Does the patient have a stroke diagnosis?: Yes Reason for No Anti-thrombotic by Day Two: N/A - Med Ordered VTE Prior VTE?: No VTE Risk Level:: Surgical - high VTE Device Contraindication: N/A - Device Ordered VTE Drug Contraindication: N/A - Med Ordered Procedures Date of Service Date of Service: 08/10/22
--- NOTE | 2022-08-10 18:34 | PHA.MEDREC ---
Pharmacy Consult ? Medication Reconciliation Pharmacy has completed the medication reconciliation. Patient had med list from [facility].
--- NOTE | 2022-08-10 19:24 | HO.ANESPROP2 ---
HPI - Anesthesia Eval Consult details Narrative: Perforated colon PMFSH Active Problems Active Problems: All Active Problems (Updated 08/10/22 @ 17:44 by Jamarcus Murray MD) Abdominal pain (Acute) Perforated abdominal viscus (Acute) Past Medical History Medical History Acute respiratory failure Acute respiratory failure with hypoxia Anemia Aspiration pneumonia Asthma Borderline personality disorder Cardiac arrest Cardiopulmonary arrest with successful resuscitation Cataract Chronic pain syndrome Complete atelectasis of left lung Constipation COPD (chronic obstructive pulmonary disease) Diverticulitis Dysphagia [place] Fusion of spine GERD (gastroesophageal reflux disease) Glaucoma HTN (hypertension) Hyperlipemia Hypertensive cardiovascular disease Ileus Osteoporosis Postmenopausal atrophic vaginitis PTSD (post-traumatic stress disorder) Schizoaffective disorder Schizoaffective disorder Tobacco abuse Type 2 diabetes mellitus Family History Family history of problems with anesthesia: No Surgical History Surgical History Presence of right artificial hip joint Presence of right artificial knee joint History of Problems with Anesthesia: No Social History Social History Housing: Long-Term Alcohol intake: unknown Patient Tobacco Use Status: Former Tobacco user Advance Directives: No Advance Directives Date on File: 02/08/21 Meds Allergies Allergy/AdvReac Type Severity Reaction Status Date / Time chlorpromazine Allergy Unknown Verified 08/10/22 10:46 [From Thorazine] haloperidol [From Haldol] Allergy Unknown Verified 08/10/22 10:46 imipramine Allergy Unknown Verified 08/10/22 10:46 ketorolac Allergy Unknown Verified 08/10/22 10:46 Penicillins Allergy Unknown Verified 08/10/22 10:46 promethazine Allergy Unknown Verified 08/10/22 10:46 Active Medications: Current Medications Hydromorphone HCl (Hydromorphone Hcl 0.5 Mg/0.5 Ml Syringe) 0.5 mg IVPUSH Q3H PRN; Protocol PRN Reason: Pain, Severe (Pain Scale 7-10) Lactated Ringer's (Lr) 1,000 mls @ 100 mls/hr IVCONT .Q10H SADA Last Admin: 08/10/22 18:45 Dose: 100 mls/hr Pharmacy Consult (Consult Rx Perform Med Rec) 1 each MISCELLANE ONCE PRN PRN Reason: Consult order Sodium Chloride (0.9 % Sodium Chloride Flush 3 Ml Syringe) 3 ml IVFLUSH [facility] Medications Medication Instructions Recorded Confirmed Last Taken Type acetaminophen 500 mg tablet 1,000 mg PO BID 02/08/21 08/10/22 01/04/22 History amlodipine 5 mg tablet 1 tab PO DAILY 02/08/21 08/10/22 01/04/22 History diazepam 5 mg tablet 5 mg PO BID 02/08/21 08/10/22 01/04/22 History duloxetine 60 mg capsule,delayed 60 mg PO BEDTIME 02/08/21 08/10/22 01/04/22 History release montelukast 10 mg tablet 1 tab PO BEDTIME 02/08/21 08/10/22 01/04/22 History omeprazole 40 mg capsule,delayed 40 mg PO DAILY@0630 02/08/21 08/10/22 01/04/22 History release pregabalin 300 mg capsule 1 cap PO BEDTIME 02/08/21 08/10/22 01/03/22 History quetiapine 100 mg tablet 100 mg PO BEDTIME 02/08/21 08/10/22 01/04/22 History albuterol sulfate 90 mcg/actuation 2 puff inhalation Q4H PRN 01/04/22 08/10/22 Unknown History aerosol inhaler (Proventil HFA) Shortness Of Breath aluminum-mag hydroxide-simethicone 10 ml PO Q6H PRN Indigestion 01/04/22 08/10/22 Unknown History 200 mg-200 mg-20 mg/5 mL oral susp atomoxetine 25 mg capsule 75 mg PO DAILY 01/04/22 08/10/22 Unknown History cholecalciferol (vitamin D3) 1,250 1,250 mcg PO QMONTH 01/04/22 08/10/22 12/13/21 History mcg (50,000 unit) capsule famotidine 20 mg tablet 1 tab PO DAILY PRN Acid Reflux 01/04/22 08/10/22 Unknown History guaifenesin 100 mg/5 mL oral liquid 300 mg PO Q6H PRN Cough 01/04/22 08/10/22 Unknown History loperamide 2 mg capsule 2 mg PO BID PRN Loose Stool 01/04/22 08/10/22 Unknown History magnesium citrate 150 ml PO Q4H PRN Constipation 01/04/22 08/10/22 Unknown History magnesium hydroxide 400 mg/5 mL 30 ml PO DAILY PRN Constipation 01/04/22 08/10/22 Unknown History oral suspension (Milk of Magnesia) nicotine (polacrilex) 2 mg buccal 2 mg buccal TID PRN Nicotine 01/04/22 08/10/22 Unknown History lozenge Cravings pregabalin 200 mg capsule 200 mg PO DAILY@0900 01/04/22 08/10/22 01/04/22 History zonisamide 100 mg capsule 1 cap PO DAILY 01/04/22 08/10/22 01/04/22 History clozapine 50 mg tablet 150 mg PO BEDTIME 08/10/22 08/10/22 Unknown History cyclobenzaprine 5 mg tablet 5 mg PO TID PRN Muscle Spasm 08/10/22 08/10/22 Unknown History diclofenac sodium 1 % topical gel 2 g topical DAILY PRN discomfort 08/10/22 08/10/22 Unknown History (Voltaren Arthritis Pain) duloxetine 30 mg capsule,delayed 30 mg PO DAILY 08/10/22 08/10/22 Unknown History release fluticasone 500 mcg-salmeterol 50 1 inh inhalation BID 08/10/22 08/10/22 Unknown History mcg/dose blistr powdr for inhalation (Wixela Inhub) lamotrigine 200 mg tablet 200 mg PO DAILY 08/10/22 08/10/22 Unknown History meclizine 25 mg tablet 25 mg PO TID PRN Vertigo 08/10/22 08/10/22 Unknown History naloxone 0.4 mg/mL injection 0.4 mg subcut Q5M PRN Opioid 08/10/22 08/10/22 Unknown History solution Overdose naloxone 4 mg/actuation nasal 4 mg intranasal Q5M PRN Opioid 08/10/22 08/10/22 Unknown History spray (Narcan) Overdose polyethylene glycol 3350 17 gram 17 g PO BEDTIME 08/10/22 08/10/22 Unknown History oral powder packet (Miralax) quetiapine 50 mg tablet 50 mg PO BEDTIME 08/10/22 08/10/22 Unknown History sodium phosphates 19 gram-7 118 ml [place] DAILY PRN Constipation 08/10/22 08/10/22 Unknown History gram/118 mL enema (Fleet Enema) Exam Exam Date and Time: August 10, 20221923 Height,Weight and Vital Signs: Height 5 ft 6 in Weight 118.6 kg Last Vital Signs Temp 97.8 F 08/10/22 16:00 Pulse 81 08/10/22 16:00 Resp 16 08/10/22 16:00 BP 112/65 08/10/22 16:00 Pulse Ox 92 08/10/22 16:00 O2 Del Method Room Air 08/10/22 16:00 Pertinent Lab Results Pertinent Lab Results: Laboratory Tests 08/10/22 08/10/22 08/10/22 12:11 12:11 12:11 WBC 10.2 RBC 4.21 Hgb 12.0 Hct 39.0 MCV 92.6 MCH 28.5 MCHC 30.8 L RDW 14.2 Plt Count 204 MPV 9.6 Immature Gran % (Auto) 0.4 Neut % (Auto) 81.9 H Lymph % (Auto) 11.8 L [place] % (Auto) 5.6 Eos % (Auto) 0.1 Baso % (Auto) 0.2 Lymph # (Auto) 1.2 [place] # (Auto) 0.6 Eos # (Auto) 0.0 Baso # (Auto) 0.0 Abs Immat Gran (auto) 0.04 H Absolute Neuts (auto) 8.4 H Absolute Nucleated RBC 0.000 Nucleated RBC % (auto) 0.0 PT 10.9 INR 1.0 APTT 32.9 Sodium 143 Potassium 3.7 Chloride 112 H Carbon Dioxide 23 Anion Gap 12 BUN 18 H Creatinine 0.72 Estim Creat Clear Calc 107.5 Estimated GFR > 60 Random Glucose 95 Lactic Acid Calcium 9.1 Total Bilirubin 0.2 AST 11 ALT 13 Alkaline Phosphatase 74 Total Protein 6.7 Albumin 3.9 Lipase 18 Urine Color Urine Appearance Urine pH Ur Specific [place] Urine Protein Urine Glucose (UA) Urine Ketones Urine Blood Urine Nitrite Ur Leukocyte Esterase Urine RBC Urine WBC Ur Squamous Epith Cells Urine Bacteria Hyaline Casts COVID-19 (SUKHJINDER) COVID-19 Clin Com 08/10/22 08/10/22 08/10/22 12:11 12:11 12:59 WBC RBC Hgb Hct MCV MCH MCHC RDW Plt Count MPV Immature Gran % (Auto) Neut % (Auto) Lymph % (Auto) [place] % (Auto) Eos % (Auto) Baso % (Auto) Lymph # (Auto) [place] # (Auto) Eos # (Auto) Baso # (Auto) Abs Immat Gran (auto) Absolute Neuts (auto) Absolute Nucleated RBC Nucleated RBC % (auto) PT INR APTT Sodium Potassium Chloride Carbon Dioxide Anion Gap BUN Creatinine Estim Creat Clear Calc Estimated GFR Random Glucose Lactic Acid 0.9 Calcium Total Bilirubin AST ALT Alkaline Phosphatase Total Protein Albumin Lipase Urine Color Yellow Urine Appearance Clear Urine pH 6.0 Ur Specific [place] 1.010 Urine Protein Negative Urine Glucose (UA) Negative Urine Ketones Negative Urine Blood Small (1+) H Urine Nitrite Negative Ur Leukocyte Esterase Negative Urine RBC 0-2 Urine WBC 0-5 Ur Squamous Epith Cells 0-2 Urine Bacteria None Seen Hyaline Casts 0-2 COVID-19 (SUKHJINDER) Negative COVID-19 Clin Com See Note Airway Mallampati Class: II TM Dist: >3cm Neck ROM: Full Denture: Upper and Lower Heart: rrr Lungs: cta Assessment and Plan Assessment Anesthesia Assessment: Anesthesia Plan Discussed, Smoking Cess. Discussed and Chart Reviewed Final Anesthetic Review Family History of Problems with Anesthesia: No History of Problems with Anesthesia: No NPO: No ASA Class: IV and Emergency Final Preanesthetic Review: No Changes in Pt Med Stat, Meds/Allgs Chart Reviewed, Consent Obtained/Reviewed and Anes Risks/Benef Reviewed Patient Risk: High Procedure Risk: High Anesthetic Plan Anesthetic Plan: GA Disposition: Standard PACU
--- NOTE | 2022-08-10 19:30 | PC.NURSE ---
Phlebotomy unable to draw blood cultures at this time. OR team at bedside to transport pt. Cefepime administered at this time per their request as pt is going to OR.
--- NOTE | 2022-08-10 19:56 | PC.NURSE ---
Spoke with Bonnie Rojas pts guardian who can be reached at personal cell phone [phone]. Given update on plan of care and gives permission for pts treatment plan.
--- NOTE | 2022-08-10 20:50 | W.PM.OPN ---
Operative Note Operative Note Date of Service: 08/10/22 Narrative: Preoperative diagnosis: perforated viscus Postoperative diagnosis: normal exploratory laparotomy, no perforation Procedure: exploratory laparotomy Surgeon: Dwayne Gutierres MD Inflated Pad Buffer: none Anesthesia: general endotracheal Indications for procedure: 61-year-old female patient presenting with complaints of rectal bleeding and lower abdominal pain reporting 10/10 pain this morning. Pain mainly located in the lower abdomen. Examination patient had tenderness with localized rebound guarding. Laboratories revealed normal WBC. CT of the abdomen and pelvis however revealed extraluminal air in the pelvis and retroperitoneum suggestive of a bowel perforation. Etiologies unknown due to artifact from hardware of the back and right hip. Operative findings: Large and small-bowel were examined completely. No intraperitoneal fluid or abscess. No evidence of perforation, bowel wall inflammation, diverticular changes or palpable tumor appreciated. negative exploratory laparotomy. Specimen: None Estimated blood loss: less than 2 mL Complications: none Procedure details: patient was brought to the OR placed in a supine position. After administering general anesthesia patient's abdomen was prepped with ChloraPrep and draped in a sterile fashion. A surgical time-out was called the consent confirmed. Patient received preoperative antibiotics and Venodyne boots were in place. A midline incision was made below the umbilicus over her previous incision. This was carried out through subcutaneous tissue, past Mari's fascia, and up to the linea alba. the linea alba was then divided using electrocautery. Peritoneum was then entered in the abdomen explored. The above findings were noted. Beginning in the sigmoid colon bowel was brought up through the incision examined down into the rectal junction. No areas of inflammation or perforation we identified. No intraperitoneal fluid, pus or stool is identified. The colon was then examined along the left colon, transverse colon, right colon cecum. The small bowel was then run from ligament of Treitz to cecum. All bowel appeared normal. The colon and small bowel was then returned to the abdominal cavity. Fascia was then closed using a running looped 0 PDS suture. Subcutaneous tissue was then reapproximated in 2 layers using interrupted 3-0 Polysorb sutures. Skin was closed using skin bernardo. The patient tolerated the procedure well. She was transferred to PACU in stable condition.
[2022-08-11 03:04] VITALS: BP 115/55; PULSE 84; RESP 14; TEMP 36.1; O2SAT 95
--- NOTE | 2022-08-11 06:27 | MHC.PIE ---
Addendum entered by Sarai Lind RN 08/11/22 06:33: i; straight cath now e; will cont to monitor Original Note: p; pt bladder scanned for over 680ml. i; dr howard notified via telma e; awaiting orders. will cont to monitor
[2022-08-11 07:12] VITALS: BP 117/60; PULSE 87; RESP 18; TEMP 37.1; O2SAT 95
--- NOTE | 2022-08-11 08:49 | PM.PNGS ---
Subjective Subjective Date of Service: 08/11/22 Patient reports: shortness of breath Interval history: patient reports some incisional pain. She denies nausea. No flatus or BM. Physical Exam Vital Signs: Vital Signs: Last Vital Signs Temp 98.7 F 08/11/22 07:12 Pulse 87 08/11/22 07:12 Resp 18 08/11/22 07:12 BP 117/60 08/11/22 07:12 Pulse Ox 95 08/11/22 07:12 O2 Del Method Nasal Cannula 08/11/22 07:12 O2 Flow Rate 2 08/11/22 07:12 BMI result Body Mass Index 43.4 Const: General: no acute distress Nutritional Appearance: obese Orientation/consciousness: patient oriented x3 Limitations: behavioral limitations and wheelchair HEENT: Head: Yes normocephalic and Yes atraumatic Resp: Effort & Inspection: normal respiratory effort GI: Other: Lower midline incision is clean and intact without redness or discharge. Obese abdomen, mildly distended. Neuro: General: patient oriented x3 Extrem: Other: No pedal edema Objective Data Active Medications Albuterol Sulfate (Albuterol Sulfate (0.083%) 2.5 Mg/3 Ml Vial.Neb) 2.5 mg INHALE ONCE PRN PRN Reason: Wheezing Enoxaparin Sodium (Enoxaparin Sodium 40 Mg/0.4 Ml Syringe) 40 mg SUBCUT Q24H [facility] Last Admin: 08/11/22 08:31 Dose: 40 mg Documented By: SIDDHARTHA Hydromorphone HCl (Hydromorphone Hcl 0.5 Mg/0.5 Ml Syringe) 0.5 mg IVPUSH Q3H PRN; Protocol PRN Reason: Pain, Severe (Pain Scale 7-10) Acetaminophen (Ofirmev) 1,000 mg in 100 mls @ 400 mls/hr IV Q6H [facility] Last Admin: 08/11/22 08:40 Dose: 400 mls/hr Documented By: SIDDHARTHA Dextrose/Lactated Ringer's (D5lr) 1,000 mls @ 125 mls/hr IVCONT .Q8H [facility] Last Admin: 08/11/22 05:24 Dose: 125 mls/hr Documented By: JENNI Ondansetron HCl (Ondansetron Hcl 4 Mg/2 Ml Vial) 4 mg IVPUSH Q8H PRN PRN Reason: Nausea Oxycodone HCl (Oxycodone Hcl Immed Release 5 Mg Tablet) 5 mg PO Q6H PRN PRN Reason: Pain, Moderate(Pain Scale 4-6) Pharmacy Consult (Consult Rx Perform Med Rec) 1 each MISCELLANE ONCE PRN PRN Reason: Consult order Sodium Chloride (0.9 % Sodium Chloride Flush 3 Ml Syringe) 3 ml IVFLUSH QSHIFT [facility] Last Admin: 08/11/22 08:39 Dose: Not Given Documented By: SIDDHARTHA Non-Admin Reason: IV Running Labs 08/10/22 12:11 08/10/22 12:11 Labs: Laboratory Results - last 24 hr 08/10/22 08/10/22 08/10/22 12:11 12:11 12:11 MCV 92.6 MCH 28.5 MCHC 30.8 L RDW 14.2 Plt Count 204 MPV 9.6 Immature Gran % (Auto) 0.4 Neut % (Auto) 81.9 H Lymph % (Auto) 11.8 L [place] % (Auto) 5.6 Eos % (Auto) 0.1 Baso % (Auto) 0.2 Lymph # (Auto) 1.2 [place] # (Auto) 0.6 Eos # (Auto) 0.0 Baso # (Auto) 0.0 Abs Immat Gran (auto) 0.04 H Absolute Neuts (auto) 8.4 H Absolute Nucleated RBC 0.000 Nucleated RBC % (auto) 0.0 PT 10.9 INR 1.0 APTT 32.9 Anion Gap 12 Estim Creat Clear Calc 107.5 Estimated GFR > 60 Random Glucose 95 Lactic Acid Calcium 9.1 Total Bilirubin 0.2 AST 11 ALT 13 Alkaline Phosphatase 74 Total Protein 6.7 Albumin 3.9 Lipase 18 Urine Color Urine Appearance Urine pH Ur Specific [place] Urine Protein Urine Glucose (UA) Urine Ketones Urine Blood Urine Nitrite Ur Leukocyte Esterase Urine RBC Urine WBC Ur Squamous Epith Cells Urine Bacteria Hyaline Casts COVID-19 (SUKHJINDER) COVID-19 Clin Com 08/10/22 08/10/22 08/10/22 12:11 12:11 12:59 MCV MCH MCHC RDW Plt Count MPV Immature Gran % (Auto) Neut % (Auto) Lymph % (Auto) [place] % (Auto) Eos % (Auto) Baso % (Auto) Lymph # (Auto) [place] # (Auto) Eos # (Auto) Baso # (Auto) Abs Immat Gran (auto) Absolute Neuts (auto) Absolute Nucleated RBC Nucleated RBC % (auto) PT INR APTT Anion Gap Estim Creat Clear Calc Estimated GFR Random Glucose Lactic Acid 0.9 Calcium Total Bilirubin AST ALT Alkaline Phosphatase Total Protein Albumin Lipase Urine Color Yellow Urine Appearance Clear Urine pH 6.0 Ur Specific [place] 1.010 Urine Protein Negative Urine Glucose (UA) Negative Urine Ketones Negative Urine Blood Small (1+) H Urine Nitrite Negative Ur Leukocyte Esterase Negative Urine RBC 0-2 Urine WBC 0-5 Ur Squamous Epith Cells 0-2 Urine Bacteria None Seen Hyaline Casts 0-2 COVID-19 (SUKHJINDER) Negative COVID-19 Clin Com See Note Procedures Date of Service Date of Service: 08/11/22 Progress Note: A&P Assessment and plan (1) Abdominal pain: Status: Acute (2) Retroperitoneal air: Status: Acute Plan pod 1 following exploratory laparotomy for findings of retroperitoneal air by CT. Operative findings were negative for perforation. Patient found to have significant constipation with rock-hard stool within the colon and rectum. Patient will need to be out of bed to a chair. Hospitalist consultation requested for management multiple medical issues. Advance diet to a soft regular diet. Time Spent With Patient Time: Total time managing care of this patient today ____ minutes. Quality Stroke Does the patient have a stroke diagnosis?: Yes Reason for No Anti-thrombotic by Day Two: N/A - Med Ordered VTE Prior VTE?: No VTE Risk Level:: Surgical - high VTE Device Contraindication: N/A - Device Ordered VTE Drug Contraindication: N/A - Med Ordered
--- NOTE | 2022-08-11 10:35 | MHC.CM.PN ---
PT IS A LTC RESIDENT OF [facility] SHE HAS A MOLST AND GUARDIANSHIP ON FILE GUARDIAN: DELL LUGOALYSA [phone] CM ATTEMPTED TO CALL TO DELIVER IMM, NO ANSWER AND NO VM COPY OF IMM TO BE SENT VIA CERTIFIED MAIL PCP: LETITIA LOONEY DCP: RETURN TO [facility] VIA BLS
--- NOTE | 2022-08-11 11:38 | HO.PM.IMCN ---
History of Present Illness Data of Consult Service Date: 08/11/22 Requesting physician: Dwayne Gutierres Primary Care Provider: LETITIA LOONEY Reason for consult: medical management 61-year-old female with history of cerebral infarction, schizoaffective disorder, factitious disorder, asthma/COPD overlap, acute respiratory failure, dysphagia, osteoporosis, glaucoma, type 2 diabetes, hyperlipidemia, hypertension, history of diverticulitis with perforation, history of cardiac arrest following aspiration, and PTSD admitted to General surgery for management of abdominal pain with question of perforated abdominal viscus with retroperitoneal air seen on abdominal CT. The patient is currently resting comfortable in chair with legs elevated. She has no complaints at this time. She has extensive medication list and reports compliance as resides at [facility]. She does smoke 2 cigarettes daily. Denies any alcohol use or illicit drug use. Vitals have been stable now has been using 2 L supplemental O2 postoperatively. She is not on supplemental O2 at baseline. Hematology studies chemistries reassuring. EKG preoperatively showing NSR, rate 83 without LYNETTE or depression. Review of Systems Review of Systems: General: No fevers, malaise, unintentional weight loss Cardiovascular: No chest pain, palpitations, or leg edema Respiratory: No shortness of breath, wheezing, cough GI: No abdominal pain, nausea, vomiting MSK: No myalgia, back pain Neuro: No headaches, weakness, paresthesias Skin: No rashes or lesions [facility] Medical History Acute respiratory failure Acute respiratory failure with hypoxia Anemia Aspiration pneumonia Asthma Borderline personality disorder Cardiac arrest Cardiopulmonary arrest with successful resuscitation Cataract Chronic pain syndrome Complete atelectasis of left lung Constipation COPD (chronic obstructive pulmonary disease) Diverticulitis Dysphagia [place] Fusion of spine GERD (gastroesophageal reflux disease) Glaucoma HTN (hypertension) Hyperlipemia Hypertensive cardiovascular disease Ileus Osteoporosis Postmenopausal atrophic vaginitis PTSD (post-traumatic stress disorder) Schizoaffective disorder Schizoaffective disorder Tobacco abuse Type 2 diabetes mellitus Surgical History Presence of right artificial hip joint Presence of right artificial knee joint Social History Household Members: Other Housing: Group Home Do you presently have visiting nurse or other home services: No Alcohol intake: unknown Patient Tobacco Use Status: Former Tobacco user Use of substances other than those prescribed or required for medical reasons: No Currently Displaying Signs/Symptoms of Drug Intoxication Withdrawal: No Have you been hit, kicked, punched, or otherwise hurt by someone within the past year? If so, by whom?: No Do you feel safe in your current relationship?: Yes Is there a partner from a previous relationship who is making you feel unsafe now?: No Are you made to feel afraid or neglected: No Advance Directives: No Advance Directives Date on File: 02/08/21 Do you have thoughts of harming others: None Do you have a plan to hurt others: No Plan Recently lost weight without trying: Unsure Nutrition Risks: No Nutritional Risk Patient : No : No Poor oral hygiene: No service: No Meds Allergies Allergy/AdvReac Type Severity Reaction Status Date / Time chlorpromazine Allergy Unknown Verified 08/10/22 10:46 [From Thorazine] haloperidol [From Haldol] Allergy Unknown Verified 08/10/22 10:46 imipramine Allergy Unknown Verified 08/10/22 10:46 ketorolac Allergy Unknown Verified 08/10/22 10:46 Penicillins Allergy Unknown Verified 08/10/22 10:46 promethazine Allergy Unknown Verified 08/10/22 10:46 Active Medications: Current Medications Albuterol Sulfate (Albuterol Sulfate (0.083%) 2.5 Mg/3 Ml Vial.Neb) 2.5 mg INHALE ONCE PRN PRN Reason: Wheezing Enoxaparin Sodium (Enoxaparin Sodium 40 Mg/0.4 Ml Syringe) 40 mg SUBCUT Q24H [facility] Last Admin: 08/11/22 08:31 Dose: 40 mg Hydromorphone HCl (Hydromorphone Hcl 0.5 Mg/0.5 Ml Syringe) 0.5 mg IVPUSH Q3H PRN; Protocol PRN Reason: Pain, Severe (Pain Scale 7-10) Last Admin: 08/11/22 11:10 Dose: 0.5 mg Acetaminophen (Ofirmev) 1,000 mg in 100 mls @ 400 mls/hr IV Q6H [facility] Last Infusion: 08/11/22 09:06 Dose: Infused Dextrose/Lactated Ringer's (D5lr) 1,000 mls @ 125 mls/hr IVCONT .Q8H ON LICENSE OF [facility] Last Admin: 08/11/22 05:24 Dose: 125 mls/hr Ondansetron HCl (Ondansetron Hcl 4 Mg/2 Ml Vial) 4 mg IVPUSH Q8H PRN PRN Reason: Nausea Oxycodone HCl (Oxycodone Hcl Immed Release 5 Mg Tablet) 5 mg PO Q6H PRN PRN Reason: Pain, Moderate(Pain Scale 4-6) Pharmacy Consult (Consult Rx Perform Med Rec) 1 each MISCELLANE ONCE PRN PRN Reason: Consult order Sodium Chloride (0.9 % Sodium Chloride Flush 3 Ml Syringe) 3 ml IVFLUSH QSHIFT ON LICENSE OF [facility] Last Admin: 08/11/22 08:39 Dose: Not Given Home Medications Medication Instructions Recorded Confirmed Last Taken Type acetaminophen 500 mg tablet 1,000 mg PO BID 02/08/21 08/10/22 01/04/22 History amlodipine 5 mg tablet 1 tab PO DAILY 02/08/21 08/10/22 01/04/22 History diazepam 5 mg tablet 5 mg PO BID 02/08/21 08/10/22 01/04/22 History duloxetine 60 mg capsule,delayed 60 mg PO BEDTIME 02/08/21 08/10/22 01/04/22 History release montelukast 10 mg tablet 1 tab PO BEDTIME 02/08/21 08/10/22 01/04/22 History omeprazole 40 mg capsule,delayed 40 mg PO DAILY@0630 02/08/21 08/10/22 01/04/22 History release pregabalin 300 mg capsule 1 cap PO BEDTIME 02/08/21 08/10/22 01/03/22 History quetiapine 100 mg tablet 100 mg PO BEDTIME 02/08/21 08/10/22 01/04/22 History albuterol sulfate 90 mcg/actuation 2 puff inhalation Q4H PRN 01/04/22 08/10/22 Unknown History aerosol inhaler (Proventil HFA) Shortness Of Breath aluminum-mag hydroxide-simethicone 10 ml PO Q6H PRN Indigestion 01/04/22 08/10/22 Unknown History 200 mg-200 mg-20 mg/5 mL oral susp atomoxetine 25 mg capsule 75 mg PO DAILY 01/04/22 08/10/22 Unknown History cholecalciferol (vitamin D3) 1,250 1,250 mcg PO QMONTH 01/04/22 08/10/22 12/13/21 History mcg (50,000 unit) capsule famotidine 20 mg tablet 1 tab PO DAILY PRN Acid Reflux 01/04/22 08/10/22 Unknown History guaifenesin 100 mg/5 mL oral liquid 300 mg PO Q6H PRN Cough 01/04/22 08/10/22 Unknown History loperamide 2 mg capsule 2 mg PO BID PRN Loose Stool 01/04/22 08/10/22 Unknown History magnesium citrate 150 ml PO Q4H PRN Constipation 01/04/22 08/10/22 Unknown History magnesium hydroxide 400 mg/5 mL 30 ml PO DAILY PRN Constipation 01/04/22 08/10/22 Unknown History oral suspension (Milk of Magnesia) nicotine (polacrilex) 2 mg buccal 2 mg buccal TID PRN Nicotine 01/04/22 08/10/22 Unknown History lozenge Cravings pregabalin 200 mg capsule 200 mg PO DAILY@0900 01/04/22 08/10/22 01/04/22 History zonisamide 100 mg capsule 1 cap PO DAILY 01/04/22 08/10/22 01/04/22 History clozapine 50 mg tablet 150 mg PO BEDTIME 08/10/22 08/10/22 Unknown History cyclobenzaprine 5 mg tablet 5 mg PO TID PRN Muscle Spasm 08/10/22 08/10/22 Unknown History diclofenac sodium 1 % topical gel 2 g topical DAILY PRN discomfort 08/10/22 08/10/22 Unknown History (Voltaren Arthritis Pain) duloxetine 30 mg capsule,delayed 30 mg PO DAILY 08/10/22 08/10/22 Unknown History release fluticasone 500 mcg-salmeterol 50 1 inh inhalation BID 08/10/22 08/10/22 Unknown History mcg/dose blistr powdr for inhalation (Wixela Inhub) lamotrigine 200 mg tablet 200 mg PO DAILY 08/10/22 08/10/22 Unknown History meclizine 25 mg tablet 25 mg PO TID PRN Vertigo 08/10/22 08/10/22 Unknown History naloxone 0.4 mg/mL injection 0.4 mg subcut Q5M PRN Opioid 08/10/22 08/10/22 Unknown History solution Overdose naloxone 4 mg/actuation nasal 4 mg intranasal Q5M PRN Opioid 08/10/22 08/10/22 Unknown History spray (Narcan) Overdose polyethylene glycol 3350 17 gram 17 g PO BEDTIME 08/10/22 08/10/22 Unknown History oral powder packet (Miralax) quetiapine 50 mg tablet 50 mg PO BEDTIME 08/10/22 08/10/22 Unknown History sodium phosphates 19 gram-7 118 ml GA DAILY PRN Constipation 08/10/22 08/10/22 Unknown History gram/118 mL enema (Fleet Enema) Physical Exam Vital Signs and Narrative: Vital Signs: Last Vital Signs Temp 98.7 F 08/11/22 07:12 Pulse 87 08/11/22 07:12 Resp 18 08/11/22 07:12 BP 117/60 08/11/22 07:12 Pulse Ox 95 08/11/22 07:12 O2 Del Method Nasal Cannula 08/11/22 07:12 O2 Flow Rate 2 08/11/22 07:12 BMI result Body Mass Index 43.4 Constitutional - Awake and Alert, No apparent distress Eyes - PERRLA, EOMI Cardiovascular - S1S2, RRR, No edema Respiratory - Normal lung expansion, Normal respiratory effort, No respiratory distress, CTA bilaterally Gastrointestinal - obese abdomen, NT / ND; +BS; No rebound or guarding Extremities - no calf tenderness bilaterally, no swelling Skin - Warm/Dry Neurological - Alert & oriented x3 Psychological - Appropriate affect Results Labs 08/10/22 12:11 08/10/22 12:11 Labs: Laboratory Results - last 24 hr 08/10/22 08/10/22 08/10/22 12:11 12:11 12:11 MCV 92.6 MCH 28.5 MCHC 30.8 L RDW 14.2 Plt Count 204 MPV 9.6 Immature Gran % (Auto) 0.4 Neut % (Auto) 81.9 H Lymph % (Auto) 11.8 L [place] % (Auto) 5.6 Eos % (Auto) 0.1 Baso % (Auto) 0.2 Lymph # (Auto) 1.2 Walker # (Auto) 0.6 Eos # (Auto) 0.0 Baso # (Auto) 0.0 Abs Immat Gran (auto) 0.04 H Absolute Neuts (auto) 8.4 H Absolute Nucleated RBC 0.000 Nucleated RBC % (auto) 0.0 PT 10.9 INR 1.0 APTT 32.9 Anion Gap 12 Estim Creat Clear Calc 107.5 Estimated GFR > 60 Random Glucose 95 Lactic Acid Calcium 9.1 Total Bilirubin 0.2 AST 11 ALT 13 Alkaline Phosphatase 74 Total Protein 6.7 Albumin 3.9 Lipase 18 Urine Color Urine Appearance Urine pH Ur Specific [place] Urine Protein Urine Glucose (UA) Urine Ketones Urine Blood Urine Nitrite Ur Leukocyte Esterase Urine RBC Urine WBC Ur Squamous Epith Cells Urine Bacteria Hyaline Casts COVID-19 (SUKHJINDER) COVID-19 Clin Com 08/10/22 08/10/22 08/10/22 12:11 12:11 12:59 MCV MCH MCHC RDW Plt Count MPV Immature Gran % (Auto) Neut % (Auto) Lymph % (Auto) [place] % (Auto) Eos % (Auto) Baso % (Auto) Lymph # (Auto) Walker # (Auto) Eos # (Auto) Baso # (Auto) Abs Immat Gran (auto) Absolute Neuts (auto) Absolute Nucleated RBC Nucleated RBC % (auto) PT INR APTT Anion Gap Estim Creat Clear Calc Estimated GFR Random Glucose Lactic Acid 0.9 Calcium Total Bilirubin AST ALT Alkaline Phosphatase Total Protein Albumin Lipase Urine Color Yellow Urine Appearance Clear Urine pH 6.0 Ur Specific [place] 1.010 Urine Protein Negative Urine Glucose (UA) Negative Urine Ketones Negative Urine Blood Small (1+) H Urine Nitrite Negative Ur Leukocyte Esterase Negative Urine RBC 0-2 Urine WBC 0-5 Ur Squamous Epith Cells 0-2 Urine Bacteria None Seen Hyaline Casts 0-2 COVID-19 (SUKHJINDER) Negative COVID-19 Clin Com See Note Imaging Radiologist's Impressions: Impressions Abdomen/Pelvis CT 08/10/22 13:10 IMPRESSION: Pneumo retroperitoneal as described above. No evidence of obstructive uropathy. No evidence of bowel ileus or obstruction. Status post previous right colon surgery. Fleischner guidelines were followed. Assessment and Plan (1) Retroperitoneal air: Status: Acute Plan 61-year-old female with history of cerebral infarction, schizoaffective disorder, factitious disorder, asthma/COPD overlap, acute respiratory failure, dysphagia, osteoporosis, glaucoma, type 2 diabetes, hyperlipidemia, hypertension, history of diverticulitis with perforation, history of cardiac arrest following aspiration, and PTSD admitted to general surgery with consult placed to hospital medicine for medical management. # abdominal pain/retroperitoneal air by CT -operative findings negative for perforation but has significant constipation -plan for general surgery # postoperative hypoxia -likely complicated by obesity hypoventilation syndrome -titrate supplemental O2 as able # chronic constipation -discussed with General surgery, resume home constipation medications # asthma/COPD overlap -no acute exacerbation -continue maintenance inhalers, albuterol p.r.n. # GERD -continue PPI, famotidine p.r.n. # schizoaffective disorder -continue antipsychotics # hypertension -blood pressure soft -hold amlodipine for now, resume as appropriate # [id number] type 2 diabetes-without hyperglycemia -POC glucose -soft diet per General surgery -Humalog on sliding scale Thank you for this consult, will continue to follow Time Spent With Patient Time: Total time managing care of this patient today ____ minutes.
[2022-08-11 15:19] VITALS: BP 102/61; PULSE 92; RESP 18; TEMP 36.8; O2SAT 94
--- NOTE | 2022-08-11 17:22 | HO.POSTANES ---
Post Anesthesia Evaluation Post Anesthesia Evaluation Date of Service: 08/11/22 Vital Signs: Vital Signs Temp Pulse Resp BP Pulse Ox O2 Del Method O2 Flow Rate 08/11/22 15:19 98.2 F 92 18 102/61 94 Room Air 08/11/22 07:12 98.7 F 87 18 117/60 95 Nasal Cannula 2 Anesthesia: General Endotracheal-GETA Mental Status: Awake Pain Control: Satisfactory Nausea/Vomiting: None Hydration: Adequate Anesthesia-Related Issues: No Anes. Related Issues
--- NOTE | 2022-08-11 18:17 | PC.NURSE ---
IV leaking,unable to obtain access,3 nurses tried ,one on day shift and 2 nurses on this shiftt,MAGGY Rossi notified.
--- NOTE | 2022-08-11 18:25 | PC.NURSE ---
Unable to obtain IV access,Dr. Gutierres notified,ok to leave IV out,will encourage po intake,KINZA Blevins notified.
[2022-08-11] MEDS: oxyCODONE HCl Immed Release 5 MG TABLET 10 MG PO (20:15)
[2022-08-11 20:19] VITALS: PULSE 98; RESP 20; O2SAT 95
[2022-08-11 20:37] VITALS: BP 120/65; PULSE 78; RESP 20; TEMP 36.2; O2SAT 98
[2022-08-12 03:17] VITALS: BP 134/61; PULSE 100; RESP 20; TEMP 36.3; O2SAT 92
[2022-08-12 05:48] LABS: Hematocrit 36.4 % (37.0-47.0); Hemoglobin 11.5 g/dl (12.0-16.0); Mean Corpuscular HGB Conc 31.6 g/dl (31.0-35.0); Mean Corpuscular Hemoglobin 28.8 pg (27.0-33.0); Mean Platelet Volume 10.7 fL (9.4-12.3); PLT CLUMP 1; Red Cell Distribution Width 14.6 % (11.0-16.0)
[2022-08-12 05:50] LABS: Anion Gap 14 (12-20); Blood Urea Nitrogen 10 mg/dL (9-16); Calcium 8.3 mg/dL (8.4-10.2); Carbon Dioxide 23 mmol/L (22-29); Chloride 106 mmol/L (96-108); Creatinine Clr Calc Pharmacy 99.5; Estimated Glomerular Filt Rate > 60; Glucose Random 130 mg/dL (60-115); Platelet Count 178 X10*3/uL (160-400); Potassium 4.1 mmol/L (3.3-5.1); Sodium 139 mmol/L (135-145); White Blood Count 10.1 X10*3/uL (4.8-10.8)
--- NOTE | 2022-08-12 07:40 | PM.PNGS ---
Subjective Subjective Date of Service: 08/12/22 Interval history: Sleepy this morning. C/o incisional pain. Passing flatus. OOB to recliner. Tolerating diet. Physical Exam Vital Signs: Vital Signs: Last Vital Signs Temp 97.3 F 08/12/22 03:17 Pulse 100 08/12/22 03:17 Resp 20 08/12/22 03:17 BP 134/61 08/12/22 03:17 Pulse Ox 92 08/12/22 03:17 O2 Del Method Nasal Cannula 08/12/22 03:17 O2 Flow Rate 3 08/12/22 03:17 BMI result Body Mass Index 43.4 Const: General: comfortable, no acute distress and alert Orientation/consciousness: patient oriented x3 Resp: Effort & Inspection: normal respiratory effort GI: Inspection: No distended and Yes incision (clean) Palpation (GI): Soft to palpation, Tenderness to palpation present (GI) (mild incisional), no guarding and not rigid Percussion: Yes normal to percussion Skin: General skin exam: no rashes or lesions noted Neuro: General: patient oriented x3 Objective Data Active Medications Acetaminophen (Acetaminophen 325 Mg Tablet) 975 mg PO Q6H PRN PRN Reason: Pain, Mild (Pain Scale 1-3) Al Hydroxide/Mg Hydroxide (Magnesium Hydrox/Alum Hydrox 30 Ml Oral.Susp) 10 ml PO Q6H PRN PRN Reason: Indigestion Albuterol Sulfate (Albuterol Sulfate (0.083%) 2.5 Mg/3 Ml Vial.Neb) 2.5 mg INHALE ONCE PRN PRN Reason: Wheezing Albuterol Sulfate (Albuterol Sulfate 90 Mcg 8 Gm Inhaler) 2 puff INHALE RQ4H PRN PRN Reason: Shortness Of Breath Clozapine (Clozapine 25 Mg Tablet) 150 mg PO BEDTIME [facility] Last Admin: 08/11/22 20:14 Dose: 150 mg Documented By: KATHY Cyclobenzaprine HCl (Cyclobenzaprine Hcl 5 Mg Tablet) 5 mg PO TID PRN PRN Reason: Muscle Spasm Dextrose (Dextrose 50 % 25 Gm/50 Ml Syringe) 25 gm IVPUSH Q15M PRN; Protocol PRN Reason: per Hypoglycemia Standing Ord. Diazepam (Diazepam 5 Mg Tablet) 5 mg PO BID [facility] Last Admin: 08/11/22 20:14 Dose: 5 mg Documented By: KATHY Duloxetine HCl (Duloxetine Hcl 30 Mg Capsule.) 30 mg PO DAILY [facility] Last Admin: 08/11/22 12:13 Dose: 30 mg Documented By: SIDDHARTHA Duloxetine HCl (Duloxetine Hcl 60 Mg Capsule.) 60 mg PO BEDTIME [facility] Last Admin: 08/11/22 20:14 Dose: 60 mg Documented By: KATHY Enoxaparin Sodium (Enoxaparin Sodium 40 Mg/0.4 Ml Syringe) 40 mg SUBCUT Q24H [facility] Last Admin: 08/11/22 08:31 Dose: 40 mg Documented By: SIDDHARTHA Famotidine (Famotidine 20 Mg Tablet) 20 mg PO DAILY PRN PRN Reason: Acid Reflux Fluticasone/Vilanterol (Fluticasone/Vilanterol 200/25 Blst.W.Dev) 1 puff INHALE DAILY [facility] Glucose (Glucose Gel 15 Gm Gel..Gram.) 15 gm PO Q15M PRN; Protocol PRN Reason: per Hypoglycemia Standing Ord. Guaifenesin (Guaifenesin 100 Mg/5 Ml Liquid) 10 ml PO Q6H PRN PRN Reason: Cough Insulin Human Lispro (Insulin Lispro 100 Unit/Ml 3 Ml Vial) 0 unit SUBCUT QIDACHS [facility]; Protocol Last Admin: 08/11/22 21:01 Dose: Not Given Documented By: KATHY Non-Admin Reason: No Insulin Coverage Lamotrigine (Lamotrigine 100 Mg Tablet) 200 mg PO DAILY [facility] Last Admin: 08/11/22 12:14 Dose: 200 mg Documented By: SIDDHARTHA Loperamide HCl (Loperamide Hcl 2 Mg Capsule) 2 mg PO BID PRN PRN Reason: Loose Stool Magnesium Hydroxide (Milk Of Magnesia 30 Ml Oral.Susp) 30 ml PO DAILY PRN PRN Reason: Constipation Meclizine HCl (Meclizine Hcl 25 Mg Tablet) 25 mg PO TID PRN PRN Reason: Vertigo Montelukast Sodium (Montelukast Sodium 10 Mg Tablet) 10 mg PO BEDTIME [facility] Last Admin: 08/11/22 20:13 Dose: 10 mg Documented By: KATHY Naloxone HCl (Naloxone Hcl 0.4 Mg/Ml Vial) 0.4 mg SUBCUT Q5M PRN PRN Reason: Opioid Overdose Naloxone HCl (Naloxone Hcl Nasal 4 Mg [place]) 4 mg NOSTRILALT Q5M PRN PRN Reason: Opioid Overdose Nicotine Polacrilex (Nicotine Polacrilex Lozenge 2 Mg Lozenge) 2 mg BUCCAL TID PRN PRN Reason: Nicotine Cravings Non-Formulary Medication (Atomoxetine) 75 mg PO DAILY [facility] Omeprazole (Omeprazole 40 Mg Capsule.Dr) 40 mg PO DAILY@0630 [facility] Last Admin: 08/11/22 12:13 Dose: 40 mg Documented By: SIDDHARTHA Ondansetron HCl (Ondansetron Hcl 4 Mg/2 Ml Vial) 4 mg IVPUSH Q8H PRN PRN Reason: Nausea Oxycodone HCl (Oxycodone Hcl Immed Release 5 Mg Tablet) 10 mg PO Q4H PRN PRN Reason: Pain, Severe (Pain Scale 7-10) Last Admin: 08/11/22 20:15 Dose: 10 mg Documented By: KATHY Oxycodone HCl (Oxycodone Hcl Immed Release 5 Mg Tablet) 5 mg PO Q4H PRN PRN Reason: Pain, Moderate(Pain Scale 4-6) Pharmacy Consult (Consult Rx Perform Med Rec) 1 each MISCELLANE ONCE PRN PRN Reason: Consult order Polyethylene Glycol (Polyethylene Glycol 3350 17 Gm Powd.Pack) 17 gm PO BEDTIME [facility] Last Admin: 08/11/22 20:12 Dose: 17 gm Documented By: KATHY Pregabalin (Pregabalin 200 Mg Capsule) 200 mg PO DAILY@0900 [facility] Pregabalin (Pregabalin 150 Mg Capsule) 300 mg PO BEDTIME [facility] Last Admin: 08/11/22 20:15 Dose: 300 mg Documented By: KATHY Quetiapine Fumarate (Quetiapine Fumarate 50 Mg Tablet) 50 mg PO BEDTIME [facility] Last Admin: 08/11/22 20:14 Dose: 50 mg Documented By: KATHY Quetiapine Fumarate (Quetiapine Fumarate 100 Mg Tablet) 100 mg PO BEDTIME [facility] Last Admin: 08/11/22 20:13 Dose: 100 mg Documented By: KATHY Sodium Biphosphate/Sodium Phosphate (Sodium Phosphate,[place]-Dibasic 133 Ml Enema) 118 ml [place] DAILY PRN PRN Reason: Constipation Zonisamide (Zonisamide 100 Mg Capsule) 100 mg PO DAILY [facility] Last Admin: 08/11/22 14:24 Dose: 100 mg Documented By: SIDDHARTHA Labs 08/12/22 05:21 08/12/22 05:21 Labs: Laboratory Results - last 24 hr 08/11/22 08/11/22 08/11/22 12:02 16:09 20:39 MCV MCH MCHC RDW Plt Count MPV Absolute Nucleated RBC Nucleated RBC % (auto) Anion Gap Estim Creat Clear Calc Estimated GFR POC Glucose 129 H 97 128 H Random Glucose Calcium 08/12/22 08/12/22 05:21 05:21 MCV 91.0 MCH 28.8 MCHC 31.6 RDW 14.6 Plt Count 178 MPV 10.7 Absolute Nucleated RBC 0.000 Nucleated RBC % (auto) 0.0 Anion Gap 14 Estim Creat Clear Calc 99.5 Estimated GFR > 60 POC Glucose Random Glucose 130 H Calcium 8.3 L D Procedures Date of Service Date of Service: 08/12/22 Progress Note: A&P Assessment and plan (1) Retroperitoneal air: Status: Acute Plan pod 2 following exploratory laparotomy for findings of retroperitoneal air by CT. Operative findings were negative for perforation. Patient found to have significant constipation with rock-hard stool within the colon and rectum. Cont bowel regimen with miralax, colace added. Pain control. OOB/ambulation today. PT consult. Time Spent With Patient Time: Total time managing care of this patient today ____ minutes. Quality Stroke Does the patient have a stroke diagnosis?: Yes Reason for No Anti-thrombotic by Day Two: N/A - Med Ordered VTE Prior VTE?: No VTE Risk Level:: Surgical - high VTE Device Contraindication: N/A - Device Ordered VTE Drug Contraindication: N/A - Med Ordered
[2022-08-12 07:48] VITALS: BP 132/62; PULSE 92; RESP 16; TEMP 36.1; O2SAT 94
[2022-08-12] MEDS: oxyCODONE HCl Immed Release 5 MG TABLET 10 MG PO (07:53)
[2022-08-12 07:54] VITALS: PULSE 68; RESP 16; O2SAT 93
--- NOTE | 2022-08-12 08:01 | PM.PNGS ---
Subjective Subjective Date of Service: 08/12/22 Interval history: Patient is sleepy this morning. She denies abdominal pain. No BM or flatus noted. She was able to tolerate regular diet yesterday. Physical Exam Vital Signs: Vital Signs: Last Vital Signs Temp 97.0 F 08/12/22 07:48 Pulse 68 08/12/22 07:54 Resp 16 08/12/22 07:54 BP 132/62 08/12/22 07:48 Pulse Ox 94 08/12/22 07:48 O2 Del Method Nasal Cannula 08/12/22 07:48 O2 Flow Rate 3 08/12/22 07:48 BMI result Body Mass Index 43.4 Const: General: tired appearing Nutritional Appearance: obese Orientation/consciousness: patient oriented x3 Resp: Effort & Inspection: normal respiratory effort GI: Other: Soft, nondistended, incision clean, dry, and intact without redness or discharge. Skin: General skin exam: no rashes or lesions noted Neuro: General: patient oriented x3 Extrem: General: Yes no clubbing, cyanosis or edema Objective Data Active Medications Acetaminophen (Acetaminophen 325 Mg Tablet) 975 mg PO Q6H PRN PRN Reason: Pain, Mild (Pain Scale 1-3) Al Hydroxide/Mg Hydroxide (Magnesium Hydrox/Alum Hydrox 30 Ml Oral.Susp) 10 ml PO Q6H PRN PRN Reason: Indigestion Albuterol Sulfate (Albuterol Sulfate (0.083%) 2.5 Mg/3 Ml Vial.Neb) 2.5 mg INHALE ONCE PRN PRN Reason: Wheezing Albuterol Sulfate (Albuterol Sulfate 90 Mcg 8 Gm Inhaler) 2 puff INHALE RQ4H PRN PRN Reason: Shortness Of Breath Clozapine (Clozapine 25 Mg Tablet) 150 mg PO BEDTIME [facility] Last Admin: 08/11/22 20:14 Dose: 150 mg Documented By: KATHY Cyclobenzaprine HCl (Cyclobenzaprine Hcl 5 Mg Tablet) 5 mg PO TID PRN PRN Reason: Muscle Spasm Dextrose (Dextrose 50 % 25 Gm/50 Ml Syringe) 25 gm IVPUSH Q15M PRN; Protocol PRN Reason: per Hypoglycemia Standing Ord. Diazepam (Diazepam 5 Mg Tablet) 5 mg PO BID [facility] Last Admin: 08/12/22 07:54 Dose: 5 mg Documented By: SHARON Docusate Sodium (Docusate Sodium 100 Mg Capsule) 100 mg PO BID [facility] Last Admin: 08/12/22 07:51 Dose: 100 mg Documented By: SHARON Duloxetine HCl (Duloxetine Hcl 30 Mg Capsule.) 30 mg PO DAILY [facility] Last Admin: 08/12/22 07:54 Dose: 30 mg Documented By: SHARON Duloxetine HCl (Duloxetine Hcl 60 Mg Capsule.) 60 mg PO BEDTIME [facility] Last Admin: 08/11/22 20:14 Dose: 60 mg Documented By: KATHY Enoxaparin Sodium (Enoxaparin Sodium 40 Mg/0.4 Ml Syringe) 40 mg SUBCUT Q24H [facility] Last Admin: 08/12/22 07:53 Dose: 40 mg Documented By: SHARON Famotidine (Famotidine 20 Mg Tablet) 20 mg PO DAILY PRN PRN Reason: Acid Reflux Fluticasone/Vilanterol (Fluticasone/Vilanterol 200/25 Blst.W.Dev) 1 puff INHALE DAILY [facility] Last Admin: 08/12/22 07:52 Dose: 1 puff Documented By: AYDE Glucose (Glucose Gel 15 Gm Gel..Gram.) 15 gm PO Q15M PRN; Protocol PRN Reason: per Hypoglycemia Standing Ord. Guaifenesin (Guaifenesin 100 Mg/5 Ml Liquid) 10 ml PO Q6H PRN PRN Reason: Cough Insulin Human Lispro (Insulin Lispro 100 Unit/Ml 3 Ml Vial) 0 unit SUBCUT QIDACHS [facility]; Protocol Last Admin: 08/12/22 07:45 Dose: Not Given Documented By: USMAN Non-Admin Reason: No Insulin Coverage Lamotrigine (Lamotrigine 100 Mg Tablet) 200 mg PO DAILY [facility] Last Admin: 08/12/22 07:54 Dose: 200 mg Documented By: SHARON Loperamide HCl (Loperamide Hcl 2 Mg Capsule) 2 mg PO BID PRN PRN Reason: Loose Stool Magnesium Hydroxide (Milk Of Magnesia 30 Ml Oral.Susp) 30 ml PO DAILY PRN PRN Reason: Constipation Meclizine HCl (Meclizine Hcl 25 Mg Tablet) 25 mg PO TID PRN PRN Reason: Vertigo Montelukast Sodium (Montelukast Sodium 10 Mg Tablet) 10 mg PO BEDTIME [facility] Last Admin: 08/11/22 20:13 Dose: 10 mg Documented By: KATHY Naloxone HCl (Naloxone Hcl 0.4 Mg/Ml Vial) 0.4 mg SUBCUT Q5M PRN PRN Reason: Opioid Overdose Naloxone HCl (Naloxone Hcl Nasal 4 Mg [place]) 4 mg NOSTRILALT Q5M PRN PRN Reason: Opioid Overdose Nicotine Polacrilex (Nicotine Polacrilex Lozenge 2 Mg Lozenge) 2 mg BUCCAL TID PRN PRN Reason: Nicotine Cravings Non-Formulary Medication (Atomoxetine) 75 mg PO DAILY [facility] Omeprazole (Omeprazole 40 Mg Capsule.Dr) 40 mg PO DAILY@0630 [facility] Last Admin: 08/12/22 07:51 Dose: 40 mg Documented By: SHARON Ondansetron HCl (Ondansetron Hcl 4 Mg/2 Ml Vial) 4 mg IVPUSH Q8H PRN PRN Reason: Nausea Oxycodone HCl (Oxycodone Hcl Immed Release 5 Mg Tablet) 10 mg PO Q4H PRN PRN Reason: Pain, Severe (Pain Scale 7-10) Last Admin: 08/12/22 07:53 Dose: 10 mg Documented By: SHARON Oxycodone HCl (Oxycodone Hcl Immed Release 5 Mg Tablet) 5 mg PO Q4H PRN PRN Reason: Pain, Moderate(Pain Scale 4-6) Pharmacy Consult (Consult Rx Perform Med Rec) 1 each MISCELLANE ONCE PRN PRN Reason: Consult order Polyethylene Glycol (Polyethylene Glycol 3350 17 Gm Powd.Pack) 17 gm PO BEDTIME [facility] Last Admin: 08/11/22 20:12 Dose: 17 gm Documented By: KATHY Pregabalin (Pregabalin 200 Mg Capsule) 200 mg PO DAILY@0900 [facility] Last Admin: 08/12/22 07:54 Dose: 200 mg Documented By: SHARON Pregabalin (Pregabalin 150 Mg Capsule) 300 mg PO BEDTIME [facility] Last Admin: 08/11/22 20:15 Dose: 300 mg Documented By: KATHY Quetiapine Fumarate (Quetiapine Fumarate 50 Mg Tablet) 50 mg PO BEDTIME [facility] Last Admin: 08/11/22 20:14 Dose: 50 mg Documented By: KATHY Quetiapine Fumarate (Quetiapine Fumarate 100 Mg Tablet) 100 mg PO BEDTIME [facility] Last Admin: 08/11/22 20:13 Dose: 100 mg Documented By: KATHY Sodium Biphosphate/Sodium Phosphate (Sodium Phosphate,[place]-Dibasic 133 Ml Enema) 118 ml [place] DAILY PRN PRN Reason: Constipation Zonisamide (Zonisamide 100 Mg Capsule) 100 mg PO DAILY [facility] Last Admin: 08/12/22 07:51 Dose: 100 mg Documented By: SHARON Labs 08/12/22 05:21 08/12/22 05:21 Labs: Laboratory Results - last 24 hr 08/11/22 08/11/22 08/11/22 12:02 16:09 20:39 MCV MCH MCHC RDW Plt Count MPV Absolute Nucleated RBC Nucleated RBC % (auto) Anion Gap Estim Creat Clear Calc Estimated GFR POC Glucose 129 H 97 128 H Random Glucose Calcium 08/12/22 08/12/22 08/12/22 05:21 05:21 07:39 MCV 91.0 MCH 28.8 MCHC 31.6 RDW 14.6 Plt Count 178 MPV 10.7 Absolute Nucleated RBC 0.000 Nucleated RBC % (auto) 0.0 Anion Gap 14 Estim Creat Clear Calc 99.5 Estimated GFR > 60 POC Glucose 117 H Random Glucose 130 H Calcium 8.3 L D Procedures Date of Service Date of Service: 08/12/22 Progress Note: A&P Assessment and plan (1) Retroperitoneal air: Status: Acute (2) Abdominal pain: Status: Acute Plan 61-year-old female patient presenting with CT findings suggestive of retroperitoneal air, possible perforated viscus found to have a negative exploratory laparotomy. Patient has passed flatus or had a bowel movement since surgery and was noted to be full of stool on exploration. Patient restarted on her previous bowel meds. Encouraged incentive spirometry and out of bed. Await return of bowel function. Appreciate hospitalist's input. Time Spent With Patient Time: Total time managing care of this patient today ____ minutes. Quality Stroke Does the patient have a stroke diagnosis?: Yes Reason for No Anti-thrombotic by Day Two: N/A - Med Ordered VTE Prior VTE?: No VTE Risk Level:: Surgical - high VTE Device Contraindication: N/A - Device Ordered VTE Drug Contraindication: N/A - Med Ordered
--- NOTE | 2022-08-12 13:01 | HO.PM.IMPN ---
Subjective Subjective Date of Service: 08/12/22 Interval History: Seen and evaluated this abdiel Looks lethargic and sleepy reports abdominal pain and improvement in her breathing No fever or chills No other overnight events Review of Systems Review of Systems: Yes all other systems are reviewed and are negative Physical Exam Vital Signs: Vital Signs: Last Vital Signs Temp 97.0 F 08/12/22 07:48 Pulse 68 08/12/22 07:54 Resp 16 08/12/22 07:54 BP 132/62 08/12/22 07:48 Pulse Ox 94 08/12/22 07:48 O2 Del Method Nasal Cannula 08/12/22 07:48 O2 Flow Rate 3 08/12/22 07:48 BMI result Body Mass Index 43.4 Const: Other: Constitutional : Awake, lethargic, not in distress Neck : Normal inspection, Supple Cardiovascular : RRR, no JVP, no lower extremity edema Respiratory : good bilateral air entry, basal bilateral fine crackles, no wheezes , on O2 supplement Gastrointestinal: soft, lax, decreased bowel sounds, generalized tenderness, midline surgical wound covered with dressing Skin : Warm, Dry Neurological : Alert & oriented , No focal deficit Objective Data Active Medications Acetaminophen (Acetaminophen 325 Mg Tablet) 975 mg PO Q6H PRN PRN Reason: Pain, Mild (Pain Scale 1-3) Al Hydroxide/Mg Hydroxide (Magnesium Hydrox/Alum Hydrox 30 Ml Oral.Susp) 10 ml PO Q6H PRN PRN Reason: Indigestion Albuterol Sulfate (Albuterol Sulfate (0.083%) 2.5 Mg/3 Ml Vial.Neb) 2.5 mg INHALE ONCE PRN PRN Reason: Wheezing Albuterol Sulfate (Albuterol Sulfate 90 Mcg 8 Gm Inhaler) 2 puff INHALE RQ4H PRN PRN Reason: Shortness Of Breath Clozapine (Clozapine 25 Mg Tablet) 150 mg PO BEDTIME [facility] Last Admin: 08/11/22 20:14 Dose: 150 mg Documented By: KATHY Cyclobenzaprine HCl (Cyclobenzaprine Hcl 5 Mg Tablet) 5 mg PO TID PRN PRN Reason: Muscle Spasm Dextrose (Dextrose 50 % 25 Gm/50 Ml Syringe) 25 gm IVPUSH Q15M PRN; Protocol PRN Reason: per Hypoglycemia Standing Ord. Diazepam (Diazepam 5 Mg Tablet) 5 mg PO BID [facility] Last Admin: 08/12/22 07:54 Dose: 5 mg Documented By: SHARON Docusate Sodium (Docusate Sodium 100 Mg Capsule) 100 mg PO BID [facility] Last Admin: 08/12/22 07:51 Dose: 100 mg Documented By: SHARON Duloxetine HCl (Duloxetine Hcl 30 Mg Capsule.) 30 mg PO DAILY [facility] Last Admin: 08/12/22 07:54 Dose: 30 mg Documented By: SHARON Duloxetine HCl (Duloxetine Hcl 60 Mg Capsule.) 60 mg PO BEDTIME [facility] Last Admin: 08/11/22 20:14 Dose: 60 mg Documented By: KATHY Enoxaparin Sodium (Enoxaparin Sodium 40 Mg/0.4 Ml Syringe) 40 mg SUBCUT Q24H [facility] Last Admin: 08/12/22 07:53 Dose: 40 mg Documented By: SHARON Famotidine (Famotidine 20 Mg Tablet) 20 mg PO DAILY PRN PRN Reason: Acid Reflux Fluticasone/Vilanterol (Fluticasone/Vilanterol 200/25 Blst.W.Dev) 1 puff INHALE DAILY [facility] Last Admin: 08/12/22 07:52 Dose: 1 puff Documented By: AYDE Glucose (Glucose Gel 15 Gm Gel..Gram.) 15 gm PO Q15M PRN; Protocol PRN Reason: per Hypoglycemia Standing Ord. Guaifenesin (Guaifenesin 100 Mg/5 Ml Liquid) 10 ml PO Q6H PRN PRN Reason: Cough Insulin Human Lispro (Insulin Lispro 100 Unit/Ml 3 Ml Vial) 0 unit SUBCUT QIDACHS [facility]; Protocol Last Admin: 08/12/22 11:38 Dose: Not Given Documented By: USMAN Non-Admin Reason: No Insulin Coverage Lamotrigine (Lamotrigine 100 Mg Tablet) 200 mg PO DAILY [facility] Last Admin: 08/12/22 07:54 Dose: 200 mg Documented By: SHARON Loperamide HCl (Loperamide Hcl 2 Mg Capsule) 2 mg PO BID PRN PRN Reason: Loose Stool Magnesium Hydroxide (Milk Of Magnesia 30 Ml Oral.Susp) 30 ml PO DAILY PRN PRN Reason: Constipation Meclizine HCl (Meclizine Hcl 25 Mg Tablet) 25 mg PO TID PRN PRN Reason: Vertigo Montelukast Sodium (Montelukast Sodium 10 Mg Tablet) 10 mg PO BEDTIME [facility] Last Admin: 08/11/22 20:13 Dose: 10 mg Documented By: KATHY Naloxone HCl (Naloxone Hcl 0.4 Mg/Ml Vial) 0.4 mg SUBCUT Q5M PRN PRN Reason: Opioid Overdose Naloxone HCl (Naloxone Hcl Nasal 4 Mg [place]) 4 mg NOSTRILALT Q5M PRN PRN Reason: Opioid Overdose Nicotine Polacrilex (Nicotine Polacrilex Lozenge 2 Mg Lozenge) 2 mg BUCCAL TID PRN PRN Reason: Nicotine Cravings Non-Formulary Medication (Atomoxetine) 75 mg PO DAILY [facility] Omeprazole (Omeprazole 40 Mg Capsule.Dr) 40 mg PO DAILY@0630 [facility] Last Admin: 08/12/22 07:51 Dose: 40 mg Documented By: SHARON Ondansetron HCl (Ondansetron Hcl 4 Mg/2 Ml Vial) 4 mg IVPUSH Q8H PRN PRN Reason: Nausea Oxycodone HCl (Oxycodone Hcl Immed Release 5 Mg Tablet) 10 mg PO Q4H PRN PRN Reason: Pain, Severe (Pain Scale 7-10) Last Admin: 08/12/22 07:53 Dose: 10 mg Documented By: SHARON Oxycodone HCl (Oxycodone Hcl Immed Release 5 Mg Tablet) 5 mg PO Q4H PRN PRN Reason: Pain, Moderate(Pain Scale 4-6) Pharmacy Consult (Consult Rx Perform Med Rec) 1 each MISCELLANE ONCE PRN PRN Reason: Consult order Polyethylene Glycol (Polyethylene Glycol 3350 17 Gm Powd.Pack) 17 gm PO BEDTIME [facility] Last Admin: 08/11/22 20:12 Dose: 17 gm Documented By: KATHY Pregabalin (Pregabalin 200 Mg Capsule) 200 mg PO DAILY@0900 [facility] Last Admin: 08/12/22 07:54 Dose: 200 mg Documented By: SHARON Pregabalin (Pregabalin 150 Mg Capsule) 300 mg PO BEDTIME [facility] Last Admin: 08/11/22 20:15 Dose: 300 mg Documented By: KATHY Quetiapine Fumarate (Quetiapine Fumarate 50 Mg Tablet) 50 mg PO BEDTIME [facility] Last Admin: 08/11/22 20:14 Dose: 50 mg Documented By: KATHY Quetiapine Fumarate (Quetiapine Fumarate 100 Mg Tablet) 100 mg PO BEDTIME [facility] Last Admin: 08/11/22 20:13 Dose: 100 mg Documented By: KATHY Sodium Biphosphate/Sodium Phosphate (Sodium Phosphate,[place]-Dibasic 133 Ml Enema) 118 ml [place] DAILY PRN PRN Reason: Constipation Zonisamide (Zonisamide 100 Mg Capsule) 100 mg PO DAILY [facility] Last Admin: 08/12/22 07:51 Dose: 100 mg Documented By: SHARON Labs 08/12/22 05:21 08/12/22 05:21 Labs: Laboratory Results - last 24 hr 08/11/22 08/11/22 08/12/22 16:09 20:39 05:21 MCV 91.0 MCH 28.8 MCHC 31.6 RDW 14.6 Plt Count 178 MPV 10.7 Absolute Nucleated RBC 0.000 Nucleated RBC % (auto) 0.0 Anion Gap Estim Creat Clear Calc Estimated GFR POC Glucose 97 128 H Random Glucose Calcium 08/12/22 08/12/22 08/12/22 05:21 07:39 11:00 MCV MCH MCHC RDW Plt Count MPV Absolute Nucleated RBC Nucleated RBC % (auto) Anion Gap 14 Estim Creat Clear Calc 99.5 Estimated GFR > 60 POC Glucose 117 H 112 Random Glucose 130 H Calcium 8.3 L D Assessment and Plan (1) Retroperitoneal air: Status: Acute (2) Hypoxia: Status: Acute Plan 61-year-old female with history of cerebral infarction, schizoaffective disorder, factitious disorder, asthma/COPD overlap, acute respiratory failure, dysphagia, osteoporosis, glaucoma, type 2 diabetes, hyperlipidemia, hypertension, history of diverticulitis with perforation, history of cardiac arrest following aspiration, and PTSD admitted to general surgery with consult placed to hospital medicine for medical management. # abdominal pain/retroperitoneal air by CT S\P exploratory lapratomy; negative for perforation but has significant constipation followed by general surgery # hypoxia 2/2 LLL infiltrates Treated as pneumonia with Abx complicated by obesity hypoventilation syndrome Incentive spirometry increase physical activity titrate supplemental O2 as able # chronic constipation General surgery, resume home constipation medications # asthma/COPD overlap no acute exacerbation continue maintenance inhalers, albuterol p.r.n. # GERD continue PPI, famotidine p.r.n. # schizoaffective disorder continue antipsychotics # hypertension hold amlodipine for now, resume as appropriate # [id number] type 2 diabetes-without hyperglycemia POC glucose soft diet per General surgery Humalog on sliding scale Thank you for this consult, will continue to follow Time Spent With Patient Time: Total time managing care of this patient today ____ minutes. Quality Stroke Does the patient have a stroke diagnosis?: Yes Reason for No Anti-thrombotic by Day Two: N/A - Med Ordered VTE Prior VTE?: No VTE Risk Level:: Surgical - high VTE Device Contraindication: N/A - Device Ordered VTE Drug Contraindication: N/A - Med Ordered
[2022-08-12 15:44] VITALS: BP 133/68; PULSE 87; RESP 19; TEMP 36.4; O2SAT 94
[2022-08-12 20:00] VITALS: BP 133/62; PULSE 86; RESP 18; TEMP 36.6; O2SAT 94
[2022-08-13 03:39] VITALS: BP 124/67; PULSE 87; RESP 19; TEMP 36.6; O2SAT 94
[2022-08-13 07:14] VITALS: BP 152/80; PULSE 83; RESP 19; TEMP 36.4; O2SAT 94
--- NOTE | 2022-08-13 08:30 | PM.PNGS ---
Subjective Subjective Date of Service: 08/13/22 Interval history: had some hypoxia yesterday otherwise, says pain is wellcontrolled as per nurse - no BMs documented pt tolerating diet Physical Exam Vital Signs: Vital Signs: Last Vital Signs Temp 97.6 F 08/13/22 07:14 Pulse 83 08/13/22 07:14 Resp 19 08/13/22 07:14 BP 152/80 H 08/13/22 07:14 Pulse Ox 94 08/13/22 07:14 O2 Del Method Nasal Cannula 08/13/22 07:14 O2 Flow Rate 3 08/13/22 07:14 BMI result Body Mass Index 43.4 Const: General: no acute distress Resp: Other: slightly shot of breath Cardio: Rate: regular rate GI: Other: incision clean and dry, obese Palpation (GI): Soft to palpation and not firm Objective Data Active Medications Acetaminophen (Acetaminophen 325 Mg Tablet) 975 mg PO Q6H PRN PRN Reason: Pain, Mild (Pain Scale 1-3) Al Hydroxide/Mg Hydroxide (Magnesium Hydrox/Alum Hydrox 30 Ml Oral.Susp) 10 ml PO Q6H PRN PRN Reason: Indigestion Albuterol Sulfate (Albuterol Sulfate (0.083%) 2.5 Mg/3 Ml Vial.Neb) 2.5 mg INHALE ONCE PRN PRN Reason: Wheezing Albuterol Sulfate (Albuterol Sulfate 90 Mcg 8 Gm Inhaler) 2 puff INHALE RQ4H PRN PRN Reason: Shortness Of Breath Amlodipine Besylate (Amlodipine Besylate 5 Mg Tablet) 5 mg PO DAILY [facility]; Protocol Clozapine (Clozapine 25 Mg Tablet) 150 mg PO BEDTIME [facility] Last Admin: 08/12/22 21:14 Dose: 150 mg Documented By: GRANT Cyclobenzaprine HCl (Cyclobenzaprine Hcl 5 Mg Tablet) 5 mg PO TID PRN PRN Reason: Muscle Spasm Dextrose (Dextrose 50 % 25 Gm/50 Ml Syringe) 25 gm IVPUSH Q15M PRN; Protocol PRN Reason: per Hypoglycemia Standing Ord. Diazepam (Diazepam 5 Mg Tablet) 5 mg PO BID [facility] Last Admin: 08/12/22 21:14 Dose: 5 mg Documented By: GRANT Docusate Sodium (Docusate Sodium 100 Mg Capsule) 100 mg PO BID [facility] Last Admin: 08/12/22 21:13 Dose: 100 mg Documented By: GRANT Duloxetine HCl (Duloxetine Hcl 30 Mg Capsule.) 30 mg PO DAILY [facility] Last Admin: 08/12/22 07:54 Dose: 30 mg Documented By: SHARON Duloxetine HCl (Duloxetine Hcl 60 Mg Capsule.) 60 mg PO BEDTIME [facility] Last Admin: 08/12/22 21:14 Dose: 60 mg Documented By: GRANT Enoxaparin Sodium (Enoxaparin Sodium 40 Mg/0.4 Ml Syringe) 40 mg SUBCUT Q24H [facility] Last Admin: 08/12/22 07:53 Dose: 40 mg Documented By: SHARON Famotidine (Famotidine 20 Mg Tablet) 20 mg PO DAILY PRN PRN Reason: Acid Reflux Fluticasone/Vilanterol (Fluticasone/Vilanterol 200/25 Blst.W.Dev) 1 puff INHALE DAILY [facility] Last Admin: 08/12/22 07:52 Dose: 1 puff Documented By: AYDE Glucose (Glucose Gel 15 Gm Gel..Gram.) 15 gm PO Q15M PRN; Protocol PRN Reason: per Hypoglycemia Standing Ord. Guaifenesin (Guaifenesin 100 Mg/5 Ml Liquid) 10 ml PO Q6H PRN PRN Reason: Cough Insulin Human Lispro (Insulin Lispro 100 Unit/Ml 3 Ml Vial) 0 unit SUBCUT QIDACHS [facility]; Protocol Last Admin: 08/13/22 07:36 Dose: Not Given Documented By: USMAN Non-Admin Reason: No Insulin Coverage Lamotrigine (Lamotrigine 100 Mg Tablet) 200 mg PO DAILY [facility] Last Admin: 08/12/22 07:54 Dose: 200 mg Documented By: SHARON Loperamide HCl (Loperamide Hcl 2 Mg Capsule) 2 mg PO BID PRN PRN Reason: Loose Stool Magnesium Hydroxide (Milk Of Magnesia 30 Ml Oral.Susp) 30 ml PO DAILY PRN PRN Reason: Constipation Meclizine HCl (Meclizine Hcl 25 Mg Tablet) 25 mg PO TID PRN PRN Reason: Vertigo Montelukast Sodium (Montelukast Sodium 10 Mg Tablet) 10 mg PO BEDTIME [facility] Last Admin: 08/12/22 21:13 Dose: 10 mg Documented By: GRANT Naloxone HCl (Naloxone Hcl 0.4 Mg/Ml Vial) 0.4 mg SUBCUT Q5M PRN PRN Reason: Opioid Overdose Naloxone HCl (Naloxone Hcl Nasal 4 Mg [place]) 4 mg NOSTRILALT Q5M PRN PRN Reason: Opioid Overdose Nicotine Polacrilex (Nicotine Polacrilex Lozenge 2 Mg Lozenge) 2 mg BUCCAL TID PRN PRN Reason: Nicotine Cravings Non-Formulary Medication (Atomoxetine) 75 mg PO DAILY [facility] Omeprazole (Omeprazole 40 Mg Capsule.Dr) 40 mg PO DAILY@0630 [facility] Last Admin: 08/13/22 05:31 Dose: Not Given Documented By: JENNI Non-Admin Reason: unable to wake pt Ondansetron HCl (Ondansetron Hcl 4 Mg/2 Ml Vial) 4 mg IVPUSH Q8H PRN PRN Reason: Nausea Oxycodone HCl (Oxycodone Hcl Immed Release 5 Mg Tablet) 10 mg PO Q4H PRN PRN Reason: Pain, Severe (Pain Scale 7-10) Last Admin: 08/12/22 07:53 Dose: 10 mg Documented By: SHARON Oxycodone HCl (Oxycodone Hcl Immed Release 5 Mg Tablet) 5 mg PO Q4H PRN PRN Reason: Pain, Moderate(Pain Scale 4-6) Pharmacy Consult (Consult Rx Perform Med Rec) 1 each MISCELLANE ONCE PRN PRN Reason: Consult order Polyethylene Glycol (Polyethylene Glycol 3350 17 Gm Powd.Pack) 17 gm PO BEDTIME [facility] Last Admin: 08/12/22 21:13 Dose: 17 gm Documented By: GRANT Pregabalin (Pregabalin 200 Mg Capsule) 200 mg PO DAILY@0900 [facility] Last Admin: 08/12/22 07:54 Dose: 200 mg Documented By: SHARON Pregabalin (Pregabalin 150 Mg Capsule) 300 mg PO BEDTIME [facility] Last Admin: 08/12/22 21:14 Dose: 300 mg Documented By: GRANT Quetiapine Fumarate (Quetiapine Fumarate 50 Mg Tablet) 50 mg PO BEDTIME [facility] Last Admin: 08/12/22 21:14 Dose: 50 mg Documented By: GRANT Quetiapine Fumarate (Quetiapine Fumarate 100 Mg Tablet) 100 mg PO BEDTIME [facility] Last Admin: 08/12/22 21:14 Dose: 100 mg Documented By: GRANT Sodium Biphosphate/Sodium Phosphate (Sodium Phosphate,[place]-Dibasic 133 Ml Enema) 118 ml [place] DAILY PRN PRN Reason: Constipation Zonisamide (Zonisamide 100 Mg Capsule) 100 mg PO DAILY [facility] Last Admin: 08/12/22 07:51 Dose: 100 mg Documented By: SHARON Labs 08/12/22 05:21 08/12/22 05:21 Labs: Laboratory Results - last 24 hr 08/12/22 08/12/22 08/12/22 11:00 16:03 20:47 POC Glucose 112 121 H 113 08/13/22 07:13 POC Glucose 120 H Procedures Date of Service Date of Service: 08/13/22 Progress Note: A&P Assessment and plan (1) Retroperitoneal air: Status: Acute Assessment and Plan: negative laparotomy looks well good pain control tolerating diet no BMs reported - pt has hx of constipation push incentive spirometry - pt does not appear reliable pain control increase activity level ffup CXR ordered by Hospitalist to rule out infiltrates - appreciate ffup Time Spent With Patient Time: Total time managing care of this patient today ____ minutes. Quality Stroke Does the patient have a stroke diagnosis?: Yes Reason for No Anti-thrombotic by Day Two: N/A - Med Ordered VTE Prior VTE?: No VTE Risk Level:: Surgical - high VTE Device Contraindication: N/A - Device Ordered VTE Drug Contraindication: N/A - Med Ordered
[2022-08-13 09:18] VITALS: PULSE 79; RESP 18; O2SAT 93
--- NOTE | 2022-08-13 11:03 | HO.PM.IMPN ---
Subjective Subjective Date of Service: 08/13/22 Interval History: denies fever or cough denies abd pain still on O2 constipated Review of Systems Review of Systems: Yes all other systems are reviewed and are negative Physical Exam Vital Signs: Vital Signs: Last Vital Signs Temp 97.6 F 08/13/22 07:14 Pulse 79 08/13/22 09:18 Resp 18 08/13/22 09:18 BP 152/80 H 08/13/22 07:14 Pulse Ox 94 08/13/22 07:14 O2 Del Method Nasal Cannula 08/13/22 07:14 O2 Flow Rate 3 08/13/22 07:14 BMI result Body Mass Index 43.4 Gen: in no acute distress HEENT: sclera anicteric, moist mucus membranes Neck: supple Lungs: bibasilar inspiratory crackles Heart: regular rate and rhythm, no murmurs Abd: soft, non-tender, non-distended, obese, midline surgical wound C/D/I Ext: no edema Skin: warm/well-perfused Neuro: alert and oriented x3, no focal findings Psych: appropriate affect Objective Data Active Medications Acetaminophen (Acetaminophen 325 Mg Tablet) 975 mg PO Q6H PRN PRN Reason: Pain, Mild (Pain Scale 1-3) Al Hydroxide/Mg Hydroxide (Magnesium Hydrox/Alum Hydrox 30 Ml Oral.Susp) 10 ml PO Q6H PRN PRN Reason: Indigestion Albuterol Sulfate (Albuterol Sulfate (0.083%) 2.5 Mg/3 Ml Vial.Neb) 2.5 mg INHALE ONCE PRN PRN Reason: Wheezing Albuterol Sulfate (Albuterol Sulfate 90 Mcg 8 Gm Inhaler) 2 puff INHALE RQ4H PRN PRN Reason: Shortness Of Breath Amlodipine Besylate (Amlodipine Besylate 5 Mg Tablet) 5 mg PO DAILY [facility]; Protocol Last Admin: 08/13/22 08:43 Dose: 5 mg Documented By: USMAN Clozapine (Clozapine 25 Mg Tablet) 150 mg PO BEDTIME [facility] Last Admin: 08/12/22 21:14 Dose: 150 mg Documented By: GRANT Cyclobenzaprine HCl (Cyclobenzaprine Hcl 5 Mg Tablet) 5 mg PO TID PRN PRN Reason: Muscle Spasm Dextrose (Dextrose 50 % 25 Gm/50 Ml Syringe) 25 gm IVPUSH Q15M PRN; Protocol PRN Reason: per Hypoglycemia Standing Ord. Diazepam (Diazepam 5 Mg Tablet) 5 mg PO BID [facility] Last Admin: 08/13/22 08:43 Dose: 5 mg Documented By: USMAN Docusate Sodium (Docusate Sodium 100 Mg Capsule) 100 mg PO BID [facility] Last Admin: 08/13/22 08:43 Dose: 100 mg Documented By: USMAN Duloxetine HCl (Duloxetine Hcl 30 Mg Capsule.) 30 mg PO DAILY [facility] Last Admin: 08/13/22 08:43 Dose: 30 mg Documented By: USMAN Duloxetine HCl (Duloxetine Hcl 60 Mg Capsule.) 60 mg PO BEDTIME [facility] Last Admin: 08/12/22 21:14 Dose: 60 mg Documented By: GRANT Enoxaparin Sodium (Enoxaparin Sodium 40 Mg/0.4 Ml Syringe) 40 mg SUBCUT Q24H [facility] Last Admin: 08/13/22 08:43 Dose: 40 mg Documented By: USMAN Famotidine (Famotidine 20 Mg Tablet) 20 mg PO DAILY PRN PRN Reason: Acid Reflux Fluticasone/Vilanterol (Fluticasone/Vilanterol 200/25 Blst.W.Dev) 1 puff INHALE DAILY [facility] Last Admin: 08/13/22 09:17 Dose: 1 puff Documented By: JENNIFER Glucose (Glucose Gel 15 Gm Gel..Gram.) 15 gm PO Q15M PRN; Protocol PRN Reason: per Hypoglycemia Standing Ord. Guaifenesin (Guaifenesin 100 Mg/5 Ml Liquid) 10 ml PO Q6H PRN PRN Reason: Cough Insulin Human Lispro (Insulin Lispro 100 Unit/Ml 3 Ml Vial) 0 unit SUBCUT QIDACHS [facility]; Protocol Last Admin: 08/13/22 07:36 Dose: Not Given Documented By: USMAN Non-Admin Reason: No Insulin Coverage Lamotrigine (Lamotrigine 100 Mg Tablet) 200 mg PO DAILY [facility] Last Admin: 08/13/22 08:43 Dose: 200 mg Documented By: USMAN Loperamide HCl (Loperamide Hcl 2 Mg Capsule) 2 mg PO BID PRN PRN Reason: Loose Stool Magnesium Hydroxide (Milk Of Magnesia 30 Ml Oral.Susp) 30 ml PO DAILY PRN PRN Reason: Constipation Meclizine HCl (Meclizine Hcl 25 Mg Tablet) 25 mg PO TID PRN PRN Reason: Vertigo Montelukast Sodium (Montelukast Sodium 10 Mg Tablet) 10 mg PO BEDTIME [facility] Last Admin: 08/12/22 21:13 Dose: 10 mg Documented By: GRANT Naloxone HCl (Naloxone Hcl 0.4 Mg/Ml Vial) 0.4 mg SUBCUT Q5M PRN PRN Reason: Opioid Overdose Naloxone HCl (Naloxone Hcl Nasal 4 Mg [place]) 4 mg NOSTRILALT Q5M PRN PRN Reason: Opioid Overdose Nicotine Polacrilex (Nicotine Polacrilex Lozenge 2 Mg Lozenge) 2 mg BUCCAL TID PRN PRN Reason: Nicotine Cravings Non-Formulary Medication (Atomoxetine) 75 mg PO DAILY [facility] Omeprazole (Omeprazole 40 Mg Capsule.Dr) 40 mg PO DAILY@0630 [facility] Last Admin: 08/13/22 05:31 Dose: Not Given Documented By: JENNI Non-Admin Reason: unable to wake pt Ondansetron HCl (Ondansetron Hcl 4 Mg/2 Ml Vial) 4 mg IVPUSH Q8H PRN PRN Reason: Nausea Oxycodone HCl (Oxycodone Hcl Immed Release 5 Mg Tablet) 10 mg PO Q4H PRN PRN Reason: Pain, Severe (Pain Scale 7-10) Last Admin: 08/12/22 07:53 Dose: 10 mg Documented By: SHARON Oxycodone HCl (Oxycodone Hcl Immed Release 5 Mg Tablet) 5 mg PO Q4H PRN PRN Reason: Pain, Moderate(Pain Scale 4-6) Pharmacy Consult (Consult Rx Perform Med Rec) 1 each MISCELLANE ONCE PRN PRN Reason: Consult order Polyethylene Glycol (Polyethylene Glycol 3350 17 Gm Powd.Pack) 17 gm PO BID [facility] Pregabalin (Pregabalin 200 Mg Capsule) 200 mg PO DAILY@0900 [facility] Last Admin: 08/13/22 08:43 Dose: 200 mg Documented By: USMAN Pregabalin (Pregabalin 150 Mg Capsule) 300 mg PO BEDTIME [facility] Last Admin: 08/12/22 21:14 Dose: 300 mg Documented By: GRANT Quetiapine Fumarate (Quetiapine Fumarate 50 Mg Tablet) 50 mg PO BEDTIME [facility] Last Admin: 08/12/22 21:14 Dose: 50 mg Documented By: GRANT Quetiapine Fumarate (Quetiapine Fumarate 100 Mg Tablet) 100 mg PO BEDTIME [facility] Last Admin: 08/12/22 21:14 Dose: 100 mg Documented By: GRANT Senna/Docusate Sodium (Sennosides/Docusate Sodium Tablet) 2 tab PO BID [facility] Sodium Biphosphate/Sodium Phosphate (Sodium Phosphate,[place]-Dibasic 133 Ml Enema) 118 ml [place] DAILY PRN PRN Reason: Constipation Zonisamide (Zonisamide 100 Mg Capsule) 100 mg PO DAILY [facility] Last Admin: 08/13/22 08:43 Dose: 100 mg Documented By: USMAN Labs 08/12/22 05:21 08/12/22 05:21 Labs: Laboratory Results - last 24 hr 08/12/22 08/12/22 08/12/22 11:00 16:03 20:47 POC Glucose 112 121 H 113 08/13/22 07:13 POC Glucose 120 H Assessment and Plan (1) Retroperitoneal air: Status: Acute (2) Hypoxia: Status: Acute Plan hospital d#4 61yo F LTC resident of [facility] with history of cerebral infarction, schizoaffective disorder, factitious disorder, asthma/COPD overlap, acute respiratory failure, dysphagia, osteoporosis, glaucoma, type 2 diabetes, hyperlipidemia, hypertension, history of diverticulitis with perforation, history of cardiac arrest following aspiration, and PTSD admitted to general surgery with consult placed to hospital medicine for medical management. # abdominal pain/retroperitoneal air by CT - s/p negative ex-lap 08/10/22 - manage constipation with bowel regimen # acute resp failure with hypoxia, ?LLL infiltrate - recheck CXR 2V and labs today; hold ABX for now - pt has OHS; IS - wean O2 as tolerated # asthma/COPD overlap - no acute exacerbation - continue maintenance + rescue inhalers # GERD - continue PPI + prn famotidine # schizoaffective disorder - continue antipsychotics + mood stabilizers + antidepressants # hypertension - resume amlodipine # DM2 - correction-dose lispro, DM diet # VTE ppx: LMWH # dispo: eventual return to LTC Thank you for this consult. We will continue to follow Time Spent With Patient Time: Total time managing care of this patient today ____ minutes. 35 Quality Stroke Does the patient have a stroke diagnosis?: Yes Reason for No Anti-thrombotic by Day Two: N/A - Med Ordered VTE Prior VTE?: No VTE Risk Level:: Surgical - high VTE Device Contraindication: N/A - Device Ordered VTE Drug Contraindication: N/A - Med Ordered
[2022-08-13 15:33] VITALS: BP 144/65; PULSE 86; RESP 20; TEMP 36.6; O2SAT 98
[2022-08-13 19:36] VITALS: BP 136/66; PULSE 90; RESP 16; TEMP 36.9; O2SAT 93
--- NOTE | 2022-08-13 23:18 | PC.NURSE ---
Addendum entered by Rima Gutierrez 08/14/22 04:24: Pt POC 123 taken at 0414, no insulin coverage needed Addendum entered by Rima Gutierrez 08/13/22 23:41: Dr. Lee notified of pt refusal for POC Original Note: Pt refused POC stated that she doesn't have diabetes. Educated pt why her blood sugar was being checked, pt still refused. No insulin given.
[2022-08-14 04:00] VITALS: BP 106/55; PULSE 83; RESP 20; TEMP 36.6; O2SAT 96
--- NOTE | 2022-08-14 04:56 | PC.NURSE ---
Pt was on 2L via NC, O2 was fluctuating between 85-90% on 6L via NC, no respiratory distress. Respiratory was called and placed pt on 10L via Oxy mask. Pt O2 right now is 96%. Dr. Lee was notified
[2022-08-14 07:11] VITALS: BP 132/84; PULSE 79; RESP 19; TEMP 36.6; O2SAT 96
[2022-08-14 07:40] VITALS: PULSE 86; RESP 20; O2SAT 97
--- NOTE | 2022-08-14 08:06 | PM.DS ---
DS: Providers Provider Date of Service: 08/14/22 Date of admission: 08/10/22 18:02 Date of discharge: 08/14/22 Primary care physician: LETITIA LOONEY Admitting clinician: Dwayne Gutierres Consults: 08/10/22 21:37 Consult to Hospitalist Routine Comment: Consulting Provider: Hospitalist Reason For Exam: s/p exp lap. med management Discharging clinician: Dwayne Gutierres DS: Transfer Hospital Acceptance Reason for Transfer: ?[facility] Name of Facility: [facility] Accepting Provider: Patient previous resident DS: Diagnosis Discharge Diagnosis (1) Retroperitoneal air: Status: Acute (2) Hypoxia: Status: Acute DS: Summary Status at Discharge Cognitive/behavioral status at discharge: Valentina Velez is a 61 year old female presenting with complaints of abdominal pain in the lower abdomen along with rectal bleeding beginning this morning proximally? 09:30.? Patient and no prior history of similar symptoms.? She has had a previous? bowel surgery which she believes was for diverticulitis.? The pain seems to move between the left and right quadrant and is 10/10 in severity.? She presented to the emergency department and was noted to have a normal WBC.? CT abdomen and pelvis however does reveal retroperitoneal air in the pelvis.? It is difficult to discern the site of leak due to hardware in the back and right hip.? Findings are suggestive of a perforated viscus of unknown etiology.? She has been admitted to the surgical service for further management.? Her past history is significant for ?cerebral infarction, schizoaffective disorder, COPD, acute respiratory failure, atelectasis, dysphagia, asthma, hyperlipidemia, essential hypertension, diverticulitis with perforation, ileus, PTSD. On examination the patient is noted to be obese with tenderness in the lower abdomen with rebound, guarding and rigidity suggestive of a perforated viscus. We discussed the options of observation with repeat CT scan in a.m. verses exploratory laparotomy. The patient felt strongly that we should proceed with exploratory laparotomy. This was discussed with her brother and attempt made to call her guardian. A brother also agreed with the surgery and given the urgency of the situation she was taken on 08/10/2022 for exploratory laparotomy. Consent was eventually obtain from her guardian as well. Hospital course: Exploratory laparotomy was performed on 08/10/2022. Operative findings were normal large and small bowel with no evidence of perforation, abscess, intraperitoneal fluid or bleeding. No explanation for the preperitoneal air was identified as all the bowel appeared normal. Note was made of the extensive hard stool in the colon and rectum which may explain the rectal bleeding. Postoperatively the patient remained hemodynamically stable. She was started on clear liquids after the surgery and advanced to regular diet over the next 24 hours. She tolerated this well but did not pass a bowel movement until 08/13/2022. She reports feeling much improved with no further abdominal pain, rectal bleeding, nausea or vomiting. She feels ready to return to her long-term care at [facility]. Examination on 08/14/2022 reveals her abdomen to be soft, nondistended, nontender. Midline incision is clean, dry, and intact. Adin remain in situ. She will be discharged today with follow-up in the office in approximately 1 week. I will add Colace twice daily to her bowel regime. Time Spent with Patient Time attestation: Total time managing care of this patient today ____ minutes. Discharge coordination time: Less than 30 minutes Quality: Safe Use of Opioids Does Pt have an Active Cancer Diagnosis on the Problem List?: No Quality: Stroke Does the patient have a stroke diagnosis?: No Physical Exam Vital Signs: Vital Signs: Last Vital Signs Temp 98 F 08/14/22 07:11 Pulse 86 08/14/22 07:40 Resp 20 08/14/22 07:40 BP 132/84 08/14/22 07:11 Pulse Ox 96 08/14/22 07:11 O2 Del Method Oxymask 08/14/22 07:11 O2 Flow Rate 10 08/14/22 07:11 BMI result Body Mass Index 43.4 DS: Data Data Completed and Pending Completed studies during hospitalization [Text1]: Procedures Insertion of Endotracheal Airway into Trachea, Via Natural or Artificial Opening (01/04/22) Insertion of Infusion Device into Upper Vein, Percutaneous Approach (01/04/22) Introduction of Vasopressor into Peripheral Artery, Percutaneous Approach (01/04/22) Respiratory Ventilation, Less than 24 Consecutive Hours (01/04/22) Labs on day of discharge: Laboratory Results - last 24 hr 08/13/22 08/13/22 08/13/22 11:06 16:02 19:15 WBC 7.7 RBC 3.91 L Hgb 11.3 L Hct 35.9 L MCV 91.8 MCH 28.9 MCHC 31.5 RDW 14.3 Plt Count 179 MPV 9.9 Absolute Nucleated RBC 0.000 Nucleated RBC % (auto) 0.0 Sodium Potassium Chloride Carbon Dioxide Anion Gap BUN Creatinine Estim Creat Clear Calc Estimated GFR POC Glucose 140 H 104 Random Glucose Calcium Procalcitonin 08/13/22 08/14/22 08/14/22 19:15 04:13 07:10 WBC RBC Hgb Hct MCV MCH MCHC RDW Plt Count MPV Absolute Nucleated RBC Nucleated RBC % (auto) Sodium 141 Potassium 3.3 Chloride 105 Carbon Dioxide 24 Anion Gap 15 BUN 11 Creatinine 0.75 Estim Creat Clear Calc 104.8 Estimated GFR > 60 POC Glucose 123 H 122 H Random Glucose 143 H Calcium 8.9 D Procalcitonin 0.13 Discharge Plan Discharge Anticipated Discharge Date/Time: 08/14/22 08:04 Patient Disposition: Xfer SNF Discharge Diagnosis: Retroperitoneal air, abdominal pain, rectal bleeding Referrals: Dwayne Gutierres MD [Physician] - 1 Week LETITIA LOONEY [Primary Care Provider] - 1 Week Discharge Medications: New docusate sodium [Colace] 100 mg capsule 100 mg PO BID Qty: 60 4RF Continued amlodipine 5 mg tablet 1 tab PO DAILY omeprazole 40 mg capsule,delayed release(DR/EC) 40 mg PO DAILY@0630 quetiapine 100 mg tablet 100 mg PO BEDTIME Rx Instructions: take with 50mg for total dose 150mg acetaminophen 500 mg Tablet 1,000 mg PO BID montelukast 10 mg tablet 1 tab PO BEDTIME diazepam 5 mg tablet 5 mg PO BID duloxetine 60 mg capsule,delayed release(DR/EC) 60 mg PO BEDTIME pregabalin 300 mg capsule 1 cap PO BEDTIME magnesium hydroxide [Milk of Magnesia] 400 mg/5 mL Suspension 30 ml PO DAILY PRN (Reason: Constipation) Rx Instructions: D/C if on dialysis magnesium citrate Solution 150 ml PO Q4H PRN (Reason: Constipation) atomoxetine 25 mg Capsule 75 mg PO DAILY nicotine (polacrilex) 2 mg Lozenge 2 mg BUCCAL TID PRN (Reason: Nicotine Cravings) pregabalin 200 mg Capsule 200 mg PO DAILY@0900 loperamide 2 mg Capsule 2 mg PO BID PRN (Reason: Loose Stool) Rx Instructions: administer after each loose stool until symptoms controlled; do not exceed 8 mg per 24 hrs guaifenesin 100 mg/5 mL Liquid 300 mg PO Q6H PRN (Reason: Cough) zonisamide 100 mg capsule 1 cap PO DAILY famotidine 20 mg tablet 1 tab PO DAILY PRN (Reason: Acid Reflux) alum-mag hydroxide-simeth 200-200-20 mg/5 mL Suspension 10 ml PO Q6H PRN (Reason: Indigestion) albuterol sulfate [Proventil HFA] 90 mcg/actuation Hfa Aerosol Inhaler 2 puff INHALATION Q4H PRN (Reason: Shortness Of Breath) cholecalciferol (vitamin D3) 1,250 mcg (50,000 unit) Capsule 1,250 mcg PO QMONTH Rx Instructions: takes on the 3rd of each month lamotrigine 200 mg Tablet 200 mg PO DAILY polyethylene glycol 3350 [Miralax] 17 gram Powder In Packet 17 g PO BEDTIME Rx Instructions: mix with 4-oz of fluid of choice naloxone 0.4 mg/mL Solution 0.4 mg SUBCUT Q5M PRN (Reason: Opioid Overdose) Rx Instructions: NTExceed 10 mg total dose/episode meclizine 25 mg Tablet 25 mg PO TID PRN (Reason: Vertigo) fluticasone propion-salmeterol [Wixela Inhub] 500-50 mcg/dose Blister With Device 1 inh INHALATION BID Fleet Enema 19-7 gram/118 mL Enema 118 ml [place] DAILY PRN (Reason: Constipation) cyclobenzaprine 5 mg Tablet 5 mg PO TID PRN (Reason: Muscle Spasm) duloxetine 30 mg Capsule,Delayed Release(Dr/Ec) 30 mg PO DAILY clozapine 50 mg tablet 150 mg PO BEDTIME quetiapine 50 mg Tablet 50 mg PO BEDTIME Rx Instructions: take with 100mg for total dose 150mg diclofenac sodium [Voltaren Arthritis Pain] 1 % Gel 2 g TOPICAL DAILY PRN (Reason: discomfort) Rx Instructions: apply to affected areas of discomfort naloxone [Narcan] 4 mg/actuation [place],Non-Aerosol 4 mg INTRANASAL Q5M PRN (Reason: Opioid Overdose) Rx Instructions: spray 1 dose into ONE nostril; alternate nostrils w each dose until help arrives Discharge Orders: Discharge Order (Routine); Ordered 08/14/22 Ordered By: Dwayne Gutierres Diet: Advance to usual diet Activity on Discharge: No heavy lifting Stand Alone Forms: Patient Portal Discharge page Care Plan Goals: Return to normal diet activity Health Concerns: Abdominal pain lower abdomen, free air noted in retroperitoneum by CT Plan of Treatment: Exploratory laparotomy 08/10/2022 Assessment: Negative exploratory laparotomy for perforation, large intestine Full of stool
--- NOTE | 2022-08-14 08:07 | PM.DS ---
DS: Providers Provider Date of Service: 08/14/22 Date of admission: 08/10/22 18:02 Date of discharge: 08/14/22 Primary care physician: LETITIA LOONEY Attending physician on admission: Dwayne Gutierres Consults: 08/10/22 21:37 Consult to Hospitalist Routine Comment: Consulting Provider: Hospitalist Reason For Exam: s/p exp lap. med management Attending physician on discharge: Dwayne Gutierres DS: Diagnosis Discharge Diagnosis (1) Retroperitoneal air: Status: Acute (2) Hypoxia: Status: Acute DS: Summary Hospital Course Hospital Course: HPI AT ADMISSION: Valentina Velez is a 61 year old female presenting with complaints of abdominal pain in the lower abdomen along with rectal bleeding beginning this morning proximally 09:30. Patient and no prior history of similar symptoms. She has had a previous bowel surgery which she believes was for diverticulitis. The pain seems to move between the left and right quadrant and is 10/10 in severity. She presented to the emergency department and was noted to have a normal WBC. CT abdomen and pelvis however does reveal retroperitoneal air in the pelvis. It is difficult to discern the site of leak due to hardware in the back and right hip. Findings are suggestive of a perforated viscus of unknown etiology. She has been admitted to the surgical service for further management. Her past history is significant for cerebral infarction, schizoaffective disorder, COPD, acute respiratory failure, atelectasis, dysphagia, asthma, hyperlipidemia, essential hypertension, diverticulitis with perforation, ileus, PTSD. HOSPITAL COURSE: Status at Discharge Overall status at discharge: patient is not back to baseline Time Spent with Patient Time attestation: Total time managing care of this patient today ____ minutes. Physical Exam Vital Signs: Vital Signs: Last Vital Signs Temp 98 F 08/14/22 07:11 Pulse 86 08/14/22 07:40 Resp 20 08/14/22 07:40 BP 132/84 08/14/22 07:11 Pulse Ox 96 08/14/22 07:11 O2 Del Method Oxymask 08/14/22 07:11 O2 Flow Rate 10 08/14/22 07:11 BMI result Body Mass Index 43.4 DS: Data Data Completed and Pending Completed studies during hospitalization [Text1]: Procedures Insertion of Endotracheal Airway into Trachea, Via Natural or Artificial Opening (01/04/22) Insertion of Infusion Device into Upper Vein, Percutaneous Approach (01/04/22) Introduction of Vasopressor into Peripheral Artery, Percutaneous Approach (01/04/22) Respiratory Ventilation, Less than 24 Consecutive Hours (01/04/22) Labs on day of discharge: Laboratory Results - last 24 hr 08/13/22 08/13/22 08/13/22 11:06 16:02 19:15 WBC 7.7 RBC 3.91 L Hgb 11.3 L Hct 35.9 L MCV 91.8 MCH 28.9 MCHC 31.5 RDW 14.3 Plt Count 179 MPV 9.9 Absolute Nucleated RBC 0.000 Nucleated RBC % (auto) 0.0 Sodium Potassium Chloride Carbon Dioxide Anion Gap BUN Creatinine Estim Creat Clear Calc Estimated GFR POC Glucose 140 H 104 Random Glucose Calcium Procalcitonin 08/13/22 08/14/22 08/14/22 19:15 04:13 07:10 WBC RBC Hgb Hct MCV MCH MCHC RDW Plt Count MPV Absolute Nucleated RBC Nucleated RBC % (auto) Sodium 141 Potassium 3.3 Chloride 105 Carbon Dioxide 24 Anion Gap 15 BUN 11 Creatinine 0.75 Estim Creat Clear Calc 104.8 Estimated GFR > 60 POC Glucose 123 H 122 H Random Glucose 143 H Calcium 8.9 D Procalcitonin 0.13 Discharge Plan Discharge Anticipated Discharge Date/Time: 08/14/22 08:04 Patient Disposition: Xfer [facility] Discharge Diagnosis: Retroperitoneal air, abdominal pain, rectal bleeding Referrals: Dwayne Gutierres MD [Physician] - 1 Week LETITIA LOONEY [Primary Care Provider] - 1 Week Discharge Medications: New docusate sodium [Colace] 100 mg capsule 100 mg PO BID Qty: 60 4RF Continued amlodipine 5 mg tablet 1 tab PO DAILY omeprazole 40 mg capsule,delayed release(DR/EC) 40 mg PO DAILY@0630 quetiapine 100 mg tablet 100 mg PO BEDTIME Rx Instructions: take with 50mg for total dose 150mg acetaminophen 500 mg Tablet 1,000 mg PO BID montelukast 10 mg tablet 1 tab PO BEDTIME diazepam 5 mg tablet 5 mg PO BID duloxetine 60 mg capsule,delayed release(DR/EC) 60 mg PO BEDTIME pregabalin 300 mg capsule 1 cap PO BEDTIME magnesium hydroxide [Milk of Magnesia] 400 mg/5 mL Suspension 30 ml PO DAILY PRN (Reason: Constipation) Rx Instructions: D/C if on dialysis magnesium citrate Solution 150 ml PO Q4H PRN (Reason: Constipation) atomoxetine 25 mg Capsule 75 mg PO DAILY nicotine (polacrilex) 2 mg Lozenge 2 mg BUCCAL TID PRN (Reason: Nicotine Cravings) pregabalin 200 mg Capsule 200 mg PO DAILY@0900 loperamide 2 mg Capsule 2 mg PO BID PRN (Reason: Loose Stool) Rx Instructions: administer after each loose stool until symptoms controlled; do not exceed 8 mg per 24 hrs guaifenesin 100 mg/5 mL Liquid 300 mg PO Q6H PRN (Reason: Cough) zonisamide 100 mg capsule 1 cap PO DAILY famotidine 20 mg tablet 1 tab PO DAILY PRN (Reason: Acid Reflux) alum-mag hydroxide-simeth 200-200-20 mg/5 mL Suspension 10 ml PO Q6H PRN (Reason: Indigestion) albuterol sulfate [Proventil HFA] 90 mcg/actuation Hfa Aerosol Inhaler 2 puff INHALATION Q4H PRN (Reason: Shortness Of Breath) cholecalciferol (vitamin D3) 1,250 mcg (50,000 unit) Capsule 1,250 mcg PO QMONTH Rx Instructions: takes on the 3rd of each month lamotrigine 200 mg Tablet 200 mg PO DAILY polyethylene glycol 3350 [Miralax] 17 gram Powder In Packet 17 g PO BEDTIME Rx Instructions: mix with 4-oz of fluid of choice naloxone 0.4 mg/mL Solution 0.4 mg SUBCUT Q5M PRN (Reason: Opioid Overdose) Rx Instructions: NTExceed 10 mg total dose/episode meclizine 25 mg Tablet 25 mg PO TID PRN (Reason: Vertigo) fluticasone propion-salmeterol [Wixela Inhub] 500-50 mcg/dose Blister With Device 1 inh INHALATION BID Fleet Enema 19-7 gram/118 mL Enema 118 ml [place] DAILY PRN (Reason: Constipation) cyclobenzaprine 5 mg Tablet 5 mg PO TID PRN (Reason: Muscle Spasm) duloxetine 30 mg Capsule,Delayed Release(Dr/Ec) 30 mg PO DAILY clozapine 50 mg tablet 150 mg PO BEDTIME quetiapine 50 mg Tablet 50 mg PO BEDTIME Rx Instructions: take with 100mg for total dose 150mg diclofenac sodium [Voltaren Arthritis Pain] 1 % Gel 2 g TOPICAL DAILY PRN (Reason: discomfort) Rx Instructions: apply to affected areas of discomfort naloxone [Narcan] 4 mg/actuation [place],Non-Aerosol 4 mg INTRANASAL Q5M PRN (Reason: Opioid Overdose) Rx Instructions: spray 1 dose into ONE nostril; alternate nostrils w each dose until help arrives Discharge Orders: Discharge Order (Routine); Ordered 08/14/22 Ordered By: Dwayne Gutierres Diet: Advance to usual diet Activity on Discharge: No heavy lifting Stand Alone Forms: Patient Portal Discharge page Care Plan Goals: Return to normal diet activity Health Concerns: Abdominal pain lower abdomen, free air noted in retroperitoneum by CT Plan of Treatment: Exploratory laparotomy 08/10/2022 Assessment: Negative exploratory laparotomy for perforation, large intestine Full of stool
[2022-08-14 08:50] VITALS: O2SAT 94
--- NOTE | 2022-08-14 08:56 | MHC.CM.PN ---
Addendum entered by Opal Goodwin 08/14/22 13:18: PT'S DC CX, CENTER MADE AWARE. GUARDIAN NOTIFIED. Original Note: DP: PT HAS BEEN MEDICALLY CLEARED FOR DC BACK TO LTC AT [facility]. GUARDIAN MAINE UPDATED VIA AT [phone] AND IMM ADDRESSED. WHITE COPY TO BE MAILED, YELLOW COPY TO CHART. RN NOTIFIED. CENTER NOTIFIED VIA [employer]. S TRANSPORT BOOKED FOR 10:30 AM VIA [facility]
--- NOTE | 2022-08-14 09:17 | HO.PM.IMPN ---
Subjective Subjective Date of Service: 08/14/22 Interval History: still on O2 due to overnight desaturations having BMs Review of Systems Review of Systems: Yes all other systems are reviewed and are negative Physical Exam Vital Signs: Vital Signs: Last Vital Signs Temp 98 F 08/14/22 07:11 Pulse 86 08/14/22 07:40 Resp 20 08/14/22 07:40 BP 132/84 08/14/22 07:11 Pulse Ox 94 08/14/22 08:50 O2 Del Method Nasal Cannula 08/14/22 08:50 O2 Flow Rate 2 08/14/22 08:50 BMI result Body Mass Index 43.4 Gen: in no acute distress HEENT: sclera anicteric, moist mucus membranes Neck: supple Lungs: diminished breath sounds Heart: regular rate and rhythm, no murmurs Abd: soft, non-tender, non-distended, obese, midline surgical wound C/D/I Ext: no edema Skin: warm/well-perfused Neuro: alert and oriented x3, no focal findings Psych: appropriate affect Objective Data Active Medications Acetaminophen (Acetaminophen 325 Mg Tablet) 975 mg PO Q6H PRN PRN Reason: Pain, Mild (Pain Scale 1-3) Al Hydroxide/Mg Hydroxide (Magnesium Hydrox/Alum Hydrox 30 Ml Oral.Susp) 10 ml PO Q6H PRN PRN Reason: Indigestion Albuterol Sulfate (Albuterol Sulfate (0.083%) 2.5 Mg/3 Ml Vial.Neb) 2.5 mg INHALE ONCE PRN PRN Reason: Wheezing Albuterol Sulfate (Albuterol Sulfate 90 Mcg 8 Gm Inhaler) 2 puff INHALE RQ4H PRN PRN Reason: Shortness Of Breath Amlodipine Besylate (Amlodipine Besylate 5 Mg Tablet) 5 mg PO DAILY [facility]; Protocol Last Admin: 08/14/22 08:42 Dose: 5 mg Documented By: QUIANA Clozapine (Clozapine 25 Mg Tablet) 150 mg PO BEDTIME [facility] Last Admin: 08/13/22 21:39 Dose: 150 mg Documented By: TYSON Cyclobenzaprine HCl (Cyclobenzaprine Hcl 5 Mg Tablet) 5 mg PO TID PRN PRN Reason: Muscle Spasm Dextrose (Dextrose 50 % 25 Gm/50 Ml Syringe) 25 gm IVPUSH Q15M PRN; Protocol PRN Reason: per Hypoglycemia Standing Ord. Diazepam (Diazepam 5 Mg Tablet) 5 mg PO BID [facility] Last Admin: 08/14/22 08:43 Dose: 5 mg Documented By: QUIANA Docusate Sodium (Docusate Sodium 100 Mg Capsule) 100 mg PO BID [facility] Last Admin: 08/14/22 08:41 Dose: 100 mg Documented By: QUIANA Duloxetine HCl (Duloxetine Hcl 30 Mg Capsule.) 30 mg PO DAILY [facility] Last Admin: 08/13/22 08:43 Dose: 30 mg Documented By: USMAN Duloxetine HCl (Duloxetine Hcl 60 Mg Capsule.) 60 mg PO BEDTIME [facility] Last Admin: 08/13/22 21:39 Dose: 60 mg Documented By: TYSON Enoxaparin Sodium (Enoxaparin Sodium 40 Mg/0.4 Ml Syringe) 40 mg SUBCUT Q24H [facility] Last Admin: 08/14/22 08:43 Dose: 40 mg Documented By: QUIANA Famotidine (Famotidine 20 Mg Tablet) 20 mg PO DAILY PRN PRN Reason: Acid Reflux Fluticasone/Vilanterol (Fluticasone/Vilanterol 200/25 Blst.W.Dev) 1 puff INHALE DAILY [facility] Last Admin: 08/14/22 07:38 Dose: 1 puff Documented By: ESSENCE Glucose (Glucose Gel 15 Gm Gel..Gram.) 15 gm PO Q15M PRN; Protocol PRN Reason: per Hypoglycemia Standing Ord. Guaifenesin (Guaifenesin 100 Mg/5 Ml Liquid) 10 ml PO Q6H PRN PRN Reason: Cough Insulin Human Lispro (Insulin Lispro 100 Unit/Ml 3 Ml Vial) 0 unit SUBCUT QIDACHS [facility]; Protocol Last Admin: 08/14/22 08:04 Dose: Not Given Documented By: QUIANA Non-Admin Reason: No Insulin Coverage Lamotrigine (Lamotrigine 100 Mg Tablet) 200 mg PO DAILY [facility] Last Admin: 08/14/22 08:41 Dose: 200 mg Documented By: QUIANA Loperamide HCl (Loperamide Hcl 2 Mg Capsule) 2 mg PO BID PRN PRN Reason: Loose Stool Magnesium Hydroxide (Milk Of Magnesia 30 Ml Oral.Susp) 30 ml PO DAILY PRN PRN Reason: Constipation Meclizine HCl (Meclizine Hcl 25 Mg Tablet) 25 mg PO TID PRN PRN Reason: Vertigo Montelukast Sodium (Montelukast Sodium 10 Mg Tablet) 10 mg PO BEDTIME [facility] Last Admin: 08/13/22 21:40 Dose: 10 mg Documented By: TYSON Naloxone HCl (Naloxone Hcl 0.4 Mg/Ml Vial) 0.4 mg SUBCUT Q5M PRN PRN Reason: Opioid Overdose Naloxone HCl (Naloxone Hcl Nasal 4 Mg [place]) 4 mg NOSTRILALT Q5M PRN PRN Reason: Opioid Overdose Nicotine Polacrilex (Nicotine Polacrilex Lozenge 2 Mg Lozenge) 2 mg BUCCAL TID PRN PRN Reason: Nicotine Cravings Non-Formulary Medication (Atomoxetine) 75 mg PO DAILY [facility] Omeprazole (Omeprazole 40 Mg Capsule.Dr) 40 mg PO DAILY@0630 [facility] Last Admin: 08/14/22 06:02 Dose: 40 mg Documented By: TYSON Ondansetron HCl (Ondansetron Hcl 4 Mg/2 Ml Vial) 4 mg IVPUSH Q8H PRN PRN Reason: Nausea Oxycodone HCl (Oxycodone Hcl Immed Release 5 Mg Tablet) 10 mg PO Q4H PRN PRN Reason: Pain, Severe (Pain Scale 7-10) Last Admin: 08/12/22 07:53 Dose: 10 mg Documented By: SHARON Oxycodone HCl (Oxycodone Hcl Immed Release 5 Mg Tablet) 5 mg PO Q4H PRN PRN Reason: Pain, Moderate(Pain Scale 4-6) Pharmacy Consult (Consult Rx Perform Med Rec) 1 each MISCELLANE ONCE PRN PRN Reason: Consult order Polyethylene Glycol (Polyethylene Glycol 3350 17 Gm Powd.Pack) 17 gm PO BID [facility] Last Admin: 08/14/22 08:43 Dose: 17 gm Documented By: QUIANA Pregabalin (Pregabalin 200 Mg Capsule) 200 mg PO DAILY@0900 [facility] Last Admin: 08/14/22 08:42 Dose: 200 mg Documented By: QUIANA Pregabalin (Pregabalin 150 Mg Capsule) 300 mg PO BEDTIME [facility] Last Admin: 08/13/22 21:39 Dose: 300 mg Documented By: TYSON Quetiapine Fumarate (Quetiapine Fumarate 50 Mg Tablet) 50 mg PO BEDTIME [facility] Last Admin: 08/13/22 21:39 Dose: 50 mg Documented By: TYSON Quetiapine Fumarate (Quetiapine Fumarate 100 Mg Tablet) 100 mg PO BEDTIME [facility] Last Admin: 08/13/22 21:39 Dose: 100 mg Documented By: TYSON Senna/Docusate Sodium (Sennosides/Docusate Sodium Tablet) 2 tab PO BID [facility] Last Admin: 08/14/22 08:43 Dose: 2 tab Documented By: QUIANA Sodium Biphosphate/Sodium Phosphate (Sodium Phosphate,[place]-Dibasic 133 Ml Enema) 118 ml [place] DAILY PRN PRN Reason: Constipation Zonisamide (Zonisamide 100 Mg Capsule) 100 mg PO DAILY [facility] Last Admin: 08/14/22 08:42 Dose: 100 mg Documented By: QUIANA Labs 08/13/22 19:15 08/13/22 19:15 Labs: Laboratory Results - last 24 hr 08/13/22 08/13/22 08/13/22 11:06 16:02 19:15 MCV 91.8 MCH 28.9 MCHC 31.5 RDW 14.3 Plt Count 179 MPV 9.9 Absolute Nucleated RBC 0.000 Nucleated RBC % (auto) 0.0 Anion Gap Estim Creat Clear Calc Estimated GFR POC Glucose 140 H 104 Random Glucose Calcium Procalcitonin 08/13/22 08/14/22 08/14/22 19:15 04:13 07:10 MCV MCH MCHC RDW Plt Count MPV Absolute Nucleated RBC Nucleated RBC % (auto) Anion Gap 15 Estim Creat Clear Calc 104.8 Estimated GFR > 60 POC Glucose 123 H 122 H Random Glucose 143 H Calcium 8.9 D Procalcitonin 0.13 Assessment and Plan (1) Retroperitoneal air: Status: Acute (2) Hypoxia: Status: Acute Plan hospital d#5 61yo F LTC resident of [facility] with history of cerebral infarction, schizoaffective disorder, factitious disorder, asthma/COPD overlap, acute respiratory failure, dysphagia, osteoporosis, glaucoma, type 2 diabetes, hyperlipidemia, hypertension, history of diverticulitis with perforation, history of cardiac arrest following aspiration, and PTSD admitted to general surgery with consult placed to hospital medicine for medical management. # abdominal pain/retroperitoneal air by CT - s/p negative ex-lap 7/1/23 - continue to manage constipation with bowel regimen # acute resp failure with hypoxia - likely atelectasis, also has OHS and possibly LUPILLO- should have outpt sleep study - will get CTA to definitely rule out PE - wean O2 as tolerated # asthma/COPD overlap - no acute exacerbation - continue maintenance + rescue inhalers # GERD - continue PPI + prn famotidine # schizoaffective disorder - continue antipsychotics + mood stabilizers + antidepressants # hypertension - resume amlodipine # DM2 - correction-dose lispro, DM diet # VTE ppx: LMWH # dispo: eventual return to LTC Thank you for this consult. We will continue to follow Time Spent With Patient Time: Total time managing care of this patient today __35__ minutes. Quality Stroke Does the patient have a stroke diagnosis?: No Reason for No Anti-thrombotic by Day Two: N/A - Med Ordered VTE Prior VTE?: No VTE Risk Level:: Surgical - high VTE Device Contraindication: N/A - Device Ordered VTE Drug Contraindication: N/A - Med Ordered
--- NOTE | 2022-08-14 12:48 | PC.NURSE ---
Permission from [facility] ok for CT with IV contrast.
--- NOTE | 2022-08-14 14:00 | PC.NURSE ---
CHRIS paged and requested to help place IV.
[2022-08-14 16:10] VITALS: BP 112/53; PULSE 84; RESP 17; TEMP 36.4; O2SAT 92
[2022-08-14 19:26] VITALS: BP 117/54; PULSE 85; RESP 18; TEMP 36.7; O2SAT 94
--- NOTE | 2022-08-14 23:58 | PC.NURSE ---
Pt refused Insulin Lispro at 2100. Stated she doesn't have diabetes and will not take the medication. POC was 160. Pt was educated on why she was receiving the medication and still refused. Dr. Lee was notified of refusal.
[2022-08-15 04:00] VITALS: BP 119/59; PULSE 90; RESP 18; TEMP 36.8; O2SAT 95
[2022-08-15 07:01] VITALS: BP 124/63; PULSE 83; RESP 18; TEMP 37.2; O2SAT 93
--- NOTE | 2022-08-15 07:28 | PM.EVENT ---
Event Note Date of Service: 08/15/22 Event Note: Discharge held yesterday for desating overnight. CT chest initially ordered by medicine. Did not have appropriate IV access for CT angio chest and therefore V/Q scan performed- completely normal. Hospitalist recommend weaning O2 at SNF, continue IS, outpatient sleep study with overnight oximetry to assess for LUPILLO. O2 remained 90s overnight on NC. Stable for transfer to LTC today. Time Spent With Patient Time: Total time managing care of this patient today ____ minutes.
[2022-08-15 07:47] VITALS: PULSE 76; RESP 18; O2SAT 94
--- NOTE | 2022-08-15 08:47 | MHC.CM.PN ---
DP: PT HAS BEEN MEDICALLY CLEARED FOR DC TO [facility]. BLS TRANSPORT BOOKED FOR 10:30 AM VIA [facility] NOTIFIED. RN AWARE.
--- NOTE | 2022-08-15 08:58 | HO.PM.IMPN ---
Subjective Subjective Date of Service: 08/15/22 Interval History: Wheezing but not dyspneic Still on O2 3L No chest pain Review of Systems Review of Systems: Yes all other systems are reviewed and are negative Physical Exam Vital Signs: Vital Signs: Last Vital Signs Temp 98.9 F 08/15/22 07:01 Pulse 76 08/15/22 07:47 Resp 18 08/15/22 07:47 BP 124/63 08/15/22 07:01 Pulse Ox 93 08/15/22 07:01 O2 Del Method Nasal Cannula 08/15/22 07:01 O2 Flow Rate 3 08/15/22 07:01 BMI result Body Mass Index 43.4 Gen: in no acute distress HEENT: sclera anicteric, moist mucus membranes Neck: supple Lungs: soft expiratory wheezing at bases Heart: regular rate and rhythm, no murmurs Abd: soft, non-tender, non-distended, obese, midline surgical wound C/D/I Ext: no edema Skin: warm/well-perfused Neuro: alert and oriented x3, no focal findings Psych: appropriate affect Objective Data Active Medications Acetaminophen (Acetaminophen 325 Mg Tablet) 975 mg PO Q6H PRN PRN Reason: Pain, Mild (Pain Scale 1-3) Al Hydroxide/Mg Hydroxide (Magnesium Hydrox/Alum Hydrox 30 Ml Oral.Susp) 10 ml PO Q6H PRN PRN Reason: Indigestion Albuterol Sulfate (Albuterol Sulfate (0.083%) 2.5 Mg/3 Ml Vial.Neb) 2.5 mg INHALE ONCE PRN PRN Reason: Wheezing Albuterol Sulfate (Albuterol Sulfate 90 Mcg 8 Gm Inhaler) 2 puff INHALE RQ4H PRN PRN Reason: Shortness Of Breath Amlodipine Besylate (Amlodipine Besylate 5 Mg Tablet) 5 mg PO DAILY [facility]; Protocol Last Admin: 08/15/22 08:26 Dose: 5 mg Documented By: VINOD Clozapine (Clozapine 25 Mg Tablet) 150 mg PO BEDTIME [facility] Last Admin: 08/14/22 21:47 Dose: 150 mg Documented By: TYSON Cyclobenzaprine HCl (Cyclobenzaprine Hcl 5 Mg Tablet) 5 mg PO TID PRN PRN Reason: Muscle Spasm Dextrose (Dextrose 50 % 25 Gm/50 Ml Syringe) 25 gm IVPUSH Q15M PRN; Protocol PRN Reason: per Hypoglycemia Standing Ord. Diazepam (Diazepam 5 Mg Tablet) 5 mg PO BID [facility] Last Admin: 08/15/22 08:26 Dose: 5 mg Documented By: VINOD Docusate Sodium (Docusate Sodium 100 Mg Capsule) 100 mg PO BID [facility] Last Admin: 08/15/22 08:27 Dose: 100 mg Documented By: VINOD Duloxetine HCl (Duloxetine Hcl 30 Mg Capsule.) 30 mg PO DAILY [facility] Last Admin: 08/15/22 08:39 Dose: 30 mg Documented By: VINOD Duloxetine HCl (Duloxetine Hcl 60 Mg Capsule.) 60 mg PO BEDTIME [facility] Last Admin: 08/14/22 21:47 Dose: 60 mg Documented By: TYSON Enoxaparin Sodium (Enoxaparin Sodium 40 Mg/0.4 Ml Syringe) 40 mg SUBCUT Q24H [facility] Last Admin: 08/15/22 08:26 Dose: 40 mg Documented By: VINOD Famotidine (Famotidine 20 Mg Tablet) 20 mg PO DAILY PRN PRN Reason: Acid Reflux Fluticasone/Vilanterol (Fluticasone/Vilanterol 200/25 Blst.W.Dev) 1 puff INHALE DAILY [facility] Last Admin: 08/15/22 07:47 Dose: 1 puff Documented By: ESSENCE Glucose (Glucose Gel 15 Gm Gel..Gram.) 15 gm PO Q15M PRN; Protocol PRN Reason: per Hypoglycemia Standing Ord. Guaifenesin (Guaifenesin 100 Mg/5 Ml Liquid) 10 ml PO Q6H PRN PRN Reason: Cough Insulin Human Lispro (Insulin Lispro 100 Unit/Ml 3 Ml Vial) 0 unit SUBCUT QIDACHS [facility]; Protocol Last Admin: 08/15/22 07:27 Dose: Not Given Documented By: COTEMA Non-Admin Reason: No Insulin Coverage Lamotrigine (Lamotrigine 100 Mg Tablet) 200 mg PO DAILY [facility] Last Admin: 08/15/22 08:26 Dose: 200 mg Documented By: VINOD Loperamide HCl (Loperamide Hcl 2 Mg Capsule) 2 mg PO BID PRN PRN Reason: Loose Stool Magnesium Hydroxide (Milk Of Magnesia 30 Ml Oral.Susp) 30 ml PO DAILY PRN PRN Reason: Constipation Meclizine HCl (Meclizine Hcl 25 Mg Tablet) 25 mg PO TID PRN PRN Reason: Vertigo Montelukast Sodium (Montelukast Sodium 10 Mg Tablet) 10 mg PO BEDTIME [facility] Last Admin: 08/14/22 21:47 Dose: 10 mg Documented By: TYSON Naloxone HCl (Naloxone Hcl 0.4 Mg/Ml Vial) 0.4 mg SUBCUT Q5M PRN PRN Reason: Opioid Overdose Naloxone HCl (Naloxone Hcl Nasal 4 Mg [place]) 4 mg NOSTRILALT Q5M PRN PRN Reason: Opioid Overdose Nicotine Polacrilex (Nicotine Polacrilex Lozenge 2 Mg Lozenge) 2 mg BUCCAL TID PRN PRN Reason: Nicotine Cravings Non-Formulary Medication (Atomoxetine) 75 mg PO DAILY [facility] Omeprazole (Omeprazole 40 Mg Capsule.Dr) 40 mg PO DAILY@0630 [facility] Last Admin: 08/15/22 06:27 Dose: Not Given Documented By: TYSON Non-Admin Reason: Patient Asleep Ondansetron HCl (Ondansetron Hcl 4 Mg/2 Ml Vial) 4 mg IVPUSH Q8H PRN PRN Reason: Nausea Oxycodone HCl (Oxycodone Hcl Immed Release 5 Mg Tablet) 10 mg PO Q4H PRN PRN Reason: Pain, Severe (Pain Scale 7-10) Last Admin: 08/12/22 07:53 Dose: 10 mg Documented By: SHARON Oxycodone HCl (Oxycodone Hcl Immed Release 5 Mg Tablet) 5 mg PO Q4H PRN PRN Reason: Pain, Moderate(Pain Scale 4-6) Pharmacy Consult (Consult Rx Perform Med Rec) 1 each MISCELLANE ONCE PRN PRN Reason: Consult order Polyethylene Glycol (Polyethylene Glycol 3350 17 Gm Powd.Pack) 17 gm PO BID [facility] Last Admin: 08/15/22 08:26 Dose: 17 gm Documented By: VINOD Prednisone (Prednisone 20 Mg Tablet) 40 mg PO DAILY [facility] Pregabalin (Pregabalin 200 Mg Capsule) 200 mg PO DAILY@0900 [facility] Last Admin: 08/15/22 08:26 Dose: 200 mg Documented By: VINOD Pregabalin (Pregabalin 150 Mg Capsule) 300 mg PO BEDTIME [facility] Last Admin: 08/14/22 21:47 Dose: 300 mg Documented By: TYSON Quetiapine Fumarate (Quetiapine Fumarate 50 Mg Tablet) 50 mg PO BEDTIME [facility] Last Admin: 08/14/22 21:47 Dose: 50 mg Documented By: TYSON Quetiapine Fumarate (Quetiapine Fumarate 100 Mg Tablet) 100 mg PO BEDTIME [facility] Last Admin: 08/14/22 21:47 Dose: 100 mg Documented By: TYSON Senna/Docusate Sodium (Sennosides/Docusate Sodium Tablet) 2 tab PO BID [facility] Last Admin: 08/15/22 08:26 Dose: 2 tab Documented By: VINOD Sodium Biphosphate/Sodium Phosphate (Sodium Phosphate,[place]-Dibasic 133 Ml Enema) 118 ml [place] DAILY PRN PRN Reason: Constipation Zonisamide (Zonisamide 100 Mg Capsule) 100 mg PO DAILY [facility] Last Admin: 08/15/22 08:26 Dose: 100 mg Documented By: VINOD Labs 08/13/22 19:15 08/13/22 19:15 Labs: Laboratory Results - last 24 hr 08/14/22 08/14/22 08/15/22 11:00 20:51 07:13 POC Glucose 124 H 160 H 105 Impressions Pulmonary Perfusion Imaging 08/14/22 15:55 IMPRESSION: Normal radionuclide lung perfusion scan. Assessment and Plan (1) Retroperitoneal air: Status: Acute (2) Hypoxia: Status: Acute Plan hospital d#6 61yo F [facility] resident of [facility] with history of cerebral infarction, schizoaffective disorder, factitious disorder, asthma/COPD overlap, acute respiratory failure, dysphagia, osteoporosis, glaucoma, type 2 diabetes, hyperlipidemia, hypertension, history of diverticulitis with perforation, history of cardiac arrest following aspiration, and PTSD admitted to general surgery with consult placed to hospital medicine for medical management. # abdominal pain/retroperitoneal air by CT - s/p negative ex-lap 08/10/22 - continue to manage constipation with bowel regimen # acute resp failure with hypoxia - likely atelectasis, also has OHS and possibly LUPILLO- should have outpt sleep study + overnight oxmietry test - V/Q negative for PE - treat asthma/COPD as below - wean O2 as tolerated # asthma/COPD overlap with acute exacerbation - 5 days of prednisone 40 mg/d- give 1st dose here, can complete rest at LTC - continue maintenance + rescue inhalers # GERD - continue PPI + prn famotidine # schizoaffective disorder - continue antipsychotics + mood stabilizers + antidepressants # hypertension - resumed amlodipine # DM2 - correction-dose lispro, DM diet # VTE ppx: LMWH # dispo: eventual return to LTC likely today Time Spent With Patient Time: Total time managing care of this patient today __35__ minutes. Quality Stroke Does the patient have a stroke diagnosis?: No Reason for No Anti-thrombotic by Day Two: N/A - Med Ordered VTE Prior VTE?: No VTE Risk Level:: Surgical - high VTE Device Contraindication: N/A - Device Ordered VTE Drug Contraindication: N/A - Med Ordered
== END 2022-08-15 10:43 | disposition skilled nursing facility (03) | DRG 357 ==
LOC: HO.ED 17:54 → HO.EDOVER 19:32 → HO.S3 21:31
PROVIDERS: Student in an Organized Health Care Education/Training Program; Admitting Provider Surgery; Emergency Provider Emergency Medicine Emergency Medical Services; PCP Emergency Medicine; Visit Provider Surgery
PROC: 0DJD0ZZ Inspection of Lower Intestinal Tract, Open Approach (ICD-10-PCS; principal; 2022-08-10 07:15)
DX: K68.9 Other disorders of retroperitoneum (principal); E66.2 Morbid (severe) obesity with alveolar hypoventilation; K62.5 Hemorrhage of anus and rectum; Z68.41 Body mass index [BMI] 40.0-44.9, adult; K59.09 Other constipation; F43.10 Post-traumatic stress disorder, unspecified; F25.9 Schizoaffective disorder, unspecified; J44.9 Chronic obstructive pulmonary disease, unspecified; E78.5 Hyperlipidemia, unspecified; R09.02 Hypoxemia; E11.9 Type 2 diabetes mellitus without complications; Z20.822 Contact with and (suspected) exposure to COVID-19; Z86.73 Personal history of transient ischemic attack (TIA), and cerebral infarction without residual deficits; Z86.74 Personal history of sudden cardiac arrest; Z79.51 Long term (current) use of inhaled steroids; Z79.899 Other long term (current) drug therapy
CPT/HCPCS: 36415; 71045; 71046; 74177; 78580; 80048; 80053; 81001; 82947; 83605; 83690; 84145; 85025; 85027; 85610; 85730; 87635; 93005; 94640; 99284; A9540; J0131; J0330; J0692; J1170; J1650; J2405; J3010; Q9967

== ENCOUNTER 2022-08-19 14:52 | Outpatient (AMB) | payer MEDICARE, MEDICAID, SELFPAY ==
--- NOTE | 2022-08-19 15:17 | MHC.OFFVIS ---
Intake Vital Signs 08/19/22 15:29 Height 5 ft 8 in Weight 250 lb BMI 38.0 BP 150/70 H Blood Pressure Location Lt brachial Position Sitting Respiration 17 Pulse 84 Pulse Source Pulse Oximeter Pulse Oximetry (%) 96 Oxygen Delivery Method Room Air Intake Visit Reasons: Multiple Pain Generators Intake Note: patient comes in for initial visit was referred by PCP. Allergies Mycobacterium Tuberculosis (Tubercu Allergy (Unknown, Verified 08/19/22 15:28) Unknown chlorpromazine [From Thorazine] Allergy (Verified 08/19/22 15:28) Unknown haloperidol [From Haldol] Allergy (Verified 08/19/22 15:28) Unknown imipramine Allergy (Verified 08/19/22 15:28) Unknown ketorolac Allergy (Verified 08/19/22 15:) Unknown Penicillins Allergy (Verified 08/19/22 15:) Unknown promethazine Allergy (Verified 08/19/22 15:) Unknown HPI HPI Comments History of Present Illness Details Valentina is a very pleasant 61 years old female who presents in my office with complains on pain in lower back and pain in the left knee. She is shelter resident. She reports that her pain started a while ago. She reports today her pain 8/10. She reports that she is unemployed. She reports that movements aggravate her pain and heat alleviates her pain. She is morbidly obese. The pain is most severe during the daytime 10/10 and a become slightly better at night 8/10. She reports in terms of tissue damage pain is pulsing, throbbing, pounding, stabbing, lancinating, tight, squeezing, tearing,. She apparently received multiple studies for her pain. She had MRIs and CT scans in the past. She had apparently 2 surgeries on the her back in [facility], she apparently had 4 surgeries of her hip replace at [facility] in the past because she had infection in the left hip. She is currently receiving 5 days a week physical therapy which helps her pain. She also receives physical therapy and occupational therapy also 5 days awake. She does not do HD pain. She has very poor historian. Her past medical history is very extensive. She is suffering from borderline personality disorder schizoaffective disorder posttraumatic stress disorder and severe generalized osteoarthritis. She is also morbidly obese, she is suffering from COPD, she has hyperlipidemia she is receiving pregabalin 200 mg b.i.d. to help her pain. Past surgical history is significant for total knee replacement total hip replacement and postlaminectomy syndrome. She reports that she is smoking 2 cigarettes a day denies drinking alcohol and denies recreational drugs. [facility] Medical History (Updated 08/19/22 @ 16:21 by Beau Rice MD) Acute respiratory failure Acute respiratory failure with hypoxia Anemia Aspiration pneumonia Asthma Borderline personality disorder Cardiac arrest Cardiopulmonary arrest with successful resuscitation Cataract Chronic pain syndrome Complete atelectasis of left lung Constipation COPD (chronic obstructive pulmonary disease) Diverticulitis Dysphagia [place] Fusion of spine GERD (gastroesophageal reflux disease) Glaucoma HTN (hypertension) Hyperlipemia Hypertensive cardiovascular disease Ileus Osteoporosis Postmenopausal atrophic vaginitis PTSD (post-traumatic stress disorder) Schizoaffective disorder Schizoaffective disorder Tobacco abuse Type 2 diabetes mellitus Surgical History Presence of right artificial hip joint Presence of right artificial knee joint Family History (Updated 08/19/22 @ 16:20 by Beau Rice MD) Other Borderline personality disorder Social History Household Members: Other Housing: [facility] Do you presently have visiting nurse or other home services: No Alcohol intake: unknown Patient Tobacco Use Status: Former Tobacco user Advance Directives Date on File: 02/08/21 service: No Review of Systems Const All systems reviewed & are unremarkable except as noted in HPI and below Reports increased appetite and Reports weight gain ENT Reports Normal hearing present Card Reports no additional complaints Resp Reports as per HPI GI Reports no additional complaints Reports no additional complaints Musc Reports as per HPI Neuro Reports no additional complaints, Reports Normal hearing present, Denies Abnormal speech present, Denies confusion and Denies Sensory deficit (Neuro) Psych Reports as per HPI and Denies confusion Physical Exam Vital Signs: Last Vital Signs Pulse 84 08/19/22 15:29 Resp 17 08/19/22 15:29 BP 150/70 H 08/19/22 15:29 Pulse Ox 96 08/19/22 15:29 Oxygen Delivery Method Room Air 08/19/22 15:29 BMI result Body Mass Index 38.0 Const General: no acute distress; No confusion Nutritional Appearance: obese morbidly obese Orientation/consciousness: patient oriented x3 and No confusion Eyes General: appearance normal, both eyes and all related structures Pupils: Equal, round and reactive pupils present EOM: EOMs intact bilaterally Neck Neck: Yes full ROM Chest Chest palpation & inspection: normal inspection of the chest Resp Effort & Inspection: normal respiratory effort, able to speak in complete sentences, normal respiratory pattern, no audible wheezes and no cough Cardio Jugular venous distension: no JVD GI Inspection: Yes normal to inspection Neuro General: patient oriented x3, gait normal and No confusion Cranial nerves: Yes CN's II-XII intact bilaterally, Yes Equal, round and reactive pupils present, Yes Normal hearing present and Yes Ability to bilaterally elevate shoulders present Speech: No Abnormal speech present Gait exam (Neuro): Normal gait present Motor exam (neuro): 5/5 motor strength present throughout Sensory Exam: No Sensory deficit (Neuro) Extrem General: No pedal edema Psych Speech and movement: Normal speech and movement present Affect: normal affect Attitude: cooperative Thought process: Normal thought process present Thought content: Normal thought content present Insight: Good insight present (Psych) Judgement: Good judgement present (Psych) Assessment & Plan Assessment & Plan (1) Schizoaffective disorder: Code(s): F25.9 - Schizoaffective disorder, unspecified (2) PTSD (post-traumatic stress disorder): Code(s): F43.10 - Post-traumatic stress disorder, unspecified (3) Postlaminectomy syndrome: Code(s): M96.1 - Postlaminectomy syndrome, not elsewhere classified (4) Morbid obesity: Code(s): E66.01 - Morbid (severe) obesity due to excess calories (5) Chronic pain syndrome: Code(s): G89.4 - Chronic pain syndrome (6) Borderline personality disorder: Code(s): F60.3 - Borderline personality disorder Plan This patient is very poor historian it is hard to understand what procedures and when she had and what studies she had and when. We will give her today medical information release knows to signed and will request these procedures and the studies to be sent to our clinic. As of possibility of treating her conditions with neuromodulation most likely the patient has very limited ability to pass through psychological evaluation. Nevertheless I will schedule the appointment with the patient in 1 month telehealth appointment. I will familiarize myself with the information from [facility] where she had all her surgeries in studies done. After that I will make a decision if there is initially we can do to help this patient. Coding Level of Care Code New Pt Level 3 (53292) Diagnoses Schizoaffective disorder F25.9 PTSD (post-traumatic stress disorder) F43.10 Postlaminectomy syndrome M96.1 Morbid obesity E66.01 Chronic pain syndrome G89.4 Borderline personality disorder F60.3
[2022-08-19 15:29] VITALS: BP 150/70; PULSE 84; RESP 17; O2SAT 96; BMI 38.0
== END 2022-08-19 15:50 | disposition home or self-care (01) ==
PROVIDERS: PCP Emergency Medicine; Visit Provider Anesthesiology
DX: G89.4 Chronic pain syndrome (principal); M96.1 Postlaminectomy syndrome, not elsewhere classified; F25.9 Schizoaffective disorder, unspecified; E66.09 Other obesity due to excess calories; Z68.38 Body mass index [BMI] 38.0-38.9, adult; F60.3 Borderline personality disorder; F43.10 Post-traumatic stress disorder, unspecified
CPT/HCPCS: 99203

== ENCOUNTER → 2022-08-19 14:52 | Outpatient (BNVA) | payer MEDICARE, MEDICAID, SELFPAY | PROVIDERS: PCP Emergency Medicine; Visit Provider Anesthesiology | DX: M96.1 Postlaminectomy syndrome, not elsewhere classified (principal); M81.0 Age-related osteoporosis without current pathological fracture; G89.4 Chronic pain syndrome; E66.01 Morbid (severe) obesity due to excess calories; F60.3 Borderline personality disorder; F25.9 Schizoaffective disorder, unspecified; Z68.38 Body mass index [BMI] 38.0-38.9, adult; F43.10 Post-traumatic stress disorder, unspecified | CPT/HCPCS: 99202 ==

== ENCOUNTER 2022-08-22 14:38 | Outpatient (AMB) | payer MEDICARE, MEDICAID, SELFPAY ==
--- NOTE | 2022-08-22 14:38 | A.OFFVIS_ITS ---
Intake Vital Signs 08/22/22 14:48 Height 5 ft 6 in Weight 250 lb BMI 40.3 BP 139/75 Blood Pressure Location Lt brachial Position Sitting Pulse 89 Intake Visit Reasons: s/p exploratory laparotomy Intake Note: Patient is seen in office for post op assessment post exploratory laparotomy. Patient c/o: admits to draining in the incision, admits to pain radiating to the back Attendant Lodging Facilities Required: No Accompanied by: Other Relationship Allergies Mycobacterium Tuberculosis (Tubercu Allergy (Unknown, Verified 08/22/22 14:55) Unknown chlorpromazine [From Thorazine] Allergy (Verified 08/22/22 14:55) Unknown haloperidol [From Haldol] Allergy (Verified 08/22/22 14:55) Unknown imipramine Allergy (Verified 08/22/22 14:55) Unknown ketorolac Allergy (Verified 08/22/22 14:55) Unknown Penicillins Allergy (Verified 08/22/22 14:55) Unknown promethazine Allergy (Verified 08/22/22 14:55) Unknown Medication List - Last Reconciled 08/23/22 by Dwayne Gutierres MD acetaminophen 1,000 mg PO BID albuterol sulfate 90 mcg/actuation (Proventil HFA) 2 puffs inhalation Q4H PRN alum-mag hydroxide-simeth 200-200-20 mg/5 mL 10 mL PO Q6H PRN amlodipine 1 tab PO DAILY atomoxetine 75 mg PO DAILY cholecalciferol (vitamin D3) 1,250 mcg PO QMONTH clozapine 150 mg PO BEDTIME cyclobenzaprine 5 mg PO TID PRN diazepam 5 mg PO BID diclofenac sodium 1% (Voltaren Arthritis Pain) 2 grams topical DAILY PRN docusate sodium (Colace) 100 mg PO BID duloxetine 60 mg PO BEDTIME duloxetine 30 mg PO DAILY famotidine 1 tab PO DAILY PRN fluticasone propion-salmeterol 500-50 mcg/dose (Wixela Inhub) 1 inh inhalation BID guaifenesin 300 mg PO Q6H PRN lamotrigine 200 mg PO DAILY loperamide 2 mg PO BID PRN magnesium citrate 150 mL PO Q4H PRN magnesium hydroxide (Milk of Magnesia) 30 mL PO DAILY PRN meclizine 25 mg PO TID PRN montelukast 1 tab PO BEDTIME naloxone 0.4 mg subcut Q5M PRN naloxone 4 mg/actuation (Narcan) 4 mg intranasal Q5M PRN nicotine (polacrilex) 2 mg buccal TID PRN omeprazole 40 mg PO DAILY@0630 polyethylene glycol 3350 (Miralax) 17 grams PO BEDTIME prednisone 40 mg (2 x 20 mg) PO DAILY pregabalin 200 mg PO DAILY@0900 pregabalin 1 cap PO BEDTIME quetiapine 100 mg PO BEDTIME quetiapine 50 mg PO BEDTIME sodium phosphates 19-7 gram/118 mL (Fleet Enema) 118 mL IN DAILY PRN zonisamide 1 cap PO DAILY HPI HPI Comments History of Present Illness Details 61-year-old female patient presenting with complaints of lower abdominal pain and rectal bleeding, presenting to the ED for further management. Workup in the emergency department revealed normal laboratories however CT abdomen and pelvis revealed retroperitoneal air suggestive of a bowel perforation. On examination the patient was tender in the right lower and left lower quadrants suggestive of a perforated viscus. She was subsequently taken to the OR for exploratory laparotomy. Laparotomy however revealed no evidence of perforation, abscess or fluid collections. Both large and small intestine were normal. She was discharged home on 08/15/2022 in stable condition. She returns today for postop wound check. She reports some incisional pain and occasional discharge from the incision. She has bernardo which need to be removed today. [facility] Medical History Abdominal pain Acute respiratory failure Acute respiratory failure with hypoxia Anemia Aspiration pneumonia Asthma Borderline personality disorder Cardiac arrest Cardiopulmonary arrest with successful resuscitation Cataract Chronic pain syndrome Complete atelectasis of left lung Constipation COPD (chronic obstructive pulmonary disease) Diverticulitis Dysphagia [place] Fusion of spine GERD (gastroesophageal reflux disease) Glaucoma HTN (hypertension) Hyperlipemia Hypertensive cardiovascular disease Hypoxia Ileus Osteoporosis Postmenopausal atrophic vaginitis PTSD (post-traumatic stress disorder) Retroperitoneal air Schizoaffective disorder Schizoaffective disorder Tobacco abuse Type 2 diabetes mellitus Surgical History H/O exploratory laparotomy (08/10/22) Presence of right artificial hip joint Presence of right artificial knee joint Family History Other Borderline personality disorder Social History Household Members: Other Housing: Assisted Do you presently have visiting nurse or other home services: No Alcohol intake: unknown Patient Tobacco Use Status: Former Tobacco user Advance Directives Date on File: 02/08/21 service: No Physical Exam Vital Signs: Last Vital Signs Pulse 89 08/22/22 14:48 BP 139/75 08/22/22 14:48 BMI result Body Mass Index 40.3 Last Vital Signs Temp 97.0 F 08/12/22 07:48 Pulse 68 08/12/22 07:54 Resp 16 08/12/22 07:54 BP 132/62 08/12/22 07:48 Pulse Ox 94 08/12/22 07:48 O2 Del Method Nasal Cannula 08/12/22 07:48 O2 Flow Rate 3 08/12/22 07:48 BMI result Body Mass Index 43.4 Const General: no acute distress Nutritional Appearance: obese Orientation/consciousness: patient oriented x3 Resp Effort & Inspection: normal respiratory effort GI Other: Soft, nondistended, incision clean, dry, and intact with some redness surrounding the bernardo. There is some dried crusted material around the incision which is easily removed. [place] were removed and Steri-Strips applied. Patient tolerated this well. Skin General skin exam: no rashes or lesions noted Neuro General: patient oriented x3 Extrem General: Yes no clubbing, cyanosis or edema Assessment & Plan Assessment & Plan (1) Abdominal pain: Code(s): R10.9 - Unspecified abdominal pain (2) Retroperitoneal air: Code(s): K66.8 - Other specified disorders of peritoneum Plan 61-year-old female patient status post negative laparotomy for retroperitoneal air seen on CT suggestive of a perforated viscus. She returns today for wound check. Patient continues to have some incisional pain but overall her incision is clean and intact. [place] removed and Steri-Strips applied. She should continue to avoid lifting greater than 10 lb and return in 1 month for follow-up examination. Coding Level of Care Code Global (03020) Diagnoses Abdominal pain R10.9 Retroperitoneal air K66.8
[2022-08-22 14:48] VITALS: BP 139/75; PULSE 89; BMI 40.3
== END 2022-08-22 15:06 | disposition home or self-care (01) ==
LOC: HO.HGS 14:38
PROVIDERS: PCP Emergency Medicine; Visit Provider Surgery
DX: R10.9 Unspecified abdominal pain (principal); K66.8 Other specified disorders of peritoneum
CPT/HCPCS: 99024

== ENCOUNTER → 2022-08-22 14:38 | Outpatient (BNVA) | payer MEDICARE, MEDICAID, SELFPAY | PROVIDERS: PCP Emergency Medicine; Visit Provider Surgery ==

== ENCOUNTER → 2022-09-25 19:00 | Outpatient (BNV) | payer MEDICARE, MEDICAID, SELFPAY | PROVIDERS: PCP Emergency Medicine; Visit Provider Internal Medicine | DX: R06.83 Snoring (principal) | CPT/HCPCS: 95810 ==

== ENCOUNTER → 2022-09-25 19:30 | Outpatient (REF) | payer MEDICARE, MEDICAID, SELFPAY | LOC: HO.SL 19:30 | PROVIDERS: PCP Emergency Medicine; Visit Provider Emergency Medicine | DX: G47.34 Idiopathic sleep related nonobstructive alveolar hypoventilation (principal) | CPT/HCPCS: 95810 ==

== ENCOUNTER 2022-10-03 13:59 | Outpatient (AMB) | payer MEDICARE, MEDICAID, SELFPAY ==
--- NOTE | 2022-10-03 14:04 | MHC.OFFVIS ---
Intake Vital Signs 10/03/22 14:12 Height 5 ft 6 in Weight 249 lb 1.957 oz BMI 40.2 BP 120/82 Blood Pressure Location Lt brachial Position Sitting Intake Visit Reasons: S/P laparotomy Intake Note: Patient is seen in office for post op assessment post exploratory laparotomy. Patient c/o: denies any concerns at the time of visit Nurse Behavioral Health Care Required: No Accompanied by: Self / Same As Patient Allergies Mycobacterium Tuberculosis (Tubercu Allergy (Unknown, Verified 10/03/22 14:06) Unknown chlorpromazine [From Thorazine] Allergy (Verified 10/03/22 14:06) Unknown haloperidol [From Haldol] Allergy (Verified 10/03/22 14:06) Unknown imipramine Allergy (Verified 10/03/22 14:06) Unknown ketorolac Allergy (Verified 10/03/22 14:06) Unknown Penicillins Allergy (Verified 10/03/22 14:06) Unknown promethazine Allergy (Verified 10/03/22 14:06) Unknown Medication List - Last Reconciled 10/03/22 by Dwayne Gutierres MD acetaminophen 1,000 mg PO BID albuterol sulfate 90 mcg/actuation (Proventil HFA) 2 puffs inhalation Q4H PRN alum-mag hydroxide-simeth 200-200-20 mg/5 mL 10 mL PO Q6H PRN amlodipine 1 tab PO DAILY atomoxetine 75 mg PO DAILY atomoxetine 50 mg PO DAILY cholecalciferol (vitamin D3) 1,250 mcg PO QMONTH clozapine 150 mg PO BEDTIME cyclobenzaprine 5 mg PO TID PRN diazepam 5 mg PO BID diclofenac sodium 1% (Voltaren Arthritis Pain) 2 grams topical DAILY PRN docusate sodium (Colace) 100 mg PO BID duloxetine 60 mg PO BEDTIME duloxetine 30 mg PO DAILY famotidine 1 tab PO DAILY PRN fluticasone propion-salmeterol 500-50 mcg/dose (Wixela Inhub) 1 inh inhalation BID guaifenesin 300 mg PO Q6H PRN lamotrigine 200 mg PO DAILY loperamide 2 mg PO BID PRN magnesium citrate 150 mL PO Q4H PRN magnesium hydroxide (Milk of Magnesia) 30 mL PO DAILY PRN meclizine 25 mg PO TID PRN montelukast 1 tab PO BEDTIME naloxone 0.4 mg subcut Q5M PRN naloxone 4 mg/actuation (Narcan) 4 mg intranasal Q5M PRN nicotine (polacrilex) 2 mg buccal TID PRN omeprazole 40 mg PO DAILY@0630 polyethylene glycol 3350 (Miralax) 17 grams PO BEDTIME prednisone 40 mg (2 x 20 mg) PO DAILY pregabalin 200 mg PO DAILY@0900 pregabalin 1 cap PO BEDTIME quetiapine 100 mg PO BEDTIME quetiapine 50 mg PO BEDTIME sodium phosphates 19-7 gram/118 mL (Fleet Enema) 118 mL MS DAILY PRN zonisamide 1 cap PO DAILY HPI HPI Comments History of Present Illness Details 62-year-old female patient presenting with complaints of lower abdominal pain and rectal bleeding, presenting to the ED for further management. Workup in the emergency department revealed normal laboratories however CT abdomen and pelvis revealed retroperitoneal air suggestive of a bowel perforation. On examination the patient was tender in the right lower and left lower quadrants suggestive of a perforated viscus. She was subsequently taken to the OR for exploratory laparotomy. Laparotomy however revealed no evidence of perforation, abscess or fluid collections. Both large and small intestine were normal. She was discharged home on 08/15/2022 in stable condition. She returns today for postop wound check. She feels with well but does have occasional constipation for which she takes MiraLax, Colace, and fiber therapy. Her abdominal pain is much improved. [facility] Medical History Abdominal pain Acute respiratory failure Acute respiratory failure with hypoxia Anemia Aspiration pneumonia Asthma Borderline personality disorder Cardiac arrest Cardiopulmonary arrest with successful resuscitation Cataract Chronic pain syndrome Complete atelectasis of left lung Constipation COPD (chronic obstructive pulmonary disease) Diverticulitis Dysphagia [place] Fusion of spine GERD (gastroesophageal reflux disease) Glaucoma HTN (hypertension) Hyperlipemia Hypertensive cardiovascular disease Hypoxia Ileus Osteoporosis Postmenopausal atrophic vaginitis PTSD (post-traumatic stress disorder) Retroperitoneal air Schizoaffective disorder Schizoaffective disorder Tobacco abuse Type 2 diabetes mellitus Surgical History H/O exploratory laparotomy (08/10/22) Presence of right artificial hip joint Presence of right artificial knee joint Family History Other Borderline personality disorder Social History Household Members: Other Housing: Care Home Do you presently have visiting nurse or other home services: No Alcohol intake: unknown Patient Tobacco Use Status: Former Tobacco user Advance Directives Date on File: 02/08/21 service: No Physical Exam Vital Signs: Last Vital Signs BP 120/82 10/03/22 14:12 BMI result Body Mass Index 40.2 Last Vital Signs Temp 97.0 F 08/12/22 07:48 Pulse 68 08/12/22 07:54 Resp 16 08/12/22 07:54 BP 132/62 08/12/22 07:48 Pulse Ox 94 08/12/22 07:48 O2 Del Method Nasal Cannula 08/12/22 07:48 O2 Flow Rate 3 08/12/22 07:48 BMI result Body Mass Index 43.4 Const General: no acute distress Nutritional Appearance: obese Orientation/consciousness: patient oriented x3 Resp Effort & Inspection: normal respiratory effort GI Other: Midline incision is clean, dry, and intact without redness or discharge. No hernias identified. Skin General skin exam: no rashes or lesions noted Neuro General: patient oriented x3 Extrem General: Yes no clubbing, cyanosis or edema Assessment & Plan Assessment & Plan (1) Abdominal pain: Code(s): R10.9 - Unspecified abdominal pain (2) Retroperitoneal air: Code(s): K66.8 - Other specified disorders of peritoneum Plan 62-year-old female patient returning following a negative laparotomy for retroperitoneal air seen on CT suggestive of a perforated viscus. She feels well today and denies any new symptoms. Her incisions are clean, dry, and intact without evidence of infection or hernia. She may resume normal activity without restrictions and should follow up as needed. Coding Level of Care Code Global (27866) Diagnoses Abdominal pain R10.9 Retroperitoneal air K66.8
[2022-10-03 14:12] VITALS: BP 120/82; BMI 40.2
== END 2022-10-03 14:20 | disposition home or self-care (01) ==
PROVIDERS: PCP Emergency Medicine; Visit Provider Surgery
DX: R10.9 Unspecified abdominal pain (principal); K66.8 Other specified disorders of peritoneum
CPT/HCPCS: 99024

== ENCOUNTER → 2022-10-03 13:59 | Outpatient (BNVA) | payer MEDICARE, MEDICAID, SELFPAY | PROVIDERS: PCP Emergency Medicine; Visit Provider Surgery ==

== ENCOUNTER 2022-10-07 13:22 | Outpatient (AMB) | payer MEDICARE, MEDICAID, SELFPAY ==
--- NOTE | 2022-10-07 13:36 | A.OFFVIS_ITS ---
Intake Vital Signs 10/07/22 13:43 Height 5 ft 6 in Weight 250 lb BMI 40.3 BP 130/80 Blood Pressure Location Lt brachial Position Sitting Respiration 16 Pulse 87 Pulse Source Pulse Oximeter Pulse Oximetry (%) 95 Oxygen Delivery Method Room Air Intake Visit Reasons: Follow Up per Dr. Rice Allergies Mycobacterium Tuberculosis (Tubercu Allergy (Unknown, Verified 10/07/22 13:42) Unknown chlorpromazine [From Thorazine] Allergy (Verified 10/07/22 13:42) Unknown haloperidol [From Haldol] Allergy (Verified 10/07/22 13:42) Unknown imipramine Allergy (Verified 10/07/22 13:42) Unknown ketorolac Allergy (Verified 10/07/22 13:42) Unknown Penicillins Allergy (Verified 10/07/22 13:42) Unknown promethazine Allergy (Verified 10/07/22 13:42) Unknown HPI HPI Comments History of Present Illness Details Valentina is back in my office to discuss possibility of further treatment. We received paperwork from [facility] with the history of her admissions and surgeries there. She had multiple procedures in the past which were related to hip arthroplasty. She also had an MRI of the lumbar spine results of which dictated as below. She is suffering mostly from postlaminectomy syndrome. She also has lumbar spine MRI results of which are dictated as below. She had multiple surgeries on her lower back. At least 2 laminectomies and 1 possible fusion at L4-5. She also has disc biopsy for suspicion of diskitis is however that was negative. Possibility to treat her pain with neuromodulation exists however in the her prior admissions to the hospital she was diagnosed with colonization of MRSA. If this is so today the prospects of neuromodulation are grim. Also on the MRI there are endplate changes 1 level above the surgical level of L4-5. Possibility exist to repeat MRI and if endplate changes persist or developed further intercept treatment could be implicated in her case. Yet another obstacle exists with this patient in the past because she was diagnosed with schizoaffective personality disorder, borderline personality disorder and posttraumatic stress disorder. Unfortunately she might be not a good candidate for neuromodulation. She is a resident of [facility] and has no direct acess to a computer. We will invite her to the office to perform psychological evaluation. Unlikely she will pass but I will consider further evaluation of MRSA status if she will pass the psych evaluation. Prior: Complains : on pain in lower back and pain in the left knee. She is [facility] resident. She reports that her pain started a while ago. She reports today her pain 8/10. She reports that she is unemployed. She reports that movements aggravate her pain and heat alleviates her pain. She is morbidly obese. The pain is most severe during the daytime 10/10 and a become slightly better at night 8/10. She had MRIs and CT scans in the past. She had fabiana arently 2 surgeries on the her back in [facility], she apparently had 4 surgeries of her hip replace at [facility] in the past because she had infection in the left hip. She is currently receiving 5 days a week physical therapy which helps her pain. She also receives physical therapy and occupational therapy also 5 days awake. She does not do HD pain. Her past medical history is very extensive. She is suffering from borderline personality disorder schizoaffective disorder posttraumatic stress disorder and severe generalized osteoarthritis. She is also morbidly obese, she is suffering from COPD, she has hyperlipidemia she is receiving pregabalin 200 mg b.i.d. to help her pain. Past surgical history is significant for total knee replacement total hip replacement and postlaminectomy syndrome. She reports that she is smoking 2 cigarettes a day denies drinking alcohol and denies recreational drugs. [facility] Medical History Abdominal pain Acute respiratory failure Acute respiratory failure with hypoxia Anemia Aspiration pneumonia Asthma Borderline personality disorder Cardiac arrest Cardiopulmonary arrest with successful resuscitation Cataract Chronic pain syndrome Complete atelectasis of left lung Constipation COPD (chronic obstructive pulmonary disease) Diverticulitis Dysphagia [place] Fusion of spine GERD (gastroesophageal reflux disease) Glaucoma HTN (hypertension) Hyperlipemia Hypertensive cardiovascular disease Hypoxia Ileus Osteoporosis Postmenopausal atrophic vaginitis PTSD (post-traumatic stress disorder) Retroperitoneal air Schizoaffective disorder Schizoaffective disorder Tobacco abuse Type 2 diabetes mellitus Surgical History H/O exploratory laparotomy (08/10/22) Presence of right artificial hip joint Presence of right artificial knee joint Family History Other Borderline personality disorder Social History Household Members: Other Housing: Senior Living Do you presently have visiting nurse or other home services: No Alcohol intake: unknown Patient Tobacco Use Status: Former Tobacco user Advance Directives Date on File: 02/08/21 service: No Review of Systems Const All systems reviewed & are unremarkable except as noted in HPI and below ENT Reports Normal hearing present Neuro Reports Normal hearing present, Denies Abnormal speech present and Denies Sensory deficit (Neuro) Psych Reports as per HPI Physical Exam Vital Signs: Last Vital Signs Pulse 87 10/07/22 13:43 Resp 16 10/07/22 13:43 BP 130/80 10/07/22 13:43 Pulse Ox 95 10/07/22 13:43 Oxygen Delivery Method Room Air 10/07/22 13:43 BMI result Body Mass Index 40.3 Const General: no acute distress Nutritional Appearance: obese morbidly obese Orientation/consciousness: patient oriented x3 Eyes General: appearance normal, both eyes and all related structures Pupils: Equal, round and reactive pupils present EOM: EOMs intact bilaterally Neck Neck: Yes full ROM Chest Chest palpation & inspection: normal inspection of the chest Resp Effort & Inspection: normal respiratory effort, able to speak in complete sentences, normal respiratory pattern, no audible wheezes and no cough Cardio Jugular venous distension: no JVD GI Inspection: Yes normal to inspection Neuro General: patient oriented x3 and gait normal Cranial nerves: Yes CN's II-XII intact bilaterally, Yes Equal, round and reactive pupils present, Yes Normal hearing present and Yes Ability to bilaterally elevate shoulders present Speech: No Abnormal speech present Gait exam (Neuro): Normal gait present Motor exam (neuro): 5/5 motor strength present throughout Sensory Exam: No Sensory deficit (Neuro) Extrem General: No pedal edema Psych Speech and movement: Normal speech and movement present Affect: Animated affect present Attitude: cooperative Thought process: Normal thought process present Thought content: Normal thought content present, suicidality and no homicidality Insight: Fair insight present (Psych) Judgement: Fair judgement present (Psych) Results Reviewed Results Reviewed: MRI lumbar spine 01/14/2017 comparison 08/23/2016 Findings the lumbar vertebra are normal in height and alignment. Multilevel degenerative disc disease. Anterior posterior fusion at L4-5. There is marrow signal abnormality in the inferior endplate of L3 and superior endplate of L4 which appears new compared to the prior exam. L1-L2 no significant disc bulge or herniation facets normal no significant foraminal narrowing. L2-L3 there is degenerative disc disease with mild broad-based central disc bulge. Moderate bilateral facet hypertrophy and thickening of the ligamentum flavum. Mild central canal stenosis. No significant neural foraminal stenosis. L3-L4: Deep severe degenerative disc disease with moderate size posterior disc herniation. Severe bilateral facet arthropathy and thickening of ligamentum flavum, resulting in moderate central canal stenosis. There has been a right hemilaminectomy. There is herniation of disc material into the bilateral lateral recesses resulting in severe bilateral neural foraminal stenosis. L4-5 there is degenerative disc disease but no significant disc bulge or herniation there is several bilateral facet arthropathy but no significant thickening of the ligamentum flavum or central canal stenosis there is mild bilateral neural foraminal stenosis. L5-S1 there is no significant disc bulge or herniation. The facets appear normal. There is no significant foraminal narrowing. The visualized paraspinal soft tissues appear normal. Assessment & Plan Assessment & Plan (1) Schizoaffective disorder: Code(s): F25.9 - Schizoaffective disorder, unspecified (2) PTSD (post-traumatic stress disorder): Code(s): F43.10 - Post-traumatic stress disorder, unspecified (3) Postlaminectomy syndrome: Code(s): M96.1 - Postlaminectomy syndrome, not elsewhere classified (4) Morbid obesity: Code(s): E66.01 - Morbid (severe) obesity due to excess calories (5) Chronic pain syndrome: Code(s): G89.4 - Chronic pain syndrome (6) Borderline personality disorder: Code(s): F60.3 - Borderline personality disorder (7) Vertebrogenic low back pain: Code(s): M54.51 - Vertebrogenic low back pain Plan Received information from [facility] and it is as above. She suffers from postlaminectomy syndrome. She also possibly experiences vertebra genic pain from L3-L4 level as it is dictated as above. Her last MRI was in 2017. It was more than 5 years ago. We probably should send her for x- ray of the lumbar spine and MRI of the lumbar spine as the diagnostic procedures. As of possibility of treating her conditions with neuromodulation most likely the patient has very limited ability to pass through psychological evaluation due to borderline personality disorder schizoaffective personality disorder as well of posttraumatic stress disorder. We will try to schedule her for psychological evaluation in the office because she is [facility] residence and has no access to the computer in her [facility]. Another obstacle exist for her to go for neuromodulation is history of MRSA colonization. We would need to perform 3 media cultures before considering her a candidate for neuromodulation. Coding Level of Care Code Est Pt Level 4 (63936) Diagnoses Schizoaffective disorder F25.9 PTSD (post-traumatic stress disorder) F43.10 Postlaminectomy syndrome M96.1 Morbid obesity E66.01 Chronic pain syndrome G89.4 Borderline personality disorder F60.3 Vertebrogenic low back pain M54.51
[2022-10-07 13:43] VITALS: BP 130/80; PULSE 87; RESP 16; O2SAT 95; BMI 40.3
== END 2022-10-07 14:13 | disposition home or self-care (01) ==
PROVIDERS: PCP Emergency Medicine; Visit Provider Anesthesiology
DX: G89.4 Chronic pain syndrome (principal); M96.1 Postlaminectomy syndrome, not elsewhere classified; M54.51 Vertebrogenic low back pain; E66.01 Morbid (severe) obesity due to excess calories; F43.10 Post-traumatic stress disorder, unspecified; F25.9 Schizoaffective disorder, unspecified; F60.3 Borderline personality disorder
CPT/HCPCS: 99214

== ENCOUNTER → 2022-10-07 13:22 | Outpatient (BNVA) | payer MEDICARE, MEDICAID, SELFPAY | PROVIDERS: PCP Emergency Medicine; Visit Provider Anesthesiology | DX: M96.1 Postlaminectomy syndrome, not elsewhere classified (principal); G89.4 Chronic pain syndrome; M54.51 Vertebrogenic low back pain; F25.9 Schizoaffective disorder, unspecified; F43.10 Post-traumatic stress disorder, unspecified; E66.01 Morbid (severe) obesity due to excess calories; F60.3 Borderline personality disorder | CPT/HCPCS: 99212 ==

== ENCOUNTER 2023-04-02 15:24 | Emergency (ER) | payer MEDICARE, MEDICAID, SELFPAY ==
--- NOTE | ~2023-04-02 | XR_ITS ---
EXAMINATION: XR CHEST CLINICAL INFORMATION: Cough. COMPARISON: Chest radiograph 08/13/2022. TECHNIQUE: AP view of the chest was obtained. FINDINGS: Patient's rotation and low lung volumes limiting evaluation. Mild parahilar and bibasilar reticular opacities. No consolidation, pleural effusion or pneumothorax. Normal heart size. Mild atherosclerotic disease of the thoracic aorta. Severe arthrosis of the acromioclavicular joints. No acute osseous findings. XR/XR chest 1V IMPRESSION: Findings are suggestive of small airways disease versus atypical/viral infection without focal consolidation or pleural effusion.
[2023-04-02 15:30] VITALS: BP 126/72; BP 150/79; PULSE 92; RESP 18; TEMP 36.9; O2SAT 92; O2SAT 95; BMI 59.3
--- NOTE | 2023-04-02 16:05 | ED.GENADULT ---
HPI - General Adult General Chief complaint: Upper Respiratory Symptoms Stated complaint: FATIGUE , cough Time Seen by Provider: 04/02/23 16:00 Source: patient Mode of arrival: EMS Limitations: no limitations History of Present Illness HPI narrative: Patient with history of COPD on oxygen at nighttime comes from retirement for persistent cough since she had COVID had RSV 4 weeks for last few days patient has been coughing started on prednisone 20 mg daily 2 days ago patient feels weak has chills no fever cough is mostly dry occasional mucoid phlegm, denied any chest pain or palpitation Related Data Home Medications Medication Instructions Recorded Confirmed acetaminophen 500 mg tablet 1,000 mg PO BID 02/08/21 10/03/22 amlodipine 5 mg tablet 1 tab PO DAILY 02/08/21 10/03/22 diazepam 5 mg tablet 5 mg PO BID 02/08/21 10/03/22 duloxetine 60 mg capsule,delayed 60 mg PO BEDTIME 02/08/21 08/23/22 release montelukast 10 mg tablet 1 tab PO BEDTIME 02/08/21 10/03/22 omeprazole 40 mg capsule,delayed 40 mg PO DAILY@0630 02/08/21 08/23/22 release pregabalin 300 mg capsule 1 cap PO BEDTIME 02/08/21 10/03/22 quetiapine 100 mg tablet 100 mg PO BEDTIME 02/08/21 10/03/22 albuterol sulfate 90 mcg/actuation 2 puff inhalation Q4H PRN 01/04/22 10/03/22 aerosol inhaler (Proventil HFA) Shortness Of Breath aluminum-mag hydroxide-simethicone 10 ml PO Q6H PRN Indigestion 01/04/22 08/10/22 200 mg-200 mg-20 mg/5 mL oral susp atomoxetine 25 mg capsule 75 mg PO DAILY 01/04/22 08/23/22 cholecalciferol (vitamin D3) 1,250 1,250 mcg PO QMONTH 01/04/22 10/03/22 mcg (50,000 unit) capsule famotidine 20 mg tablet 1 tab PO DAILY PRN Acid Reflux 01/04/22 10/03/22 guaifenesin 100 mg/5 mL oral liquid 300 mg PO Q6H PRN Cough 01/04/22 10/03/22 loperamide 2 mg capsule 2 mg PO BID PRN Loose Stool 01/04/22 08/10/22 magnesium citrate 150 ml PO Q4H PRN Constipation 01/04/22 10/03/22 magnesium hydroxide 400 mg/5 mL 30 ml PO DAILY PRN Constipation 01/04/22 10/03/22 oral suspension (Milk of Magnesia) nicotine (polacrilex) 2 mg buccal 2 mg buccal TID PRN Nicotine 01/04/22 10/03/22 lozenge Cravings pregabalin 200 mg capsule 200 mg PO DAILY@0900 01/04/22 10/03/22 zonisamide 100 mg capsule 1 cap PO DAILY 01/04/22 10/03/22 clozapine 50 mg tablet 150 mg PO BEDTIME 08/10/22 10/03/22 cyclobenzaprine 5 mg tablet 5 mg PO TID PRN Muscle Spasm 08/10/22 10/03/22 diclofenac sodium 1 % topical gel 2 g topical DAILY PRN discomfort 08/10/22 08/10/22 (Voltaren Arthritis Pain) duloxetine 30 mg capsule,delayed 30 mg PO DAILY 08/10/22 10/03/22 release fluticasone 500 mcg-salmeterol 50 1 inh inhalation BID 08/10/22 10/03/22 mcg/dose blistr powdr for inhalation (Wixela Inhub) lamotrigine 200 mg tablet 200 mg PO DAILY 08/10/22 10/03/22 meclizine 25 mg tablet 25 mg PO TID PRN Vertigo 08/10/22 10/03/22 naloxone 0.4 mg/mL injection 0.4 mg subcut Q5M PRN Opioid 08/10/22 10/03/22 solution Overdose naloxone 4 mg/actuation nasal 4 mg intranasal Q5M PRN Opioid 08/10/22 10/03/22 spray (Narcan) Overdose polyethylene glycol 3350 17 gram 17 g PO BEDTIME 08/10/22 10/03/22 oral powder packet (Miralax) quetiapine 50 mg tablet 50 mg PO BEDTIME 08/10/22 10/03/22 sodium phosphates 19 gram-7 118 ml DC DAILY PRN Constipation 08/10/22 10/03/22 gram/118 mL enema (Fleet Enema) atomoxetine 25 mg capsule 50 mg PO DAILY 10/03/22 10/03/22 Previous Rx's Medication Instructions Recorded docusate sodium 100 mg capsule 100 mg PO BID #60 caps 08/14/22 (Colace) prednisone 20 mg tablet 40 mg (2 x 20 mg) PO DAILY #8 tabs 08/15/22 prednisone 20 mg tablet 40 mg (2 x 20 mg) PO DAILY #10 tabs 04/02/23 Allergies Allergy/AdvReac Type Severity Reaction Status Date / Time Mycobacterium Tuberculosis Allergy Unknown Unknown Verified 04/02/23 15:53 (Tubercu chlorpromazine Allergy Unknown Verified 04/02/23 15:53 [From Thorazine] haloperidol [From Haldol] Allergy Unknown Verified 04/02/23 15:53 imipramine Allergy Unknown Verified 04/02/23 15:53 ketorolac Allergy Unknown Verified 04/02/23 15:53 Penicillins Allergy Unknown Verified 04/02/23 15:53 promethazine Allergy Unknown Verified 04/02/23 15:53 Review of Systems Review of Systems: Yes all other systems are reviewed and are negative [facility] Past Medical History Medical History Hypoxia Retroperitoneal air Abdominal pain Complete atelectasis of left lung Schizoaffective disorder Type 2 diabetes mellitus Hypertensive cardiovascular disease Chronic pain syndrome Glaucoma Fusion of spine GERD (gastroesophageal reflux disease) Osteoporosis Cataract Postmenopausal atrophic vaginitis Borderline personality disorder Tobacco abuse Diverticulitis Constipation Ileus Acute respiratory failure with hypoxia Anemia Falls Hyperlipemia HTN (hypertension) Dysphagia PTSD (post-traumatic stress disorder) Asthma COPD (chronic obstructive pulmonary disease) Schizoaffective disorder Cardiopulmonary arrest with successful resuscitation Aspiration pneumonia Acute respiratory failure Cardiac arrest Surgical History H/O exploratory laparotomy (08/10/22) Presence of right artificial knee joint Presence of right artificial hip joint Family History Family History Other Borderline personality disorder Social History Social History Household Members: Other Housing: Longterm Do you presently have visiting nurse or other home services: No Alcohol intake: unknown Comment: 1:1 sitter Patient Tobacco Use Status: Former Tobacco user Smoked in Last 30 Days: Yes Use of substances other than those prescribed or required for medical reasons: No Advance Directives: Yes Advance Directives on File: Yes Advance Directives Date on File: 02/08/21 Patient : No service: No Physical Exam ED Vital Signs: Vital Signs - 24 hr 04/02/23 15:30 04/02/23 17:04 04/02/23 17:55 Temperature 98.4 F 98.6 F Pulse Rate 92 86 85 Respiratory Rate 18 11 L 17 Blood Pressure 150/79 H 163/83 H Pulse Oximetry 92 96 Oxygen Delivery Method Room Air Room Air 04/02/23 18:41 Temperature Pulse Rate Respiratory Rate Blood Pressure Pulse Oximetry 96 Oxygen Delivery Method Room Air BMI result Body Mass Index 59.3 Appearance: Alert. Oriented X3. No acute distress. Eyes: No pallor or icterus ENT: Pharynx normal. Oral Mucosa moist Neck: Normal inspection. Neck supple. CVS: Normal heart rate and rhythm. Pulses normal. Respiratory: No respiratory distress. Equal air entry bilateral, bilateral wheezing occasional crackles Abdomen: Soft and nontender. Bowel sounds are present, no mass palpable, no CVA tenderness Skin: Skin warm and dry. Normal skin color. Normal skin turgor. Extremities: No lower extremity edema. No calf tenderness Neuro: Oriented X 3. No motor deficit. Medications Administered Discontinued Medications Generic Name Dose Route Start Last Admin Trade Name Freq PRN Reason Stop Dose Admin Albuterol Sulfate 2.5 mg/ 0 mg 04/02/23 16:36 04/02/23 17:02 Albuterol/Ipratropium 3 ml INHALE 04/02/23 16:37 1 dose ONCE ONE Administration Dexamethasone 10 mg 04/02/23 17:18 04/02/23 17:46 Dexamethasone 2 Mg Tablet PO 04/02/23 17:19 10 mg ONCE ONE Administration Guaifenesin/Codeine Phosphate 10 ml 04/02/23 17:18 04/02/23 17:46 Guaifen/Codeine Sf 200/20/10ml 10 Ml Liquid PO 04/02/23 17:19 10 ml ONCE ONE Administration Medical Decision Making Medical Decision Making [facility] Narrative: Patient has chronic lung disease with recent COVID and RSV vitals are stable labs are stable start back to retirement on prednisone advised to continue nebulizing treatment Differential Diagnosis Differential Diagnoses: The differential diagnosis associated with the presentation includes Pneumonia COPD/pneumonitis/atypical viral infection Lab Data [facility] Lab Attestation statement: I reviewed the patient's lab results. 04/02/23 19:39 04/02/23 19:40 Labs: Lab Results 04/02/23 04/02/23 04/02/23 Range/Units 16:24 17:02 19:39 WBC 6.6 (4.8-10.8) X10*3/uL RBC 4.20 (4.20-5.50) X10*6/uL Hgb 12.1 (12.0-16.0) g/dl Hct 39.5 (37.0-47.0) % MCV 94.0 (80.0-98.0) fL MCH 28.8 (27.0-33.0) pg MCHC 30.6 L (31.0-35.0) g/dl RDW 16.0 (11.0-16.0) % Plt Count 224 D (160-400) X10*3/uL MPV 10.2 (9.4-12.3) fL Immature Gran % (Auto) 0.6 H (0.0-0.4) % Neut % (Auto) 81.9 H (45-73) % Lymph % (Auto) 14.7 L (20-40) % [place] % (Auto) 2.3 (2-11) % Eos % (Auto) 0.2 (0-4) % Baso % (Auto) 0.3 (0-2) % Lymph # (Auto) 1.0 L (1.2-4.9) X10*3/uL [place] # (Auto) 0.2 (0.1-1.2) X10*3/uL Eos # (Auto) 0.0 (0.0-0.4) X10*3/uL Baso # (Auto) 0.0 (0.0-0.2) X10*3/uL Abs Immat Gran (auto) 0.04 H (0.00-0.03) X10*3/uL Absolute Neuts (auto) 5.4 (2.0-8.3) x10*3/uL Absolute Nucleated RBC 0.000 (0.0-0.012) X10*3/uL Nucleated RBC % (auto) 0.0 (0.0-0.2) /100WBC Smear Tech's Comments VERIFIED Sodium (135-145) mmol/L Potassium (3.3-5.1) mmol/L Chloride (96-108) mmol/L Carbon Dioxide (22-29) mmol/L Anion Gap (12-20) BUN (9-16) mg/dL Creatinine (0.5-1.4) mg/dL Estim Creat Clear Calc Estimated GFR Random Glucose (60-115) mg/dL Calcium (8.4-10.2) mg/dL Total Bilirubin (0.0-1.0) mg/dL AST (5-31) U/L ALT (0-31) U/L Alkaline Phosphatase (39-117) U/L Total Protein (6.5-8.0) g/dL Albumin (3.5-5.0) g/dL Urine Color Yellow Urine Appearance Clear Urine pH 7.5 (5.0-9.0) Ur Specific [place] <= 1.005 (1.005-1.025) Urine Protein Negative (Neg-Trace) mg/dL Urine Glucose (UA) Negative (Negative) mg/dL Urine Ketones Negative (Negative) mg/dL Urine Blood Negative (Negative) Urine Nitrite Negative (Negative) Ur Leukocyte Esterase Negative (Negative) Influenza Type A (PCR) NEGATIVE (Negative) Influenza Type B (PCR) NEGATIVE (Negative) RSV RNA Qual (PCR) NEGATIVE (Negative) SARS-CoV-2 RNA (RT-PCR) NEGATIVE (Negative) 04/02/23 Range/Units 19:40 WBC (4.8-10.8) X10*3/uL RBC (4.20-5.50) X10*6/uL Hgb (12.0-16.0) g/dl Hct (37.0-47.0) % MCV (80.0-98.0) fL MCH (27.0-33.0) pg MCHC (31.0-35.0) g/dl RDW (11.0-16.0) % Plt Count (160-400) X10*3/uL MPV (9.4-12.3) fL Immature Gran % (Auto) (0.0-0.4) % Neut % (Auto) (45-73) % Lymph % (Auto) (20-40) % [place] % (Auto) (2-11) % Eos % (Auto) (0-4) % Baso % (Auto) (0-2) % Lymph # (Auto) (1.2-4.9) X10*3/uL [place] # (Auto) (0.1-1.2) X10*3/uL Eos # (Auto) (0.0-0.4) X10*3/uL Baso # (Auto) (0.0-0.2) X10*3/uL Abs Immat Gran (auto) (0.00-0.03) X10*3/uL Absolute Neuts (auto) (2.0-8.3) x10*3/uL Absolute Nucleated RBC (0.0-0.012) X10*3/uL Nucleated RBC % (auto) (0.0-0.2) /100WBC Smear Tech's Comments Sodium 145 (135-145) mmol/L Potassium 4.2 (3.3-5.1) mmol/L Chloride 109 H (96-108) mmol/L Carbon Dioxide 26 (22-29) mmol/L Anion Gap 14 (12-20) BUN 13 (9-16) mg/dL Creatinine 0.82 (0.5-1.4) mg/dL Estim Creat Clear Calc 114.8 Estimated GFR > 60 Random Glucose 140 H (60-115) mg/dL Calcium 9.6 D (8.4-10.2) mg/dL Total Bilirubin 0.2 (0.0-1.0) mg/dL AST 13 (5-31) U/L ALT 12 (0-31) U/L Alkaline Phosphatase 74 (39-117) U/L Total Protein 7.4 (6.5-8.0) g/dL Albumin 4.1 (3.5-5.0) g/dL Urine Color Urine Appearance Urine pH (5.0-9.0) Ur Specific [place] (1.005-1.025) Urine Protein (Neg-Trace) mg/dL Urine Glucose (UA) (Negative) mg/dL Urine Ketones (Negative) mg/dL Urine Blood (Negative) Urine Nitrite (Negative) Ur Leukocyte Esterase (Negative) Influenza Type A (PCR) (Negative) Influenza Type B (PCR) (Negative) RSV RNA Qual (PCR) (Negative) SARS-CoV-2 RNA (RT-PCR) (Negative) Discharge Plan Discharge Clinical Impression: Chronic obstructive pulmonary disease (COPD) Patient Disposition: Xfer SNF Transfer Details: Patient's labs and x-ray are negative for acute, COVID, RSV and influenza negative continue nebulizing treatment and course of prednisone as prescribed, your bilirubin is normal Instructions: COPD (Chronic Obstructive Pulmonary Disease) (ED) Additional Instructions: Continue nebulizing treatment Prednisone as prescribed Follow with PCP Prescriptions: New prednisone 20 mg tablet 40 mg PO DAILY Qty: 10 0RF No Action amlodipine 5 mg tablet 1 tab PO DAILY omeprazole 40 mg capsule,delayed release(DR/EC) 40 mg PO DAILY@0630 quetiapine 100 mg tablet 100 mg PO BEDTIME Rx Instructions: take with 50mg for total dose 150mg acetaminophen 500 mg Tablet 1,000 mg PO BID montelukast 10 mg tablet 1 tab PO BEDTIME diazepam 5 mg tablet 5 mg PO BID duloxetine 60 mg capsule,delayed release(DR/EC) 60 mg PO BEDTIME pregabalin 300 mg capsule 1 cap PO BEDTIME magnesium hydroxide [Milk of Magnesia] 400 mg/5 mL Suspension 30 ml PO DAILY PRN (Reason: Constipation) Rx Instructions: D/C if on dialysis magnesium citrate Solution 150 ml PO Q4H PRN (Reason: Constipation) atomoxetine 25 mg Capsule 75 mg PO DAILY nicotine (polacrilex) 2 mg Lozenge 2 mg BUCCAL TID PRN (Reason: Nicotine Cravings) pregabalin 200 mg Capsule 200 mg PO DAILY@0900 loperamide 2 mg Capsule 2 mg PO BID PRN (Reason: Loose Stool) Rx Instructions: administer after each loose stool until symptoms controlled; do not exceed 8 mg per 24 hrs guaifenesin 100 mg/5 mL Liquid 300 mg PO Q6H PRN (Reason: Cough) zonisamide 100 mg capsule 1 cap PO DAILY famotidine 20 mg tablet 1 tab PO DAILY PRN (Reason: Acid Reflux) alum-mag hydroxide-simeth 200-200-20 mg/5 mL Suspension 10 ml PO Q6H PRN (Reason: Indigestion) albuterol sulfate [Proventil HFA] 90 mcg/actuation Hfa Aerosol Inhaler 2 puff INHALATION Q4H PRN (Reason: Shortness Of Breath) cholecalciferol (vitamin D3) 1,250 mcg (50,000 unit) Capsule 1,250 mcg PO QMONTH Rx Instructions: takes on the 3rd of each month lamotrigine 200 mg Tablet 200 mg PO DAILY polyethylene glycol 3350 [Miralax] 17 gram Powder In Packet 17 g PO BEDTIME Rx Instructions: mix with 4-oz of fluid of choice naloxone 0.4 mg/mL Solution 0.4 mg SUBCUT Q5M PRN (Reason: Opioid Overdose) Rx Instructions: NTExceed 10 mg total dose/episode meclizine 25 mg Tablet 25 mg PO TID PRN (Reason: Vertigo) fluticasone propion-salmeterol [Wixela Inhub] 500-50 mcg/dose Blister With Device 1 inh INHALATION BID Fleet Enema 19-7 gram/118 mL Enema 118 ml DC DAILY PRN (Reason: Constipation) cyclobenzaprine 5 mg Tablet 5 mg PO TID PRN (Reason: Muscle Spasm) duloxetine 30 mg Capsule,Delayed Release(Dr/Ec) 30 mg PO DAILY clozapine 50 mg tablet 150 mg PO BEDTIME quetiapine 50 mg Tablet 50 mg PO BEDTIME Rx Instructions: take with 100mg for total dose 150mg diclofenac sodium [Voltaren Arthritis Pain] 1 % Gel 2 g TOPICAL DAILY PRN (Reason: discomfort) Rx Instructions: apply to affected areas of discomfort naloxone [Narcan] 4 mg/actuation [place],Non-Aerosol 4 mg INTRANASAL Q5M PRN (Reason: Opioid Overdose) Rx Instructions: spray 1 dose into ONE nostril; alternate nostrils w each dose until help arrives docusate sodium [Colace] 100 mg capsule 100 mg PO BID Qty: 60 4RF prednisone 20 mg tablet 40 mg PO DAILY Qty: 8 0RF atomoxetine 25 mg capsule 50 mg PO DAILY
[2023-04-02] MEDS: Albuterol Sulfate 2.5 MG, Albuterol/Iprat 2.5/0.5MG 3 ML 3 ML INHALE (17:02)
[2023-04-02 17:04] VITALS: PULSE 86; RESP 11; O2SAT 91
[2023-04-02 17:14] LABS: Appearance Urine Clear; Color Urine Yellow; Glucose Urine UA Negative (Negative); Leukocyte Esterase Urine Negative (Negative); Nitrite Urine Negative (Negative); PH 7.5 (5.0-9.0); Specific Gravity - Urine <= 1.005 (1.005-1.025); Urine Blood Negative (Negative); Urine Ketones Negative (Negative); Urine Protein Negative (Neg-Trace)
[2023-04-02 17:16] LABS: Influenza A PCR NEGATIVE (Negative); Influenza B PCR NEGATIVE (Negative); Resp Syncy Virus RNA Qual PCR NEGATIVE (Negative); SARS COV2 PCR INHOUSE NEGATIVE (Negative)
[2023-04-02] MEDS: guaiFEN/Codeine SF 200/20/10ML 10 ML LIQUID PO (17:46)
[2023-04-02] MEDS: dexAMETHasone 2 MG TABLET 10 MG PO (17:46)
--- NOTE | 2023-04-02 17:54 | PC.NURSE ---
MEDS GIVEN DOCUMENTED.
[2023-04-02 17:55] VITALS: BP 163/83; PULSE 85; RESP 17; TEMP 37; O2SAT 96
[2023-04-02 18:41] VITALS: O2SAT 96
--- NOTE | 2023-04-02 18:44 | PC.NURSE ---
PT DIFFICULT STICK. 3 ATTEMPTS MADE TO GET LABS. PHLEBOTOMY WAS CALLED AND WILL COME WHEN THEY GET A CHANCE.
[2023-04-02 19:54] LABS: Basophils Percent Auto 0.3 % (0-2); Eosinophils Percent Auto 0.2 % (0-4); Hematocrit 39.5 % (37.0-47.0); Hemoglobin 12.1 g/dl (12.0-16.0); Imm Gran Abs Auto 0.04 X10*3/uL (0.00-0.03); Imm Gran Pct Auto 0.6 % (0.0-0.4); Lymphocytes Percent Auto 14.7 % (20-40); MANUAL DIFF FLAG SCAN; Mean Corpuscular HGB Conc 30.6 g/dl (31.0-35.0); Mean Corpuscular Hemoglobin 28.8 pg (27.0-33.0); Mean Platelet Volume 10.2 fL (9.4-12.3); Monocytes Absolute Auto 0.2 X10*3/uL (0.1-1.2); Monocytes Percent Auto 2.3 % (2-11); Neutrophils Absolute Auto 5.4 x10*3/uL (2.0-8.3); Neutrophils Percent Auto 81.9 % (45-73); PLT CLUMP 1; SCAN SMEAR FLAG 1
[2023-04-02 20:07] LABS: Alanine Aminotransferase 12 U/L (0-31); Albumin Level 4.1 g/dL (3.5-5.0); Alkaline Phosphatase 74 U/L (39-117); Anion Gap 14 (12-20); Aspartate Amino Transferase 13 U/L (5-31); Bilirubin Total 0.2 mg/dL (0.0-1.0); Blood Urea Nitrogen 13 mg/dL (9-16); Calcium 9.6 mg/dL (8.4-10.2); Carbon Dioxide 26 mmol/L (22-29); Chloride 109 mmol/L (96-108); Creatinine Clr Calc Pharmacy 114.8; Estimated Glomerular Filt Rate > 60; Glucose Random 140 mg/dL (60-115); Potassium 4.2 mmol/L (3.3-5.1); Sodium 145 mmol/L (135-145); Total Protein 7.4 g/dL (6.5-8.0)
[2023-04-02 20:12] LABS: Platelet Count 224 X10*3/uL (160-400); SLIDE REVIEW VERIFIED; White Blood Count 6.6 X10*3/uL (4.8-10.8)
== END 2023-04-02 21:45 | disposition skilled nursing facility (03) ==
PROVIDERS: Emergency Provider Internal Medicine
DX: J44.9 Chronic obstructive pulmonary disease, unspecified (principal); Z11.52 Encounter for screening for COVID-19; Z20.828 Contact with and (suspected) exposure to other viral communicable diseases; E11.9 Type 2 diabetes mellitus without complications; I10 Essential (primary) hypertension; E78.5 Hyperlipidemia, unspecified; Z87.891 Personal history of nicotine dependence; Z79.899 Other long term (current) drug therapy
CPT/HCPCS: 0241U; 36415; 71045; 80053; 81003; 85025; 94640; 99284; 99285; J8540